=== PATIENT | female | born 1940 | race Caucasian/White ===

== ENCOUNTER 2019-12-25 19:22 | Inpatient (IN) | payer MEDICARE, SELFPAY ==
--- NOTE | 2019-12-25 19:31 | ECG_ITS ---
Test Reason : SEPTIC Blood Pressure : / mmHG Vent. Rate : 085 BPM Atrial Rate : 085 BPM P-R Int : 176 ms QRS Dur : 084 ms QT Int : 358 ms P-R-T Axes : 016 050 019 degrees QTc Int : 426 ms Normal sinus rhythm Voltage criteria for left ventricular hypertrophy Abnormal ECG When compared with ECG of 16-AUG-2018 10:40, Left ventricular hypertrophy is new Referred By: Stephanie Manuel Electronically Signed By:PALLAVI STEPHENS MD
--- NOTE | 2019-12-25 19:32 | US_ITS ---
EXAMINATION: US VENOUS DUPLEX LOWER EXTREMITY, RIGHT CLINICAL INFORMATION: Right leg swelling. COMPARISON: Prior ultrasound from 09/27/2019. Pelvis CT from 09/04/2018. TECHNIQUE: Grayscale imaging of the right lower extremity veins was performed, with and without compression, along with color Doppler and spectral Doppler interrogation. FINDINGS: The right common femoral vein is compressible and exhibits a normal phasic waveform; this suggests that the iliac veins are widely patent above. Right Within the proximal thigh, the visualized profunda femoris vein is normal. The examined greater saphenous vein and saphenofemoral junction are normal. Superficial femoral vein is patent in the proximal, mid and distal thigh. Popliteal vein is normal to the level of the trifurcation. On compression moreno scale and color Doppler images, the visualized calf veins are grossly patent. No evidence of Sidhu's cyst. In the right inguinal region, again noted is a prominent lymph node with fatty hilum. This lymph node is currently 1.2 cm in short axis dimension, compared to 1 cm on 09/04/2018. IMPRESSION: * No evidence of deep vein thrombosis in the right lower extremity. * A borderline enlarged right inguinal lymph node with fatty hilum is likely a reactive lymph node. There are no suspicious appearing lymph nodes.
[2019-12-25 19:33] VITALS: BP 127/82; BP 128/72; PULSE 90; PULSE 92; RESP 18; TEMP 37.2; O2SAT 100; O2SAT 98; BMI 19.3
--- NOTE | 2019-12-25 19:39 | PC.NURSE ---
LLE is red, open, weeping clear fluids. tender to touch but painless w/o touch. toes are swollen. reddness is throughout foot and up to lambert.
--- NOTE | 2019-12-25 19:49 | ED_ITS ---
HPI - Wound/Laceration General Chief Complaint: Extremity Injury, Lower Stated Complaint: ABCESS Time Seen by Provider: 12/25/19 19:31 Source: patient Mode of arrival: EMS Limitations: physical limitation History of Present Illness HPI narrative: 79-year-old female presents the emergency department because of swelling to the right lower extremity. She states the swelling has been chronic but the smell and the drainage from her foot is new. She has been putting plastic bags on her foot to control the weeping, and states that the smell is unbearable. She has not been able to ambulate around her house very much because of the drainage, she has not been able to eat or drink because she is not moving around. She did not describe any chest pain or pressure, palpitations, shortness of breath, abdominal pain, abdominal distention, dysuria, hematuria, fevers or chills. Onset (ago): day(s) ( Several) Extremity Location: right: lower leg Place: home Patient tetanus UTD: No Treatments prior to arrival: bandage Related Data Home Medications Medication Instructions Recorded Confirmed amlodipine 5 mg PO DAILY 12/25/19 12/25/19 ezetimibe-simvastatin [Vytorin 0.25 tab PO DAILY 12/25/19 12/25/19 10-10] lisinopril 40 mg PO DAILY 12/25/19 12/25/19 quetiapine [Seroquel] 50 mg PO BEDTIME 12/25/19 12/25/19 Allergies Allergy/AdvReac Type Severity Reaction Status Date / Time fentanyl [FENTANYL] Allergy Severe CARDIAC Verified 12/25/19 23:51 ARREST, heart stopped, anaphylaxis adhesive tape [ADHESIVE TAPE] Allergy Intermediate BLISTERS Verified 12/25/19 23:51 nickel Allergy Unknown Rash Uncoded 12/25/19 19:31 paper tape Allergy Unknown Rash Uncoded 12/25/19 19:31 Review of Systems Review of Systems: Constitutional: No Weight loss, No Fever, No Chills, No Night Sweats, No Fatigue, No Malaise ENT/Mouth: No Hearing loss, No Ear Pain, No Nasal Congestion, No Sinus Pain, No Hoarseness, No sore throat, No Rhinorrhea, No Swallowing Difficulty Eyes: No Eye Pain, No Swelling, No Redness, No Foreign Body, No Discharge, No Vision Changes Cardiovascular: No Chest Pain, No SOB, No Dyspnea on Exertion, No Orthopnea, No Edema, No Palpitations Respiratory: No Cough, No Sputum, No Wheezing, No Smoke Exposure, No Dyspnea Gastrointestinal: No Nausea, No Vomiting, No Diarrhea, No Constipation, No abdominal Pain, No Hematochezia, No Melena Genitourinary: no irregular bleeding, No Dysuria, No Urinary Frequency, No Hematuria, No Urinary Incontinence, No Urgency, No Flank Pain, No Urinary Flow Changes, No Hesitancy Musculoskeletal: No joint pain, No Myalgias, No Joint Swelling Skin: positive redness and open wound to the right lower leg Neuro: No Weakness, No Numbness, No Paresthesias, No Loss of Consciousness, No Dizziness, No Headache Psych: No Anxiety/Panic, No Depression, No SI/HI/AH/VH, No Social Issues, Heme/Lymph: No Bruising, No Bleeding,No Lymphadenopathy Endocrine: No Polyuria, No Polydipsia, No Temperature Intolerance PMFSH Past Medical History Attestation statement: The following information was validated with the patient. Medical History High cholesterol HTN (hypertension) Lymphedema Malignant tumor body uterus Surgical History History of hip replacement Social History Social History Household Members: None Housing: Apartment Do you presently have visiting nurse or other home services: No (pt is requesting to have services at home) Alcohol intake: never Smoking Status: Never smoker Use of substances other than those prescribed or required for medical reasons: No Have you been hit, kicked, punched, or otherwise hurt by someone within the past year? If so, by whom?: No Do you feel safe in your current relationship?: No Current Relationship Is there a partner from a previous relationship who is making you feel unsafe now?: No Are you made to feel afraid or neglected: No [employer] Healthcare Practices: buddhism Advance Directives: No Advance Directives Information Provided: Yes Do you have thoughts of harming others: None Do you have a plan to hurt others: No Plan Recently lost weight without trying: No Physical Exam Vital Signs: Vital Signs: Vital Signs Temp Pulse Resp BP Pulse Ox 12/25/19 23:42 99 16 147/75 H 98 12/25/19 21:25 97.6 F 94 18 128/73 98 12/25/19 20:32 98.9 F 91 16 140/73 H 97 12/25/19 19:33 99.0 F 92 18 127/82 98 Body Mass Index 19.3 Appearance: Alert. Oriented X3. No acute distress. Eyes: Pupils equal, round and reactive to light. ENT: Pharynx normal. Neck: Normal inspection. Neck supple. CVS: Normal heart rate and rhythm. Pulses normal. Respiratory: No respiratory distress. Breath sounds normal. Abdomen: Soft and nontender. Skin: right lower extremity swollen consistent with lymphedema, skin is erythematous with open weeping wounds circumferentially, skin to the other extremity warm and dry. Normal skin color. Normal skin turgor. Extremities: bilateral lower extremity edema, right greater than left Neuro: Oriented X 3. No motor deficit. No sensory deficit. Course Course Course Narrative: 79-year-old female with past medical history of hypertension, hyperlipidemia, and bilateral lower extremity edema presents with open wounds , weeping and increased swelling the right lower extremity. We will rule out DVT, infection, UTI, and ACS. H&H indicates anemia at 10.8/32.2, hyponatremia at 127., repleted with normal saline, BUN of 22 possibly due to dehydration. Urinalysis is negative,. DVT negative. Reevaluation(s) Reevaluation #1: Patient was updated on lab values and need for admission for wound care. Patient verbalized understanding of and agrees to plan of care for admission. Discussion with hospitalist. Time: 22:20 Consultations Consultation #1: Donnie Time: 22:33 MDM - Wound/Laceration MDM Narrative Medical decision making narrative: Cellulitis, lymphedema, DVT, ACS, UTI Differential Diagnosis Differential diagnosis: Likely abscess Medical Records Attestation: I reviewed the patient's medical records. Lab Data Attestation: I reviewed the patient's lab results. Result diagrams: 12/25/19 20:25 12/25/19 20:25 Labs: Lab Results 12/25/19 12/25/19 12/25/19 Range/Units 20:25 20:25 20:25 WBC 6.5 (4.8-10.8) X10*3/uL RBC 3.69 L (4.20-5.50) X10*6/uL Hgb 10.8 L (12.0-16.0) g/dl Hct 32.2 L (37-47) % MCV 87.3 (80-98) fL MCH 29.3 (27.0-33.0) pg MCHC 33.5 (31.0-35.0) g/dl RDW 13.5 (11.0-16.0) % Plt Count 188 (160-400) X10*3/uL MPV 10.3 (9.4-12.3) fL Immature Gran % (Auto) 0.2 (0.0-0.4) % Neut % (Auto) 59.2 (45-73) % Lymph % (Auto) 22.9 (20-40) % [place] % (Auto) 15.3 H (2-11) % Eos % (Auto) 1.9 (0-4) % Baso % (Auto) 0.5 (0-2) % Lymph # (Auto) 1.5 (1.2-4.9) X10*3/uL [place] # (Auto) 1.0 (0.1-1.2) X10*3/uL Eos # (Auto) 0.1 (0.0-0.4) X10*3/uL Baso # (Auto) 0.0 (0.0-0.2) X10*3/uL Abs Immat Gran (auto) 0.01 (0.00-0.03) X10*3/uL Absolute Neuts (auto) 3.8 (2.0-8.3) X10*3/uL Absolute Nucleated RBC 0.000 (0.0-0.012) X10*3/uL Nucleated RBC % (auto) 0.0 (0.0-0.2) /100WBC Smear Tech's Comments VERIFIED Sodium 127 L (135-145) mmol/L Potassium 4.2 (3.3-5.1) mmol/l Chloride 92 L (96-108) mmol/L Carbon Dioxide 25 (22-29) mmol/L Anion Gap 14 (12-20) BUN 22 H (9-16) mg/dL Creatinine 0.74 (0.5-1.4) mg/dL Estim Creat Clear Calc 53.8 Estimated GFR > 60 Random Glucose 96 (60-115) mg/dL Lactic Acid 1.1 (0.5-2.0) mmol/L Calcium 9.0 (8.4-10.2) mg/dL Magnesium 1.9 (1.6-2.6) mg/dL Troponin I High Sens (<3.5-17.0) ng/L B-Natriuretic Peptide (<100) pg/mL Urine Color Urine Appearance Urine pH (5.0-8.0) Ur Specific [place] (1.005-1.025) Urine Protein (NEG-TRACE) MG/DL Urine Glucose (UA) (NEG) MG/DL Urine Ketones (NEG) MG/DL Urine Blood (NEG) Urine Nitrite (NEG) Ur Leukocyte Esterase (NEG) 12/25/19 12/25/19 12/25/19 Range/Units 20:25 20:25 22:12 WBC (4.8-10.8) X10*3/uL RBC (4.20-5.50) X10*6/uL Hgb (12.0-16.0) g/dl Hct (37-47) % MCV (80-98) fL MCH (27.0-33.0) pg MCHC (31.0-35.0) g/dl RDW (11.0-16.0) % Plt Count (160-400) X10*3/uL MPV (9.4-12.3) fL Immature Gran % (Auto) (0.0-0.4) % Neut % (Auto) (45-73) % Lymph % (Auto) (20-40) % [place] % (Auto) (2-11) % Eos % (Auto) (0-4) % Baso % (Auto) (0-2) % Lymph # (Auto) (1.2-4.9) X10*3/uL [place] # (Auto) (0.1-1.2) X10*3/uL Eos # (Auto) (0.0-0.4) X10*3/uL Baso # (Auto) (0.0-0.2) X10*3/uL Abs Immat Gran (auto) (0.00-0.03) X10*3/uL Absolute Neuts (auto) (2.0-8.3) X10*3/uL Absolute Nucleated RBC (0.0-0.012) X10*3/uL Nucleated RBC % (auto) (0.0-0.2) /100WBC Smear Tech's Comments Sodium (135-145) mmol/L Potassium (3.3-5.1) mmol/l Chloride (96-108) mmol/L Carbon Dioxide (22-29) mmol/L Anion Gap (12-20) BUN (9-16) mg/dL Creatinine (0.5-1.4) mg/dL Estim Creat Clear Calc Estimated GFR Random Glucose (60-115) mg/dL Lactic Acid (0.5-2.0) mmol/L Calcium (8.4-10.2) mg/dL Magnesium (1.6-2.6) mg/dL Troponin I High Sens < 3.5 (<3.5-17.0) ng/L B-Natriuretic Peptide 29 (<100) pg/mL Urine Color STRAW Urine Appearance CLEAR Urine pH 7.0 (5.0-8.0) Ur Specific [place] 1.010 (1.005-1.025) Urine Protein NEG (NEG-TRACE) MG/DL Urine Glucose (UA) NEG (NEG) MG/DL Urine Ketones NEG (NEG) MG/DL Urine Blood NEG (NEG) Urine Nitrite NEG (NEG) Ur Leukocyte Esterase NEG (NEG) Imaging Data Venous US: Attestation: I personally reviewed and interpreted this imaging study as follows: Radiologist's impression: COMPARISON: Prior ultrasound from 09/27/2019. Pelvis CT from 09/04/2018. TECHNIQUE: Grayscale imaging of the right lower extremity veins was performed, with and without compression, along with color Doppler and spectral Doppler interrogation. FINDINGS: The right common femoral vein is compressible and exhibits a normal phasic waveform; this suggests that the iliac veins are widely patent above. Right Within the proximal thigh, the visualized profunda femoris vein is normal. The examined greater saphenous vein and saphenofemoral junction are normal. Superficial femoral vein is patent in the proximal, mid and distal thigh. Popliteal vein is normal to the level of the trifurcation. On compression moreno scale and color Doppler images, the visualized calf veins are grossly patent. No evidence of Sidhu's cyst. In the right inguinal region, again noted is a prominent lymph node with fatty hilum. This lymph node is currently 1.2 cm in short axis dimension, compared to 1 cm on 09/04/2018. IMPRESSION: * No evidence of deep vein thrombosis in the right lower extremity. * A borderline enlarged right inguinal lymph node with fatty hilum is likely a reactive lymph node. There are no suspicious appearing lymph nodes. ECG Data Attestation: I personally reviewed and interpreted this ECG as follows: ECG interpretation date: 12/25/19 ECG interpretation time: 19:35 Prior ECG tracings: available for review Interpretation: Vent. Rate : 085 BPM Atrial Rate : 085 BPM P-R Int : 176 ms QRS Dur : 084 ms QT Int : 358 ms P-R-T Axes : 016 050 019 degrees QTc Int : 426 ms Normal sinus rhythm Voltage criteria for left ventricular hypertrophy Abnormal ECG When compared with ECG of 16-AUG-2018 10:40, No significant change was found Critical Care Time Critical Care Time Critical Care Time: Yes Total Critical Care Time: 35 Attestation: I have personally provided critical care time exclusive of time spent on separately billable procedures. Time includes review of laboratory data, radiology results, discussion with consultants, and monitoring for potential decompensation. Interventions were performed as documented. Discharge Plan Discharge Clinical Impression: Hyponatremia Cellulitis Qualifiers: Site of cellulitis: extremity Site of cellulitis of extremity: lower extremity Laterality: right Qualified Code(s): L03.115 - Cellulitis of right lower limb HTN (hypertension) Qualifiers: Hypertension type: essential hypertension Qualified Code(s): I10 - Essential (primary) hypertension Patient Disposition: Admitted As Inpatient Interventions: Admission Worksheet (ED) Last Done: 12/26/19 02:09
[2019-12-25 20:32] VITALS: BP 140/73; PULSE 91; RESP 16; TEMP 37.2; O2SAT 97
[2019-12-25 20:32] LABS: Imm Gran Abs Auto 0.01 X10*3/uL (0.00-0.03); Imm Gran Pct Auto 0.2 % (0.0-0.4); MANUAL DIFF FLAG SCAN; Mean Platelet Volume 10.3 fL (9.4-12.3); Monocytes Percent Auto 15.3 % (2-11); PLT CLUMP 1; Red Cell Distribution Width 13.5 % (11.0-16.0); SCAN SMEAR FLAG 1
[2019-12-25 20:34] LABS: Basophils Percent Auto 0.5 % (0-2); Eosinophils Absolute Auto 0.1 X10*3/uL (0.0-0.4); Eosinophils Percent Auto 1.9 % (0-4); Hematocrit 32.2 % (37-47); Hemoglobin 10.8 g/dl (12.0-16.0); Lymphocytes Absolute Auto 1.5 X10*3/uL (1.2-4.9); Lymphocytes Percent Auto 22.9 % (20-40); Mean Corpuscular HGB Conc 33.5 g/dl (31.0-35.0); Mean Corpuscular Hemoglobin 29.3 pg (27.0-33.0); Mean Corpuscular Volume 87.3 fL (80-98); Neutrophils Absolute Auto 3.8 X10*3/uL (2.0-8.3); Neutrophils Percent Auto 59.2 % (45-73); Platelet Count 188 X10*3/uL (160-400); Red Blood Count 3.69 X10*6/uL (4.20-5.50); White Blood Count 6.5 X10*3/uL (4.8-10.8)
[2019-12-25 20:50] LABS: Lactic Acid 1.1 mmol/L (0.5-2.0)
[2019-12-25 20:55] LABS: Magnesium 1.9 mg/dL (1.6-2.6); SLIDE REVIEW VERIFIED
[2019-12-25 20:58] LABS: B Type Natriuretic Peptide 29 pg/mL (<100); Troponin-I High Sensitivity < 3.5 ng/L (<3.5-17.0)
[2019-12-25] MEDS: cefTRIAXone sodium 1 GM in 0.9 % Sodium Chloride 50 ML IV (21:23)
[2019-12-25 21:25] VITALS: BP 128/73; PULSE 94; RESP 18; TEMP 36.4; O2SAT 98
[2019-12-25 22:08] LABS: Anion Gap 14 (12-20); Blood Urea Nitrogen 22 mg/dL (9-16); Carbon Dioxide 25 mmol/L (22-29); Chloride 92 mmol/L (96-108); Creatinine Clr Calc Pharmacy 53.8; Estimated Glomerular Filt Rate > 60; Glucose Random 96 mg/dL (60-115); Potassium 4.2 mmol/l (3.3-5.1); Sodium 127 mmol/L (135-145)
[2019-12-25 22:18] LABS: Appearance Urine CLEAR; Color Urine STRAW; Glucose Urine UA NEG (NEG); Leukocyte Esterase Urine NEG (NEG); Nitrite Urine NEG (NEG); Urine Blood NEG (NEG); Urine Ketones NEG (NEG); Urine Protein NEG (NEG-TRACE)
[2019-12-25 23:42] VITALS: BP 147/75; PULSE 99; RESP 16; O2SAT 98
[2019-12-25] MEDS: 0.9 % Sodium Chloride 1,000 ML 999 ML IVCONT (23:59)
[2019-12-26] VITALS (13 sets, daily range): BP systolic 123–166; BP diastolic 63–88; PULSE 72–107; RESP 16–20; TEMP 36.3–37.1; O2SAT 92–97
[2019-12-26] MEDS: vancomycin HCL 750 MG in 0.9 % Sodium Chloride 250 ML 265 MG IV
--- NOTE | 2019-12-26 00:01 | PM.IMHP ---
History of Present Illness Date of Service: 12/25/19 Chief Complaint: Leg redness and pain 79-year-old female with past medical history of hypertension , chronic hyponatremia,and recurrent right lower extremity cellulitis /venous stasis who presents to the hospital complaining of right lower extremity redness, weeping, and malodorous discharge. Patient reports that the symptoms started few days ago, the weeping started about 1-2 days ago, was so severe that she had to wrap a plastic bag around the wound to stop the order as well as the drooping getting everywhere. Patient reports no fever or chills, she reports that she has tenderness in that area and noticed swelling and redness. She has no chest pain shortness of breath, no abdominal pain nausea or vomiting, no diarrhea, she has chronic constipation, no urinary symptoms. On arrival to the ED hemodynamically stable with no significant abnormal vitals. labs are significant for a sodium of 127: ( runs around 133), otherwise unremarkable venous Dopplers negative for patient D venous thrombosis patient will be admitted for management of cellulitis past medical history: Hypertension, chronic hyponatremia, recurrent right lower extremity cellulitis, hyperlipidemia past surgical history: hip replacement, uterine tumor removal family history: unknown social history: Comes from home, uses a wheeled walker to ambulate, denies tobacco alcohol or illicit drugs Review of Systems Review of Systems: Yes all other systems are reviewed and are negative [facility] Medical History High cholesterol HTN (hypertension) Lymphedema Malignant tumor body uterus Surgical History History of hip replacement Social History Alcohol intake: never Smoking Status: Never smoker Use of substances other than those prescribed or required for medical reasons: No Advance Directives: No Advance Directives Information Provided: Yes Meds Allergies Allergy/AdvReac Type Severity Reaction Status Date / Time fentanyl [FENTANYL] Allergy Severe CARDIAC Verified 12/25/19 23:51 ARREST, heart stopped, anaphylaxis adhesive tape [ADHESIVE TAPE] Allergy Intermediate BLISTERS Verified 12/25/19 23:51 nickel Allergy Unknown Rash Uncoded 12/25/19 19:31 paper tape Allergy Unknown Rash Uncoded 12/25/19 19:31 Home Medications Medication Instructions Recorded Confirmed Type amlodipine 5 mg PO DAILY 12/25/19 12/25/19 History ezetimibe-simvastatin [Vytorin 0.25 tab PO DAILY 12/25/19 12/25/19 History 10-10] lisinopril 40 mg PO DAILY 12/25/19 12/25/19 History quetiapine [Seroquel] 50 mg PO BEDTIME 12/25/19 12/25/19 History Physical Exam Vital Signs and Narrative: Vital Signs: Last Vital Signs Temp 97.6 F 12/25/19 21:25 Pulse 99 12/25/19 23:42 Resp 16 12/25/19 23:42 BP 147/75 H 12/25/19 23:42 Pulse Ox 98 12/25/19 23:42 Body Mass Index 19.3 Const: General: cooperative and no acute distress Orientation/consciousness: patient oriented x3 Eyes: General: appearance normal, both eyes and all related structures Pupils: Equal, round and reactive pupils present Resp: Effort & Inspection: normal respiratory effort and able to speak in complete sentences Auscultation: clear to auscultation bilaterally Cardio: Rate: regular rate Rhythm: regular rhythm GI: Palpation (GI): Soft to palpation Auscultation: normal bowel sounds Skin: General skin exam: no rashes or lesions noted Neuro: General: patient oriented x3 Cranial nerves: Yes Equal, round and reactive pupils present Cognition (Neuro): normal cognition Extrem: General: Yes normal to inspection and Yes no pedal edema Results Labs Labs: Laboratory Tests 12/25/19 12/25/19 12/25/19 20:25 20:25 20:25 WBC 6.5 RBC 3.69 L Hgb 10.8 L Hct 32.2 L MCV 87.3 MCH 29.3 MCHC 33.5 RDW 13.5 Plt Count 188 MPV 10.3 Immature Gran % (Auto) 0.2 Neut % (Auto) 59.2 Lymph % (Auto) 22.9 [place] % (Auto) 15.3 H Eos % (Auto) 1.9 Baso % (Auto) 0.5 Lymph # (Auto) 1.5 [place] # (Auto) 1.0 Eos # (Auto) 0.1 Baso # (Auto) 0.0 Abs Immat Gran (auto) 0.01 Absolute Neuts (auto) 3.8 Absolute Nucleated RBC 0.000 Nucleated RBC % (auto) 0.0 Smear Tech's Comments VERIFIED Sodium 127 L Potassium 4.2 Chloride 92 L Carbon Dioxide 25 Anion Gap 14 BUN 22 H Creatinine 0.74 Estim Creat Clear Calc 53.8 Estimated GFR > 60 Random Glucose 96 Lactic Acid 1.1 Calcium 9.0 Magnesium 1.9 Troponin I High Sens B-Natriuretic Peptide Urine Color Urine Appearance Urine pH Ur Specific [place] Urine Protein Urine Glucose (UA) Urine Ketones Urine Blood Urine Nitrite Ur Leukocyte Esterase 12/25/19 12/25/19 12/25/19 20:25 20:25 22:12 WBC RBC Hgb Hct MCV MCH MCHC RDW Plt Count MPV Immature Gran % (Auto) Neut % (Auto) Lymph % (Auto) [place] % (Auto) Eos % (Auto) Baso % (Auto) Lymph # (Auto) [place] # (Auto) Eos # (Auto) Baso # (Auto) Abs Immat Gran (auto) Absolute Neuts (auto) Absolute Nucleated RBC Nucleated RBC % (auto) Smear Tech's Comments Sodium Potassium Chloride Carbon Dioxide Anion Gap BUN Creatinine Estim Creat Clear Calc Estimated GFR Random Glucose Lactic Acid Calcium Magnesium Troponin I High Sens < 3.5 B-Natriuretic Peptide 29 Urine Color STRAW Urine Appearance CLEAR Urine pH 7.0 Ur Specific [place] 1.010 Urine Protein NEG Urine Glucose (UA) NEG Urine Ketones NEG Urine Blood NEG Urine Nitrite NEG Ur Leukocyte Esterase NEG Assessment and Plan (1) Cellulitis: Status: Acute (2) Hyponatremia: Status: Acute (3) HTN (hypertension): Status: Acute this is a 79-year-old female who presents to the hospital with cellulitis of lower extremity edema # cellulitis of right lower extremity - has erythema, tenderness, swelling, and malodorous discharge plan: - Given the discharge was started on vancomycin, obtain wound culture, follow blood cultures # hyponatremia - patient reports that she is chronically hyponatremic, last sodium was 133, today's sodium is 127 plan: - Will start her on NS 75 cc/hour - follow BMP daily # hypertension - stable - continue home medication DVT prophylaxis: Lovenox date of service 12/26/2019
--- NOTE | 2019-12-26 02:31 | PC.NURSE ---
pts right lower extremity is weeping minimal amount of bloody drainage, lower right extremity erythemema, and tender to the touch, positive pedal pulses bilaterally, pt is able to bear weight on both lower extremities, ABD pads applied to lower right leg secured with curlex wrap, pt has been aware of plan of care, saftey measures are in place will cont to monitor and assess.
--- NOTE | 2019-12-26 02:31 | PC.NURSE ---
report was given to rn on floor by ED RN at RN station of 4th floor. Forgot to call report prior to transport, escorted pt to floor.
[2019-12-26] MEDS: Enoxaparin Sodium 30 MG/0.3 ML SYRINGE SUBCUT (02:43)
[2019-12-26] MEDS: 0.9 % Sodium Chloride Flush 3 ML SYRINGE IVFLUSH ×4 (02:43→20:33)
[2019-12-26] MEDS: 0.9 % Sodium Chloride 1,000 ML 75 ML IVCONT (02:44)
[2019-12-26] MEDS: oxyCODONE HCl Immed Release 5 MG TABLET PO ×3 (03:01→16:28)
[2019-12-26] MEDS: Morphine Sulfate 4 MG/ML CARTRIDGE IVPUSH (04:26)
[2019-12-26 06:23] LABS: MANUAL DIFF FLAG NO
[2019-12-26 06:50] LABS: Basophils Percent Auto 0.5 % (0-2); Eosinophils Absolute Auto 0.1 X10*3/uL (0.0-0.4); Eosinophils Percent Auto 1.4 % (0-4); Hematocrit 30.8 % (37-47); Hemoglobin 10.5 g/dl (12.0-16.0); Imm Gran Abs Auto 0.02 X10*3/uL (0.00-0.03); Imm Gran Pct Auto 0.4 % (0.0-0.4); Lymphocytes Absolute Auto 1.3 X10*3/uL (1.2-4.9); Lymphocytes Percent Auto 22.9 % (20-40); Mean Corpuscular HGB Conc 34.1 g/dl (31.0-35.0); Mean Corpuscular Hemoglobin 29.6 pg (27.0-33.0); Mean Corpuscular Volume 86.8 fL (80-98); Mean Platelet Volume 11.1 fL (9.4-12.3); Monocytes Absolute Auto 0.8 X10*3/uL (0.1-1.2); Monocytes Percent Auto 14.2 % (2-11); Neutrophils Absolute Auto 3.4 X10*3/uL (2.0-8.3); Neutrophils Percent Auto 60.6 % (45-73); Platelet Count 189 X10*3/uL (160-400); Red Blood Count 3.55 X10*6/uL (4.20-5.50); Red Cell Distribution Width 13.2 % (11.0-16.0); White Blood Count 5.6 X10*3/uL (4.8-10.8)
[2019-12-26 07:12] LABS: Anion Gap 11 (12-20); Blood Urea Nitrogen 14 mg/dL (9-16); Carbon Dioxide 27 mmol/L (22-29); Chloride 98 mmol/L (96-108); Creatinine Clr Calc Pharmacy 63.2; Estimated Glomerular Filt Rate > 60; Glucose Random 102 mg/dL (60-115); Potassium 3.9 mmol/l (3.3-5.1); Sodium 132 mmol/L (135-145)
[2019-12-26 07:27] LABS: Calcium 8.2 mg/dL (8.4-10.2)
[2019-12-26] MEDS: lisinopriL 40 MG TABLET PO (09:32)
[2019-12-26] MEDS: amLODIPine Besylate 5 MG TABLET PO (09:34)
--- NOTE | 2019-12-26 13:43 | MHC.CM.PN ---
met with pt who explins that she was receiving mow and homemaker services prior to admission she feels she would benefit from a vna when dcd
[2019-12-26] MEDS: Zinc Oxide 20% Ointment 28.35 GM TUBE 1 APPL TOPICAL (18:13)
[2019-12-26] MEDS: QUEtiapine Fumarate 50 MG TABLET PO (20:33)
[2019-12-26] MEDS: polyethylene glycoL 3350 17 GM POWD.PACK PO (20:33)
[2019-12-27] VITALS (8 sets, daily range): BP systolic 103–158; BP diastolic 56–89; PULSE 74–101; RESP 16–20; TEMP 36.2–37; O2SAT 95–99
[2019-12-27] MEDS: Enoxaparin Sodium 30 MG/0.3 ML SYRINGE SUBCUT (01:06)
[2019-12-27] MEDS: oxyCODONE HCl Immed Release 5 MG TABLET PO ×4 (02:18→20:36)
[2019-12-27 06:33] LABS: MANUAL DIFF FLAG NO
[2019-12-27 06:56] LABS: Basophils Percent Auto 0.7 % (0-2); Eosinophils Absolute Auto 0.1 X10*3/uL (0.0-0.4); Eosinophils Percent Auto 3.3 % (0-4); Hemoglobin 9.6 g/dl (12.0-16.0); Imm Gran Abs Auto 0.01 X10*3/uL (0.00-0.03); Imm Gran Pct Auto 0.2 % (0.0-0.4); Lymphocytes Absolute Auto 1.8 X10*3/uL (1.2-4.9); Lymphocytes Percent Auto 41.1 % (20-40); Mean Corpuscular HGB Conc 34.3 g/dl (31.0-35.0); Mean Corpuscular Hemoglobin 29.5 pg (27.0-33.0); Mean Corpuscular Volume 86.2 fL (80-98); Mean Platelet Volume 11.6 fL (9.4-12.3); Monocytes Absolute Auto 0.8 X10*3/uL (0.1-1.2); Monocytes Percent Auto 18.1 % (2-11); Neutrophils Absolute Auto 1.6 X10*3/uL (2.0-8.3); Neutrophils Percent Auto 36.6 % (45-73); Platelet Count 171 X10*3/uL (160-400); Red Blood Count 3.25 X10*6/uL (4.20-5.50); Red Cell Distribution Width 13.5 % (11.0-16.0); White Blood Count 4.3 X10*3/uL (4.8-10.8)
[2019-12-27 07:18] LABS: Alanine Aminotransferase 55 U/L (0-31); Alkaline Phosphatase 134 U/L (39-117); Anion Gap 9 (12-20); Aspartate Amino Transferase 75 U/L (5-31); Bilirubin Direct 0.2 mg/dL (0.0-0.5); Bilirubin Total 0.5 mg/dL (0.0-1.0); Blood Urea Nitrogen 18 mg/dL (9-16); Calcium 8.2 mg/dL (8.4-10.2); Carbon Dioxide 26 mmol/L (22-29); Chloride 102 mmol/L (96-108); Creatinine Clr Calc Pharmacy 61.3; Estimated Glomerular Filt Rate > 60; Glucose Fasting 89 mg/dL (60-99); Potassium 4.1 mmol/l (3.3-5.1); Sodium 133 mmol/L (135-145); Total Protein 5.8 g/dL (6.5-8.0)
--- NOTE | 2019-12-27 08:27 | P.CONGS_ITS ---
History of Present Illness Consult details Consult date: 12/26/19 Reason for consult: other (cellulitis of leg and skin edema) Requesting physician: Trevor Fields Review of Systems Review of Systems: Yes all other systems are reviewed and are negative [facility] Past Medical History Medical History High cholesterol HTN (hypertension) Lymphedema Malignant tumor body uterus Pulmonary embolism Surgical History Surgical History History of hip replacement Social History Social History Household Members: None Housing: Apartment Do you presently have visiting nurse or other home services: No (pt is requesting to have services at home) Alcohol intake: former Smoking Status: Never smoker Use of substances other than those prescribed or required for medical reasons: No Currently Displaying Signs/Symptoms of Drug Intoxication Withdrawal: No Have you been hit, kicked, punched, or otherwise hurt by someone within the past year? If so, by whom?: No Do you feel safe in your current relationship?: No Current Relationship Is there a partner from a previous relationship who is making you feel unsafe now?: No Are you made to feel afraid or neglected: No [employer] Healthcare Practices: roman catholic Advance Directives: No Advance Directives Information Provided: Yes Do you have thoughts of harming others: None Do you have a plan to hurt others: No Plan Recently lost weight without trying: No service: No Meds Allergies Allergy/AdvReac Type Severity Reaction Status Date / Time fentanyl [FENTANYL] Allergy Severe CARDIAC Verified 12/25/19 23:51 ARREST, heart stopped, anaphylaxis adhesive tape [ADHESIVE TAPE] Allergy Intermediate BLISTERS Verified 12/25/19 23:51 nickel Allergy Unknown Rash Uncoded 12/25/19 19:31 paper tape Allergy Unknown Rash Uncoded 12/25/19 19:31 Home Medications Medication Instructions Recorded Confirmed Type amlodipine 5 mg PO DAILY 12/25/19 12/26/19 History ezetimibe-simvastatin [Vytorin 0.25 tab PO DAILY 12/25/19 12/26/19 History 10-10] lisinopril 40 mg PO DAILY 12/25/19 12/26/19 History quetiapine [Seroquel] 50 mg PO BEDTIME 12/25/19 12/26/19 History aspirin 81 mg PO DAILY 12/26/19 12/26/19 History docosahexaenoic acid-epa [Fish Oil 1 cap PO DAILY 12/26/19 12/26/19 History (with [facility]-EPA)] multivitamin 1 tab PO DAILY 12/26/19 12/26/19 History polyethylene glycol 17 g 12/26/19 History tramadol 50 mg PO TID PRN 12/26/19 12/26/19 History Physical Exam Vital Signs: Vital Signs: Vital Signs Temp Pulse Resp BP Pulse Ox 12/27/19 07:56 97.1 F 81 16 134/64 95 12/27/19 04:00 98.6 F 74 18 130/66 95 12/26/19 23:48 98.6 F 97 20 131/63 95 12/26/19 19:35 98.6 F 92 18 149/70 H 97 12/26/19 17:25 16 12/26/19 16:00 97.7 F 72 16 134/68 94 12/26/19 12:00 98.1 F 86 18 129/75 97 12/26/19 10:30 18 12/26/19 09:34 86 134/65 12/26/19 09:32 74 132/74 Body Mass Index 19.3 Const: General: cooperative, healthy appearing and comfortable HENMT: Head: Yes normal to inspection and Yes atraumatic Skin: Other: the left leg is relatively normal the right leg edemtous and swollen and larger than left. the lower leg area has some dressings which are stuck in some areas where there is some open skin breakdown and the area was draining. skin is slightly discolored but no evident cellulitis as compared before. Nails: other Results Labs Result diagrams: 12/27/19 05:21 12/27/19 05:21 Labs: Abnormal lab results 12/27/19 12/27/19 Range/Units 05:21 05:21 WBC 4.3 L (4.8-10.8) X10*3/uL RBC 3.25 L (4.20-5.50) X10*6/uL Hgb 9.6 L (12.0-16.0) g/dl Hct 28.0 L (37-47) % Neut % (Auto) 36.6 L (45-73) % Lymph % (Auto) 41.1 H (20-40) % [place] % (Auto) 18.1 H (2-11) % Absolute Neuts (auto) 1.6 L (2.0-8.3) X10*3/uL Sodium 133 L (135-145) mmol/L Anion Gap 9 L (12-20) BUN 18 H (9-16) mg/dL Calcium 8.2 L (8.4-10.2) mg/dL AST 75 H (5-31) U/L ALT 55 H (0-31) U/L Alkaline Phosphatase 134 H (39-117) U/L Total Protein 5.8 L (6.5-8.0) g/dL Albumin 3.0 L (3.5-5.0) g/dL Short CBC 12/27/19 Range/Units 05:21 WBC 4.3 L (4.8-10.8) X10*3/uL Hgb 9.6 L (12.0-16.0) g/dl Hct 28.0 L (37-47) % Plt Count 171 (160-400) X10*3/uL BMP 12/27/19 05:21 Sodium 133 L Potassium 4.1 Chloride 102 Carbon Dioxide 26 BUN 18 H Creatinine 0.65 Calcium 8.2 L Liver Function 12/27/19 Range/Units 05:21 Total Bilirubin 0.5 (0.0-1.0) mg/dL Direct Bilirubin 0.2 (0.0-0.5) mg/dL AST 75 H (5-31) U/L ALT 55 H (0-31) U/L Alkaline Phosphatase 134 H (39-117) U/L Albumin 3.0 L (3.5-5.0) g/dL Urine 12/25/19 Range/Units 22:12 Urine Color STRAW Urine Appearance CLEAR Urine pH 7.0 (5.0-8.0) Ur Specific [place] 1.010 (1.005-1.025) Urine Protein NEG (NEG-TRACE) MG/DL Urine Glucose (UA) NEG (NEG) MG/DL All other labs normal. Assessment and Plan (1) Cellulitis: Qualifiers: Laterality: right Site of cellulitis: extremity Site of cellulitis of extremity: lower extremity Qualified Code(s): L03.115 - Cellulitis of right lower limb Problem details: pt with left lower leg swelling - ? etiology - ro dvt, pt with fluid overload in leg, diuretics as needed, may have a lymphedema component as so unilateral. no significant open wounds and less weeping of fluid. recommend barrier cream to the leg with raw areas and wrap. pt will need baseline compression. in hospital can do dorian bandages - start at foot and do 4 inch and move upto 6 inch at leg to just below knee pt may benefit from juxtalight compression garment to the right lower leg if still has open wound can be seen in wound care clinic on discharge. cont antibx for cellulitis and cont with medical management as per hospitalist team. Status: Acute
[2019-12-27] MEDS: amLODIPine Besylate 5 MG TABLET PO (09:19)
[2019-12-27] MEDS: 0.9 % Sodium Chloride Flush 3 ML SYRINGE IVFLUSH ×3 (09:19→20:37)
[2019-12-27] MEDS: lisinopriL 40 MG TABLET PO (09:19)
--- NOTE | 2019-12-27 11:03 | HO.PM.IMPN ---
Subjective Subjective Date of Service: 12/27/19 Interval History: no changes Cardiovascular Cardiovascular: Reports no additional cardiovascular complaints Respiratory Respiratory: Reports no additional respiratory complaints Physical Exam Vital Signs: Vital Signs: Vital Signs Temp Pulse Resp BP Pulse Ox 12/27/19 10:15 18 12/27/19 09:19 81 134/64 12/27/19 07:56 97.1 F 81 16 134/64 95 12/27/19 04:00 98.6 F 74 18 130/66 95 12/26/19 23:48 98.6 F 97 20 131/63 95 12/26/19 19:35 98.6 F 92 18 149/70 H 97 12/26/19 17:25 16 12/26/19 16:00 97.7 F 72 16 134/68 94 12/26/19 12:00 98.1 F 86 18 129/75 97 Body Mass Index 19.3 General: AO X 3, no acute distress Resp: CTA bilateral CVS: S1,S2,RRR GI: soft, non tender, non distended Neuro: motor grossly intact Psych: appropriate affect SKIN: rLE swelling, erythema, ulcers Objective Data Current Medications Generic Name Dose Route Start Last Admin Trade Name Freq PRN Reason Stop Dose Admin Acetaminophen 650 mg 12/26/19 01:42 Acetaminophen 325 Mg Tablet PO Q6H PRN Pain, Mild (Pain Scale 1-3) Amlodipine Besylate 5 mg 12/26/19 09:00 12/27/19 09:19 Amlodipine Besylate 5 Mg Tablet PO 5 mg DAILY HANY Administration Protocol Docusate Sodium 100 mg 12/26/19 01:42 Docusate Sodium 100 Mg Capsule PO DAILY PRN Constipation Enoxaparin Sodium 30 mg 12/26/19 01:42 12/27/19 01:06 Enoxaparin Sodium 30 Mg/0.3 Ml Syringe SUBCUT 30 mg Q24H HANY Administration Lisinopril 40 mg 12/26/19 09:00 12/27/19 09:19 Lisinopril 40 Mg Tablet PO 40 mg DAILY HANY Administration Protocol Ondansetron HCl 4 mg 12/26/19 01:42 Ondansetron Hcl 4 Mg/2 Ml Vial IVPUSH Q8H PRN Nausea and Vomiting Oxycodone HCl 5 mg 12/26/19 02:45 12/27/19 09:19 Oxycodone Hcl Immed Release 5 Mg Tablet PO 5 mg Q6H PRN Administration Pain, Severe (Pain Scale 7-10) Pharmacy Consult 1 each 12/25/19 22:30 Consult Rx Perform Med Rec MISCELLANE ONCE PRN Consult order Polyethylene Glycol 17 gm 12/26/19 20:00 12/26/19 20:33 Polyethylene Glycol 3350 17 Gm Powd.Pack PO 17 gm DAILY PRN Administration Constipation Quetiapine Fumarate 50 mg 12/26/19 21:00 12/26/19 20:33 Quetiapine Fumarate 50 Mg Tablet PO 50 mg BEDTIME HANY Administration Sodium Chloride 3 ml 12/26/19 01:42 12/27/19 09:19 0.9 % Sodium Chloride Flush 3 Ml Syringe IVFLUSH 3 ml QSHIFT HANY Administration Vancomycin HCl 750 mg 12/26/19 01:42 12/27/19 01:06 Vancomycin Hcl 750 Mg/15 Ml Vial IV 750 mg Q24H HANY Administration Labs CBC & Chem 7: 12/27/19 05:21 12/27/19 05:21 Microbiology Microbiology Results: Microbiology 12/25/19 20:37 Blood - Venous Blood Culture - Preliminary No growth after 24 hours. 12/25/19 20:25 Blood - Venous Blood Culture - Preliminary No growth after 24 hours. Assessment and Plan (1) Antimitochondrial antibody positive: Status: Acute (2) Cellulitis: Problem details: pt with left lower leg swelling - ? etiology - ro dvt, pt with fluid overload in leg, diuretics as needed, may have a lymphedema component as so unilateral. no significant open wounds and less weeping of fluid. recommend barrier cream to the leg with raw areas and wrap. pt will need baseline compression. in hospital can do dorian bandages - start at foot and do 4 inch and move upto 6 inch at leg to just below knee pt may benefit from juxtalight compression garment to the right lower leg if still has open wound can be seen in wound care clinic on discharge. cont antibx for cellulitis and cont with medical management as per hospitalist team. Status: Acute (3) Lymphedema: Status: Acute Assessment and Plan: 79F presented with RLE cellulitis cellulitis in setting of RLE lymphedema wound care appreciated continue with iv antibiotics local care outpatient wound care follow up fatty liver reports 1 year soberiety also positive antimitochondrial ab outpatient gi follow up htn lisinopril amlodiipine
--- NOTE | 2019-12-27 12:04 | MHC.CM.PN ---
CM met with patient who reports she does not have any family support and lives alone. Discussed discharge plan and safety in the home when discharged. patient is agreeable to [facility] referrals. Referrals made to [facility], and [facility]. CM will continue to follow for discharge needs.
[2019-12-27] MEDS: QUEtiapine Fumarate 50 MG TABLET PO (20:36)
[2019-12-28] VITALS: BP 113/63; PULSE 86; RESP 18; TEMP 36.6; O2SAT 96
[2019-12-28] MEDS: Enoxaparin Sodium 30 MG/0.3 ML SYRINGE SUBCUT (00:43)
[2019-12-28 02:58] VITALS: BP 132/73; PULSE 96; RESP 18; TEMP 36.2; O2SAT 96
[2019-12-28 04:00] VITALS: BP 132/73; PULSE 96; RESP 18; TEMP 36.2; O2SAT 96
[2019-12-28 06:33] LABS: MANUAL DIFF FLAG NO
[2019-12-28 06:54] LABS: Basophils Percent Auto 0.9 % (0-2); Eosinophils Absolute Auto 0.3 X10*3/uL (0.0-0.4); Eosinophils Percent Auto 5.8 % (0-4); Hematocrit 27.9 % (37-47); Hemoglobin 9.7 g/dl (12.0-16.0); Imm Gran Abs Auto 0.01 X10*3/uL (0.00-0.03); Imm Gran Pct Auto 0.2 % (0.0-0.4); Lymphocytes Absolute Auto 1.7 X10*3/uL (1.2-4.9); Lymphocytes Percent Auto 40.2 % (20-40); Mean Corpuscular HGB Conc 34.8 g/dl (31.0-35.0); Mean Corpuscular Hemoglobin 29.8 pg (27.0-33.0); Mean Corpuscular Volume 85.8 fL (80-98); Mean Platelet Volume 11.4 fL (9.4-12.3); Monocytes Absolute Auto 0.8 X10*3/uL (0.1-1.2); Monocytes Percent Auto 17.4 % (2-11); Neutrophils Absolute Auto 1.5 X10*3/uL (2.0-8.3); Neutrophils Percent Auto 35.5 % (45-73); Platelet Count 181 X10*3/uL (160-400); Red Blood Count 3.25 X10*6/uL (4.20-5.50); Red Cell Distribution Width 13.6 % (11.0-16.0); White Blood Count 4.3 X10*3/uL (4.8-10.8)
[2019-12-28 07:11] LABS: Anion Gap 10 (12-20); Blood Urea Nitrogen 19 mg/dL (9-16); Calcium 8.1 mg/dL (8.4-10.2); Carbon Dioxide 25 mmol/L (22-29); Chloride 103 mmol/L (96-108); Creatinine Clr Calc Pharmacy 53.8; Estimated Glomerular Filt Rate > 60; Glucose Fasting 97 mg/dL (60-99); Potassium 4.2 mmol/l (3.3-5.1); Sodium 134 mmol/L (135-145)
[2019-12-28 07:36] VITALS: BP 130/70; PULSE 90
[2019-12-28] MEDS: lisinopriL 40 MG TABLET PO (07:36)
[2019-12-28] MEDS: amLODIPine Besylate 5 MG TABLET PO (07:37)
[2019-12-28] MEDS: oxyCODONE HCl Immed Release 5 MG TABLET PO (07:37)
[2019-12-28] MEDS: 0.9 % Sodium Chloride Flush 3 ML SYRINGE IVFLUSH (07:38)
[2019-12-28 08:00] VITALS: BP 148/78; PULSE 76; RESP 20; TEMP 36.5; O2SAT 98
[2019-12-28] MEDS: UrsodioL 300 MG CAPSULE PO (09:05)
[2019-12-28 11:33] VITALS: BP 148/74; PULSE 93; RESP 18; TEMP 36.5; O2SAT 95
--- NOTE | 2019-12-28 12:04 | P.F2F_ITS ---
Service Date Service Date: 12/28/19 Reasons for Services MD overseeing care: dr Chamberlain Homebound: Leaving the home is medically contraindicated at this time without the asist of a device and/or another person due th the listed conditions above and below. Certification: Based on the above findings, I certify that this patient is confined to the home and needs intermittent [facility] care, physical therapy and/or speech therapy, or continues to need occupational therapy. The patient is under my care, and I have initiated the establishment of the plan of care. The patient will be followed by a physician who will periodically review the plan of care. patient will require PT, wound care, and social work
--- NOTE | 2019-12-28 12:06 | PM.DS ---
DS: Providers Provider Date of admission: 12/26/19 00:00 Primary care physician: Yuli Chamberlain MD Consults: 12/26/19 10:48 Consult to Wound Care Provider Routine Consulting Provider: Esau Low Reason for consultation: wound care DS: Diagnosis Discharge Diagnosis (1) Antimitochondrial antibody positive: Status: Acute (2) Cellulitis: Status: Acute Problem details: pt with left lower leg swelling - ? etiology - ro dvt, pt with fluid overload in leg, diuretics as needed, may have a lymphedema component as so unilateral. no significant open wounds and less weeping of fluid. recommend barrier cream to the leg with raw areas and wrap. pt will need baseline compression. in hospital can do bashir bandages - start at foot and do 4 inch and move upto 6 inch at leg to just below knee pt may benefit from juxtalight compression garment to the right lower leg if still has open wound can be seen in wound care clinic on discharge. cont antibx for cellulitis and cont with medical management as per hospitalist team. (3) Lymphedema: Status: Acute DS: Summary Hospital Course Hospital Course: from initial h and p 79-year-old female with past medical history of hypertension , chronic hyponatremia,and recurrent right lower extremity cellulitis /venous stasis who presents to the hospital complaining of right lower extremity redness, weeping, and malodorous discharge. Patient reports that the symptoms started few days ago, the weeping started about 1-2 days ago, was so severe that she had to wrap a plastic bag around the wound to stop the order as well as the drooping getting everywhere. Patient reports no fever or chills, she reports that she has tenderness in that area and noticed swelling and redness. She has no chest pain shortness of breath, no abdominal pain nausea or vomiting, no diarrhea, she has chronic constipation, no urinary symptoms. On arrival to the ED hemodynamically stable with no significant abnormal vitals. labs are significant for a sodium of 127: ( runs around 133), otherwise unremarkable venous Dopplers negative for patient D venous thrombosis patient will be admitted for management of cellulitis hospital course: patient was admitted for right lower extremity cellulitis in the setting of chronic venous stasis /lymphedema. She was given IV vancomycin with improvement her erythema. For her chronic wounds and lymphedema she was seen by wound care who recommended local care with barrier cream and bandages along with Bashir wraps to improve lymphedema. She can follow up outpatient with wound clinic. She will have 7 more days of p.o. doxycycline to take care of the rest of superimposed cellulitis. Patient was also noted to have elevated transaminases and a positive antimitochondrial antibody from May, she vaguely recognizes the diagnosis of PBC, is not on Ursodiol, will start Ursodiol 300 b.i.d. and refer to GI for follow-up. She will be discharged home with home PT, wound care and social work Time Spent with Patient Time attestation: Total time spent providing and/or coordinating discharge services: Physical Exam Vital Signs: Vital Signs: Vital Signs Temp Pulse Resp BP Pulse Ox 12/28/19 11:33 97.7 F 93 18 148/74 H 95 12/28/19 08:00 97.7 F 76 20 148/78 H 98 12/28/19 07:36 90 130/70 12/28/19 04:00 97.2 F 96 18 132/73 96 12/28/19 02:58 97.2 F 96 18 132/73 96 12/28/19 00:00 97.8 F 86 18 113/63 96 12/27/19 18:52 98.1 F 90 18 103/56 L 95 12/27/19 15:35 98.1 F 101 H 18 158/89 H 99 12/27/19 13:55 94 149/87 H 97 Body Mass Index 19.3 General: AO X 3, no acute distress Resp: CTA bilateral CVS: S1,S2,RRR GI: soft, non tender, non distended Neuro: motor grossly intact Psych: appropriate affect Skin: RLE erythema and swelling, improved DS: Data Data Completed and Pending Labs on day of discharge: Labs from last 24 hours 12/28/19 12/28/19 05:27 05:27 WBC 4.3 L RBC 3.25 L Hgb 9.7 L Hct 27.9 L MCV 85.8 MCH 29.8 MCHC 34.8 RDW 13.6 Plt Count 181 MPV 11.4 Immature Gran % (Auto) 0.2 Neut % (Auto) 35.5 L Lymph % (Auto) 40.2 H [place] % (Auto) 17.4 H Eos % (Auto) 5.8 H Baso % (Auto) 0.9 Lymph # (Auto) 1.7 [place] # (Auto) 0.8 Eos # (Auto) 0.3 Baso # (Auto) 0.0 Abs Immat Gran (auto) 0.01 Absolute Neuts (auto) 1.5 L Absolute Nucleated RBC 0.000 Nucleated RBC % (auto) 0.0 Sodium 134 L Potassium 4.2 Chloride 103 Carbon Dioxide 25 Anion Gap 10 L BUN 19 H Creatinine 0.74 Estim Creat Clear Calc 53.8 Estimated GFR > 60 Fasting Glucose 97 Calcium 8.1 L Preliminary micro results at discharge 12/25/19 20:37 Blood Culture - Preliminary Blood - Venous No growth after 48 hours. 12/25/19 20:25 Blood Culture - Preliminary Blood - Venous No growth after 48 hours. Discharge Plan Discharge Patient Disposition: Home Health Service Referrals: Guerda Garcia MD [Physician] - 1 Week (positive antimitochondrial antibodies) Po,Yuli Flowers MD [Primary Care Provider] - Discharge Medications: New ursodiol 300 mg Capsule 300 mg PO BID Qty: 60 RF: 0 doxycycline hyclate 100 mg capsule 100 mg PO BID Qty: 14 RF: 0 Continued amlodipine 5 mg Tablet 5 mg PO DAILY RF: 0 lisinopril 40 mg Tablet 40 mg PO DAILY RF: 0 ezetimibe-simvastatin [Vytorin 10-10] 10-10 mg Tablet 0.25 tab PO DAILY RF: 0 quetiapine [Seroquel] 50 mg Tablet 50 mg PO BEDTIME RF: 0 multivitamin Tablet 1 tab PO DAILY RF: 0 aspirin 81 mg Tablet,Delayed Release (Dr/Ec) 81 mg PO DAILY RF: 0 tramadol 50 mg tablet 50 mg PO TID PRN (Reason: Pain (Scale Score 1-3)) RF: 0 docosahexaenoic acid-epa Capsule 1 cap PO DAILY RF: 0 polyethylene glycol 17 g RF: 0 Discharge Orders: Discharge Order (Routine); Ordered 12/28/19 Ordered By: Vishal Cunningham Diet: advance to your usual diet Activity on Discharge: As tolerated Activity Restrictions/Additional Instructions: recommend barrier cream to the leg with raw areas and wrap. pt will need baseline compression. in hospital can do bashir bandages - start at foot and do 4 inch and move upto 6 inch at leg to just below knee pt may benefit from juxtalight compression garment to the right lower leg Visit Report Forms: Patient Portal Discharge page Care Plan Goals: recovery Health Concerns: lemphedema with cellulitis, PBC Plan of Treatment: doxycyline for one week, wound care with barrier cream and bandages along with bashir wraps, started ursodiol, follow up with GI
--- NOTE | 2019-12-28 12:45 | MHC.CM.PN ---
Patient will be discharged home today at 2pm with services from [facility]. Shuttle bus transport.
== END 2019-12-28 14:10 | disposition home health service (06) | DRG 603 ==
LOC: HO.ED 23:49 → HO.IMC 12-26 00:20
PROVIDERS: Nurse Practitioner Family; Admitting Provider Internal Medicine; Emergency Provider Internal Medicine; PCP Internal Medicine; Visit Provider Internal Medicine
DX: L03.115 Cellulitis of right lower limb (principal); E87.1 Hypo-osmolality and hyponatremia; E78.00 Pure hypercholesterolemia, unspecified; I10 Essential (primary) hypertension; K76.0 Fatty (change of) liver, not elsewhere classified; F10.21 Alcohol dependence, in remission; R76.8 Other specified abnormal immunological findings in serum; K74.3 Primary biliary cirrhosis; Z79.82 Long term (current) use of aspirin; Z79.891 Long term (current) use of opiate analgesic; Z79.899 Other long term (current) drug therapy
CPT/HCPCS: 36415; 80048; 80076; 81003; 83605; 83735; 83880; 84484; 85025; 85027; 87040; 90686; 93005; 93971; 96361; 96365; 96367; 97161; 99221; 99284; 99291; J1650; J2270; J3370

== ENCOUNTER 2020-01-01 10:41 | Emergency (ER) | payer MEDICARE, SELFPAY ==
[2020-01-01] VITALS (10 sets, daily range): BP systolic 131–176; BP diastolic 70–104; PULSE 73–112; RESP 16–18; TEMP 36.7–36.8; O2SAT 95–98; BMI 18.1
--- NOTE | 2020-01-01 10:59 | XR_ITS ---
EXAMINATION: XR CHEST CLINICAL INFORMATION: Generalized weakness. History of pulmonary nodule. COMPARISON: Previous chest x-ray March [address] May 2019 TECHNIQUE: Frontal view of the chest was obtained. FINDINGS: The cardiac and mediastinal contours are stable. There are several nodules in the right perihilar region probably related to rib costochondral cartilage calcification. The lungs are otherwise clear. There is no pleural effusion or pneumothorax. There is curvature of the lower thoracic and upper lumbar spine to the right and degenerative change. IMPRESSION: No evidence for acute disease in the chest. Several right perihilar nodules, question related to rib costochondral cartilage calcification.
--- NOTE | 2020-01-01 10:59 | ECG_ITS ---
Test Reason : WEAKNESS Blood Pressure : / mmHG Vent. Rate : 093 BPM Atrial Rate : 093 BPM P-R Int : 176 ms QRS Dur : 080 ms QT Int : 346 ms P-R-T Axes : 043 015 012 degrees QTc Int : 430 ms Normal sinus rhythm Possible Left atrial enlargement Otherwise normal ECG When compared with ECG of 25-DEC-2019 19:35, Left ventricular hypertrophy is no longer Present Referred By: Laura Rodriguez Electronically Signed By:PALLAVI STEPHENS MD
--- NOTE | 2020-01-01 11:00 | CT_ITS ---
EXAMINATION: CT HEAD WITHOUT CONTRAST CLINICAL INFORMATION: Generalized weakness. COMPARISON: None. TECHNIQUE: Contiguous axial imaging was performed from the skull base to vertex without intravenous administration of contrast. This CT examination was performed using dose optimization techniques as appropriate, variously including the following: *Automated exposure control *Adjustment of mA and/or kV according to patient size (this includes techniques or standardized protocols for targeted exams where dose is matched to indication/reason for exam; i.e. extremities or head) *Use of iterative reconstruction technique DLP: 548 mGy-cm. FINDINGS: There is no evidence of acute intracranial hemorrhage or territorial infarction. No abnormal mass effect or midline shift is seen. There is mild periventricular hypodensity in both cerebral hemispheres without mass effect. No extra-axial fluid collection seen. The lateral ventricles are symmetrical in size and configuration but mildly enlarged. The osseous structures and soft tissues are normal. The mastoid air cells and visualized portions of the paranasal sinuses are well aerated. IMPRESSION: No acute intracranial process seen. Mild cerebral volume loss with chronic small vessel ischemic changes in both cerebral hemispheres.
--- NOTE | 2020-01-01 11:04 | ED_ITS ---
HPI - Weakness General Chief complaint: Weakness Stated complaint: GENERAL WEAKNESS THIS AM Time Seen by Provider: 01/01/20 10:57 Source: patient Mode of arrival: EMS Limitations: no limitations History of Present Illness HPI Narrative: 79yoF c PMHx of HTN, HLD, malignant tumor body uterus, Primary bilary cirrhosis, Alcoholic fatty liver, chronic hyponatremia, and recurrent right lower extremity cellulitis /venous stasis who presents to the ED via EMS c c/o generalized weakness since she woke up this morning. Pt was recently seen and admitted here for Right lower leg chronic venous stasis/lymphedema c associated cellulitis and hyponatremia. Was discharged with PO Doxycycline and instructions to follow-up with wound clinic. she was also noted to have positive antimicrobial antibody and due to her prior diagnosis of primary biliary cirrhosis was placed back on Ursodiol 300 b.i.d. and was referred to GI for follow-up. Patient denies any other additional complaints or concerns at this time. Related Data Home Medications Medication Instructions Recorded Confirmed amlodipine 5 mg PO DAILY 12/25/19 12/26/19 ezetimibe-simvastatin [Vytorin 0.25 tab PO DAILY 12/25/19 12/26/19 10] lisinopril 40 mg PO DAILY 12/25/19 12/26/19 quetiapine [Seroquel] 50 mg PO BEDTIME 12/25/19 12/26/19 aspirin 81 mg PO DAILY 12/26/19 12/26/19 docosahexaenoic acid-epa 1 cap PO DAILY 12/26/19 12/26/19 multivitamin 1 tab PO DAILY 12/26/19 12/26/19 polyethylene glycol 17 g 12/26/19 Previous Rx's Medication Instructions Recorded doxycycline hyclate 100 mg PO BID #14 cap 12/28/19 ursodiol 300 mg PO BID #60 cap 12/28/19 tramadol 50 mg tablet 50 mg PO TID PRN #90 tab 12/31/19 Allergies Allergy/AdvReac Type Severity Reaction Status Date / Time fentanyl [FENTANYL] Allergy Severe CARDIAC Verified 12/25/19 23:51 ARREST, heart stopped, anaphylaxis adhesive tape [ADHESIVE TAPE] Allergy Intermediate BLISTERS Verified 12/25/19 23:51 nickel Allergy Unknown Rash Uncoded 12/25/19 19:31 paper tape Allergy Unknown Rash Uncoded 12/25/19 19:31 Review of Systems Review of Systems: Constitutional : No Fever, No Chills, No Night Sweats, No Fatigue, No Malaise ENT/Mouth : No Ear Pain, No Nasal Congestion, No Sinus Pain, No sore throat, No Rhinorrhea Eyes: No Eye Pain, No Swelling, No Redness, No Foreign Body, No Discharge, No Vision Changes Cardiovascular : No Chest Pain, No SOB, No Dyspnea on Exertion, No Orthopnea, No Palpitations Respiratory : No Cough, No Sputum, No Wheezing, No Dyspnea Gastrointestinal : No Nausea, No Vomiting, No Diarrhea, No Constipation, No abdominal Pain, No Hematochezia, No Melena Genitourinary : No Dysuria, No Urinary Frequency, No Urinary Incontinence, No Urgency, No Flank Pain Musculoskeletal : No joint pain, No Myalgias Skin : No lacerations Neuro : No Numbness, No Paresthesias, No Loss of Consciousness, No Dizziness, No Headache Yes all other systems are reviewed and are negative [facility] Past Medical History Attestation statement: The following information was validated with the patient. Medical History Compression fracture of L2 lumbar vertebra High cholesterol HTN (hypertension) Lymphedema Malignant tumor body uterus Pulmonary embolism Surgical History History of hip replacement Social History Social History Household Members: None Housing: Apartment Alcohol intake: never Smoking Status: Never smoker Smoked in Last 30 Days: No Use of substances other than those prescribed or required for medical reasons: No Advance Directives Information Provided: No service: No Physical Exam Vital Signs: Vital Signs: Vital Signs Temp Pulse Resp BP Pulse Ox 01/01/20 12:00 98.0 F 88 18 146/80 H 96 01/01/20 10:56 98.2 F 96 16 163/89 H 97 Body Mass Index 18.1 Vital signs have been reviewed as normal and appeared to be correct. Blood pressure normal. Heart rate normal. Respiration rate normal. Temperature normal. Oxygen saturation normal. Appearance: Alert. Oriented X3. No acute distress. Head: Normal external exam. Normocephalic. Atraumatic. Able to rotate head bilaterally. Eyes: PERRLA. EOMI. No nystagmus noted. Conjunctiva and sclera normal. Eyelids normal. Corneal reflex normal. ENT: EAC normal. TM's Normal. Hearing normal. Pharynx normal. Uvula midline. tongue midline. Moist mucous membranes. No trismus noted. No drooling noted. No muffled voice noted. Neck: Normal inspection. Neck supple. FROM. No adenopathy. Thyroid Normal. No meningeal signs. No neck mass noted. CVS: Normal heart rate and rhythm. Heart sound normal. No murmurs noted. Pulses normal throughout. Respiratory: No respiratory distress. Painless inspiration. Breath sounds normal. No wheezes/rales/rhonchi noted. Chest nontender. No accessory muscle usage noted or decreased air movement noted. Abdomen: Soft and nontender. Bowel sounds normal in all 4 quadrants. No distention noted. No organomegaly noted. No visible injury noted. Back: No CVA tenderness. Full range of motion noted. Skin: Skin warm and dry. Normal skin color. Normal skin turgor. No rashes/lesions/lacerations noted. Extremities: RLE erythema and swelling see pictures below. Extremities exhibit normal range of motion. All other Extremities nontender. Pt Able to shrug shoulders bilaterally and keep up against resistance. Neuro: Oriented X 3. No motor deficit. No sensory deficit. Reflexes normal. Moving all extremities. No focal motor deficits. Cranial nerves II-XI intact bilaterally. Facial strength normal. Normal cognition. Speech normal. Gait normal. Strength 5/5 throughout. No pronator drift. No tremor noted. No fasciculations noted. Muscle tone normal throughout. No asterixis noted. Gbhxqb-[id number] test normal. Heel to lambert test normal. Tandem gait normal. Does not sway with eyes open. Round bur test negative. Rapid alternating movement upper extremity normal. Rapid alternating movement lower extremity normal. Hand drop from overhead-Mrs. face. No rigidity noted. NIHSS score 0. Course Course Course Narrative: 11:25AM 79yoF c PMHx of HTN, HLD, malignant tumor body uterus, Primary bilary cirrhosis, Alcoholic fatty liver, chronic hyponatremia, and recurrent right lower extremity cellulitis /venous stasis who presents to the ED via EMS c c/o generalized weakness since she woke up this morning. - Plan: Labs, CT scan of brain, CXR, EKG And blood cultures and re-evaluate. Reevaluation(s) Reevaluation #1: Sign out to Blayne Guzmán pending labs, CT scan of brain and UA. - EKG normal sinus rhythm and similar when compared to prior. Chest x-ray no acute processes noted. Time: 12:32 MDM - Weakness Medical Records Attestation: I reviewed the patient's medical records. Lab Data Attestation: I reviewed the patient's lab results. Result diagrams: 01/01/20 11:23 01/01/20 11:23 Labs: Lab Results 01/01/20 01/01/20 01/01/20 Range/Units 11:11 11:23 11:23 WBC 6.4 (4.8-10.8) X10*3/uL RBC 3.96 L D (4.20-5.50) X10*6/uL Hgb 11.6 L (12.0-16.0) g/dl Hct 34.3 L D (37-47) % MCV 86.6 (80-98) fL MCH 29.3 (27.0-33.0) pg MCHC 33.8 (31.0-35.0) g/dl RDW 13.7 (11.0-16.0) % Plt Count 240 D (160-400) X10*3/uL MPV 10.1 (9.4-12.3) fL Immature Gran % (Auto) 0.2 (0.0-0.4) % Neut % (Auto) 56.5 (45-73) % Lymph % (Auto) 29.9 (20-40) % [place] % (Auto) 10.3 (2-11) % Eos % (Auto) 2.5 (0-4) % Baso % (Auto) 0.6 (0-2) % Lymph # (Auto) 1.9 (1.2-4.9) X10*3/uL D[place]key # (Auto) 0.7 (0.1-1.2) X10*3/uL Eos # (Auto) 0.2 (0.0-0.4) X10*3/uL Baso # (Auto) 0.0 (0.0-0.2) X10*3/uL Abs Immat Gran (auto) 0.01 (0.00-0.03) X10*3/uL Absolute Neuts (auto) 3.6 (2.0-8.3) X10*3/uL Absolute Nucleated RBC 0.000 (0.0-0.012) X10*3/uL Nucleated RBC % (auto) 0.0 (0.0-0.2) /100WBC PT 12.3 (10.8-13.0) SEC INR 1.0 (0.9-1.1) Sodium (135-145) mmol/L Potassium (3.3-5.1) mmol/l Chloride (96-108) mmol/L Carbon Dioxide (22-29) mmol/L Anion Gap (12-20) BUN (9-16) mg/dL Creatinine (0.5-1.4) mg/dL Estim Creat Clear Calc Estimated GFR Random Glucose (60-115) mg/dL Calcium (8.4-10.2) mg/dL Magnesium (1.6-2.6) mg/dL Total Bilirubin (0.0-1.0) mg/dL Direct Bilirubin (0.0-0.5) mg/dL AST (5-31) U/L ALT (0-31) U/L Alkaline Phosphatase (39-117) U/L Troponin I High Sens (<3.5-17.0) ng/L B-Natriuretic Peptide (<100) pg/mL Total Protein (6.5-8.0) g/dL Albumin (3.5-5.0) g/dL Urine Color YELLOW Urine Appearance CLEAR Urine pH 7.0 (5.0-8.0) Ur Specific [place] 1.010 (1.005-1.025) Urine Protein NEG (NEG-TRACE) MG/DL Urine Glucose (UA) NEG (NEG) MG/DL Urine Ketones NEG (NEG) MG/DL Urine Blood NEG (NEG) Urine Nitrite NEG (NEG) Ur Leukocyte Esterase NEG (NEG) 01/01/20 01/01/20 01/01/20 Range/Units 11:23 11:23 11:24 WBC (4.8-10.8) X10*3/uL RBC (4.20-5.50) X10*6/uL Hgb (12.0-16.0) g/dl Hct (37-47) % MCV (80-98) fL MCH (27.0-33.0) pg MCHC (31.0-35.0) g/dl RDW (11.0-16.0) % Plt Count (160-400) X10*3/uL MPV (9.4-12.3) fL Immature Gran % (Auto) (0.0-0.4) % Neut % (Auto) (45-73) % Lymph % (Auto) (20-40) % Dickey % (Auto) (2-11) % Eos % (Auto) (0-4) % Baso % (Auto) (0-2) % Lymph # (Auto) (1.2-4.9) X10*3/uL [place]key # (Auto) (0.1-1.2) X10*3/uL Eos # (Auto) (0.0-0.4) X10*3/uL Baso # (Auto) (0.0-0.2) X10*3/uL Abs Immat Gran (auto) (0.00-0.03) X10*3/uL Absolute Neuts (auto) (2.0-8.3) X10*3/uL Absolute Nucleated RBC (0.0-0.012) X10*3/uL Nucleated RBC % (auto) (0.0-0.2) /100WBC PT (10.8-13.0) SEC INR (0.9-1.1) Sodium 132 L (135-145) mmol/L Potassium 3.9 (3.3-5.1) mmol/l Chloride 96 (96-108) mmol/L Carbon Dioxide 27 (22-29) mmol/L Anion Gap 13 (12-20) BUN 14 (9-16) mg/dL Creatinine 0.69 (0.5-1.4) mg/dL Estim Creat Clear Calc 53.9 Estimated GFR > 60 Random Glucose 97 (60-115) mg/dL Calcium 9.8 (8.4-10.2) mg/dL Magnesium 2.0 (1.6-2.6) mg/dL Total Bilirubin 0.5 (0.0-1.0) mg/dL Direct Bilirubin 0.3 (0.0-0.5) mg/dL AST 86 H (5-31) U/L ALT 97 H (0-31) U/L Alkaline Phosphatase 186 H D (39-117) U/L Troponin I High Sens 3.5 (<3.5-17.0) ng/L B-Natriuretic Peptide (<100) pg/mL Total Protein 7.9 D (6.5-8.0) g/dL Albumin 4.1 D (3.5-5.0) g/dL Urine Color Urine Appearance Urine pH (5.0-8.0) Ur Specific [place] (1.005-1.025) Urine Protein (NEG-TRACE) MG/DL Urine Glucose (UA) (NEG) MG/DL Urine Ketones (NEG) MG/DL Urine Blood (NEG) Urine Nitrite (NEG) Ur Leukocyte Esterase (NEG) 01/01/20 Range/Units 11:24 WBC (4.8-10.8) X10*3/uL RBC (4.20-5.50) X10*6/uL Hgb (12.0-16.0) g/dl Hct (37-47) % MCV (80-98) fL MCH (27.0-33.0) pg MCHC (31.0-35.0) g/dl RDW (11.0-16.0) % Plt Count (160-400) X10*3/uL MPV (9.4-12.3) fL Immature Gran % (Auto) (0.0-0.4) % Neut % (Auto) (45-73) % Lymph % (Auto) (20-40) % Dickey % (Auto) (2-11) % Eos % (Auto) (0-4) % Baso % (Auto) (0-2) % Lymph # (Auto) (1.2-4.9) X10*3/uL [place] # (Auto) (0.1-1.2) X10*3/uL Eos # (Auto) (0.0-0.4) X10*3/uL Baso # (Auto) (0.0-0.2) X10*3/uL Abs Immat Gran (auto) (0.00-0.03) X10*3/uL Absolute Neuts (auto) (2.0-8.3) X10*3/uL Absolute Nucleated RBC (0.0-0.012) X10*3/uL Nucleated RBC % (auto) (0.0-0.2) /100WBC PT (10.8-13.0) SEC INR (0.9-1.1) Sodium (135-145) mmol/L Potassium (3.3-5.1) mmol/l Chloride (96-108) mmol/L Carbon Dioxide (22-29) mmol/L Anion Gap (12-20) BUN (9-16) mg/dL Creatinine (0.5-1.4) mg/dL Estim Creat Clear Calc Estimated GFR Random Glucose (60-115) mg/dL Calcium (8.4-10.2) mg/dL Magnesium (1.6-2.6) mg/dL Total Bilirubin (0.0-1.0) mg/dL Direct Bilirubin (0.0-0.5) mg/dL AST (5-31) U/L ALT (0-31) U/L Alkaline Phosphatase (39-117) U/L Troponin I High Sens (<3.5-17.0) ng/L B-Natriuretic Peptide 19 (<100) pg/mL Total Protein (6.5-8.0) g/dL Albumin (3.5-5.0) g/dL Urine Color Urine Appearance Urine pH (5.0-8.0) Ur Specific [place] (1.005-1.025) Urine Protein (NEG-TRACE) MG/DL Urine Glucose (UA) (NEG) MG/DL Urine Ketones (NEG) MG/DL Urine Blood (NEG) Urine Nitrite (NEG) Ur Leukocyte Esterase (NEG) Imaging Data cxr: Attestation: I personally reviewed and interpreted this imaging study as follows: Radiologist's impression: IMPRESSION: No evidence for acute disease in the chest. Several right perihilar nodules, question related to rib costochondral cartilage calcification. ECG Data Attestation: I personally reviewed and interpreted this ECG as follows: ECG interpretation date: 01/01/20 ECG interpretation time: 11:18 Prior ECG tracings: available for review Interpretation: Normal sinus rhythm with a ventricular rate of 93. With normal NH interval. With a normal QRS duration. Normal QT /QTC interval. No acute ischemic changes and similar when compared to prior on 12/25/2019. No acute ischemic changes noted. Discharge Plan Discharge Prescriptions: No Action tramadol 50 mg tablet 50 mg PO TID PRN (Reason: Pain (Scale Score 1-3)) Qty: 90 RF: 0 amlodipine 5 mg Tablet 5 mg PO DAILY RF: 0 lisinopril 40 mg Tablet 40 mg PO DAILY RF: 0 ezetimibe-simvastatin [Vytorin 10-10] 10-10 mg Tablet 0.25 tab PO DAILY RF: 0 quetiapine [Seroquel] 50 mg Tablet 50 mg PO BEDTIME RF: 0 multivitamin Tablet 1 tab PO DAILY RF: 0 aspirin 81 mg Tablet,Delayed Release (Dr/Ec) 81 mg PO DAILY RF: 0 docosahexaenoic acid-epa Capsule 1 cap PO DAILY RF: 0 polyethylene glycol 17 g RF: 0 ursodiol 300 mg Capsule 300 mg PO BID Qty: 60 RF: 0 doxycycline hyclate 100 mg capsule 100 mg PO BID Qty: 14 RF: 0
[2020-01-01 11:23] LABS: Glucose Urine UA NEG (NEG); Leukocyte Esterase Urine NEG (NEG); Nitrite Urine NEG (NEG); Urine Blood NEG (NEG); Urine Ketones NEG (NEG); Urine Protein NEG (NEG-TRACE)
[2020-01-01 11:26] LABS: Appearance Urine CLEAR; Color Urine YELLOW; UACC Culture Trigger NO
--- NOTE | 2020-01-01 11:32 | PC.NURSE ---
patient a&ox3, ekg performed, urine obtained, labs drawn, pt awaiting radiology
[2020-01-01 11:33] LABS: MANUAL DIFF FLAG NO
[2020-01-01 11:48] LABS: Basophils Percent Auto 0.6 % (0-2); Eosinophils Absolute Auto 0.2 X10*3/uL (0.0-0.4); Eosinophils Percent Auto 2.5 % (0-4); Hematocrit 34.3 % (37-47); Hemoglobin 11.6 g/dl (12.0-16.0); Imm Gran Abs Auto 0.01 X10*3/uL (0.00-0.03); Imm Gran Pct Auto 0.2 % (0.0-0.4); Lymphocytes Absolute Auto 1.9 X10*3/uL (1.2-4.9); Lymphocytes Percent Auto 29.9 % (20-40); Mean Corpuscular HGB Conc 33.8 g/dl (31.0-35.0); Mean Corpuscular Hemoglobin 29.3 pg (27.0-33.0); Mean Corpuscular Volume 86.6 fL (80-98); Mean Platelet Volume 10.1 fL (9.4-12.3); Monocytes Absolute Auto 0.7 X10*3/uL (0.1-1.2); Monocytes Percent Auto 10.3 % (2-11); Neutrophils Absolute Auto 3.6 X10*3/uL (2.0-8.3); Neutrophils Percent Auto 56.5 % (45-73); Platelet Count 240 X10*3/uL (160-400); Red Blood Count 3.96 X10*6/uL (4.20-5.50); Red Cell Distribution Width 13.7 % (11.0-16.0); White Blood Count 6.4 X10*3/uL (4.8-10.8)
[2020-01-01 11:51] LABS: Prothrombin Time 12.3 SEC (10.8-13.0)
[2020-01-01 12:07] LABS: Alanine Aminotransferase 97 U/L (0-31); Albumin Level 4.1 g/dL (3.5-5.0); Alkaline Phosphatase 186 U/L (39-117); Anion Gap 13 (12-20); Aspartate Amino Transferase 86 U/L (5-31); Bilirubin Direct 0.3 mg/dL (0.0-0.5); Bilirubin Total 0.5 mg/dL (0.0-1.0); Blood Urea Nitrogen 14 mg/dL (9-16); Calcium 9.8 mg/dL (8.4-10.2); Carbon Dioxide 27 mmol/L (22-29); Chloride 96 mmol/L (96-108); Creatinine Clr Calc Pharmacy 53.9; Estimated Glomerular Filt Rate > 60; Glucose Random 97 mg/dL (60-115); Potassium 3.9 mmol/l (3.3-5.1); Sodium 132 mmol/L (135-145); Total Protein 7.9 g/dL (6.5-8.0)
[2020-01-01 12:09] LABS: Troponin-I High Sensitivity 3.5 ng/L (<3.5-17.0)
--- NOTE | 2020-01-01 12:12 | PC.NURSE ---
patient a&ox3, vss, pt currently using bedpain, will goto ct scan after she is done, rle scaly/red. pt states she has no pain but takes po medication daily at home to help her feel less achey- she could not put a number on achey feeling she has. will continue to monitor.
[2020-01-01 12:15] LABS: B Type Natriuretic Peptide 19 pg/mL (<100)
--- NOTE | 2020-01-01 12:36 | PC.NURSE ---
pt to ct scan
--- NOTE | 2020-01-01 16:02 | MHC.CM.ED ---
SEEN BY CASE MANAGEMENT. AWAITING PT EVALUATION. PT REQUESTS ACUTE REHAB AT [facility]. AGREEABLE TO SNF REHAB AT [facility]. REFERRALS MADE.
--- NOTE | 2020-01-01 16:56 | MHC.CM.ED ---
Efrain corbett has bed pending PT evaluation and negative COVID. Will alert RN as for need for COVID testing. Awaiting PT evaluation in am.
--- NOTE | 2020-01-01 17:37 | PC.NURSE ---
patient a&ox3, case management spoke with patient, PT to eval patient susan, patient aware that she will be in the ed overnight. pt states that she lives at home alone with no family local, will continue to monitor.
--- NOTE | 2020-01-01 19:56 | PC.NURSE ---
patient a&o to baseline, patient oob to commode with assist, vss, patient c/o constipation as well as generalized body aches, patient states she takes scheduled tramadol at home for this as it is her baseline aches and pains, will notify provider and continue to monitor.
--- NOTE | 2020-01-01 21:21 | PC.NURSE ---
patient currently sleeping
--- NOTE | 2020-01-01 21:52 | PC.NURSE ---
called pharmacy for patients destiny and hasmukh, will medicate patient when all her meds are brought to the ed.
[2020-01-01] MEDS: traMADoL HCL 50 MG TABLET PO (22:58)
[2020-01-01] MEDS: QUEtiapine Fumarate 100 MG TABLET PO (22:58)
[2020-01-01] MEDS: polyethylene glycoL 3350 17 GM POWD.PACK PO (22:59)
--- NOTE | 2020-01-01 23:05 | PC.NURSE ---
called pharmacy again for missing medication actigall, pharmacy did not answer, will notify provider.
[2020-01-01] MEDS: UrsodioL 300 MG CAPSULE PO (23:10)
--- NOTE | 2020-01-01 23:13 | PC.NURSE ---
argill was found, pt medicated per order.
[2020-01-02] VITALS (7 sets, daily range): BP systolic 116–134; BP diastolic 65–87; PULSE 65–90; RESP 14–16; TEMP 36.6–36.7; O2SAT 94–99
[2020-01-02] MEDS: Ibuprofen 400 MG TABLET PO (04:09)
[2020-01-02] MEDS: traMADoL HCL 50 MG TABLET PO (07:06)
--- NOTE | 2020-01-02 07:14 | PC.NURSE ---
report taken from Bonnie BALES. pt sleeping upon assessment. woke easily to voice. breakfast given. pt request pain med for right foot, takes TID. medicated per orders. pt waiting physical therapy eval this morning and then STR placement. pt aware of plan.
[2020-01-02] MEDS: lisinopriL 40 MG TABLET PO (08:05)
[2020-01-02] MEDS: Aspirin Enteric Coated 81 MG TABLET.DR PO (08:05)
[2020-01-02] MEDS: polyethylene glycoL 3350 17 GM POWD.PACK PO (08:05)
[2020-01-02] MEDS: amLODIPine Besylate 5 MG TABLET PO (08:06)
[2020-01-02] MEDS: Multivitamin TABLET 1 TAB PO (08:07)
[2020-01-02] MEDS: UrsodioL 300 MG CAPSULE PO (08:27)
--- NOTE | 2020-01-02 12:05 | PC.NURSE ---
spoke with cm regarding update for patient dispo. field case manager to speak with patient to make plan for dispo.
== END 2020-01-02 13:56 | disposition home or self-care (01) ==
PROVIDERS: Physician Assistant Medical; Emergency Provider Emergency Medicine
DX: R53.1 Weakness (principal); L03.115 Cellulitis of right lower limb; I10 Essential (primary) hypertension; K70.0 Alcoholic fatty liver; Z86.711 Personal history of pulmonary embolism; Z79.899 Other long term (current) drug therapy
CPT/HCPCS: 36415; 70450; 71045; 80048; 80076; 81003; 83735; 83880; 84484; 85025; 85610; 87040; 93005; 97161; 99284; 99285

== ENCOUNTER 2020-01-15 14:25 | Emergency (ER) | payer OTHER, SELFPAY ==
[2020-01-15 15:36] VITALS: BP 147/82; PULSE 108; RESP 18; TEMP 36.6; O2SAT 98; BMI 18.1
--- NOTE | 2020-01-15 17:25 | ED_ITS ---
HPI - Skin/Abscess/Foreign Bdy General Chief complaint: Skin/Abscess/Foreign Body <Stephanie Wiseman NP - Last Filed: 01/16/20:22> Stated complaint: LEG INFECTION <Stephanie Wiseman NP - Last Filed: 01/16/20:22> Time Seen by Provider: 01/15/20 17:15 <Stephanie Wiseman NP - Last Filed: 01/16/20:22> Source: patient <Stephanie Wiseman NP - Last Filed: 01/16/20:22> Mode of arrival: ambulatory <NELLA Baer Last Filed: 01/16/20:> Limitations: no limitations <NELLA Baer Last Filed: 01/16/20:> History of Present Illness HPI narrative: 79yoF c PMHx of HTN, HLD, Primary bilary cirrhosis, Alcoholic fatty liver, chronic hyponatremia, Uterine cancer, and recurrent right lower extremity cellulitis with venous stasis who presents to the ED with complaint of right lower extremity swelling, pain, and increased drainage. She states that she is unable to maintain the dressings, that the drainage seeping all over her floor and that she is afraid to walk. She does have VNA nursing, and nursing staff recommended her to present to the emergency department for evaluation. She was recently admitted here on December 24 for Right lower leg chronic venous stasis, lymphedema with cellulitis and hyponatremia and was discharged with PO Doxycycline which she completed. Per discharege recommendations, she followed instructions to follow-up with wound clinic. She currently has wound care at home. She was also noted to have positive antimicrobial antibody and due to her prior diagnosis of primary biliary cirrhosis was placed back on Ursodiol and did follow up with GI. Patient denies any other additional complaints or concerns at this time. <Stephanie Wiseman NP - Last Filed: 01/16/20:22> Onset (ago): month(s) <Stephanie Wiseman NP - Last Filed: 01/16/20:22> Tetanus up to date: yes <NELLA Baer Last Filed: 01/16/20:22> Location: [facility] <Stephanie Wiseman NP - Last Filed: 01/16/20 01:22> Severity: moderate <Stephanie Wiseman NP - Last Filed: 01/16/20 01:22> Severity scale (1-10): 8 <Stephanie Wiseman NP - Last Filed: 01/16/20 01:22> Quality: aching <Stephanie Wiseman NP - Last Filed: 01/16/20 01:22> Pain Consistency: constant <Stephanie Wiseman NP - Last Filed: 01/16/20 01:22> Exacerbating factors: movement <Stephanie Wiseman NP - Last Filed: 01/16/20 01:22> Context: none <Stephanie Wiseman NP - Last Filed: 01/16/20 01:22> Associated symptoms: denies other symptoms <Stephanie Wiseman NP - Last Filed: 01/16/20 01:22> Treatments prior to arrival: other ( VNA nursing care at home) <Stephanie Wiseman NP - Last Filed: 01/16/20 01:22> Related Data Home medications: Home Medications Medication Instructions Recorded Confirmed amlodipine 5 mg PO DAILY 12/25/19 01/15/20 ezetimibe-simvastatin [Vytorin 0.25 tab PO DAILY 12/25/19 01/15/20 10-10] lisinopril 40 mg PO DAILY 12/25/19 01/15/20 aspirin 81 mg PO DAILY 12/26/19 01/15/20 multivitamin 1 tab PO DAILY 12/26/19 01/15/20 omega 5-xbk-lhv-fish oil [Fish Oil] 2 cap PO DAILY 01/01/20 01/15/20 polyethylene glycol 3350 [Miralax] 17 g PO DAILY 01/01/20 01/15/20 quetiapine [Seroquel] 50 mg PO BEDTIME 01/01/20 01/15/20 ursodiol 300 mg PO BID 01/01/20 01/15/20 Previous Rx's Medication Instructions Recorded tramadol 50 mg tablet 50 mg PO TID PRN #90 tab 01/04/20 <Stephanie Wiseman NP - Last Filed: 01/16/20 01:22> Allergies/Adverse reactions: Allergies Allergy/AdvReac Type Severity Reaction Status Date / Time fentanyl [FENTANYL] Allergy Severe CARDIAC Verified 12/25/19 23:51 ARREST, heart stopped, anaphylaxis adhesive tape [ADHESIVE TAPE] Allergy Intermediate BLISTERS Verified 12/25/19 23:51 nickel Allergy Unknown Rash Uncoded 12/25/19 19:31 paper tape Allergy Unknown Rash Uncoded 12/25/19 19:31 <Stephanie Wiseman NP - Last Filed: 01/16/20 01:22> Review of Systems Review of Systems: Constitutional: No Weight loss, No Fever, No Chills, No Night Sweats, No Fatigue, No Malaise ENT/Mouth: No Hearing loss, No Ear Pain, No Nasal Congestion, No Sinus Pain, No Hoarseness, No sore throat, No Rhinorrhea, No Swallowing Difficulty Eyes: No Eye Pain, No Swelling, No Redness, No Foreign Body, No Discharge, No Vision Changes Cardiovascular: No Chest Pain, No SOB, No Dyspnea on Exertion, No Orthopnea, No Edema, No Palpitations Respiratory: No Cough, No Sputum, No Wheezing, No Smoke Exposure, No Dyspnea Gastrointestinal: No Nausea, No Vomiting, No Diarrhea, No Constipation, No abdominal Pain, No Hematochezia, No Melena Genitourinary: no irregular bleeding, No Dysuria, No Urinary Frequency, No Hematuria, No Urinary Incontinence, No Urgency, No Flank Pain, No Urinary Flow Changes, No Hesitancy Musculoskeletal: right lower extremity swelling and drainage, lymphedema, No joint pain, No Myalgias, No Joint Swelling Skin: No Skin Lesions, No rash Neuro: No Weakness, No Numbness, No Paresthesias, No Loss of Consciousness, No Dizziness, No Headache Psych: No Anxiety/Panic, No Depression, No SI/HI/AH/VH, No Social Issues Heme/Lymph: No Bruising, No Bleeding,No Lymphadenopathy Endocrine: No Polyuria, No Polydipsia, No Temperature Intolerance <NELLA Baer Last Filed: 01/16/20 01:22> [facility] Past Medical History Attestation statement: The following information was validated with the patient. <NELLA Baer Last Filed: 01/16/20 01:22> Source: old records reviewed <Stephanie Wiseman NP - Last Filed: 01/16/20 01:22> Medical History: Medical History Compression fracture of L2 lumbar vertebra High cholesterol HTN (hypertension) Lymphedema Malignant tumor body uterus Pulmonary embolism <Stephanie Wiseman NP - Last Filed: 01/16/20 01:22> Surgical History: Surgical History History of hip replacement <Stephanie Wiseman NP - Last Filed: 01/16/20 01:22> Social History Social History: Social History Household Members: None Housing: Apartment Alcohol intake: never Smoking Status: Never smoker Advance Directives: No Advance Directives Information Provided: No service: No <Stephanie Wiseman NP - Last Filed: 01/16/20 01:22> Physical Exam Vital Signs: Vital Signs: Vital Signs Temp Pulse Resp BP Pulse Ox 01/16/20 04:00 81 16 130/81 97 01/16/20 02:00 89 16 134/88 97 01/16/20 00:00 90 16 138/90 H 97 01/15/20 22:00 84 18 143/80 H 98 01/15/20 19:38 98.1 F 84 16 142/76 H 97 01/15/20 15:36 97.9 F 108 H 18 147/82 H 98 Body Mass Index 18.1 <Stephanie Wiseman NP - Last Filed: 01/16/20 01:22> Vital Signs: Vital Signs Temp Pulse Resp BP Pulse Ox 01/16/20 04:00 81 16 130/81 97 01/16/20 02:00 89 16 134/88 97 01/16/20 00:00 90 16 138/90 H 97 01/15/20 22:00 84 18 143/80 H 98 01/15/20 19:38 98.1 F 84 16 142/76 H 97 01/15/20 15:36 97.9 F 108 H 18 147/82 H 98 Body Mass Index 18.1 <Rosario Yung DO - Last Filed: 01/16/20 06:47> Appearance: Alert. Oriented X3. No acute distress. anxious per baseline. Head: Normal external exam. Normocephalic. Atraumatic. No [place] signs noted. No raccoon eyes noted Eyes: PERRLA. EOMI. Conjunctiva and sclera normal. Eyelids normal. ENT: TM's Normal. Pharynx normal. Uvula midline. Moist mucous membranes. No trismus noted. No drooling noted. No muffled voice noted. Neck: Normal inspection. Neck supple. No adenopathy. Thyroid Normal. No meningeal signs. No neck mass noted. CVS: Normal heart rate and rhythm. Heart sound normal. No murmurs noted. Pulses equal to all extremities. Respiratory: No respiratory distress. Painless inspiration. Breath sounds normal. No wheezes/rales/rhonchi noted. Chest nontender. No accessory muscle usage noted or decreased air movement noted. Abdomen: Soft and nontender. Bowel sounds normal in all 4 quadrants. No distention noted. No organomegaly noted. No visible injury noted. Back: No CVA tenderness. Full range of motion noted. Skin: Reddened weeping to right lower extremity up to mid calf, skin peeling with multiple open areas. Extremities: No lower extremity edema. Extremities exhibit normal range of motion. Extremities nontender. Neuro: cranial nerves 2-12 intact, no focal neural deficits, strength 5/5 to all extremities, No motor deficit. No sensory deficit. Reflexes normal. <Stephanie Wiseman NP - Last Filed: 01/16/20 01:22> Course Course Course Narrative: Plan is to rule out sepsis, infection, cellulitis. <Stephanie Wiseman NP - Last Filed: 01/16/20 01:22> Reevaluation(s) Reevaluation #1: Dr Montesinos in to Evaluate per patient request. <Stephanie Wiseman NP - Last Filed: 01/16/20:22> Time: 18:45 <Stephanie Wiseman NP - Last Filed: 01/16/20 01:22> Reevaluation #2: Labs are pending, nursing updated. <Stephanie Wiseman NP - Last Filed: 01/16/20:22> Time: 19:06 <Stephanie Wiseman NP - Last Filed: 01/16/20 01:22> Reevaluation #3: Labs are unremarkable, DVT study is negative, mildly hyponatremic per baseline, repleted with 1 L of normal saline, she was given a dose of ceftriaxone, plan of care is for case management clinical social worker as patient is not able to manage her own wound care even with VNA. <Stephanie Wiseman NP - Last Filed: 01/16/20 01:22> MDM - Skin/Abscess/Foreign Bdy Differential Diagnosis Differential diagnosis: Likely abscess of skin or subcutaneous tissue and cellulitis <Stephanie Wiesman NP - Last Filed: 01/16/20 01:22> Medical Records Attestation: I reviewed the patient's medical records. <Stephanie Wiseman NP - Last Filed: 01/16/20 01:22> Lab Data Attestation: I reviewed the patient's lab results. <Stephanie Wiseman NP - Last Filed: 01/16/20 01:22> Result diagrams: : 01/15/20 19:23 01/15/20 19:23 <Stephanie Wiseman NP - Last Filed: 01/16/20 01:22> Labs: Lab Results 01/15/20 01/15/20 01/15/20 Range/Units 19:23 19:23 19:23 WBC 4.6 L (4.8-10.8) X10*3/uL RBC 3.87 L (4.20-5.50) X10*6/uL Hgb 11.3 L (12.0-16.0) g/dl Hct 34.3 L (37-47) % MCV 88.6 (80-98) fL MCH 29.2 (27.0-33.0) pg MCHC 32.9 (31.0-35.0) g/dl RDW 13.6 (11.0-16.0) % Plt Count 221 (160-400) X10*3/uL MPV 9.9 (9.4-12.3) fL Immature Gran % (Auto) 0.2 (0.0-0.4) % Neut % (Auto) 57.0 (45-73) % Lymph % (Auto) 26.8 (20-40) % [place] % (Auto) 11.3 H (2-11) % Eos % (Auto) 4.1 H (0-4) % Baso % (Auto) 0.6 (0-2) % Lymph # (Auto) 1.2 (1.2-4.9) X10*3/uL [place] # (Auto) 0.5 (0.1-1.2) X10*3/uL Eos # (Auto) 0.2 (0.0-0.4) X10*3/uL Baso # (Auto) 0.0 (0.0-0.2) X10*3/uL Abs Immat Gran (auto) 0.01 (0.00-0.03) X10*3/uL Absolute Neuts (auto) 2.6 (2.0-8.3) X10*3/uL Absolute Nucleated RBC 0.000 (0.0-0.012) X10*3/uL Nucleated RBC % (auto) 0.0 (0.0-0.2) /100WBC Sodium 134 L (135-145) mmol/L Potassium 4.7 D (3.3-5.1) mmol/l Chloride 99 (96-108) mmol/L Carbon Dioxide 30 H (22-29) mmol/L Anion Gap 10 L (12-20) BUN 14 (9-16) mg/dL Creatinine 0.68 (0.5-1.4) mg/dL Estim Creat Clear Calc 54.7 Estimated GFR > 60 Random Glucose 98 (60-115) mg/dL Lactic Acid 0.5 (0.5-2.0) mmol/L Calcium 8.9 (8.4-10.2) mg/dL <Stephanie Wiseman SHOP COORDINATOR - Last Filed: 01/16/20 01:22> Lab Results 01/15/20 01/15/20 01/15/20 Range/Units 19:23 19:23 19:23 WBC 4.6 L (4.8-10.8) X10*3/uL RBC 3.87 L (4.20-5.50) X10*6/uL Hgb 11.3 L (12.0-16.0) g/dl Hct 34.3 L (37-47) % MCV 88.6 (80-98) fL MCH 29.2 (27.0-33.0) pg MCHC 32.9 (31.0-35.0) g/dl RDW 13.6 (11.0-16.0) % Plt Count 221 (160-400) X10*3/uL MPV 9.9 (9.4-12.3) fL Immature Gran % (Auto) 0.2 (0.0-0.4) % Neut % (Auto) 57.0 (45-73) % Lymph % (Auto) 26.8 (20-40) % [place] % (Auto) 11.3 H (2-11) % Eos % (Auto) 4.1 H (0-4) % Baso % (Auto) 0.6 (0-2) % Lymph # (Auto) 1.2 (1.2-4.9) X10*3/uL [place] # (Auto) 0.5 (0.1-1.2) X10*3/uL Eos # (Auto) 0.2 (0.0-0.4) X10*3/uL Baso # (Auto) 0.0 (0.0-0.2) X10*3/uL Abs Immat Gran (auto) 0.01 (0.00-0.03) X10*3/uL Absolute Neuts (auto) 2.6 (2.0-8.3) X10*3/uL Absolute Nucleated RBC 0.000 (0.0-0.012) X10*3/uL Nucleated RBC % (auto) 0.0 (0.0-0.2) /100WBC Sodium 134 L (135-145) mmol/L Potassium 4.7 D (3.3-5.1) mmol/l Chloride 99 (96-108) mmol/L Carbon Dioxide 30 H (22-29) mmol/L Anion Gap 10 L (12-20) BUN 14 (9-16) mg/dL Creatinine 0.68 (0.5-1.4) mg/dL Estim Creat Clear Calc 54.7 Estimated GFR > 60 Random Glucose 98 (60-115) mg/dL Lactic Acid 0.5 (0.5-2.0) mmol/L Calcium 8.9 (8.4-10.2) mg/dL <Rosario Yung DO - Last Filed: 01/16/20 06:47> Imaging Data Venous US: Attestation: I personally reviewed and interpreted this imaging study as follows: <Stephanie Wiseman NP - Last Filed: 01/16/20 01:22> Radiologist's impression: EXAMINATION: RIGHT LOWER EXTREMITY DEEP VENOUS ULTRASOUND CLINICAL INFORMATION: Right lower extremity edema COMPARISON: Right lower extremity DVT study 12/25/2019. TECHNIQUE: Duplex Doppler imaging with compression maneuvers were performed of the right lower extremity deep venous system. FINDINGS: The visualized common femoral, femoral and popliteal veins demonstrate normal compressibility and color flow without evidence of venous thrombosis. Visualized portions of the calf veins demonstrate normal color fill-in suggesting patency. There is no evidence of a Sidhu's cyst. Diffuse subcutaneous edema is present throughout the right lower extremity. Morphologically normal-appearing but prominent in size lymph node again noted within the right groin, likely reactive. US/US venous duplex LE RT IMPRESSION: No evidence of deep venous thrombosis involving the right lower extremity. <Stephanie Wiseman NP - Last Filed: 01/16/20 01:22> Discharge Plan Discharge Prescriptions: No [facility] tramadol 50 mg tablet 50 mg PO TID PRN (Reason: Pain (Scale Score 1-3)) Qty: 90 RF: 0 amlodipine 5 mg Tablet 5 mg PO DAILY RF: 0 lisinopril 40 mg Tablet 40 mg PO DAILY RF: 0 ezetimibe-simvastatin [Vytorin 10-10] 10-10 mg Tablet 0.25 tab PO DAILY RF: 0 multivitamin Tablet 1 tab PO DAILY RF: 0 aspirin 81 mg Tablet,Delayed Release (Dr/Ec) 81 mg PO DAILY RF: 0 quetiapine [Seroquel] 100 mg Tablet 50 mg PO BEDTIME RF: 0 ursodiol 300 mg Capsule 300 mg PO BID RF: 0 omega 5-xcv-btm-fish oil [Fish Oil] 1,000 mg (120 mg-180 mg) Capsule 2 cap PO DAILY RF: 0 polyethylene glycol 3350 [Miralax] 17 gram Powder In Packet 17 g PO DAILY RF: 0 <Stephanie Wiseman NP - Last Filed: 01/16/20 01:22>
[2020-01-15 19:30] LABS: MANUAL DIFF FLAG NO
[2020-01-15] MEDS: cefTRIAXone sodium 1 GM in 0.9 % Sodium Chloride 50 ML IV (19:30)
[2020-01-15 19:33] LABS: Basophils Percent Auto 0.6 % (0-2); Eosinophils Absolute Auto 0.2 X10*3/uL (0.0-0.4); Eosinophils Percent Auto 4.1 % (0-4); Hematocrit 34.3 % (37-47); Hemoglobin 11.3 g/dl (12.0-16.0); Imm Gran Abs Auto 0.01 X10*3/uL (0.00-0.03); Imm Gran Pct Auto 0.2 % (0.0-0.4); Lymphocytes Absolute Auto 1.2 X10*3/uL (1.2-4.9); Lymphocytes Percent Auto 26.8 % (20-40); Mean Corpuscular HGB Conc 32.9 g/dl (31.0-35.0); Mean Corpuscular Hemoglobin 29.2 pg (27.0-33.0); Mean Corpuscular Volume 88.6 fL (80-98); Mean Platelet Volume 9.9 fL (9.4-12.3); Monocytes Absolute Auto 0.5 X10*3/uL (0.1-1.2); Monocytes Percent Auto 11.3 % (2-11); Neutrophils Absolute Auto 2.6 X10*3/uL (2.0-8.3); Platelet Count 221 X10*3/uL (160-400); Red Blood Count 3.87 X10*6/uL (4.20-5.50); Red Cell Distribution Width 13.6 % (11.0-16.0); White Blood Count 4.6 X10*3/uL (4.8-10.8)
[2020-01-15 19:38] VITALS: BP 142/76; PULSE 84; RESP 16; TEMP 36.7; O2SAT 97
--- NOTE | 2020-01-15 19:46 | PC.NURSE ---
PT RESTING IN STRETCHER QUIETLY. HL PLACED TO [facility], LABS DRAWN TO LAB. UA OBTAINED. PT ALERT, RESPIRATIONS EASY, N/L. SKIN W/D/P. AWAITING FURTHER ORDERS,
[2020-01-15 19:55] LABS: Lactic Acid 0.5 mmol/L (0.5-2.0)
[2020-01-15 19:58] LABS: Anion Gap 10 (12-20); Blood Urea Nitrogen 14 mg/dL (9-16); Calcium 8.9 mg/dL (8.4-10.2); Carbon Dioxide 30 mmol/L (22-29); Chloride 99 mmol/L (96-108); Creatinine Clr Calc Pharmacy 54.7; Estimated Glomerular Filt Rate > 60; Glucose Random 98 mg/dL (60-115); Potassium 4.7 mmol/l (3.3-5.1); Sodium 134 mmol/L (135-145)
[2020-01-15] MEDS: 0.9 % Sodium Chloride 1,000 ML 999 ML IVCONT (20:04)
--- NOTE | 2020-01-15 20:38 | US_ITS ---
EXAMINATION: RIGHT LOWER EXTREMITY DEEP VENOUS ULTRASOUND CLINICAL INFORMATION: Right lower extremity edema COMPARISON: Right lower extremity DVT study 12/25/2019. TECHNIQUE: Duplex Doppler imaging with compression maneuvers were performed of the right lower extremity deep venous system. FINDINGS: The visualized common femoral, femoral and popliteal veins demonstrate normal compressibility and color flow without evidence of venous thrombosis. Visualized portions of the calf veins demonstrate normal color fill-in suggesting patency. There is no evidence of a Sidhu's cyst. Diffuse subcutaneous edema is present throughout the right lower extremity. Morphologically normal-appearing but prominent in size lymph node again noted within the right groin, likely reactive. US/US venous duplex LE RT IMPRESSION: No evidence of deep venous thrombosis involving the right lower extremity.
--- NOTE | 2020-01-15 21:01 | PC.NURSE ---
PT A&OX3, SKIN W/D. PT REQUESTING TO SPEAKING WITH PA. PA IN ROOM FOR RE-EVL. MED REC DONE. PT RATING PAIN 6/10 TO LE. PT GOING TO U/S AT THIS TIME.
[2020-01-15 22:00] VITALS: BP 143/80; PULSE 84; RESP 18; O2SAT 98
--- NOTE | 2020-01-15 22:34 | PC.NURSE ---
PT UP TO RESTROOM WITH STEADY GAIT. PT DENIES COMPLAINTS.
[2020-01-15] MEDS: QUEtiapine Fumarate 50 MG TABLET PO (23:31)
[2020-01-15] MEDS: traMADoL HCL 50 MG TABLET PO (23:31)
[2020-01-16] VITALS: BP 138/90; PULSE 90; RESP 16; O2SAT 97
[2020-01-16 02:00] VITALS: BP 134/88; PULSE 89; RESP 16; O2SAT 97
[2020-01-16 04:00] VITALS: BP 130/81; PULSE 81; RESP 16; O2SAT 97
--- NOTE | 2020-01-16 04:40 | PC.NURSE ---
PT REMAINS SLEEPING, WAKES TO VERBAL STIMULI, RESPIRATIONS EASY, N/L. PT AWAITING FOR CASE MGT IN AM.
[2020-01-16 06:00] VITALS: BP 131/84; PULSE 81; RESP 16; O2SAT 97
--- NOTE | 2020-01-16 06:28 | PC.NURSE ---
PT UP TO RESTROOM WITH ASSISTANCE,
--- NOTE | 2020-01-16 08:38 | PC.NURSE ---
pharmacy called to verify medications
[2020-01-16 10:00] VITALS: BP 143/79; PULSE 85; RESP 18; TEMP 36.9; O2SAT 100
[2020-01-16 15:56] LABS: SARS COV2 PCR INHOUSE NEGATIVE (Negative)
--- NOTE | 2020-01-16 16:31 | MHC.CM.ED ---
Received case management consult overnight. Patient came to ER due to leg cellulitis. Patient has VNA but is unable to change the dressing. Patient requesting to go to short term rehab. List of facilities provided from [facility]. [facility] is patient's first choice. They are able to offer a bed. Patient can leave ER at 530pm. [facility] booked. Med nec with chart. Patient is active with [facility]. They are aware patient will be going to [facility]. New HCP completed, signed and witnessed. Original given to patient. Copy placed in chart. Continue to monitor for d/c needs.
== END 2020-01-16 17:44 ==
PROVIDERS: Emergency Medicine; Nurse Practitioner Family; Emergency Provider Internal Medicine; PCP Internal Medicine
DX: R60.0 Localized edema (principal); M79.661 Pain in right lower leg; I10 Essential (primary) hypertension; Z20.828 Contact with and (suspected) exposure to other viral communicable diseases; Z79.899 Other long term (current) drug therapy
CPT/HCPCS: 36415; 80048; 83605; 85025; 87040; 87086; 93971; 96361; 96365; 97161; 99284; 99285; J0696; U0003

== ENCOUNTER 2020-02-15 10:46 | Outpatient (REF) | payer MEDICARE, SELFPAY ==
[2020-02-15 10:57] LABS: MANUAL DIFF FLAG NO
[2020-02-15 11:02] LABS: Basophils Absolute Auto 0.1 X10*3/uL (0.0-0.2); Eosinophils Absolute Auto 0.3 X10*3/uL (0.0-0.4); Eosinophils Percent Auto 6.4 % (0-4); Hematocrit 34.9 % (37-47); Hemoglobin 11.7 g/dl (12.0-16.0); Imm Gran Abs Auto 0.01 X10*3/uL (0.00-0.03); Imm Gran Pct Auto 0.2 % (0.0-0.4); Lymphocytes Absolute Auto 1.7 X10*3/uL (1.2-4.9); Lymphocytes Percent Auto 33.8 % (20-40); Mean Corpuscular HGB Conc 33.5 g/dl (31.0-35.0); Mean Corpuscular Volume 89.5 fL (80-98); Mean Platelet Volume 11.6 fL (9.4-12.3); Monocytes Absolute Auto 0.7 X10*3/uL (0.1-1.2); Monocytes Percent Auto 13.5 % (2-11); Neutrophils Absolute Auto 2.3 X10*3/uL (2.0-8.3); Neutrophils Percent Auto 45.1 % (45-73); Platelet Count 181 X10*3/uL (160-400)
[2020-02-15 11:51] LABS: Alanine Aminotransferase 20 U/L (0-31); Alkaline Phosphatase 111 U/L (39-117); Anion Gap 12 (12-20); Aspartate Amino Transferase 28 U/L (5-31); Bilirubin Total 0.5 mg/dL (0.0-1.0); Blood Urea Nitrogen 15 mg/dL (9-16); Calcium 9.3 mg/dL (8.4-10.2); Carbon Dioxide 28 mmol/L (22-29); Chloride 99 mmol/L (96-108); Cholesterol 172 mg/dL; Estimated Glomerular Filt Rate > 60; Glucose Random 84 mg/dL (60-115); HDL Cholesterol 67 mg/dL; LDL Cholesterol Calculated 92 mg/dl; Potassium 4.4 mmol/l (3.3-5.1); Sodium 135 mmol/L (135-145); Total Protein 7.6 g/dL (6.5-8.0); Triglycerides 65 mg/dL
[2020-02-15 12:00] LABS: Free T4 (Free Thyroxine) 0.78 ng/dL (0.71-1.85); Thyroid Stimulating Hormone 1.58 uIU/mL (0.32-4.0)
[2020-02-15 12:10] LABS: Folate 19.9 ng/mL (> or = 4.0); Vitamin B12 712 pg/mL (200-900)
== END 2020-02-15 10:47 | disposition home or self-care (01) ==
LOC: HO.LNP 10:46
PROVIDERS: Visit Provider Internal Medicine
DX: K74.3 Primary biliary cirrhosis (principal); E78.00 Pure hypercholesterolemia, unspecified
CPT/HCPCS: 36415; 80053; 80061; 82607; 82746; 84439; 84443; 85025

== ENCOUNTER 2020-06-25 14:19 | Outpatient (REF) | payer MEDICARE, SELFPAY | END 2020-06-25 14:20 | disposition home or self-care (01) | LOC: HO.LAB 14:19 | PROVIDERS: Visit Provider Nurse Practitioner Family | DX: L02.91 Cutaneous abscess, unspecified (principal) | CPT/HCPCS: 87071; 87205 ==

== ENCOUNTER 2020-06-27 14:56 | Outpatient (REF) | payer MEDICARE, SELFPAY ==
--- NOTE | ~2020-06-27 | XR_ITS ---
EXAMINATION: XR CERVICAL SPINE CLINICAL INFORMATION: Neck pain. COMPARISON: None TECHNIQUE: 3 views of the cervical spine were obtained. FINDINGS: There is normal cervical lordosis. The vertebral heights, alignment are normal. There is loss of disc height virtually at every disc level with mild ventral and posterior spondylosis. No visible acute fracture, dislocation or subluxation seen. There is no abnormality involving the posterior spinous process where a marker has been placed. The soft tissues are normal. XR/XR cervical spine 2V IMPRESSION: Degenerative disc changes virtually at every disc level. No visible acute fracture, dislocation or lytic process seen.
== END 2020-06-27 14:57 | disposition home or self-care (01) ==
LOC: HO.HMGCX 14:56
PROVIDERS: PCP Internal Medicine; Visit Provider Nurse Practitioner Family
DX: L02.91 Cutaneous abscess, unspecified (principal)
CPT/HCPCS: 72040

== ENCOUNTER → 2020-07-04 08:44 | Outpatient (BNVA) | payer MEDICARE, SELFPAY | PROVIDERS: PCP Internal Medicine; Visit Provider Internal Medicine Gastroenterology | CPT/HCPCS: Q3014 ==

== ENCOUNTER 2020-07-10 15:52 | Outpatient (REF) | payer MEDICARE, SELFPAY ==
[2020-07-10 16:23] LABS: MANUAL DIFF FLAG NO
[2020-07-10 16:27] LABS: Basophils Percent Auto 0.3 % (0-2); Eosinophils Absolute Auto 0.1 X10*3/uL (0.0-0.4); Eosinophils Percent Auto 1.2 % (0-4); Hematocrit 34.6 % (37-47); Hemoglobin 11.6 g/dl (12.0-16.0); Imm Gran Abs Auto 0.01 X10*3/uL (0.00-0.03); Imm Gran Pct Auto 0.2 % (0.0-0.4); Lymphocytes Absolute Auto 1.6 X10*3/uL (1.2-4.9); Lymphocytes Percent Auto 27.3 % (20-40); Mean Corpuscular HGB Conc 33.5 g/dl (31.0-35.0); Mean Corpuscular Hemoglobin 30.1 pg (27.0-33.0); Mean Corpuscular Volume 89.9 fL (80-98); Mean Platelet Volume 10.3 fL (9.4-12.3); Monocytes Absolute Auto 0.6 X10*3/uL (0.1-1.2); Monocytes Percent Auto 9.9 % (2-11); Neutrophils Absolute Auto 3.5 X10*3/uL (2.0-8.3); Neutrophils Percent Auto 61.1 % (45-73); Platelet Count 203 X10*3/uL (160-400); Red Blood Count 3.85 X10*6/uL (4.20-5.50); Red Cell Distribution Width 13.7 % (11.0-16.0); White Blood Count 5.8 X10*3/uL (4.8-10.8)
[2020-07-10 16:33] LABS: INTERNATIONAL NORM RATIO 1.1 (0.9-1.1); Prothrombin Time 13.3 SEC (10.8-13.0)
[2020-07-10 16:53] LABS: Alanine Aminotransferase 17 U/L (0-31); Alkaline Phosphatase 103 U/L (39-117); Anion Gap 13 (12-20); Aspartate Amino Transferase 30 U/L (5-31); Bilirubin Total 0.3 mg/dL (0.0-1.0); Blood Urea Nitrogen 13 mg/dL (9-16); Calcium 9.2 mg/dL (8.4-10.2); Carbon Dioxide 27 mmol/L (22-29); Chloride 100 mmol/L (96-108); Estimated Glomerular Filt Rate > 60; Glucose Random 92 mg/dL (60-115); Potassium 4.1 mmol/L (3.3-5.1); Sodium 136 mmol/L (135-145); Total Protein 7.7 g/dL (6.5-8.0)
[2020-07-10 17:14] LABS: Vitamin D 25-OH Total 36.7 ng/mL (>30)
[2020-07-11 08:50] LABS: HBS Num1 0.08 mIU/mL (0-7.99); HBc Num1 0.09 S/CO (0.00-0.79); Hepatitis B Core Antibody Nonreactive (Nonreactive); ~Hepatitis B Surface Antibody NONREACTIVE (Nonreactive)
[2020-07-11 09:15] LABS: HBsAGNum1 0.16 S/CO (0.00-0.99); Hepatitis A Antibody IgM 0.12 Index (0-0.79); Hepatitis B Surface Antigen Negative (Negative); ~HepC Num1 0.15 S/CO (0.00-0.79); ~Hepatitis A Antibody IgM Nonreactive (Nonreactive); ~Hepatitis C Antibody Nonreactive (Nonreactive)
[2020-07-13 15:52] LABS: Zinc 62 mcg/dL (60-130)
[2020-07-15 15:17] LABS: Vitamin A 35 mcg/dL (38-98)
[2020-07-15 18:32] LABS: Alpha-Tocopherol 11.4 mg/L (5.7-19.9); Beta-Gamma Tocopherol <1.0 mg/L (<=4.3)
[2020-07-16 17:12] LABS: Vitamin K1 368 pg/mL (130-1500)
== END 2020-07-10 15:53 | disposition home or self-care (01) ==
LOC: HO.LAB 15:52
PROVIDERS: Absent Provider Internal Medicine Gastroenterology; PCP Internal Medicine; Visit Provider Internal Medicine
DX: K74.3 Primary biliary cirrhosis (principal); K75.81 Nonalcoholic steatohepatitis (NASH)
CPT/HCPCS: 36415; 80053; 82306; 84446; 84590; 84597; 84630; 85025; 85610; 86704; 86706; 86709; 86803; 87340

== ENCOUNTER 2020-07-18 13:28 | Outpatient (REF) | payer MEDICARE, SELFPAY ==
--- NOTE | ~2020-07-18 | CT_ITS ---
EXAMINATION: CT CHEST WITH CONTRAST CLINICAL INFORMATION: Pulmonary nodule COMPARISON: Previous chest CT May 2020 TECHNIQUE: Multidetector volumetric CT imaging of the chest was obtained after the administration of 50 mL of Omnipaque 350 intravenous contrast without immediate adverse reactions. Axial MIP volume rendering provided. Sagittal and coronal reformatted images were obtained. This CT examination was performed using dose optimization techniques as appropriate, variously including the following: *Automated exposure control *Adjustment of mA and/or kV according to patient size (this includes techniques or standardized protocols for targeted exams where dose is matched to indication/reason for exam; i.e. extremities or head) *Use of iterative reconstruction technique DLP: 179 mGy-cm FINDINGS: FIREPERSON: LUNGS: There are postsurgical changes to the left lower lobe with surgical staple line. There is a new 2 x 5 mm peripheral or subpleural left lower lobe nodule probably representing a subpleural lymph node axial image 214 series 5. The 3 x 5 mm peripheral or subpleural right lower lobe nodule axial image 396 series 5 is stable. There is scarring or subsegmental atelectasis at the lung bases that is stable. MEDIASTINUM: The heart is upper normal in size. There is coronary artery calcification. There is no pericardial effusion. There is a moderate-sized esophageal hernia. There are no enlarged hilar or mediastinal lymph nodes. The visualized thyroid gland is unremarkable. PLEURA: There is no pleural effusion. No pleural mass or thickening. AXILLA: No lymphadenopathy. UPPER ABDOMEN: Unremarkable OSSEOUS STRUCTURES: There is an old sternal fracture. There is a T8 vertebral body old-appearing compression fracture. There are degenerative changes of the spine. There is arthritis at the shoulders. CT/CT chest w con IMPRESSION: Postsurgical changes to the left lower lobe. New left lower lobe nodule probably representing a subpleural lymph node. Stable right lower lobe nodule also probably representing a subpleural lymph node. Upper normal-size heart, coronary artery calcification and moderate size esophageal hernia. Evidence of old trauma to the chest.
[2020-07-18] MEDS: iohexoL 350 MG/ML 100 ML INFUS..BTL IV (14:38)
== END 2020-07-18 13:29 | disposition home or self-care (01) ==
LOC: HO.CT 13:28
PROVIDERS: PCP Internal Medicine; Visit Provider Internal Medicine
DX: R91.1 Solitary pulmonary nodule (principal)
CPT/HCPCS: 71260; Q9967

== ENCOUNTER 2020-12-04 17:38 | Outpatient (REF) | payer MEDICARE, SELFPAY ==
[2020-12-04 18:10] LABS: MANUAL DIFF FLAG NO
[2020-12-04 18:14] LABS: Basophils Percent Auto 0.5 % (0-2); Eosinophils Percent Auto 0.2 % (0-4); Hematocrit 33.8 % (37-47); Hemoglobin 11.3 g/dl (12.0-16.0); Imm Gran Abs Auto 0.02 X10*3/uL (0.00-0.03); Imm Gran Pct Auto 0.3 % (0.0-0.4); Lymphocytes Absolute Auto 1.5 X10*3/uL (1.2-4.9); Lymphocytes Percent Auto 24.8 % (20-40); Mean Corpuscular HGB Conc 33.4 g/dl (31.0-35.0); Mean Corpuscular Volume 86.7 fL (80-98); Mean Platelet Volume 9.8 fL (9.4-12.3); Monocytes Absolute Auto 0.4 X10*3/uL (0.1-1.2); Neutrophils Absolute Auto 3.9 X10*3/uL (2.0-8.3); Neutrophils Percent Auto 67.2 % (45-73); Platelet Count 268 X10*3/uL (160-400); Red Cell Distribution Width 13.6 % (11.0-16.0); White Blood Count 5.9 X10*3/uL (4.8-10.8)
[2020-12-04 18:37] LABS: Alanine Aminotransferase 20 U/L (0-31); Albumin Level 4.1 g/dL (3.5-5.0); Alkaline Phosphatase 123 U/L (39-117); Anion Gap 14 (12-20); Aspartate Amino Transferase 30 U/L (5-31); Bilirubin Total 0.4 mg/dL (0.0-1.0); Blood Urea Nitrogen 18 mg/dL (9-16); Calcium 9.6 mg/dL (8.4-10.2); Carbon Dioxide 26 mmol/L (22-29); Chloride 97 mmol/L (96-108); Cholesterol 160 mg/dL; Estimated Glomerular Filt Rate > 60; Glucose Random 144 mg/dL (60-115); HDL Cholesterol 62 mg/dL; LDL Cholesterol Calculated 87 mg/dl; Potassium 4.4 mmol/L (3.3-5.1); Sodium 133 mmol/L (135-145); Total Protein 8.3 g/dL (6.5-8.0); Triglycerides 59 mg/dL
[2020-12-04 18:58] LABS: Thyroid Stimulating Hormone 0.74 uIU/mL (0.32-4.0); Vitamin D 25-OH Total 39.2 ng/mL (>30)
[2020-12-04 19:10] LABS: Folate 17.5 ng/mL (> or = 4.0); Vitamin B12 717 pg/mL (200-900)
== END 2020-12-04 17:39 | disposition home or self-care (01) ==
LOC: HO.LAB 17:38
PROVIDERS: Absent Provider Internal Medicine Gastroenterology; PCP Internal Medicine; Visit Provider Internal Medicine
DX: E78.00 Pure hypercholesterolemia, unspecified (principal)
CPT/HCPCS: 36415; 80053; 80061; 82306; 82607; 82746; 84439; 84443; 85025

== ENCOUNTER → 2020-12-08 08:22 | Outpatient (BNVA) | payer MEDICARE, SELFPAY | PROVIDERS: PCP Internal Medicine; Visit Provider Internal Medicine Gastroenterology | CPT/HCPCS: Q3014 ==

== ENCOUNTER 2021-04-16 11:01 | Emergency (ER) | payer MEDICARE, SELFPAY ==
--- NOTE | 2021-04-16 | ECG_ITS ---
Test Reason : fall Blood Pressure : / mmHG Vent. Rate : 077 BPM Atrial Rate : 077 BPM P-R Int : 172 ms QRS Dur : 090 ms QT Int : 390 ms P-R-T Axes : 035 071 029 degrees QTc Int : 441 ms Normal sinus rhythm Possible Left atrial enlargement Nonspecific ST and T wave abnormality Borderline ECG When compared with ECG of 01-JAN-2020 11:18, Questionable change in QRS axis Referred By: Orestes Short Electronically Signed By:KEYON COLBERT
--- NOTE | ~2021-04-16 | XR_ITS ---
EXAMINATION: XR SHOULDER, RIGHT CLINICAL INFORMATION: Fall with right shoulder pain COMPARISON: None TECHNIQUE: Three views of the right shoulder. FINDINGS: There is anterior dislocation of the right humeral head with comminuted humeral head/cervical neck fracture. There is some medial angulation of the distal fracture fragment as well as small amount of superior displacement with question impaction. Multiple old healed right rib fractures are evident. No acromioclavicular joint abnormality is present. XR/XR shoulder RT min 2V IMPRESSION: Comminuted fracture or dislocation of the right humeral head.
[2021-04-16 11:18] VITALS: BP 178/110; BP 181/95; PULSE 105; PULSE 110; RESP 18; O2SAT 94; O2SAT 95; BMI 19.3
--- NOTE | 2021-04-16 11:43 | PHA.MEDREC ---
Pharmacy Consult ? Medication Reconciliation Pharmacy has completed the medication reconciliation. Patient reports taking 1/2 tablet of seroquel 100 mg instead of 1 tablet at night Liliana Spivey, MarthaD
--- NOTE | 2021-04-16 11:54 | ED_ITS ---
HPI - Extremity Problem General Chief complaint: Extremity Injury, Upper Stated complaint: RT SHLDR PAIN S/P FALL,-COLLAR,-THIN Time Seen by Provider: 04/16/21 11:30 Source: patient Mode of arrival: EMS Limitations: no limitations History of Present Illness HPI Narrative: 80-year-old female who presents emergency department evaluation right shoulder injury after fall. The patient states that she got up this morning around 7:00 a.m. and was walking in her living room she states that she lost her balance and fell striking her right shoulder on a curb old that was in the living room. She denied any head injury or loss of consciousness. She states that she was unable to get off the floor she believes that she was lying on the floor for at least 3-4 hours. The patient had a meal delivered at 10:00 a.m. assistant gm of content & delivery found the patient on the floor and called 911. Your in the emergency department she denied any prodromal illness. She denied headache, neck pain, chest pain, back pain, abdominal pain, numbness or weakness . She states that she is having pain in her right shoulder which is approximately 7/10 if she keeps her shoulder still and is 10/10 if she moves her shoulder. Patient states that she got the Fidencio Fidencio COVID-19 vaccine and got a booster vaccine but does not know what grand. Related Data Home Medications Medication Instructions Recorded Confirmed aspirin 81 mg tablet,delayed 81 mg PO DAILY 12/26/19 04/16/21 release multivitamin 1 tab PO DAILY 12/26/19 04/16/21 omega 6-pcs-htg-fish oil 1,000 mg 2 cap PO DAILY 01/01/20 04/16/21 (120 mg-180 mg) capsule (Fish Oil) polyethylene glycol 3350 17 gram 17 g PO DAILY 01/01/20 04/16/21 oral powder packet (Miralax) ezetimibe 10 mg-simvastatin 10 mg 0.5 tab PO BEDTIME 04/16/21 04/16/21 tablet (Vytorin) quetiapine 100 mg tablet 50 mg PO BEDTIME 04/16/21 04/16/21 Previous Rx's Medication Instructions Recorded Commode chair #1 ea 05/19/20 TUBIGRIPS #2 ea 05/19/20 ursodiol 300 mg capsule 300 mg PO BID #160 cap 06/23/20 amlodipine 5 mg tablet 5 mg PO DAILY #90 tab 07/31/20 lisinopril 40 mg tablet 40 mg PO DAILY #90 tab 07/31/20 tramadol 50 mg tablet 50 mg PO TID PRN 90 Days #270 tab 02/17/21 Rollator #1 ea 04/09/21 morphine 15 mg immediate release 15 mg PO Q4-6H PRN #14 tab 04/16/21 tablet morphine 15 mg immediate release 15 mg PO Q6H PRN #14 tab 04/16/21 tablet ondansetron 4 mg disintegrating 4 mg PO Q6-8H PRN #14 tab 04/16/21 tablet ondansetron 4 mg disintegrating 4 mg PO Q6-8H PRN #14 tab 04/16/21 tablet Allergies Allergy/AdvReac Type Severity Reaction Status Date / Time fentanyl [FENTANYL] Allergy Severe CARDIAC Verified 12/08/20 08:23 ARREST, heart stopped, anaphylaxis nickel Allergy Unknown Rash Uncoded 12/08/20 08:23 paper tape Allergy Unknown Rash Uncoded 12/08/20 08:23 Review of Systems Verdana 4l Review of Systems: Yes all other systems are reviewed and Verdana 4d are negative [facility] Past Medical History [facility] Narrative: Social history: The patient lives alone. She does have a [employer]TER [employer] that comes in and helps her. She denies tobacco and alcohol use. Medical History Anxiety Compression fracture of L2 lumbar vertebra High cholesterol Hip fracture, right HTN (hypertension) Lymphedema Malignant tumor body uterus Osteoporosis Psoriasis Pulmonary embolism Pulmonary nodule Retinal artery branch occlusion, left eye Surgical History History of esophagogastroduodenoscopy (EGD) History of hip replacement History of open reduction and internal fixation (ORIF) procedure History of removal of cyst History of solitary pulmonary nodule History of surgery History of tonsillectomy and adenoidectomy History of tubal ligation Hx of colonoscopy Family History Family History Father Stroke Hypertension Mother Hypertension CVD (cardiovascular disease) Myocardial infarction Brother Hypertension Sister Hypercholesteremia Hypertension Sister Hypertension Hypercholesteremia Social History Social History Household Members: None Housing: Apartment Do you presently have visiting nurse or other home services: No (pt is requesting to have services at home) Alcohol intake: unknown Patient Tobacco Use Status: Never used Tobacco Smoked in Last 30 Days: No Use of substances other than those prescribed or required for medical reasons: No Advance Directives: No Advance Directives Information Provided: No service: No Current occupational status: retired Physical Exam Verdana 4l Vital Signs: Verdana 4d Verdana 4d Vital Signs: Verdana 4d Verdana 4Bd Last Vital Signs Verdana 4d Architectural Technician New 4d Architectural Technician New 4d Pulse 90 04/16/21 14:46 Architectural Technician New 4d Resp 16 04/16/21 14:05 Architectural Technician New 4d BP 167/95 H 04/16/21 14:46 Pulse Ox 98 04/16/21 14:46 BMI result Body Mass Index 19.3 Const: Other: Awake, alert, elderly female, very pleasant and cooperative, very thin appearing (BMI 19.4) answers all questions appropriately, does not appear to be in d istress, does not move her right shoulder secondary to pain HENMT: Head: Yes normal to inspection, Yes normocephalic and Yes atraumatic Ears: external ears normal General nose exam: Normal external nose present Face and sinus: Yes normal facial exam Mouth: Normal oral and palatal mucosa present Throat: Yes posterior oropharynx normal Eyes: General: appearance normal, both eyes and all related structures Pupils: Equal, round and reactive pupils present Neck: Neck: Yes normal visual inspection, Yes no lymphadenopathy, Yes trachea midline and Yes supple Chest: Chest palpation & inspection: normal inspection of the chest and normal palpation of entire chest wall Resp: Effort & Inspection: normal respiratory effort and able to speak in complete sentences Auscultation: clear to auscultation bilaterally Cardio: Rate: regular rate Rhythm: regular rhythm Heart sounds: S1 normal heart sound present, S2 normal heart sound present and no murmurs GI: Inspection: Yes normal to inspection Palpation (GI): Soft to palpation, nontender and no guarding Auscultation: normal bowel sounds : General: Yes no CVA tenderness Back/Spine/Pelvis: Back: no CVA tenderness Skin: General skin exam: no rashes or lesions noted Neuro: Cranial nerves: Yes CN's II-XII intact bilaterally and Yes Equal, round and re active pupils present Cognition (Neuro): normal cognition Motor exam (neuro): 5/5 motor strength present throughout (Except for right shoulder and upper extremity limited secondary to pain) Extrem: Other: Right shoulder appears to be deformed, she does have tenderness palpation over the shoulder, she has and no range of motion secondary to pain, her right upper extremities neurovascular intact Psych: Appearance: grossly normal Speech and movement: Normal speech and movement present Affect: normal affect Attitude: cooperative Thought process: Normal thought process present Thought content: Normal thought content present Course Course Course Narrative: 80-year-old female who lost her balance at home while she was walking her liver room, she fell and struck her right shoulder on a commode that was in the living room. She had no head injury or loss of consciousness. She was lying on the living room floor for approximately 3-4 hours until an 8 came in delivered for meal. The patient had no prodromal illness and is complaining of right shoulder pain only. I will obtain a right shoulder x-ray given the fact that she was on the floor for a period of time I will check laboratory evaluation including CK and urinalysis. Patient will be given normal saline IV x1 L and oxycodone 5 mg orally for pain. 1549: Patient got no relief of her pain with oral oxycodone. She was given morphine 2 mg IV and Zofran 4 mg IV with improvement her pain. The patient's blood work was unremarkable. Patient's right shoulder x-ray revealed a comminuted fracture of the humeral head and cervical neck of the right humerus. The radiologist was questioning dislocation of the head of the humerus. I did review these x-rays with the on-call orthopedic surgeon, Dr. Chambers. He felt that the x-rays were more consistent with a subluxation. The patient was placed in a sling. The patient was evaluated by PT and was felt that the patient would benefit from acute rehab. Patient has been accepted at [facility]. The patient will be treated with Tylenol 975 mg every 4-6 hours as needed for pain, and for pain not relieved by Tylenol patient will be prescribed morphine 15 mg every 6 hours as needed. MDM - Extremity (Nontraumatic) Lab Data Result diagrams: 04/16/21 12:10 02/03/22 12:10 Labs: Lab Results 04/16/21 04/16/21 04/16/21 Range/Units 12:05 12:10 12:10 WBC 9.0 (4.8-10.8) X10*3/uL RBC 4.22 (4.20-5.50) X10*6/uL Hgb 12.1 (12.0-16.0) g/dl Hct 36.0 L (37.0-47.0) % MCV 85.3 (80.0-98.0) fL MCH 28.7 (27.0-33.0) pg MCHC 33.6 (31.0-35.0) g/dl RDW 13.9 (11.0-16.0) % Plt Count 244 (160-400) X10*3/uL MPV 9.8 (9.4-12.3) fL Immature Gran % (Auto) 0.2 (0.0-0.4) % Neut % (Auto) 85.4 H (45-73) % Lymph % (Auto) 8.4 L (20-40) % [place] % (Auto) 5.6 (2-11) % Eos % (Auto) 0.1 (0-4) % Baso % (Auto) 0.3 (0-2) % Lymph # (Auto) 0.8 L (1.2-4.9) X10*3/uL [place] # (Auto) 0.5 (0.1-1.2) X10*3/uL Eos # (Auto) 0.0 (0.0-0.4) X10*3/uL Baso # (Auto) 0.0 (0.0-0.2) X10*3/uL Abs Immat Gran (auto) 0.02 (0.00-0.03) X10*3/uL Absolute Neuts (auto) 7.7 (2.0-8.3) x10*3/uL Absolute Nucleated RBC 0.000 (0.0-0.012) X10*3/uL Nucleated RBC % (auto) 0.0 (0.0-0.2) /100WBC Sodium 135 (135-145) mmol/L Potassium 3.8 (3.3-5.1) mmol/L Chloride 99 (96-108) mmol/L Carbon Dioxide 27 (22-29) mmol/L Anion Gap 13 (12-20) BUN 13 (9-16) mg/dL Creatinine 0.70 (0.5-1.4) mg/dL Estim Creat Clear Calc 55.9 Estimated GFR > 60 Random Glucose 102 (60-115) mg/dL Calcium 9.7 (8.4-10.2) mg/dL Total Bilirubin 0.5 (0.0-1.0) mg/dL AST 33 H (5-31) U/L ALT 19 (0-31) U/L Alkaline Phosphatase 116 (39-117) U/L Total Creatine Kinase 209 H (26-140) U/L Total Protein 8.2 H (6.5-8.0) g/dL Albumin 4.0 (3.5-5.0) g/dL Lipase 26 (8-78) U/L Ethyl Alcohol mg/dL COVID-19 ([facility]) Negative (Negative) COVID-19 Clin Com See Note 04/16/21 Range/Units 12:10 WBC (4.8-10.8) X10*3/uL RBC (4.20-5.50) X10*6/uL Hgb (12.0-16.0) g/dl Hct (37.0-47.0) % MCV (80.0-98.0) fL MCH (27.0-33.0) pg MCHC (31.0-35.0) g/dl RDW (11.0-16.0) % Plt Count (160-400) X10*3/uL MPV (9.4-12.3) fL Immature Gran % (Auto) (0.0-0.4) % Neut % (Auto) (45-73) % Lymph % (Auto) (20-40) % [place] % (Auto) (2-11) % Eos % (Auto) (0-4) % Baso % (Auto) (0-2) % Lymph # (Auto) (1.2-4.9) X10*3/uL [place] # (Auto) (0.1-1.2) X10*3/uL Eos # (Auto) (0.0-0.4) X10*3/uL Baso # (Auto) (0.0-0.2) X10*3/uL Abs Immat Gran (auto) (0.00-0.03) X10*3/uL Absolute Neuts (auto) (2.0-8.3) x10*3/uL Absolute Nucleated RBC (0.0-0.012) X10*3/uL Nucleated RBC % (auto) (0.0-0.2) /100WBC Sodium (135-145) mmol/L Potassium (3.3-5.1) mmol/L Chloride (96-108) mmol/L Carbon Dioxide (22-29) mmol/L Anion Gap (12-20) BUN (9-16) mg/dL Creatinine (0.5-1.4) mg/dL Estim Creat Clear Calc Estimated GFR Random Glucose (60-115) mg/dL Calcium (8.4-10.2) mg/dL Total Bilirubin (0.0-1.0) mg/dL AST (5-31) U/L ALT (0-31) U/L Alkaline Phosphatase (39-117) U/L Total Creatine Kinase (26-140) U/L Total Protein (6.5-8.0) g/dL Albumin (3.5-5.0) g/dL Lipase (8-78) U/L Ethyl Alcohol < 10 mg/dL COVID-19 ([facility]) (Negative) COVID-19 Clin Com Discharge Plan Discharge Clinical Impression: Fall, Closed fracture of right proximal humerus Patient Disposition: er SNF Instructions: Proximal Humerus Fracture (ED) Additional Instructions: Your blood work was unremarkable. Your COVID-19 test was negative. The x-ray of your right shoulder revealed a comminuted fracture of the humeral head and neck. The orthopedic doctor on-call, Dr. Chambers felt that your shoulder was subluxed but not dislocate. His recommendation is to keep you in a sling for at least 2 weeks and you should follow-up with him in 1 week for re-evaluation Take ibuprofen 200 mg pills, 2 pills every 6 hours as needed for pain. Take Tylenol (acetaminophen) 500 mg pills, 2 pills every 4-6 hours as needed for pain. For pain not relieved by ibuprofen or Tylenol take morphine 50 mg pills, 1 pill every 6 hours as needed for pain. Do not drive or work while taking this medication since they can cause sleepiness. Morphine is a narcotic medication that can be addicting. If you are concerned about addiction you can ask the pharmacist for less pills or do not get this prescription filled. Stop taking tramadol while you are taking morphine Your being discharged to the [facility] for rehab. Follow-up with the orthopedic doctor in 1-2 week, the nursing facility should make this appointment for you. Please return to the emergency department if your symptoms get worse or if you develop any symptoms that are concerning to you. Prescriptions: New morphine 15 mg tablet 15 mg PO Q4-6H PRN (Reason: pain) Qty: 14 0RF Rx Instructions: Patient may request partial fill ondansetron 4 mg tablet,disintegrating 4 mg PO Q6-8H PRN (Reason: nausea and vomiting) Qty: 14 0RF morphine 15 mg tablet 15 mg PO Q6H PRN (Reason: pain) Qty: 14 0RF Rx Instructions: Patient may request partial fill ondansetron 4 mg tablet,disintegrating 4 mg PO Q6-8H PRN (Reason: nausea and vomiting) Qty: 14 0RF No Action ursodiol 300 mg capsule 300 mg PO BID Qty: 160 2RF amlodipine 5 mg tablet 5 mg PO DAILY Qty: 90 2RF lisinopril 40 mg tablet 40 mg PO DAILY Qty: 90 2RF tramadol 50 mg tablet 50 mg PO TID PRN (Reason: Pain (Scale Score 1-3)) 90 Days Qty: 270 0RF (DME) Rollator See Rx Instructions .Route .MEDSUPPLY Qty: 1 0RF Rx Instructions: As directed multivitamin Tablet 1 tab PO DAILY 0RF aspirin 81 mg Tablet,Delayed Release (Dr/Ec) 81 mg PO DAILY 0RF omega 2-flq-gpr-fish oil [Fish Oil] 1,000 mg (120 mg-180 mg) Capsule 2 cap PO DAILY 0RF polyethylene glycol 3350 [Miralax] 17 gram Powder In Packet 17 g PO DAILY 0RF ezetimibe-simvastatin [Vytorin 10-10] 10-10 mg tablet 0.5 tab PO BEDTIME 0RF quetiapine 100 mg tablet 50 mg PO BEDTIME 0RF (DME) TUBIGRIPS See Rx Instructions .Route .MEDSUPPLY Qty: 2 0RF Rx Instructions: As directed (DME) Commode chair See Rx Instructions .Route .MEDSUPPLY Qty: 1 0RF Rx Instructions: As directed Referrals: Day Sara Lechuga [Outside] - 2 days Rajendra Chambers MD [Physician] - 1 week
[2021-04-16] MEDS: oxyCODONE HCl Immed Release 5 MG TABLET PO (11:57)
[2021-04-16] MEDS: 0.9 % Sodium Chloride 1,000 ML 999 ML IV (12:12)
[2021-04-16 12:15] LABS: MANUAL DIFF FLAG NO
[2021-04-16 12:19] LABS: Basophils Percent Auto 0.3 % (0-2); Eosinophils Percent Auto 0.1 % (0-4); Hemoglobin 12.1 g/dl (12.0-16.0); Imm Gran Abs Auto 0.02 X10*3/uL (0.00-0.03); Imm Gran Pct Auto 0.2 % (0.0-0.4); Lymphocytes Absolute Auto 0.8 X10*3/uL (1.2-4.9); Lymphocytes Percent Auto 8.4 % (20-40); Mean Corpuscular HGB Conc 33.6 g/dl (31.0-35.0); Mean Corpuscular Hemoglobin 28.7 pg (27.0-33.0); Mean Corpuscular Volume 85.3 fL (80.0-98.0); Mean Platelet Volume 9.8 fL (9.4-12.3); Monocytes Absolute Auto 0.5 X10*3/uL (0.1-1.2); Monocytes Percent Auto 5.6 % (2-11); Neutrophils Absolute Auto 7.7 x10*3/uL (2.0-8.3); Neutrophils Percent Auto 85.4 % (45-73); Platelet Count 244 X10*3/uL (160-400); Red Blood Count 4.22 X10*6/uL (4.20-5.50); Red Cell Distribution Width 13.9 % (11.0-16.0)
[2021-04-16 12:31] LABS: Ethanol < 10 mg/dL
[2021-04-16 12:36] LABS: Alanine Aminotransferase 19 U/L (0-31); Alkaline Phosphatase 116 U/L (39-117); Anion Gap 13 (12-20); Aspartate Amino Transferase 33 U/L (5-31); Bilirubin Total 0.5 mg/dL (0.0-1.0); Blood Urea Nitrogen 13 mg/dL (9-16); Calcium 9.7 mg/dL (8.4-10.2); Carbon Dioxide 27 mmol/L (22-29); Chloride 99 mmol/L (96-108); Creatinine Clr Calc Pharmacy 55.9; Estimated Glomerular Filt Rate > 60; Glucose Random 102 mg/dL (60-115); Lipase 26 U/L (8-78); Potassium 3.8 mmol/L (3.3-5.1); Sodium 135 mmol/L (135-145); Total Protein 8.2 g/dL (6.5-8.0)
[2021-04-16 12:36] LABS: COVID-19 Test Negative (Negative)
[2021-04-16 13:07] VITALS: BP 160/79; PULSE 74; RESP 20; O2SAT 98
[2021-04-16 14:05] VITALS: BP 167/95; PULSE 90; RESP 16; O2SAT 98
[2021-04-16] MEDS: Morphine Sulfate 4 MG/ML CARTRIDGE 2 MG IVPUSH (14:26)
[2021-04-16] MEDS: ondansetron HCL 4 MG/2 ML VIAL IVPUSH (14:26)
[2021-04-16 14:46] VITALS: BP 167/95; PULSE 90; O2SAT 98
--- NOTE | 2021-04-16 15:27 | MHC.CM.ED ---
Received case management consult from Dr Short. Patient came to ER due to a fall. Found to have a humerus. Physical therapy eval completed. Short term rehab is recommended. Patient lives alone. PCP verified. HCP verified to be on file. Patient received J&J vaccine and booster (doesn't remember which brand). Patient requesting referral to [facility]. Referral made via [employer]. [facility] is able to offer a bed. Patient can leave at 5pm. Renita CORDERO booked. [facility] with chart. Donna Hollingsworth RN and Dr Short aware. Attempted to notify patient's sister of discharge at patient's request. Left voicemail for Kylah via telephone at [phone] providing discharge info and case management contact info. Continue to monitor for d/c needs.
[2021-04-16 17:06] VITALS: BP 153/79; PULSE 85; RESP 22; TEMP 36.7; O2SAT 96
== END 2021-04-16 18:59 | disposition skilled nursing facility (03) ==
PROVIDERS: Emergency Provider Emergency Medicine Emergency Medical Services; PCP Internal Medicine
DX: S42.201A Unspecified fracture of upper end of right humerus, initial encounter for closed fracture (principal); W01.190A Fall on same level from slipping, tripping and stumbling with subsequent striking against furniture, initial encounter; Y93.01 Activity, walking, marching and hiking; Y92.038 Other place in apartment as the place of occurrence of the external cause; Y99.9 Unspecified external cause status; Z20.822 Contact with and (suspected) exposure to COVID-19
CPT/HCPCS: 73030; 80053; 82077; 82550; 83690; 85025; 87635; 93005; 96361; 96374; 96375; 97162; 99284; 99285; J2270; J2405

== ENCOUNTER 2021-04-30 07:27 | Outpatient (REF) | payer MEDICARE, SELFPAY ==
--- NOTE | ~2021-04-30 | XR_ITS ---
EXAMINATION: XR SHOULDER, RIGHT CLINICAL INFORMATION: Right shoulder pain COMPARISON: 04/16/2021 TECHNIQUE: Two views of the right shoulder. FINDINGS: Bones are diffusely osteopenic. Again noted is the fractured proximal right humerus consisting of greater tuberosity, head and shaft fragments. The humeral head was dislocated on 04/16/2021, but is now reduced and overlying the glenoid. The greater tuberosity fragment is in near-anatomic position. At the level of the surgical neck, there is anterior apex angulation, posterior overlap of the head on the neck, and unchanged finding of > 1 cm of cortical bone offset posteriorly between the head and shaft fragments. The position of fragments is similar compared to 04/16/2021. Neer classification 2-part fracture. No healing response is detected at this time. There are a few old healed right rib fractures. XR/XR shoulder RT min 2V IMPRESSION: * Comminuted fracture the proximal right humerus. * There has been interval reduction of the previously dislocated humeral head.
== END 2021-04-30 07:28 | disposition home or self-care (01) ==
LOC: HO.HOSX 07:27
PROVIDERS: Visit Provider Physician Assistant
DX: S42.201A Unspecified fracture of upper end of right humerus, initial encounter for closed fracture (principal)
CPT/HCPCS: 73030; 99202

== ENCOUNTER 2021-05-29 07:47 | Outpatient (REF) | payer MEDICARE, SELFPAY ==
--- NOTE | ~2021-05-29 | XR_ITS ---
EXAMINATION: XR SHOULDER, RIGHT CLINICAL INFORMATION: Pain. COMPARISON: There is bony demineralization. Prior radiographs dated 04/30/2021 and 04/16/2021. TECHNIQUE: AP neutral and scapular Y views of the right shoulder are submitted. FINDINGS: There is bony demineralization. An impacted fracture is redemonstrated of the right humeral head and neck, with comminution fragments again involving the head and greater tuberosity. Alignment is stable. There is no significant new callus formation. No foreign body is seen. There is no right pneumothorax. There are old, healed upper right rib fractures. XR/XR shoulder RT min 2V IMPRESSION: There is stable alignment of a comminuted fracture of the proximal right humerus. No new callus formation is seen.
== END 2021-05-29 07:48 | disposition home or self-care (01) ==
LOC: HO.HOSX 07:47
PROVIDERS: Visit Provider Physician Assistant
DX: S42.201D Unspecified fracture of upper end of right humerus, subsequent encounter for fracture with routine healing (principal)
CPT/HCPCS: 73030; 99212

== ENCOUNTER 2021-07-09 08:51 | Outpatient (REF) | payer MEDICARE, SELFPAY | END 2021-07-09 08:52 | disposition home or self-care (01) | LOC: HO.HOSX 08:51 | PROVIDERS: Visit Provider Physician Assistant | DX: Z13.89 Encounter for screening for other disorder (principal) ==

== ENCOUNTER 2021-09-03 14:27 | Outpatient (REF) | payer MEDICARE, SELFPAY ==
--- NOTE | ~2021-09-03 | MM_ITS ---
EXAMINATION: BONE DENSITOMETRY CLINICAL INDICATION: Osteoporosis. COMPARISON: None (current study represents initial baseline exam). TECHNIQUE: Using a [employer] DXA System (software version: 13.1) manufactured by [employer], dual-energy x-ray absorptiometry was performed of the lumbar spine and left forearm radius 33%. The images are of good technical quality. Summary results are attached. FINDINGS: AP SPINE L2-L3 (excluding L1 and L4): The data of L1-L4 has been changed to exclude the L1 and L4 vertebral bodies, because degenerative changes at these levels may cause overestimation of lumbar spine density. BMD 0.484 g/cm2, Z-score -3.7, T-score -6.0, osteoporosis. LEFT FOREARM RADIUS 33%: BMD 0.467 g/cm2, Z-score -2.0, T-score -4.7, osteoporosis. IDENTIFIED RISK FACTORS: Menopause, height loss, history of fracture (adult), osteoporosis. HISTORY OF FRACTURE: Hips, shoulder, wrist. MEDICATIONS: Multivitamin. MM/XR DEXA appendicular skeleton IMPRESSION: 1. DIAGNOSIS: Severe osteoporosis based on the lowest T-score value of -6.0 in the lumbar spine and history of fractures of the shoulder, wrist, bilateral hips applying World Health Organization criteria. 2. 10-YEAR FRACTURE RISK PREDICTION, FRAX: According to the guidelines, FRAX calculation should only be performed on patients in the osteopenia bone density category. Therefore, FRAX was not performed on this patient. 3. Treatment Recommendations: NOF guidelines recommend consideration for treatment in postmenopausal women and men age 50 and older presenting with the following: -A hip or vertebral (clinical or morphometric) fracture. -T-score less than or equal to -2.5 at the femoral neck or spine after appropriate evaluation to exclude secondary causes. -Low bone mass at the hip or spine and a 10-year fracture probability by FRAX of greater than or equal to 3% for hip fracture or greater than or equal to 20% for major osteoporotic fracture based on the [place] adapted WHO algorithm. 4. Other Recommendations: All treatment decisions require clinical judgment and consideration of individual patient factors, including patient preferences, comorbidities, previous drug use, risk factors not captured in the FRAX model (e.g. frailty, falls, vitamin D deficiency, increased bone turnover, interval significant decline in bone density) and possible under or overestimation of fracture risk by FRAX. Additional medical evaluation for secondary cause of low bone mineral density may be appropriate. FUTURE SCAN RECOMMENDATION: People with diagnosed cases of osteoporosis or at high risk for fracture should have regular bone mineral density tests. For patients eligible for Medicare, routine testing is allowed once every 2 years. The testing frequency can be increased to one year for patients who have rapidly progressing disease, those who are receiving or discontinuing medical therapy to restore bone mass, or have additional risk factors.
== END 2021-09-03 14:28 | disposition home or self-care (01) ==
LOC: HO.MAMMO 14:27
PROVIDERS: Visit Provider Internal Medicine
DX: Z13.820 Encounter for screening for osteoporosis (principal); M81.0 Age-related osteoporosis without current pathological fracture; Z78.0 Asymptomatic menopausal state
CPT/HCPCS: 77081

== ENCOUNTER 2021-10-29 16:21 | Emergency (ER) | payer MEDICARE, SELFPAY ==
[2021-10-29 16:27] VITALS: BP 120/88; PULSE 70; O2SAT 98
[2021-10-29 16:31] VITALS: BP 154/86; PULSE 87; RESP 20; TEMP 36.4; O2SAT 98; BMI 23.2
--- NOTE | 2021-10-29 16:39 | ED_ITS ---
HPI - General Adult General Chief complaint: General Medical Stated complaint: LEGS SWELLING Time Seen by Provider: 10/29/21 16:31 Source: patient and EMS Mode of arrival: EMS Limitations: no limitations History of Present Illness HPI narrative: Patient comes a magnesium complaining of lower extremity edema for 2 weeks. Patient has history of chronic lymphedema. Patient states that she has never been seen by the wound clinic. Patient admits that she was asked to follow-up with them she never went. Patient denies any orthopnea, no shortness of breath or chest pain. Patient states that she is still ambulatory, does not have significant pain in her extremities. No fever chills. Related Data Home Medications Medication Instructions Recorded Confirmed aspirin 81 mg tablet,delayed 81 mg PO DAILY 12/26/19 08/27/21 release omega 3-aex-bub-fish oil 1,000 mg 2 cap PO DAILY 01/01/20 08/27/21 (120 mg-180 mg) capsule (Fish Oil) polyethylene glycol 3350 17 gram 17 g PO DAILY 01/01/20 08/27/21 oral powder packet (Miralax) Previous Rx's Medication Instructions Recorded Commode chair #1 ea 05/19/20 TUBIGRIPS #2 ea 05/19/20 Rollator #1 ea 04/09/21 ursodiol 300 mg capsule 300 mg PO BID #160 caps 05/04/21 calcium carbonate 600 mg-vitamin 1 cap PO BID 90 days #180 caps 06/29/21 D3 25 mcg (1,000 unit) capsule multivitamin 1 tab PO DAILY 90 days #90 tabs 06/29/21 amlodipine 5 mg tablet 5 mg PO DAILY #90 tabs 08/27/21 lisinopril 40 mg tablet 40 mg PO DAILY #90 tabs 08/27/21 quetiapine 100 mg tablet 100 mg PO BEDTIME 90 days #90 tabs 09/10/21 tramadol 50 mg tablet 50 mg PO TID PRN Pain (Scale Score 09/17/21 1-3) 90 days #270 tabs ezetimibe 10 mg-simvastatin 10 mg 0.5 tab PO BEDTIME #45 tabs 10/26/21 tablet (Vytorin) furosemide 40 mg tablet (Lasix) 40 mg PO DAILY #5 tabs 10/29/21 Allergies Allergy/AdvReac Type Severity Reaction Status Date / Time fentanyl [FENTANYL] Allergy Severe CARDIAC Verified 08/27/21 14:29 ARREST, heart stopped, anaphylaxis nickel Allergy Unknown Rash Uncoded 08/27/21 14:29 paper tape Allergy Unknown Rash Uncoded 08/27/21 14:29 Review of Systems Review of Systems: Constitutional : No Weight loss, No Fever, No Chills, No Night Sweats, No Fatigue, No Malaise ENT/Mouth : No Hearing loss, No Ear Pain, No Nasal Congestion, No Sinus Pain, No Hoarseness, No sore throat, No Rhinorrhea, No Swallowing Difficulty Eyes: No Eye Pain, No Swelling, No Redness, No Foreign Body, No Discharge, No Vision Changes Cardiovascular : No Chest Pain, No SOB, No Dyspnea on Exertion, No Orthopnea, No Edema, No Palpitations Respiratory : No Cough, No Sputum, No Wheezing, No Smoke Exposure, No Dyspnea Gastrointestinal : No Nausea, No Vomiting, No Diarrhea, No Constipation, No abdominal Pain, No Hematochezia, No Melena Genitourinary : no irregular bleeding, No Dysuria, No Urinary Frequency, No Hematuria, No Urinary Incontinence, No Urgency, No Flank Pain, No Urinary Flow Changes, No Hesitancy Musculoskeletal : No joint pain, No Myalgias, No Joint Swelling, complaining of lower extremity edema Skin : No Skin Lesions, No rash Neuro : No Weakness, No Numbness, No Paresthesias, No Loss of Consciousness, No Dizziness, No Headache Psych : No Anxiety/Panic, No Depression, No SI/HI/AH/VH, No Social Issues, Heme/Lymph: No Bruising, No Bleeding,No Lymphadenopathy Endocrine : No Polyuria, No Polydipsia, No Temperature Intolerance [facility] Past Medical History Medical History Anxiety Compression fracture of L2 lumbar vertebra High cholesterol Hip fracture, right HTN (hypertension) Lymphedema Malignant tumor body uterus Osteoporosis Other specified disorders of bone density and structure, right upper arm Proximal humerus fracture Psoriasis Pulmonary embolism Pulmonary nodule Retinal artery branch occlusion, left eye Surgical History History of esophagogastroduodenoscopy (EGD) History of hip replacement History of open reduction and internal fixation (ORIF) procedure History of removal of cyst History of solitary pulmonary nodule History of surgery History of tonsillectomy and adenoidectomy History of tubal ligation Hx of colonoscopy Family History Family History Father Stroke Hypertension Mother Hypertension CVD (cardiovascular disease) Myocardial infarction Brother Hypertension Sister Hypercholesteremia Hypertension Sister Hypertension Hypercholesteremia Social History Social History Household Members: None Housing: Apartment Do you presently have visiting nurse or other home services: No (pt is requesting to have services at home) Alcohol intake: never Patient Tobacco Use Status: Never used Tobacco e-Cigarette/Vaping Use: Never Used Use of substances other than those prescribed or required for medical reasons: No Advance Directives: Yes Advance Directives on File: Yes Advance Directives Date on File: 01/16/20 service: No Current occupational status: retired Cognitive needs: Yes Hearing needs: No Vision needs: Yes (Pt has glasees for reading) Physical Exam ED Vital Signs: Vital Signs - 24 hr 10/29/21 16:31 10/29/21 16:41 Temperature 97.6 F 97.6 F Pulse Rate 87 80 Respiratory Rate 20 20 Blood Pressure 154/86 H 154/86 H Pulse Oximetry 98 Oxygen Delivery Method Room Air BMI result Body Mass Index 23.2 Const Other: Appearance: Alert. Oriented X3. No acute distress. Eyes: Pupils equal, round and reactive to light. ENT: Pharynx normal. Neck: Normal inspection. Neck supple. No lymph nodes noted. No crepitus CVS: Normal heart rate and rhythm. Pulses normal. Normal S1 and S2 Respiratory: No respiratory distress. Breath sounds normal. No Wheezing. No ral es Abdomen: Soft and nontender. No rigidity. No distention. Skin: Skin warm and dry. Normal skin color. C extremities below Extremities: +3 pitting edema bilaterally, chronic venous stasis, chronic lymphedema Neuro: Oriented X 3. No motor deficit. No sensory deficit. Moving all extremities. No slurred speech. CN 2 through 12 grossly intact Psych: calm, cooperative, normal affect Course Course Course Narrative: Patient has no respiratory distress. all of patient's labs pending. Patient's white blood cell count within normal limits, BMP within normal limits. Patient has chronic lymphedema. Patient does not take Lasix, a few days of Lasix will likely help the patient get rid of lower extremity edema. Patient instructed to use compression stockings. Medical Decision Making Lab Data Result diagrams: 10/29/21 16:58 10/29/21 16:58 Labs: Lab Results 10/29/211818 Range/Units 16:58 16:58 16:58 WBC 5.1 (4.8-10.8) X10*3/uL RBC 3.88 L (4.20-5.50) X10*6/uL Hgb 11.0 L (12.0-16.0) g/dl Hct 33.9 L (37.0-47.0) % MCV 87.4 (80.0-98.0) fL MCH 28.4 (27.0-33.0) pg MCHC 32.4 (31.0-35.0) g/dl RDW 14.8 (11.0-16.0) % Plt Count 228 (160-400) X10*3/uL MPV 10.1 (9.4-12.3) fL Immature Gran % (Auto) 0.2 (0.0-0.4) % Neut % (Auto) 50.7 (45-73) % Lymph % (Auto) 32.4 (20-40) % [place] % (Auto) 13.9 H (2-11) % Eos % (Auto) 2.2 (0-4) % Baso % (Auto) 0.6 (0-2) % Lymph # (Auto) 1.7 (1.2-4.9) X10*3/uL [place] # (Auto) 0.7 (0.1-1.2) X10*3/uL Eos # (Auto) 0.1 (0.0-0.4) X10*3/uL Baso # (Auto) 0.0 (0.0-0.2) X10*3/uL Abs Immat Gran (auto) 0.01 (0.00-0.03) X10*3/uL Absolute Neuts (auto) 2.6 (2.0-8.3) x10*3/uL Absolute Nucleated RBC 0.000 (0.0-0.012) X10*3/uL Nucleated RBC % (auto) 0.0 (0.0-0.2) /100WBC Sodium 136 (135-145) mmol/L Potassium 4.9 D (3.3-5.1) mmol/L Chloride 99 (96-108) mmol/L Carbon Dioxide 28 (22-29) mmol/L Anion Gap 14 (12-20) BUN 17 H (9-16) mg/dL Creatinine 0.78 (0.5-1.4) mg/dL Estim Creat Clear Calc 45.5 Estimated GFR > 60 Random Glucose 94 (60-115) mg/dL Calcium 9.5 (8.4-10.2) mg/dL Total Bilirubin 0.2 (0.0-1.0) mg/dL Direct Bilirubin 0.2 (0.0-0.5) mg/dL AST 25 (5-31) U/L ALT 17 (0-31) U/L Alkaline Phosphatase 117 (39-117) U/L B-Natriuretic Peptide 20 (<100) pg/mL Total Protein 7.2 (6.5-8.0) g/dL Albumin 3.7 (3.5-5.0) g/dL Discharge Plan Discharge Clinical Impression: Lymphedema Patient Disposition: Home, Self-Care Instructions: Lymphedema (ED) Additional Instructions: Please follow-up with your primary care physician tomorrow. If you have any worsening or new symptoms, please return to the emergency room or call 911 Prescriptions: New furosemide [Lasix] 40 mg tablet 40 mg PO DAILY Qty: 5 0RF No Action (DME) Rollator See Rx Instructions .Route .MEDSUPPLY Qty: 1 0RF Rx Instructions: As directed ursodiol 300 mg capsule 300 mg PO BID Qty: 160 2RF multivitamin Tablet 1 tab PO DAILY 90 Days Qty: 90 3RF calcium carbonate-vitamin D3 600 mg-25 mcg (1,000 unit) capsule 1 cap PO BID 90 Days Qty: 180 3RF quetiapine 100 mg tablet 100 mg PO BEDTIME 90 Days Qty: 90 2RF tramadol 50 mg tablet 50 mg PO TID PRN (Reason: Pain (Scale Score 1-3)) 90 Days Qty: 270 0RF ezetimibe-simvastatin [Vytorin 10-10] 10-10 mg tablet 0.5 tab PO BEDTIME Qty: 45 11RF aspirin 81 mg Tablet,Delayed Release (Dr/Ec) 81 mg PO DAILY omega 2-wcj-cte-fish oil [Fish Oil] 1,000 mg (120 mg-180 mg) Capsule 2 cap PO DAILY polyethylene glycol 3350 [Miralax] 17 gram Powder In Packet 17 g PO DAILY (DME) TUBIGRIPS See Rx Instructions .Route .MEDSUPPLY Qty: 2 0RF Rx Instructions: As directed (DME) Commode chair See Rx Instructions .Route .MEDSUPPLY Qty: 1 0RF Rx Instructions: As directed lisinopril 40 mg tablet 40 mg PO DAILY Qty: 90 2RF amlodipine 5 mg tablet 5 mg PO DAILY Qty: 90 2RF
[2021-10-29 16:41] VITALS: BP 154/86; PULSE 80; RESP 20; TEMP 36.4
--- NOTE | 2021-10-29 16:43 | PC.NURSE ---
pulses positive bilaterally in feet. both feet warm to touch.
[2021-10-29 17:10] LABS: MANUAL DIFF FLAG NO
[2021-10-29 17:14] LABS: Basophils Percent Auto 0.6 % (0-2); Eosinophils Absolute Auto 0.1 X10*3/uL (0.0-0.4); Eosinophils Percent Auto 2.2 % (0-4); Hematocrit 33.9 % (37.0-47.0); Imm Gran Abs Auto 0.01 X10*3/uL (0.00-0.03); Imm Gran Pct Auto 0.2 % (0.0-0.4); Lymphocytes Absolute Auto 1.7 X10*3/uL (1.2-4.9); Lymphocytes Percent Auto 32.4 % (20-40); Mean Corpuscular HGB Conc 32.4 g/dl (31.0-35.0); Mean Corpuscular Hemoglobin 28.4 pg (27.0-33.0); Mean Corpuscular Volume 87.4 fL (80.0-98.0); Mean Platelet Volume 10.1 fL (9.4-12.3); Monocytes Absolute Auto 0.7 X10*3/uL (0.1-1.2); Monocytes Percent Auto 13.9 % (2-11); Neutrophils Absolute Auto 2.6 x10*3/uL (2.0-8.3); Neutrophils Percent Auto 50.7 % (45-73); Platelet Count 228 X10*3/uL (160-400); Red Blood Count 3.88 X10*6/uL (4.20-5.50); Red Cell Distribution Width 14.8 % (11.0-16.0); White Blood Count 5.1 X10*3/uL (4.8-10.8)
[2021-10-29 17:36] LABS: B Type Natriuretic Peptide 20 pg/mL (<100)
[2021-10-29 17:37] LABS: Alanine Aminotransferase 17 U/L (0-31); Albumin Level 3.7 g/dL (3.5-5.0); Alkaline Phosphatase 117 U/L (39-117); Anion Gap 14 (12-20); Aspartate Amino Transferase 25 U/L (5-31); Bilirubin Direct 0.2 mg/dL (0.0-0.5); Bilirubin Total 0.2 mg/dL (0.0-1.0); Blood Urea Nitrogen 17 mg/dL (9-16); Calcium 9.5 mg/dL (8.4-10.2); Carbon Dioxide 28 mmol/L (22-29); Chloride 99 mmol/L (96-108); Creatinine Clr Calc Pharmacy 45.5; Estimated Glomerular Filt Rate > 60; Glucose Random 94 mg/dL (60-115); Potassium 4.9 mmol/L (3.3-5.1); Sodium 136 mmol/L (135-145); Total Protein 7.2 g/dL (6.5-8.0)
[2021-10-29 18:00] VITALS: BP 155/79; PULSE 89; RESP 16; TEMP 36.6; O2SAT 95
--- NOTE | 2021-10-29 18:52 | PC.NURSE ---
PATIENT WAS GIVEN DINNER BEFORE SHE LEAVE .
== END 2021-10-29 18:56 | disposition home or self-care (01) ==
PROVIDERS: Emergency Provider Emergency Medicine; PCP Internal Medicine
DX: I89.0 Lymphedema, not elsewhere classified (principal); R60.0 Localized edema; I10 Essential (primary) hypertension; E78.5 Hyperlipidemia, unspecified; Z79.82 Long term (current) use of aspirin; Z79.899 Other long term (current) drug therapy
CPT/HCPCS: 36415; 80048; 80076; 83880; 85025; 99283; 99284

== ENCOUNTER 2021-11-08 06:22 | Inpatient (IN) | payer MEDICARE, SELFPAY ==
[2021-11-08] VITALS (8 sets, daily range): BP systolic 129–150; BP diastolic 59–78; PULSE 80–104; RESP 14–18; TEMP 36.7–37.2; O2SAT 94–98; BMI 25.4
--- NOTE | ~2021-11-08 | US_ITS ---
EXAMINATION: US VENOUS ULTRASOUND WITH DOPPLER LOWER EXTREMITY, LEFT CLINICAL INFORMATION: Pain and swelling COMPARISON: October 02, 2015 TECHNIQUE: Ultrasound of the deep veins is performed from the hip to the calf with compression sonography and color and pulse Doppler assessment. Spectral analysis with color-flow imaging is performed. FINDINGS: There is normal venous compression and respiratory variation and augmented flow. The visualized common femoral vein, superficial femoral vein, profunda femoral vein, popliteal vein, and the trifurcation region shows no evidence of deep venous thrombosis. There is no significant popliteal fossa cyst. There are some prominent normal-appearing left inguinal lymph nodes. US/US venous duplex LE LT IMPRESSION: No acute DVT demonstrated in the left lower extremity.
--- NOTE | ~2021-11-08 | CT_ITS ---
EXAMINATION: CT ABDOMEN AND PELVIS WITHOUT CONTRAST CLINICAL INFORMATION: Rectal bleeding. Rule out colitis. COMPARISON: Abdominal ultrasound January 11, [address] abdomen pelvis September 04, 2018. Chest CT from July 18, 2020 also reviewed. TECHNIQUE: Multidetector volumetric imaging was performed from the superior aspect of the liver through the pubic symphysis. Sagittal and coronal reformatted images were obtained on the technologist's workstation. This CT examination was performed using dose optimization techniques as appropriate, variously including the following: *Automated exposure control *Adjustment of mA and/or kV according to patient size (this includes techniques or standardized protocols for targeted exams where dose is matched to indication/reason for exam; i.e. extremities or head) *Use of iterative reconstruction technique DLP: 526 mGy-cm FINDINGS: Visualized lung bases demonstrate mild dependent atelectasis. The liver is mildly enlarged. There is diffusely decreased attenuation of the liver. The gallbladder is normal in appearance. The pancreas, spleen and adrenal glands are unremarkable. Symmetrically sized kidneys. No renal calculi or hydronephrosis bilaterally. Moderate to large sized hiatal hernia, only partially visualized. Normal caliber loops of small bowel. The proximal colon demonstrates a normal mild stool burden. The distal colon is suboptimally evaluated due to is relatively decompressed status. There is mild to moderate colonic diverticulosis without CT evidence to suggest active diverticulitis. Evaluation of pelvis is limited secondary to streak artifact from bilateral hip hardware, however, there appears to be prominent circumferential mucosal thickening throughout the distal sigmoid colon and rectum with some adjacent mesenteric stranding. Normal caliber abdominal aorta demonstrating mild to moderate atherosclerotic disease. The bladder is suboptimally evaluated due to streak artifact, however, appears normally distended. Small calcified fibroid noted within otherwise unremarkable appearing uterus. No gross free pelvic fluid. Shotty bilateral inguinal lymph nodes are nonspecific. Diffuse osteopenia. Hardware of both hips is partially visualized. Moderate diffuse degenerative changes of the spine. There is similar moderate anterolisthesis of L4 on L5. There is an old L3 compression deformity and an L2 compression deformity which although age indeterminate is new from July 2020. CT/CT abdomen pelvis wo con IMPRESSION: Evaluation of pelvis is limited secondary to streak artifact, however, there appears to be prominent circumferential mucosal thickening throughout the distal sigmoid colon and rectum with some adjacent mesenteric stranding. Findings suggest an infectious versus inflammatory process. Clinical correlation recommended. Follow-up imaging versus colonoscopy may be warranted. Fleischner guidelines were followed.
--- NOTE | 2021-11-08 07:25 | ED_ITS ---
HPI - General Adult General Chief complaint: General Medical Stated complaint: edema on leg Time Seen by Provider: 11/08/21 07:25 Source: patient and EMS Mode of arrival: EMS Limitations: no limitations History of Present Illness HPI narrative: 81-year-old female came in for evaluation of spotting blood seen in her underwear today. Patient was seen recently for chronic lymphedema patient was started on Lasix 40 mg daily, complaining of weeping of fluid from her left lower extremities, patient also noted there is a bloody discharge in her underwear not sure if it is coming from her vagina rectum, patient otherwise does not complain of CP or SOB, no weakness, no massive bleeding. Related Data Home Medications Medication Instructions Recorded Confirmed aspirin 81 mg tablet,delayed 81 mg PO DAILY 12/26/19 08/27/21 release omega 5-txi-uoy-fish oil 1,000 mg 2 cap PO DAILY 01/01/20 08/27/21 (120 mg-180 mg) capsule (Fish Oil) polyethylene glycol 3350 17 gram 17 g PO DAILY 01/01/20 08/27/21 oral powder packet (Miralax) Previous Rx's Medication Instructions Recorded Commode chair #1 ea 05/19/20 TUBIGRIPS #2 ea 05/19/20 Rollator #1 ea 04/09/21 ursodiol 300 mg capsule 300 mg PO BID #160 caps 05/04/21 calcium carbonate 600 mg-vitamin 1 cap PO BID 90 days #180 caps 06/29/21 D3 25 mcg (1,000 unit) capsule multivitamin 1 tab PO DAILY 90 days #90 tabs 06/29/21 amlodipine 5 mg tablet 5 mg PO DAILY #90 tabs 08/27/21 lisinopril 40 mg tablet 40 mg PO DAILY #90 tabs 08/27/21 quetiapine 100 mg tablet 100 mg PO BEDTIME 90 days #90 tabs 09/10/21 tramadol 50 mg tablet 50 mg PO TID PRN Pain (Scale Score 09/17/21 1-3) 90 days #270 tabs ezetimibe 10 mg-simvastatin 10 mg 0.5 tab PO BEDTIME #45 tabs 10/26/21 tablet (Vytorin) furosemide 40 mg tablet (Lasix) 40 mg PO DAILY #5 tabs 10/29/21 Allergies Allergy/AdvReac Type Severity Reaction Status Date / Time fentanyl [FENTANYL] Allergy Severe CARDIAC Verified 11/08/21 06:35 ARREST, heart stopped, anaphylaxis nickel Allergy Unknown Rash Uncoded 11/08/21 06:35 paper tape Allergy Unknown Rash Uncoded 11/08/21 06:35 Review of Systems Review of Systems: All other systems are reviewed and are negative Constitutional: Reports as per HPI and Reports no additional constitutional complaints Eyes: Reports as per HPI and Reports no additional eye complaints Reports system reviewed and no additional complaints, except as documented Cardiovascular: Reports as per HPI and Reports no additional cardiovascular complaints Respiratory: Reports as per HPI and Reports no additional respiratory complaints Gastrointestinal: Reports as per HPI and Reports no additional gastrointestinal complaints Genitourinary: Reports no additional female genitourinary complaints Musculoskeletal: Reports no additional musculoskeletal complaints Skin/Breast: Reports system reviewed and no additional complaints, except as docu Psychiatric: Reports no additional psychiatric complaints Endocrine: Reports no additional endocrine complaints Hematologic/Lymphatic: Reports no additional hematologic/lymphatic complaints Allergic/Immunologic: Reports no additional allergic/immunologic complaints Reports system reviewed and no additional complaints, except as documented and Reports Abnormal speech present [facility] Past Medical History Medical History Anxiety Compression fracture of L2 lumbar vertebra High cholesterol Hip fracture, right HTN (hypertension) Lymphedema Malignant tumor body uterus Osteoporosis Other specified disorders of bone density and structure, right upper arm Proximal humerus fracture Psoriasis Pulmonary embolism Pulmonary nodule Retinal artery branch occlusion, left eye Surgical History History of esophagogastroduodenoscopy (EGD) History of hip replacement History of open reduction and internal fixation (ORIF) procedure History of removal of cyst History of solitary pulmonary nodule History of surgery History of tonsillectomy and adenoidectomy History of tubal ligation Hx of colonoscopy Family History Family History Father Stroke Hypertension Mother Hypertension CVD (cardiovascular disease) Myocardial infarction Brother Hypertension Sister Hypercholesteremia Hypertension Sister Hypertension Hypercholesteremia Social History Social History Household Members: None Housing: Apartment Do you presently have visiting nurse or other home services: No (pt is requesting to have services at home) Alcohol intake: never Patient Tobacco Use Status: Never used Tobacco e-Cigarette/Vaping Use: Never Used Use of substances other than those prescribed or required for medical reasons: No Advance Directives: Yes Advance Directives on File: Yes Advance Directives Date on File: 01/16/20 service: No Current occupational status: retired Cognitive needs: Yes Hearing needs: No Vision needs: Yes (Pt has glasees for reading) Physical Exam ED Vital Signs: Vital Signs - 24 hr 11/08/21 06:35 11/08/21 07:25 11/08/21 08:00 Temperature 98.1 F 98.9 F 98.8 F Pulse Rate 89 89 Respiratory Rate 18 Blood Pressure 135/68 150/77 H Pulse Oximetry 97 98 Oxygen Delivery Method Room Air Room Air 11/08/21 10:00 Temperature Pulse Rate 83 Respiratory Rate 14 Blood Pressure 143/77 H Pulse Oximetry 98 Oxygen Delivery Method Room Air BMI result Body Mass Index 25.4 Vital signs have been reviewed as appeared to be correct. Blood pressure normal. Heart rate normal. Respiration rate normal. Temperature normal. Oxygen saturation normal. Appearance: Alert. Oriented X3. No acute distress. Head: Normal external exam. Normocephalic. Atraumatic. No [place] signs noted. No raccoon eyes noted Eyes: PERRLA. EOMI. Conjunctiva and sclera normal. Eyelids normal. ENT: TM's Normal. Pharynx normal. Uvula midline. Moist mucous membranes. No trismus noted. No drooling noted. No muffled voice noted. Neck: Normal inspection. Neck supple. FROM. No adenopathy. Thyroid Normal. No meningeal signs. No neck mass noted. CVS: Normal heart rate and rhythm. Heart sound normal. No murmurs noted. Pulses normal throughout. Respiratory: No respiratory distress. Painless inspiration. Breath sounds normal. No wheezes/rales/rhonchi noted. Chest nontender. No accessory muscle usage noted or decreased air movement noted. Abdomen: Soft and nontender. Bowel sounds normal in all 4 quadrants. No distention noted. No organomegaly noted. No visible injury noted. Rectal exam: No visible external hemorrhoid, no palpable internal hemorrhoid, no active bleeding, red stain in the rectal vault, stool is positive for blood. Hematochezia. Pelvic exam: Normal inspection, no active bleeding, no blood in the vault, no palpable adnexa. Back: No CVA tenderness. Full range of motion noted. Skin: Skin warm and dry. Normal skin color. Normal skin turgor. No rashes/lesions/lacerations noted. Extremities: Left leg more swollen than the right leg, slightly tender, slightly red, but hotness, neurovascular intact. Neuro: Oriented X 3. Cranial nerve exam: II-XII are grossly intact No motor deficit. No sensory deficit. Reflexes normal. Course Course Course Narrative: 81-year-old female came in for evaluation of rectal bleed and left lower extremities swelling. Ultrasound of left lower extremity shows no acute DVT, no clinical evidence of cellulitis at this point. CT scan is showing colitis however patient has soft nontender abdomen, no history to suggest infectious colitis, patient do not meet criteria for SIRS. Will admit the patient for further evaluation. Medical Decision Making Lab Data Result diagrams: 11/08/21 09:15 11/08/21 09:15 Labs: Lab Results 11/08/21 11/08/21 11/08/21 Range/Units 08:34 09:15 09:15 WBC 13.0 H (4.8-10.8) X10*3/uL RBC 3.86 L (4.20-5.50) X10*6/uL Hgb 11.2 L (12.0-16.0) g/dl Hct 32.7 L (37.0-47.0) % MCV 84.7 (80.0-98.0) fL MCH 29.0 (27.0-33.0) pg MCHC 34.3 (31.0-35.0) g/dl RDW 14.2 (11.0-16.0) % Plt Count 247 (160-400) X10*3/uL MPV 9.8 (9.4-12.3) fL Immature Gran % (Auto) 0.3 (0.0-0.4) % Neut % (Auto) 79.7 H (45-73) % Lymph % (Auto) 10.8 L (20-40) % [place] % (Auto) 8.9 (2-11) % Eos % (Auto) 0.1 (0-4) % Baso % (Auto) 0.2 (0-2) % Lymph # (Auto) 1.4 (1.2-4.9) X10*3/uL [place] # (Auto) 1.2 (0.1-1.2) X10*3/uL Eos # (Auto) 0.0 (0.0-0.4) X10*3/uL Baso # (Auto) 0.0 (0.0-0.2) X10*3/uL Abs Immat Gran (auto) 0.04 H (0.00-0.03) X10*3/uL Absolute Neuts (auto) 10.4 H (2.0-8.3) x10*3/uL Absolute Nucleated RBC 0.000 (0.0-0.012) X10*3/uL Nucleated RBC % (auto) 0.0 (0.0-0.2) /100WBC Sodium 134 L (135-145) mmol/L Potassium 4.7 (3.3-5.1) mmol/L Chloride 97 (96-108) mmol/L Carbon Dioxide 25 (22-29) mmol/L Anion Gap 17 (12-20) BUN 32 H D (9-16) mg/dL Creatinine 0.98 (0.5-1.4) mg/dL Estim Creat Clear Calc 38.3 Estimated GFR 55 Random Glucose 110 (60-115) mg/dL Calcium 9.2 (8.4-10.2) mg/dL B-Natriuretic Peptide (<100) pg/mL Urine Color Urine Appearance Urine pH (5.0-8.0) Ur Specific [place] (1.005-1.025) Urine Protein (Neg-Trace) mg/dL Urine Glucose (UA) (Negative) mg/dL Urine Ketones (Negative) mg/dL Urine Blood (Negative) Urine Nitrite (Negative) Ur Leukocyte Esterase (Negative) Urine RBC (0-2) /HPF Urine WBC (0-5) /HPF Ur Squamous Epith Cells (0-2) /HPF Urine Bacteria (None Seen) Hyaline Casts (0-2) /LPF Stool Occult Blood POSITIVE (NEGATIVE) 11/08/21 11/08/21 Range/Units 09:15 10:33 WBC (4.8-10.8) X10*3/uL RBC (4.20-5.50) X10*6/uL Hgb (12.0-16.0) g/dl Hct (37.0-47.0) % MCV (80.0-98.0) fL MCH (27.0-33.0) pg MCHC (31.0-35.0) g/dl RDW (11.0-16.0) % Plt Count (160-400) X10*3/uL MPV (9.4-12.3) fL Immature Gran % (Auto) (0.0-0.4) % Neut % (Auto) (45-73) % Lymph % (Auto) (20-40) % [place] % (Auto) (2-11) % Eos % (Auto) (0-4) % Baso % (Auto) (0-2) % Lymph # (Auto) (1.2-4.9) X10*3/uL [place] # (Auto) (0.1-1.2) X10*3/uL Eos # (Auto) (0.0-0.4) X10*3/uL Baso # (Auto) (0.0-0.2) X10*3/uL Abs Immat Gran (auto) (0.00-0.03) X10*3/uL Absolute Neuts (auto) (2.0-8.3) x10*3/uL Absolute Nucleated RBC (0.0-0.012) X10*3/uL Nucleated RBC % (auto) (0.0-0.2) /100WBC Sodium (135-145) mmol/L Potassium (3.3-5.1) mmol/L Chloride (96-108) mmol/L Carbon Dioxide (22-29) mmol/L Anion Gap (12-20) BUN (9-16) mg/dL Creatinine (0.5-1.4) mg/dL Estim Creat Clear Calc Estimated GFR Random Glucose (60-115) mg/dL Calcium (8.4-10.2) mg/dL B-Natriuretic Peptide 43 (<100) pg/mL Urine Color Yellow Urine Appearance Clear Urine pH 5.5 (5.0-8.0) Ur Specific [place] 1.020 (1.005-1.025) Urine Protein Trace (Neg-Trace) mg/dL Urine Glucose (UA) Negative (Negative) mg/dL Urine Ketones Negative (Negative) mg/dL Urine Blood Small (1+) H (Negative) Urine Nitrite Negative (Negative) Ur Leukocyte Esterase Trace H (Negative) Urine RBC 0-2 (0-2) /HPF Urine WBC 0-5 (0-5) /HPF Ur Squamous Epith Cells 0-2 (0-2) /HPF Urine Bacteria None Seen (None Seen) Hyaline Casts 0-2 (0-2) /LPF Stool Occult Blood (NEGATIVE) Imaging Data Abdomen and pelvis CT: Attestation: I personally reviewed and interpreted this imaging study as follows: Radiologist's impression: Evaluation of pelvis is limited secondary to streak artifact, however, there appears to be prominent circumferential mucosal thickening throughout the distal sigmoid colon and rectum with some adjacent mesenteric stranding. Findings suggest an infectious versus inflammatory process. Clinical correlation recommended. Follow-up imaging versus colonoscopy may be warranted.? ? Fleischner guidelines were followed. Discharge Plan Discharge Clinical Impression: Lymphedema, Colitis Patient Disposition: Admitted As Inpatient
[2021-11-08 08:42] LABS: OBS Int Ctl Valid YES; OBS1 POSITIVE (NEGATIVE)
[2021-11-08 09:19] LABS: MANUAL DIFF FLAG NO
[2021-11-08 09:20] LABS: Basophils Percent Auto 0.2 % (0-2); Eosinophils Percent Auto 0.1 % (0-4); Hematocrit 32.7 % (37.0-47.0); Hemoglobin 11.2 g/dl (12.0-16.0); Imm Gran Abs Auto 0.04 X10*3/uL (0.00-0.03); Imm Gran Pct Auto 0.3 % (0.0-0.4); Lymphocytes Absolute Auto 1.4 X10*3/uL (1.2-4.9); Lymphocytes Percent Auto 10.8 % (20-40); Mean Corpuscular HGB Conc 34.3 g/dl (31.0-35.0); Mean Corpuscular Volume 84.7 fL (80.0-98.0); Mean Platelet Volume 9.8 fL (9.4-12.3); Monocytes Absolute Auto 1.2 X10*3/uL (0.1-1.2); Monocytes Percent Auto 8.9 % (2-11); Neutrophils Absolute Auto 10.4 x10*3/uL (2.0-8.3); Neutrophils Percent Auto 79.7 % (45-73); Platelet Count 247 X10*3/uL (160-400); Red Blood Count 3.86 X10*6/uL (4.20-5.50); Red Cell Distribution Width 14.2 % (11.0-16.0)
[2021-11-08 09:38] LABS: Anion Gap 17 (12-20); Blood Urea Nitrogen 32 mg/dL (9-16); Calcium 9.2 mg/dL (8.4-10.2); Carbon Dioxide 25 mmol/L (22-29); Chloride 97 mmol/L (96-108); Creatinine Clr Calc Pharmacy 38.3; Estimated Glomerular Filt Rate 55; Glucose Random 110 mg/dL (60-115); Potassium 4.7 mmol/L (3.3-5.1); Sodium 134 mmol/L (135-145)
[2021-11-08 09:39] LABS: B Type Natriuretic Peptide 43 pg/mL (<100)
--- NOTE | 2021-11-08 09:57 | PC.NURSE ---
pt c/o bleeding but was not able to specific from where. she also c/o L leg weeping from her leg wound. this RN noted some spotting in her underwear. she denies abd cramping. no n/v/d. no cp/sob. both pelvic and rectal exam done by Dr. Mariee. stool resulted + for occult blood. Dr. Mariee aware.
[2021-11-08 10:44] LABS: Appearance Urine Clear; Color Urine Yellow; Glucose Urine UA Negative (Negative); Leukocyte Esterase Urine Trace (Negative); Nitrite Urine Negative (Negative); PH 5.5 (5.0-8.0); Urine Blood Small (1+) (Negative); Urine Ketones Negative (Negative); Urine Protein Trace mg/dL (Neg-Trace)
[2021-11-08 11:22] LABS: Bacteria Urine None Seen (None Seen); Hyaline Casts Urine 0-2 /LPF (0-2); RBC Urine 0-2 /HPF (0-2); Squamous Epithelial Cell Urine 0-2 /HPF (0-2); WBC Urine 0-5 /HPF (0-5)
--- NOTE | 2021-11-08 12:08 | P.HPHOSP_ITS ---
History of Present Illness Date of Service: 11/08/21 Chief Complaint: hematochezia an 81 years old lady with PMH of HTN, anxiety, fatty liver, lymphedema among others who presents to the hospital with a complaint of bright red blood per rectum. The patient reports her symptoms started 24 hours ago. Mainly asym ptomatic with no associated pain, fever or chills. No changes in her diet or bowel habit. She reports this is the 1st time she is having something similar to this. Denies any nausea, vomiting or urinary symptoms. In the emergency patient was noticed to have elevated WBCs of 13,000 with stable vital signs. Stable hemoglobin reading from 10 days ago. Noticed to have him acute easy a on exam. CT scan of the abdomen showed circumferential thickening of the sigmoid with mild stranding. Will be admitted for further evaluation and treatment. Review of Systems Review of Systems: No fever, chills or weakness No chest pain, palpitation No shortness of breath or coughing No abdominal pain, nausea or vomiting But has rectal bleeding No urinary symptoms No any rash or wounds PMFSH Medical History Anxiety Compression fracture of L2 lumbar vertebra High cholesterol Hip fracture, right HTN (hypertension) Lymphedema Malignant tumor body uterus Osteoporosis Other specified disorders of bone density and structure, right upper arm Proximal humerus fracture Psoriasis Pulmonary embolism Pulmonary nodule Retinal artery branch occlusion, left eye Family History Father Stroke Hypertension Mother Hypertension CVD (cardiovascular disease) Myocardial infarction Brother Hypertension Sister Hypercholesteremia Hypertension Sister Hypertension Hypercholesteremia Surgical History History of esophagogastroduodenoscopy (EGD) History of hip replacement History of open reduction and internal fixation (ORIF) procedure History of removal of cyst History of solitary pulmonary nodule History of surgery History of tonsillectomy and adenoidectomy History of tubal ligation Hx of colonoscopy Social History Household Members: None Housing: Apartment Do you presently have visiting nurse or other home services: No (pt is requesting to have services at home) Alcohol intake: never Patient Tobacco Use Status: Never used Tobacco e-Cigarette/Vaping Use: Never Used Use of substances other than those prescribed or required for medical reasons: No Advance Directives: Yes Advance Directives on File: Yes Advance Directives Date on File: 01/16/20 service: No Current occupational status: retired Cognitive needs: Yes Hearing needs: No Vision needs: Yes (Pt has glasees for reading) Meds Allergies Allergy/AdvReac Type Severity Reaction Status Date / Time fentanyl [FENTANYL] Allergy Severe CARDIAC Verified 11/08/21 06:35 ARREST, heart stopped, anaphylaxis nickel Allergy Unknown Rash Uncoded 11/08/21 06:35 paper tape Allergy Unknown Rash Uncoded 11/08/21 06:35 Active Medications: Current Medications Acetaminophen (Acetaminophen 325 Mg Tablet) 650 mg PO Q6H PRN PRN Reason: Pain, Mild (Pain Scale 1-3) Ceftriaxone Sodium 1 gm/ (Sodium Chloride) 50 mls @ 100 mls/hr IV Q24H [facility] Metronidazole (Flagyl) 500 mg in 100 mls @ 100 mls/hr IV Q8H [facility] Lactic Acid (Ammonium Lactate 12 % Lotion 226 Gm Bottle) 1 appl TOPICAL BID [facility]; Protocol Ondansetron HCl (Ondansetron Hcl 4 Mg/2 Ml Vial) 4 mg IVPUSH Q8H PRN PRN Reason: Nausea and Vomiting Pharmacy Consult (Consult Rx Perform Med Rec) 1 each MISCELLANE ONCE PRN PRN Reason: Consult order Sodium Chloride (0.9 % Sodium Chloride Flush 3 Ml Syringe) 3 ml IVFLUSH QSHIFT [facility] Home Medications Medication Instructions Recorded Confirmed Last Taken Type aspirin 81 mg tablet,delayed 81 mg PO DAILY 12/26/19 08/27/21 12/31/19 History release polyethylene glycol 3350 17 gram 17 g PO DAILY 01/01/20 08/27/21 12/31/19 History oral powder packet (Miralax) calcium carbonate 600 mg-vitamin 1 cap PO DAILY 11/08/21 11/08/21 Unknown History D3 25 mcg (1,000 unit) capsule quetiapine 100 mg tablet 50 mg PO BEDTIME 11/08/21 11/08/21 Unknown History Physical Exam Vital Signs and Narrative: Vital Signs: Last Vital Signs Temp 98.8 F 11/08/21 08:00 Pulse 83 11/08/21 10:00 Resp 14 11/08/21 10:00 BP 143/77 H 11/08/21 10:00 Pulse Ox 98 11/08/21 10:00 O2 Del Method 11/08/21 10:00 BMI result Body Mass Index 25.4 Const: Other: Constitutional : Alert, oriented, not in distress Neck : Normal inspection, Supple Cardiovascular : RRR, no JVP, no lower extremity edema Respiratory : fair bilateral air entry, no crackles, wheezes or rhonchi Gastrointestinal: soft, lax, Normal bowel sounds, mild tenderness with deep palpation over left lower quadrant Skin : Warm, Dry, extremities, left lower extremity swelling with erythema bilaterally, no tenderness, dry scan Neurological : Alert & oriented x3, No focal deficit , CN 2-12 within normal Results Labs CBC and Chem 7: 11/08/21 09:15 11/08/21 09:15 Labs: Laboratory Results - last 24 hr 11/08/21 11/08/21 11/08/21 08:34 09:15 09:15 MCV 84.7 MCH 29.0 MCHC 34.3 RDW 14.2 Plt Count 247 MPV 9.8 Immature Gran % (Auto) 0.3 Neut % (Auto) 79.7 H Lymph % (Auto) 10.8 L [place] % (Auto) 8.9 Eos % (Auto) 0.1 Baso % (Auto) 0.2 Lymph # (Auto) 1.4 [place] # (Auto) 1.2 Eos # (Auto) 0.0 Baso # (Auto) 0.0 Abs Immat Gran (auto) 0.04 H Absolute Neuts (auto) 10.4 H Absolute Nucleated RBC 0.000 Nucleated RBC % (auto) 0.0 Anion Gap 17 Estim Creat Clear Calc 38.3 Estimated GFR 55 Random Glucose 110 Calcium 9.2 B-Natriuretic Peptide Urine Color Urine Appearance Urine pH Ur Specific [place] Urine Protein Urine Glucose (UA) Urine Ketones Urine Blood Urine Nitrite Ur Leukocyte Esterase Urine RBC Urine WBC Ur Squamous Epith Cells Urine Bacteria Hyaline Casts Stool Occult Blood POSITIVE 11/08/21 11/08/21 09:15 10:33 MCV MCH MCHC RDW Plt Count MPV Immature Gran % (Auto) Neut % (Auto) Lymph % (Auto) [place] % (Auto) Eos % (Auto) Baso % (Auto) Lymph # (Auto) [place] # (Auto) Eos # (Auto) Baso # (Auto) Abs Immat Gran (auto) Absolute Neuts (auto) Absolute Nucleated RBC Nucleated RBC % (auto) Anion Gap Estim Creat Clear Calc Estimated GFR Random Glucose Calcium B-Natriuretic Peptide 43 Urine Color Yellow Urine Appearance Clear Urine pH 5.5 Ur Specific [place] 1.020 Urine Protein Trace Urine Glucose (UA) Negative Urine Ketones Negative Urine Blood Small (1+) H Urine Nitrite Negative Ur Leukocyte Esterase Trace H Urine RBC 0-2 Urine WBC 0-5 Ur Squamous Epith Cells 0-2 Urine Bacteria None Seen Hyaline Casts 0-2 Stool Occult Blood Imaging Radiologist's Impressions: Impressions Abdomen/Pelvis CT 11/08/21 09:12 IMPRESSION: Evaluation of pelvis is limited secondary to streak artifact, however, there appears to be prominent circumferential mucosal thickening throughout the distal sigmoid colon and rectum with some adjacent mesenteric stranding. Findings suggest an infectious versus inflammatory process. Clinical correlation recommended. Follow-up imaging versus colonoscopy may be warranted. Fleischner guidelines were followed. Venous Duplex 11/08/21 10:00 IMPRESSION: No acute DVT demonstrated in the left lower extremity. Assessment and Plan (1) Colitis: Status: Acute (2) Hematochezia: Status: Acute Plan an 81 years old lady with PMH of HTN, anxiety, fatty liver, lymphedema among others who presents to the hospital with a complaint of bright red blood per rectum. hematochezia secondary to colitis Not septic,Seems to be mild, infection was in etiology with elevated WBCs CT scan as reported Start IV antibiotic of ceftriaxone and Flagyl. monitor H and H Pending GI evaluation Hypertension continue amlodipine, lisinopril HLD Continue simvastatin, Ezetemibe DVT PPX SCDs The patient will likely need 2. Overnight hospital stay for treatment of colitis pending GI evaluation to prevent possible decompensation to sepsis. Quality Stroke Does the patient have a stroke diagnosis?: No VTE Prior VTE?: No VTE Risk Level:: Medical - moderate - high VTE Device Contraindication: N/A - Device Ordered VTE Drug Contraindication: Treatment Not Indicated
[2021-11-08] MEDS: cefTRIAXone sodium 1 GM in 0.9 % Sodium Chloride 50 ML IV (12:28)
[2021-11-08] MEDS: Ammonium Lactate 12 % Lotion 226 GM BOTTLE 1 APPL TOPICAL ×2 (12:30→20:45)
[2021-11-08] MEDS: metroNIDAZOLE/NS 500 MG/100 ML PIGGYBACK 100 MG IV ×2 (14:01→20:45)
[2021-11-08 14:26] LABS: COVID-19 Test Negative (Negative); IDNOW Serial# 16C4AD1C
[2021-11-08] MEDS: 0.9 % Sodium Chloride Flush 3 ML SYRINGE IVFLUSH ×2 (16:03→23:39)
[2021-11-08] MEDS: traMADoL HCL 50 MG TABLET PO ×2 (16:38→20:59)
[2021-11-08] MEDS: QUEtiapine Fumarate 50 MG TABLET PO (20:43)
[2021-11-08] MEDS: UrsodioL 300 MG CAPSULE PO (20:43)
[2021-11-08] MEDS: Atorvastatin Calcium 10 MG TABLET PO (20:43)
[2021-11-08] MEDS: Ezetimibe 10 MG TABLET PO (20:43)
[2021-11-08] MEDS: polyethylene glycoL 3350 17 GM POWD.PACK PO (20:45)
--- NOTE | 2021-11-08 22:03 | PC.NURSE ---
Pt had a bm. Linens changed, pt cleaned, new purewick applied. Pt declined ammonium lactate lotion and asked if something else could be used as the ammonium lactate lotion burned.
[2021-11-09] VITALS (7 sets, daily range): BP systolic 114–140; BP diastolic 53–71; PULSE 71–80; RESP 15–20; TEMP 36.1–36.6; O2SAT 93–97; BMI 25.4
--- NOTE | 2021-11-09 01:41 | PC.NURSE ---
Pt sleeping at this time. VS assessed. Will continue to monitor.
[2021-11-09] MEDS: metroNIDAZOLE/NS 500 MG/100 ML PIGGYBACK 100 MG IV ×3 (04:10→20:04)
--- NOTE | 2021-11-09 04:31 | PC.NURSE ---
Pt linens changed and pt cleaned. HOB elevated per request of pt. Pt denies any pain. Administered Flagyl per MAY.
[2021-11-09 04:56] LABS: Hematocrit 32.6 % (37.0-47.0); Mean Corpuscular HGB Conc 33.7 g/dl (31.0-35.0); Mean Corpuscular Hemoglobin 28.9 pg (27.0-33.0); Mean Corpuscular Volume 85.6 fL (80.0-98.0); Mean Platelet Volume 10.1 fL (9.4-12.3); Platelet Count 243 X10*3/uL (160-400); Red Blood Count 3.81 X10*6/uL (4.20-5.50); Red Cell Distribution Width 14.2 % (11.0-16.0)
[2021-11-09 05:27] LABS: Anion Gap 13 (12-20); Blood Urea Nitrogen 25 mg/dL (9-16); Calcium 8.8 mg/dL (8.4-10.2); Carbon Dioxide 27 mmol/L (22-29); Chloride 99 mmol/L (96-108); Estimated Glomerular Filt Rate > 60; Glucose Random 113 mg/dL (60-115); Potassium 4.3 mmol/L (3.3-5.1); Sodium 135 mmol/L (135-145)
[2021-11-09] MEDS: lisinopriL 40 MG TABLET PO (07:33)
[2021-11-09] MEDS: amLODIPine Besylate 5 MG TABLET PO (07:33)
[2021-11-09] MEDS: UrsodioL 300 MG CAPSULE PO ×2 (07:33→20:04)
[2021-11-09] MEDS: Multivitamin TABLET 1 TAB PO (07:33)
--- NOTE | 2021-11-09 08:59 | MHC.CM.PN ---
IMM ADDRESSED, ORIGINAL TO PATIENT/COPY TO CHART PATIENT LIVES ALONE USES ROLLATOR AT HOME HCP ON FILE RECEIVES MEALS ON WHEELS, HOMEMAKING/PERSONAL CARE X2 WEEKLY FROM [facility] ADVISOR EUGENE RAMIRES'D: J[employer]J X1, MRNA X1, PFIZER X1 PCP: KENY GALLARDO WILL NEED TRANSPORTATION ASSIST D/CPLAN: HOME RESUME [facility]
--- NOTE | 2021-11-09 11:28 | P.PNIM_ITS ---
Subjective Subjective Date of Service: 11/09/21 Interval History: Seen and evaluated this morning No recurrent episodes of bleeding per rectum No pain in her abdomen No reported other overnight events Review of Systems No fever, chills or weakness No chest pain, palpitation No shortness of breath or coughing No abdominal pain, nausea or vomiting , no rectal bleeding No urinary symptoms No any rash or wounds Physical Exam Vital Signs: Vital Signs: Last Vital Signs Temp 97.6 F 11/09/21 11:12 Pulse 78 11/09/21 11:12 Resp 18 11/09/21 11:12 BP 132/63 11/09/21 11:12 Pulse Ox 96 11/09/21 11:12 O2 Del Method 11/09/21 11:12 BMI result Body Mass Index 25.4 Const: Other: Constitutional : Alert, oriented, not in distress Neck : Normal inspection, Supple Cardiovascular : RRR, no JVP, no lower extremity edema Respiratory : fair bilateral air entry, no crackles, wheezes or rhonchi Gastrointestinal: soft, lax, Normal bowel sounds, no tenderness with deep palpation Skin : Warm, Dry, extremities, left lower extremity swelling with erythema bilaterally, no te nderness, dry scan Neurological : Alert & oriented x3, No focal deficit , CN 2-12 within normal Objective Data Active Medications Acetaminophen (Acetaminophen 325 Mg Tablet) 650 mg PO Q6H PRN PRN Reason: Pain, Mild (Pain Scale 1-3) Amlodipine Besylate (Amlodipine Besylate 5 Mg Tablet) 5 mg PO DAILY HANY; Devante col Last Admin: 11/09/21 07:33 Dose: 5 mg Documented By: NACHO Atorvastatin Calcium (Atorvastatin Calcium 10 Mg Tablet) 10 mg PO BEDTIME [facility] Last Admin: 11/08/21 20:43 Dose: 10 mg Documented By: KAMRYN Ezetimibe (Ezetimibe 10 Mg Tablet) 10 mg PO BEDTIME [facility] Last Admin: 11/08/21 20:43 Dose: 10 mg Documented By: KAMRYN Ceftriaxone Sodium 1 gm/ (Sodium Chloride) 50 mls @ 100 mls/hr IV Q24H [facility] Last Infusion: 11/08/21 13:00 Dose: 0 mls/hr Documented By: DEVEN Metronidazole (Flagyl) 500 mg in 100 mls @ 100 mls/hr IV Q8H [facility] Last Infusion: 11/09/21 05:26 Dose: 0 mls/hr Documented By: ODESSA Lactic Acid (Ammonium Lactate 12 % Lotion 226 Gm Bottle) 1 appl TOPICAL BID [facility]; Protocol Last Admin: 11/09/21 07:53 Dose: Not Given Documented By: NACHO Non-Admin Reason: Patient Refused Lisinopril (Lisinopril 40 Mg Tablet) 40 mg PO DAILY [facility]; Protocol Last Admin: 11/09/21 07:33 Dose: 40 mg Documented By: NACHO Multivitamins/Vitamin C (Multivitamin Tablet) 1 tab PO DAILY [facility] Last Admin: 11/09/21 07:33 Dose: 1 tab Documented By: NACHO Ondansetron HCl (Ondansetron Hcl 4 Mg/2 Ml Vial) 4 mg IVPUSH Q8H PRN PRN Reason: Nausea and Vomiting Pharmacy Consult (Consult Rx Perform Med Rec) 1 each MISCELLANE ONCE PRN PRN Reason: Consult order Polyethylene Glycol (Polyethylene Glycol 3350 17 Gm Powd.Pack) 17 gm PO BEDTIME [facility] Last Admin: 11/08/21 20:45 Dose: 17 gm Documented By: KAMRYN Quetiapine Fumarate (Quetiapine Fumarate 50 Mg Tablet) 50 mg PO BEDTIME [facility] Last Admin: 11/08/21 20:43 Dose: 50 mg Documented By: KAMRYN Sodium Chloride (0.9 % Sodium Chloride Flush 3 Ml Syringe) 3 ml IVFLUSH QSHIFT [facility] Last Admin: 11/08/21 23:39 Dose: 3 ml Documented By: ODESSA Tramadol HCl (Tramadol Hcl 50 Mg Tablet) 50 mg PO TID PRN PRN Reason: Pain (Scale Score 1-3) Last Admin: 11/08/21 20:59 Dose: 50 mg Documented By: KAMRYN Ursodiol (Ursodiol 300 Mg Capsule) 300 mg PO BID [facility] Last Admin: 11/09/21 07:33 Dose: 300 mg Documented By: NACHO Labs CBC & Chem 7: 11/09/21 04:29 11/09/21 04:29 Labs: Laboratory Results - last 24 hr 11/08/21 11/09/21 11/09/21 14:02 04:29 04:29 MCV 85.6 MCH 28.9 MCHC 33.7 RDW 14.2 Plt Count 243 MPV 10.1 Absolute Nucleated RBC 0.000 Nucleated RBC % (auto) 0.0 Anion Gap 13 Estim Creat Clear Calc 53.0 Estimated GFR > 60 Random Glucose 113 Calcium 8.8 COVID-19 ([facility]) Negative COVID-19 Clin Com See Note Assessment and Plan (1) Hematochezia: Status: Acute (2) Colitis: Status: Acute Plan an 81 years old lady with PMH of HTN, anxiety, fatty liver, lymphedema among others who presents to the hospital with a complaint of bright red blood per rectum. hematochezia secondary to colitis Not septic,Seems to be mild, infection was in etiology with elevated WBCs CT scan as reported continue ceftriaxone and Flagyl. stable H and H Pending GI evaluation Hypertension continue amlodipine, lisinopril HLD Continue simvastatin, Ezetemibe DVT PPX SCDs The patient will likely need Overnight hospital stay for treatment of colitis pending GI evaluation to prevent possible decompensation to sepsis. Quality Stroke Does the patient have a stroke diagnosis?: No VTE Prior VTE?: No VTE Risk Level:: Medical - moderate - high VTE Device Contraindication: N/A - Device Ordered VTE Drug Contraindication: Treatment Not Indicated
[2021-11-09] MEDS: cefTRIAXone sodium 1 GM in 0.9 % Sodium Chloride 50 ML IV (13:36)
--- NOTE | 2021-11-09 13:40 | MHC.CM.PN ---
CM RECEIVED A CALL FROM BENITA GREER OF [facility], PATIENT'S CARE ADVISOR. SHE HAS PLACED PATIENT'S SERVICES ON HOLD AND IS REQUESTING A CALL ONCE PATIENT IS READY FOR DISCHARGE SO SHE CAN RESUME SERVICES. PATIENT RECEIVES [facility] AND HOMEMAKING/PERSONAL CARE ASSISTANCE. BENITA ALSO REQUESTED IF PATIENT IS SENT TO REHAB, ATTEMPT TO GET HER INTO [facility] PATIENT MAY GO TO THERE ASSISTED LIVING FACILITY IN THE FUTURE.
[2021-11-09] MEDS: traMADoL HCL 50 MG TABLET PO (15:14)
--- NOTE | 2021-11-09 19:10 | PC.NURSE ---
Pt noted this afternoon to have blood-streaked mucousy stool. She requested to use the bedpan, and it was noted that the pad under her was soaked with blood and mucous. After 15 minutes she reported she was unable to have a further bowel movement.
[2021-11-09] MEDS: QUEtiapine Fumarate 50 MG TABLET PO (20:05)
[2021-11-09] MEDS: Ezetimibe 10 MG TABLET PO (20:05)
[2021-11-09] MEDS: 0.9 % Sodium Chloride Flush 3 ML SYRINGE IVFLUSH (20:06)
[2021-11-09] MEDS: Atorvastatin Calcium 10 MG TABLET PO (20:56)
[2021-11-10] VITALS (7 sets, daily range): BP systolic 124–144; BP diastolic 63–72; PULSE 72–109; RESP 16–20; TEMP 36–37.1; O2SAT 93–98
[2021-11-10] MEDS: metroNIDAZOLE/NS 500 MG/100 ML PIGGYBACK 100 MG IV ×3 (05:09→20:13)
[2021-11-10 06:32] LABS: Hematocrit 30.5 % (37.0-47.0); Hemoglobin 10.2 g/dl (12.0-16.0); Mean Corpuscular HGB Conc 33.4 g/dl (31.0-35.0); Mean Corpuscular Hemoglobin 29.1 pg (27.0-33.0); Mean Corpuscular Volume 86.9 fL (80.0-98.0); Mean Platelet Volume 10.6 fL (9.4-12.3); Platelet Count 244 X10*3/uL (160-400); Red Blood Count 3.51 X10*6/uL (4.20-5.50); Red Cell Distribution Width 14.3 % (11.0-16.0); White Blood Count 6.4 X10*3/uL (4.8-10.8)
[2021-11-10 06:44] LABS: Anion Gap 13 (12-20); Blood Urea Nitrogen 19 mg/dL (9-16); Calcium 8.5 mg/dL (8.4-10.2); Carbon Dioxide 26 mmol/L (22-29); Chloride 102 mmol/L (96-108); Creatinine Clr Calc Pharmacy 62.6; Estimated Glomerular Filt Rate > 60; Glucose Random 86 mg/dL (60-115); Potassium 4.2 mmol/L (3.3-5.1); Sodium 137 mmol/L (135-145)
[2021-11-10] MEDS: traMADoL HCL 50 MG TABLET PO ×2 (09:08→16:14)
[2021-11-10] MEDS: amLODIPine Besylate 5 MG TABLET PO (09:08)
[2021-11-10] MEDS: 0.9 % Sodium Chloride Flush 3 ML SYRINGE IVFLUSH ×2 (09:09→20:13)
[2021-11-10] MEDS: lisinopriL 40 MG TABLET PO (09:09)
[2021-11-10] MEDS: UrsodioL 300 MG CAPSULE PO ×2 (09:09→20:11)
[2021-11-10] MEDS: Multivitamin TABLET 1 TAB PO (09:09)
--- NOTE | 2021-11-10 10:20 | P.CNGI_ITS ---
History of Present Illness Data of Consult Service Date: 11/10/21 Requesting physician: Kajal Mares Primary Care Provider: Yuli Chamberlain MD HPI Reason for consult: colitis 81 years old lady with PMH of HTN, anxiety, fatty liver, lymphedema, PBC, compression # who I am seeing for assessment for possible colitis. Initially presented with rectal bleeding over 24 hrs prior to admission. There were no associated symptoms. she denied abdominal pain, no nausea, or vomiting and no abdominal pain. she has been having diarrhea which she thinks is coming from antibiotics, unsure if has seen blood in stool still or not she has noted left lower leg pain, but able to weight bear, doppler was neg for DVT. Last colonoscopy 2013-- small adenomas removed, diverticulosis, and internal h emorrhoids LABS: WBCs 13--->6 HGB 11--->10 BMP, LFT nml IMAGING: CT scan of the abdomen: circumferential thickening of the distal sigmoid and rectum with mesenteric stranding. Review of Systems Review of Systems: Constitutional : No Weight loss, No Fever, No Chills ENT/Mouth : No sore throat, No Rhinorrhea Eyes: No Swelling, No Redness Cardiovascular : No Chest Pain, No SOB, No Edema Respiratory : No Cough, No Sputum, No Wheezing Gastrointestinal : see HPI Genitourinary : NO Dysuria, No Urinary Frequency, No Hematuria, No Urgency Musculoskeletal : No joint pain, No Myalgias, No Joint Swelling, sore left lambert Skin : No Skin Lesions, No rash, scaliness and erythema left leg Neuro : No Weakness, No Numbness, No Dizziness, No Headache Psych : No Anxiety/Panic, No Depression Heme/Lymph: No Bruising, No Lymphadenopathy Endocrine : No Polyuria, No Polydipsia All other systems reviewed and are negative. [facility] Past Medical History Medical History Anxiety Compression fracture of L2 lumbar vertebra High cholesterol Hip fracture, right HTN (hypertension) Lymphedema Malignant tumor body uterus Osteoporosis Other specified disorders of bone density and structure, right upper arm Proximal humerus fracture Psoriasis Pulmonary embolism Pulmonary nodule Retinal artery branch occlusion, left eye Family History Family History Father Stroke Hypertension Mother Hypertension CVD (cardiovascular disease) Myocardial infarction Brother Hypertension Sister Hypercholesteremia Hypertension Sister Hypertension Hypercholesteremia Surgical History Surgical History History of esophagogastroduodenoscopy (EGD) History of hip replacement History of open reduction and internal fixation (ORIF) procedure History of removal of cyst History of solitary pulmonary nodule History of surgery History of tonsillectomy and adenoidectomy History of tubal ligation Hx of colonoscopy Social History Social History Household Members: None Housing: Apartment Do you presently have visiting nurse or other home services: Yes ([employer], 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) Alcohol intake: never Patient Tobacco Use Status: Never used Tobacco e-Cigarette/Vaping Use: Never Used Advance Directives Date on File: 01/16/20 service: No Current occupational status: retired Cognitive needs: Yes Hearing needs: No Vision needs: Yes (Pt has glasees for reading) Meds Allergies Allergy/AdvReac Type Severity Reaction Status Date / Time fentanyl [FENTANYL] Allergy Severe CARDIAC Verified 11/08/21 06:35 ARREST, heart stopped, anaphylaxis nickel Allergy Unknown Rash Uncoded 11/08/21 06:35 paper tape Allergy Unknown Rash Uncoded 11/08/21 06:35 Active Medications: Current Medications Acetaminophen (Acetaminophen 325 Mg Tablet) 650 mg PO Q6H PRN PRN Reason: Pain, Mild (Pain Scale 1-3) Amlodipine Besylate (Amlodipine Besylate 5 Mg Tablet) 5 mg PO DAILY [facility]; Protoc ol Last Admin: 11/10/21 09:08 Dose: 5 mg Atorvastatin Calcium (Atorvastatin Calcium 10 Mg Tablet) 10 mg PO BEDTIME [facility] Last Admin: 11/09/21 20:56 Dose: 10 mg Ezetimibe (Ezetimibe 10 Mg Tablet) 10 mg PO BEDTIME [facility] Last Admin: 11/09/21 20:05 Dose: 10 mg Ceftriaxone Sodium 1 gm/ (Sodium Chloride) 50 mls @ 100 mls/hr IV Q24H [facility] Last Infusion: 11/09/21 14:27 Dose: Infused Metronidazole (Flagyl) 500 mg in 100 mls @ 100 mls/hr IV Q8H [facility] Last Infusion: 11/10/21 06:11 Dose: Infused Lactic Acid (Ammonium Lactate 12 % Lotion 226 Gm Bottle) 1 appl TOPICAL BID [facility]; Protocol Last Admin: 11/09/21 20:56 Dose: Not Given Lisinopril (Lisinopril 40 Mg Tablet) 40 mg PO DAILY [facility]; Protocol Last Admin: 11/10/21 09:09 Dose: 40 mg Multivitamins/Vitamin C (Multivitamin Tablet) 1 tab PO DAILY [facility] Last Admin: 11/10/21 09:09 Dose: 1 tab Ondansetron HCl (Ondansetron Hcl 4 Mg/2 Ml Vial) 4 mg IVPUSH Q8H PRN PRN Reason: Nausea and Vomiting Pharmacy Consult (Consult Rx Perform Med Rec) 1 each MISCELLANE ONCE PRN PRN Reason: Consult order Polyethylene Glycol (Polyethylene Glycol 3350 17 Gm Powd.Pack) 17 gm PO BEDTIME [facility] Last Admin: 11/09/21 20:58 Dose: Not Given Quetiapine Fumarate (Quetiapine Fumarate 50 Mg Tablet) 50 mg PO BEDTIME [facility] Last Admin: 11/09/21 20:05 Dose: 50 mg Sodium Chloride (0.9 % Sodium Chloride Flush 3 Ml Syringe) 3 ml IVFLUSH QSHIFT [facility] Last Admin: 11/10/21 09:09 Dose: 3 ml Tramadol HCl (Tramadol Hcl 50 Mg Tablet) 50 mg PO TID PRN PRN Reason: Pain (Scale Score 1-3) Last Admin: 11/10/21 09:08 Dose: 50 mg Ursodiol (Ursodiol 300 Mg Capsule) 300 mg PO BID [facility] Last Admin: 11/10/21 09:09 Dose: 300 mg Home Medications Medication Instructions Recorded Confirmed Last Taken Type aspirin 81 mg tablet,delayed 81 mg PO DAILY 12/26/19 11/08/21 12/31/19 History release polyethylene glycol 3350 17 gram 17 g PO BEDTIME 01/01/20 11/08/21 12/31/19 History oral powder packet (Miralax) calcium carbonate 600 mg-vitamin 1 cap PO DAILY 11/08/21 11/08/21 Unknown History D3 25 mcg (1,000 unit) capsule quetiapine 100 mg tablet 50 mg PO BEDTIME 11/08/21 11/08/21 Unknown History Physical Exam Vital Signs: Vital Signs: Last Vital Signs Temp 96.8 F 11/10/21 07:53 Pulse 72 11/10/21 07:53 Resp 16 11/10/21 07:53 BP 136/64 11/10/21 07:53 Pulse Ox 98 11/10/21 07:53 O2 Del Method 11/10/21 07:53 BMI result Body Mass Index 25.4 EXAM: GENERAL: The patient is relaxed and non toxic VITAL SIGNS:see workflow HEENT: Nonicteric sclerae, PERRLA, EOMI. Oropharynx clear. Moist mucous membranes. Conjunctivae appear well perfused. No thyroid mass. CHEST: Chest wall is nontender. HEART: Regular rate and rhythm without murmurs. LUNGS: Clear to auscultation bilaterally. ABDOMEN: Soft, positive bowel sounds, nontender, no organomegaly.no flank tender ness SKIN: No rash, Left lower leg with induration, scale and tenderness, no crepitus NEUROLOGIC: Cranial nerves II-XII intact without motor/sensory deficit. PSYCH: nml affect Const: Other: Constitutional : Alert, oriented, not in distress Neck : Normal inspection, Supple Cardiovascular : RRR, no JVP, no lower extremity edema Respiratory : fair bilateral air entry, no crackles, wheezes or rhonchi Gastrointestinal: soft, lax, Normal bowel sounds, no tenderness with deep palpation Skin : Warm, Dry, extremities, left lower extremity swelling with erythema bilaterally, no tenderness, dry scan Neurological : Alert & oriented x3, No focal deficit , CN 2-12 within normal Results Labs CBC & Chem 7: 11/10/21 05:35 11/10/21 05:35 Labs: Short CBC 11/10/21 Range/Units 05:35 WBC 6.4 (4.8-10.8) X10*3/uL Hgb 10.2 L (12.0-16.0) g/dl Hct 30.5 L (37.0-47.0) % Plt Count 244 (160-400) X10*3/uL BMP 11/10/21 05:35 Sodium 137 Potassium 4.2 Chloride 102 Carbon Dioxide 26 BUN 19 H Creatinine 0.60 Calcium 8.5 Microbiology Microbiology Results: Microbiology 11/08/21 14:02 Blood - Venous Blood Culture - Preliminary No growth after 24 hours. 11/08/21 14:02 Blood - Venous Blood Culture - Preliminary No growth after [address] scan - abdomen: Attestation: I personally reviewed and interpreted this imaging study as follows: (sigmoid thickening, atherosclerosis, spinal degeneration, old vertebral fractures) Assessment and Plan (1) Hematochezia: Status: Acute (2) Colitis: Status: Acute Plan 1/ hematochezia, colitis on imaging, with downtrending WCC, ddx: infectious colitis, neoplasia, inflammatory bowel disease PLAN: 1/ check stool c diff pcr and GI panel 2/ colonoscopy for , clears tomorrow and prep tomorrow evening around 6 pm 3/ ABx coverage for left lower leg cellulitis, Procedures Date of Service Date of Service: 11/10/21
--- NOTE | 2021-11-10 12:25 | P.PNIM_ITS ---
Subjective Subjective Date of Service: 11/10/21 Interval History: Seen and evaluated this morning Overnight episode of bleeding per rectum Left lower extremity worsening erythema and pain No pain in her abdomen No reported other overnight events Review of Systems No fever, chills or weakness No chest pain, palpitation No shortness of breath or coughing No abdominal pain, nausea or vomiting , no rectal bleeding No urinary symptoms Erythema and dry skin of left lower extremity Physical Exam Vital Signs: Vital Signs: Last Vital Signs Temp 97.8 F 11/10/21 11:46 Pulse 84 11/10/21 11:46 Resp 16 11/10/21 11:46 BP 124/65 11/10/21 11:46 Pulse Ox 95 11/10/21 11:46 O2 Del Method 11/10/21 11:46 BMI result Body Mass Index 25.4 Const: Other: Constitutional : Alert, oriented, not in distress Neck : Normal inspection, Supple Cardiovascular : RRR, no JVP, no lower extremity edema Respiratory : fair bilateral air entry, no crackles, wheezes or rhonchi Gastrointestinal: soft, lax, Normal bowel sounds, no tenderness with deep palpation Skin : Warm, Dry, extremities, left lower extremity swelling with erythema , no drainage, no tenderness, dry skin Neurological : Alert & oriented x3, No focal deficit , CN 2-12 within normal Objective Data Active Medications Acetaminophen (Acetaminophen 325 Mg Tablet) 650 mg PO Q6H PRN PRN Reason: Pain, Mild (Pain Scale 1-3) Amlodipine Besylate (Amlodipine Besylate 5 Mg Tablet) 5 mg PO DAILY [facility]; Protocol Last Admin: 11/10/21 09:08 Dose: 5 mg Documented By: ADALGISA Atorvastatin Calcium (Atorvastatin Calcium 10 Mg Tablet) 10 mg PO BEDTIME [facility] Last Admin: 11/09/21 20:56 Dose: 10 mg Documented By: KALEB Ezetimibe (Ezetimibe 10 Mg Tablet) 10 mg PO BEDTIME [facility] Last Admin: 11/09/21 20:05 Dose: 10 mg Documented By: KALEB Ceftriaxone Sodium 1 gm/ (Sodium Chloride) 50 mls @ 100 mls/hr IV Q24H [facility] Last Infusion: 11/09/21 14:27 Dose: 0 mls/hr Documented By: ADALGISA Metronidazole (Flagyl) 500 mg in 100 mls @ 100 mls/hr IV Q8H [facility] Last Infusion: 11/10/21 06:11 Dose: 0 mls/hr Documented By: KALEB Doxycycline Hyclate 100 mg/ (Sodium Chloride) 250 mls @ 166.67 mls/hr IV Q12H [facility] Lactic Acid (Ammonium Lactate 12 % Lotion 226 Gm Bottle) 1 appl TOPICAL BID [facility]; Protocol Last Admin: 11/09/21 20:56 Dose: Not Given Documented By: KALEB Non-Admin Reason: Patient Refused Lisinopril (Lisinopril 40 Mg Tablet) 40 mg PO DAILY [facility]; Protocol Last Admin: 11/10/21 09:09 Dose: 40 mg Documented By: ADALGISA Multivitamins/Vitamin C (Multivitamin Tablet) 1 tab PO DAILY [facility] Last Admin: 11/10/21 09:09 Dose: 1 tab Documented By: ADALGISA Ondansetron HCl (Ondansetron Hcl 4 Mg/2 Ml Vial) 4 mg IVPUSH Q8H PRN PRN Reason: Nausea and Vomiting Pharmacy Consult (Consult Rx Perform Med Rec) 1 each MISCELLANE ONCE PRN PRN Reason: Consult order Polyethylene Glycol (Polyethylene Glycol 3350 17 Gm Powd.Pack) 17 gm PO BEDTIME [facility] Last Admin: 11/09/21 20:58 Dose: Not Given Documented By: KALEB Non-Admin Reason: Patient Refused Quetiapine Fumarate (Quetiapine Fumarate 50 Mg Tablet) 50 mg PO BEDTIME [facility] Last Admin: 11/09/21 20:05 Dose: 50 mg Documented By: KALEB Sodium Chloride (0.9 % Sodium Chloride Flush 3 Ml Syringe) [facility] Last Admin: 11/10/21 09:09 Dose: 3 ml Documented By: ADALGISA Tramadol HCl (Tramadol Hcl 50 Mg Tablet) 50 mg PO TID PRN PRN Reason: Pain (Scale Score 1-3) Last Admin: 11/10/21 09:08 Dose: 50 mg Documented By: ADALGISA Ursodiol (Ursodiol 300 Mg Capsule) 300 mg PO BID [facility] Last Admin: 11/10/21 09:09 Dose: 300 mg Documented By: ADALGISA Labs CBC & Chem 7: 11/10/21 05:35 11/10/21 05:35 Labs: Laboratory Results - last 24 hr 11/10/21 11/10/21 05:35 05:35 MCV 86.9 MCH 29.1 MCHC 33.4 RDW 14.3 Plt Count 244 MPV 10.6 Absolute Nucleated RBC 0.000 Nucleated RBC % (auto) 0.0 Anion Gap 13 Estim Creat Clear Calc 62.6 Estimated GFR > 60 Random Glucose 86 Calcium 8.5 Microbiology Microbiology Results: Microbiology 11/08/21 14:02 Blood Culture - Preliminary Blood - Venous No growth after 24 hours. 11/08/21 14:02 Blood Culture - Preliminary Blood - Venous No growth after 24 hours. Assessment and Plan (1) Hematochezia: Status: Acute (2) Colitis: Status: Acute (3) Cellulitis: Status: Acute Plan an 81 years old lady with PMH of HTN, anxiety, fatty liver, lymphedema among others who presents to the hospital with a complaint of bright red blood per rectum. hematochezia secondary to colitis Not septic,Seems to be mild, infection was in etiology with elevated WBCs CT scan as reported continue ceftriaxone and Flagyl. stable H and H GI input appreciated, scheduled for colonoscopy by Left lower extremity cellulitis Start IV doxycycline Local measures and cleaning Ultrasound negative for DVT Hypertension continue amlodipine, lisinopril HLD Continue simvastatin, Ezetemibe DVT PPX SCDs The patient will likely need Overnight hospital stay for treatment of colitis pending GI evaluation to prevent possible decompensation to sepsis. Quality Stroke Does the patient have a stroke diagnosis?: No VTE Prior VTE?: No VTE Risk Level:: Medical - moderate - high VTE Device Contraindication: N/A - Device Ordered VTE Drug Contraindication: Treatment Not Indicated
[2021-11-10] MEDS: cefTRIAXone sodium 1 GM in 0.9 % Sodium Chloride 50 ML IV (13:11)
--- NOTE | 2021-11-10 13:46 | MHC.CM.PN ---
PATIENT IS WITH [facility], THEY HAVE BEEN UPDATED. [facility] [employer] ALSO UPDATED ON [facility]. CM RECEIVED CALL FROM PATIENT'S SON, DIANE [phone], REGARDING HIS CONCERNS WITH [facility]. HE WAS ADVISED TO CONTACT [facility] WITH HIS CONCERNS; HOWEVER, PATIENT WAS ASKED ABOUT HIS ENCOUNTERS WITH THE [facility] AND HE REPORTED HE DIDN'T HAVE ANY CONCERNS AND LIKES THE AGENCY. HE UNDERSTOOD HE WOULD BE STAYING WITH THE AGENCY UPON DISCHARGE. CM ADVISED SON TO SPEAK WITH HIS FATHER ABOUT HIS CONCERNS. DIANE WOULD LIKE TO RECEIVE A CALL IF ANYTHING CHANGES FOR THE WORSE.
--- NOTE | 2021-11-10 13:53 | MHC.CM.PN ---
PT HAS RECOMMENDED STR FOR PATIENT. PATIENT REQUESTING REFERRAL TO [facility]. [facility] REFERRAL INITIATED
[2021-11-10] MEDS: Doxycycline Hyclate 100 MG in 0.9 % Sodium Chloride 250 ML 166.67 MG IV (16:16)
[2021-11-10] MEDS: Ammonium Lactate 12 % Lotion 226 GM BOTTLE 1 APPL TOPICAL ×2 (18:20→20:14)
--- NOTE | 2021-11-10 19:35 | PC.NURSE ---
Ammonium lactate applied to bilateral lower extremities. Pt tolerated.
[2021-11-10] MEDS: QUEtiapine Fumarate 50 MG TABLET PO (20:11)
[2021-11-10] MEDS: Ezetimibe 10 MG TABLET PO (20:11)
[2021-11-10] MEDS: Atorvastatin Calcium 10 MG TABLET PO (20:11)
[2021-11-10] MEDS: polyethylene glycoL 3350 17 GM POWD.PACK PO (20:13)
[2021-11-11] MEDS: Doxycycline Hyclate 100 MG in 0.9 % Sodium Chloride 250 ML 166.67 MG IV ×2 (02:44→16:42)
[2021-11-11 03:40] VITALS: BP 140/78; PULSE 104; RESP 16; TEMP 36.8; O2SAT 93
[2021-11-11] MEDS: metroNIDAZOLE/NS 500 MG/100 ML PIGGYBACK 100 MG IV ×3 (04:40→20:20)
[2021-11-11 06:43] LABS: Anion Gap 12 (12-20); Blood Urea Nitrogen 22 mg/dL (9-16); Calcium 8.2 mg/dL (8.4-10.2); Carbon Dioxide 25 mmol/L (22-29); Chloride 106 mmol/L (96-108); Creatinine Clr Calc Pharmacy 50.2; Estimated Glomerular Filt Rate > 60; Glucose Random 115 mg/dL (60-115); Potassium 4.1 mmol/L (3.3-5.1); Sodium 139 mmol/L (135-145)
[2021-11-11 06:45] LABS: Hematocrit 29.7 % (37.0-47.0); Mean Corpuscular HGB Conc 33.7 g/dl (31.0-35.0); Mean Corpuscular Hemoglobin 29.3 pg (27.0-33.0); Mean Corpuscular Volume 87.1 fL (80.0-98.0); Mean Platelet Volume 10.4 fL (9.4-12.3); Platelet Count 260 X10*3/uL (160-400); Red Blood Count 3.41 X10*6/uL (4.20-5.50); Red Cell Distribution Width 14.3 % (11.0-16.0); White Blood Count 6.6 X10*3/uL (4.8-10.8)
[2021-11-11 07:30] VITALS: BP 129/69; PULSE 85; RESP 19; TEMP 36.6; O2SAT 94
[2021-11-11 07:37] VITALS: BP 120/64; PULSE 75; RESP 18; TEMP 36.4; O2SAT 19
[2021-11-11] MEDS: lisinopriL 40 MG TABLET PO (08:56)
[2021-11-11] MEDS: 0.9 % Sodium Chloride Flush 3 ML SYRINGE IVFLUSH ×2 (08:56→16:42)
[2021-11-11] MEDS: Multivitamin TABLET 1 TAB PO (08:57)
[2021-11-11] MEDS: amLODIPine Besylate 5 MG TABLET PO (08:57)
[2021-11-11] MEDS: UrsodioL 300 MG CAPSULE PO ×2 (08:58→20:20)
[2021-11-11] MEDS: traMADoL HCL 50 MG TABLET PO ×2 (08:59→20:25)
[2021-11-11] MEDS: Ammonium Lactate 12 % Lotion 226 GM BOTTLE 1 APPL TOPICAL ×2 (09:00→20:28)
--- NOTE | 2021-11-11 11:08 | HO.PM.IMPN ---
Subjective Subjective Date of Service: 11/11/21 Interval History: Seen and evaluated this morning No reported bleeding per rectum overnight, stable hemoglobin Left lower extremity erythema and pain No pain in her abdomen No reported other overnight events Review of Systems No fever, chills or weakness No chest pain, palpitation No shortness of breath or coughing No abdominal pain, nausea or vomiting , no rectal bleeding No urinary symptoms Erythema and dry skin of left lower extremity Physical Exam Vital Signs: Vital Signs: Last Vital Signs Temp 97.5 F 11/11/21 07:37 Pulse 75 11/11/21 07:37 Resp 18 11/11/21 07:37 BP 120/64 11/11/21 07:37 Pulse Ox 19 L 11/11/21 07:37 O2 Del Method 11/11/21 07:37 BMI result Body Mass Index 25.4 Const: Other: Constitutional : Alert, oriented, not in distress Neck : Normal inspection, Supple Cardiovascular : RRR, no JVP, no lower extremity edema Respiratory : fair bilateral air entry, no crackles, wheezes or rhonchi Gastrointestinal: soft, lax, Normal bowel sounds, no tenderness with deep palpation Skin : Warm, Dry, extremities, left lower extremity swelling with erythema , no drainage, no tenderness, dry skin Neurological : Alert & oriented x3, No focal deficit , CN 2-12 within normal Objective Data Active Medications Acetaminophen (Acetaminophen 325 Mg Tablet) 650 mg PO Q6H PRN PRN Reason: Pain, Mild (Pain Scale 1-3) Amlodipine Besylate (Amlodipine Besylate 5 Mg Tablet) 5 mg PO DAILY [facility]; Protocol Last Admin: 11/11/21 08:57 Dose: 5 mg Documented By: MARIBELL Comments: bp-120/64 Atorvastatin Calcium (Atorvastatin Calcium 10 Mg Tablet) 10 mg PO BEDTIME [facility] Last Admin: 11/10/21 20:11 Dose: 10 mg Documented By: MATTHEW Ezetimibe (Ezetimibe 10 Mg Tablet) 10 mg PO BEDTIME [facility] Last Admin: 11/10/21 20:11 Dose: 10 mg Documented By: MATTHEW Ceftriaxone Sodium 1 gm/ (Sodium Chloride) 50 mls @ 100 mls/hr IV Q24H [facility] Last Infusion: 11/10/21 14:22 Dose: 0 mls/hr Documented By: ADALGISA Metronidazole (Flagyl) 500 mg in 100 mls @ 100 mls/hr IV Q8H [facility] Last Infusion: 11/11/21 05:40 Dose: 0 mls/hr Documented By: MATTHEW Doxycycline Hyclate 100 mg/ (Sodium Chloride) 250 mls @ 166.67 mls/hr IV Q12H [facility] Last Infusion: 11/11/21 04:14 Dose: 0 mls/hr Documented By: MATTHEW Lactic Acid (Ammonium Lactate 12 % Lotion 226 Gm Bottle) 1 appl TOPICAL BID [facility]; Protocol Last Admin: 11/11/21 09:00 Dose: 1 appl Documented By: MARIBELL Comments: bilateral lower extremities Lisinopril (Lisinopril 40 Mg Tablet) 40 mg PO DAILY [facility]; Protocol Last Admin: 11/11/21 08:56 Dose: 40 mg Documented By: MARIBELL Comments: bp-120/64 Multivitamins/Vitamin C (Multivitamin Tablet) 1 tab PO DAILY [facility] Last Admin: 11/11/21 08:57 Dose: 1 tab Documented By: MARIBELL Ondansetron HCl (Ondansetron Hcl 4 Mg/2 Ml Vial) 4 mg IVPUSH Q8H PRN PRN Reason: Nausea and Vomiting Pharmacy Consult (Consult Rx Perform Med Rec) 1 each MISCELLANE ONCE PRN PRN Reason: Consult order Polyethylene Glycol (Polyethylene Glycol 3350 17 Gm Powd.Pack) 17 gm PO BEDTIME [facility] Last Admin: 11/10/21 20:13 Dose: 17 gm Documented By: MATTHEW Polyethylene Glycol/Electrolytes (Peg 3350/Na Sulf,Bicarb,Cl/Kcl 4,000 Ml Soln.Recon) 240 ml PO Q10M [facility] Stop: 11/11/21 21:41 Quetiapine Fumarate (Quetiapine Fumarate 50 Mg Tablet) 50 mg PO BEDTIME [facility] Last Admin: 11/10/21 20:11 Dose: 50 mg Documented By: MATTHEW Sodium Chloride (0.9 % Sodium Chloride Flush 3 Ml Syringe) 3 ml IVFLUSH QSHIFT [facility] Last Admin: 11/11/21 08:56 Dose: 3 ml Documented By: MARIBELL Tramadol HCl (Tramadol Hcl 50 Mg Tablet) 50 mg PO TID PRN PRN Reason: Pain (Scale Score 1-3) Last Admin: 11/11/21 08:59 Dose: 50 mg Documented By: MARIBELL Ursodiol (Ursodiol 300 Mg Capsule) 300 mg PO BID [facility] Last Admin: 11/11/21 08:58 Dose: 300 mg Documented By: MARIBELL Labs CBC & Chem 7: 11/11/21 05:38 11/11/21 05:38 Labs: Laboratory Results - last 24 hr 11/11/21 11/11/21 05:38 05:38 MCV 87.1 MCH 29.3 MCHC 33.7 RDW 14.3 Plt Count 260 MPV 10.4 Absolute Nucleated RBC 0.000 Nucleated RBC % (auto) 0.0 Anion Gap 12 Estim Creat Clear Calc 50.2 Estimated GFR > 60 Random Glucose 115 Calcium 8.2 L Microbiology Microbiology Results: Microbiology 11/08/21 14:02 Blood Culture - Preliminary Blood - Venous No growth after 48 hours. 11/08/21 14:02 Blood Culture - Preliminary Blood - Venous No growth after 48 hours. Assessment and Plan (1) Cellulitis: Status: Acute (2) Hematochezia: Status: Acute (3) Colitis: Status: Acute Plan an 81 years old lady with PMH of HTN, anxiety, fatty liver, lymphedema among others who presents to the hospital with a complaint of bright red blood per rectum. hematochezia secondary to colitis Not septic,Seems to be mild, infection was in etiology with elevated WBCs CT scan as reported continue ceftriaxone and Flagyl. stable H and H GI input appreciated, scheduled for colonoscopy Clear liquid diet today GoLYTELY overnight Keep NPO tonight Left lower extremity cellulitis Continue IV doxycycline Local measures and cleaning Ultrasound negative for DVT Hypertension continue amlodipine, lisinopril HLD Continue simvastatin, Ezetemibe DVT PPX SCDs The patient will likely need Overnight hospital stay for treatment of cellulitis, colitis pending colonoscopy to prevent possible decompensation to sepsis. Quality Stroke Does the patient have a stroke diagnosis?: No VTE Prior VTE?: No VTE Risk Level:: Medical - moderate - high VTE Device Contraindication: N/A - Device Ordered VTE Drug Contraindication: Treatment Not Indicated
[2021-11-11 11:40] VITALS: BP 132/73; PULSE 81; RESP 18; TEMP 36.2; O2SAT 92
--- NOTE | 2021-11-11 12:59 | MHC.CM.PN ---
EMR REVIEWED, PER HOSPITALIST PLAN FOR COLONOSCOPY TOMORROW 11/12 AND ANTIC PT WILL D/C TO STR AT [facility], [facility] UPDATEDAND CM WILL CONT TO FOLLOW D/C NEEDS.
[2021-11-11] MEDS: cefTRIAXone sodium 1 GM in 0.9 % Sodium Chloride 50 ML IV (13:48)
[2021-11-11 16:00] VITALS: BP 138/62; PULSE 82; RESP 18; TEMP 36.4; O2SAT 93
[2021-11-11 20:00] VITALS: BP 138/90; PULSE 78; RESP 18; TEMP 36.7; O2SAT 96
[2021-11-11] MEDS: Ezetimibe 10 MG TABLET PO (20:19)
[2021-11-11] MEDS: Atorvastatin Calcium 10 MG TABLET PO (20:19)
[2021-11-11] MEDS: QUEtiapine Fumarate 50 MG TABLET PO (20:20)
[2021-11-11] MEDS: polyethylene glycoL 3350 17 GM POWD.PACK PO (20:28)
[2021-11-11] MEDS: PEG 3350/Na Sulf,Bicarb,Cl/KCL 4,000 ML SOLN.RECON 4000 ML PO (21:05)
[2021-11-12] VITALS (11 sets, daily range): BP systolic 97–158; BP diastolic 47–83; PULSE 71–88; RESP 16–18; TEMP 36–37; O2SAT 94–98
[2021-11-12] MEDS: 0.9 % Sodium Chloride Flush 3 ML SYRINGE IVFLUSH ×3 (00:37→20:08)
[2021-11-12] MEDS: Doxycycline Hyclate 100 MG in 0.9 % Sodium Chloride 250 ML 166.67 MG IV (03:24)
[2021-11-12] MEDS: metroNIDAZOLE/NS 500 MG/100 ML PIGGYBACK 100 MG IV ×3 (05:02→20:07)
[2021-11-12] MEDS: Multivitamin TABLET 1 TAB PO (08:15)
[2021-11-12] MEDS: UrsodioL 300 MG CAPSULE PO ×2 (08:15→20:05)
[2021-11-12] MEDS: amLODIPine Besylate 5 MG TABLET PO (08:16)
[2021-11-12] MEDS: lisinopriL 40 MG TABLET PO (08:16)
[2021-11-12] MEDS: Ammonium Lactate 12 % Lotion 226 GM BOTTLE 1 APPL TOPICAL ×2 (08:16→20:07)
[2021-11-12] MEDS: traMADoL HCL 50 MG TABLET PO (08:19)
[2021-11-12 08:25] LABS: Hematocrit 31.5 % (37.0-47.0); Hemoglobin 10.7 g/dl (12.0-16.0); Mean Corpuscular Hemoglobin 29.6 pg (27.0-33.0); Mean Corpuscular Volume 87.3 fL (80.0-98.0); Mean Platelet Volume 9.6 fL (9.4-12.3); Platelet Count 262 X10*3/uL (160-400); Red Blood Count 3.61 X10*6/uL (4.20-5.50); Red Cell Distribution Width 14.4 % (11.0-16.0); White Blood Count 5.2 X10*3/uL (4.8-10.8)
[2021-11-12] MEDS: cefTRIAXone sodium 1 GM in 0.9 % Sodium Chloride 50 ML IV (12:16)
--- NOTE | 2021-11-12 14:04 | MHC.SHP ---
Pre-Procedural Eval Section A Date of Service: 11/12/21 The patient is an INPATIENT: Yes The History & Physical has been completed within 30 days and I have reviewed it.: Yes Section B Chief Complaint: Hematachazia Allergies: Allergies Allergy/AdvReac Type Severity Reaction Status Date / Time fentanyl [FENTANYL] Allergy Severe CARDIAC Verified 11/08/21 06:35 ARREST, heart stopped, anaphylaxis nickel Allergy Unknown Rash Uncoded 11/08/21 06:35 paper tape Allergy Unknown Rash Uncoded 11/08/21 06:35 Plan Diagnosis/Plan: Unchanged I have reviewed the history and physical and performed a pertinent physical examination on my patient. No changes have occurred unless specified.
--- NOTE | 2021-11-12 14:41 | PC.NURSE ---
patient transferred to pacu to wait for procedure. report given to Arelis Carrillo RN at this time.
--- NOTE | 2021-11-12 14:45 | PC.NURSE ---
Patient off unit for procedure during administration time of doxycyline.
--- NOTE | 2021-11-12 15:30 | W.PM.OPN ---
Operative Note Operative Note Date of Service: 11/12/21 Narrative: Operative Information Procedure Description: Colonoscopy Indication: abnormal imaging, anemia, colitis Anesthesia: MAC COLONOSCOPY Instrument: Olympus variable stiffness pediatric scope 190L Colonoscopy Monitoring: Vital signs and clinical assessment, continuous EKG monitoring, Pulse oximetry, Carbon Dioxide monitoring and blood pressure monitoring were done throughout the procedure. Procedure: The patient was placed in the left lateral decubitis position and pre-procedure medications were administered. After a digital rectal examination of the ano-rectum, the video colonoscope was inserted into the rectum and advanced through the colon to the cecum/TI. The colonoscope was slowly withdrawn in a retrograde panoramic fashion and the colon mucosa was carefully examined including a retroflexed view of the rectum. Findings and interventions are described below. Procedure Difficulty: easy Findings: Terminal Ileum-normal Cecum:normal Ascending Colon: one fold with granularity and irregular appearance, bx taken Transverse Colon -normal Descending Colon:normal Sigmoid Colon: inflammation up to 30 cm from anal verge, seems to be resolving, patchy ulceration, moderate diverticulosis Rectum: Retroflexion not done, ulceration and patchy inflammation, moderate Anorectum - normal Colon preparation: [place] Bowel Preparation Scale Right colon; 2 Transverse colon: 2 Left colon; 2 (0 = Unprepared colon segment with mucosa not seen due to solid stool that cannot be cleared. 1 = Portion of mucosa of the colon segment seen, but other areas of the colon segment not well seen due to staining, residual stool and/or opaque liquid. 2 = Minor amount of residual staining, small fragments of stool and/or opaque liquid, but mucosa of colon segment seen well. 3 = Entire mucosa of colon segment seen well with no residual staining, small fragments of stool or opaque liquid) Impression and Post Procedure Diagnosis: proctosigmoiditis diverticulosis Plan: stools sent for c diff, and GI panel seems to have resolving colitis if not improving symptomatically then can add mesalamine PO and MA Above findings were reviewed with the patient and relevant handouts were provided if indicated.
--- NOTE | 2021-11-12 15:59 | P.CONAN_ITS ---
HPI - Anesthesia Eval Consult details Narrative: 81 F pf colonoscopy for possible colitis PMFSH Active Problems Active Problems: All Active Problems (Updated 11/10/21 @ 12:30 by Kajal Mares MD) Cellulitis (Acute) Hematochezia (Acute) Colitis (Acute) Closed fracture of right proximal humerus (Acute) Generalized anxiety disorder (Acute) Infected cyst of skin (Acute) Pulmonary nodule (Acute) Abscess (Acute) Muscle pain (Acute) Anxiety (Acute) Constipation (Acute) Malignant tumor body uterus (Acute) High cholesterol (Acute) Compression fracture of L2 lumbar vertebra (Acute) Primary biliary cirrhosis (Acute) Lymphedema (Acute) Antimitochondrial antibody positive (Acute) OCD (obsessive compulsive disorder) (Acute) Alcoholic fatty liver (Acute) HTN (hypertension) (Acute) Cellulitis (Acute) Past Medical History Medical History Anxiety Compression fracture of L2 lumbar vertebra High cholesterol Hip fracture, right HTN (hypertension) Lymphedema Malignant tumor body uterus Osteoporosis Other specified disorders of bone density and structure, right upper arm Proximal humerus fracture Psoriasis Pulmonary embolism Pulmonary nodule Retinal artery branch occlusion, left eye Family History Family History Father Stroke Hypertension Mother Hypertension CVD (cardiovascular disease) Myocardial infarction Brother Hypertension Sister Hypercholesteremia Hypertension Sister Hypertension Hypercholesteremia Family history of problems with anesthesia: No Surgical History Surgical History History of esophagogastroduodenoscopy (EGD) History of hip replacement History of open reduction and internal fixation (ORIF) procedure History of removal of cyst History of solitary pulmonary nodule History of surgery History of tonsillectomy and adenoidectomy History of tubal ligation Hx of colonoscopy History of Problems with Anesthesia: No Social History Social History Household Members: None Housing: Apartment Do you presently have visiting nurse or other home services: Yes ([employer], 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) Alcohol intake: never Patient Tobacco Use Status: Never used Tobacco e-Cigarette/Vaping Use: Never Used Advance Directives Date on File: 01/16/20 service: No Current occupational status: retired Cognitive needs: Yes Hearing needs: No Vision needs: Yes (Pt has glasees for reading) Meds Allergies Allergy/AdvReac Type Severity Reaction Status Date / Time fentanyl [FENTANYL] Allergy Severe CARDIAC Verified 11/12/21 14:17 ARREST, heart stopped, anaphylaxis nickel Allergy Intermediate Rash Uncoded 11/12/21 14:17 paper tape Allergy Intermediate Rash Uncoded 11/12/21 14:18 Active Medications: Current Medications Acetaminophen (Acetaminophen 325 Mg Tablet) 650 mg PO Q6H PRN PRN Reason: Pain, Mild (Pain Scale 1-3) Amlodipine Besylate (Amlodipine Besylate 5 Mg Tablet) 5 mg PO DAILY [facility]; Protocol Last Admin: 11/12/21 08:16 Dose: 5 mg Atorvastatin Calcium (Atorvastatin Calcium 10 Mg Tablet) 10 mg PO BEDTIME [facility] Last Admin: 11/11/21 20:19 Dose: 10 mg Ezetimibe (Ezetimibe 10 Mg Tablet) 10 mg PO BEDTIME [facility] Last Admin: 11/11/21 20:19 Dose: 10 mg Ceftriaxone Sodium 1 gm/ (Sodium Chloride) 50 mls @ 100 mls/hr IV Q24H [facility] Last Infusion: 11/12/21 13:02 Dose: Infused Metronidazole (Flagyl) 500 mg in 100 mls @ 100 mls/hr IV Q8H [facility] Last Infusion: 11/12/21 13:20 Dose: Infused Doxycycline Hyclate 100 mg/ (Sodium Chloride) 250 mls @ 166.67 mls/hr IV Q12H [facility] Last Admin: 11/12/21 14:45 Dose: Not Given Lactic Acid (Ammonium Lactate 12 % Lotion 226 Gm Bottle) 1 appl TOPICAL BID [facility]; Protocol Last Admin: 11/12/21 08:16 Dose: 1 appl Lisinopril (Lisinopril 40 Mg Tablet) 40 mg PO DAILY [facility]; Protocol Last Admin: 11/12/21 08:16 Dose: 40 mg Multivitamins/Vitamin C (Multivitamin Tablet) 1 tab PO DAILY [facility] Last Admin: 11/12/21 08:15 Dose: 1 tab Ondansetron HCl (Ondansetron Hcl 4 Mg/2 Ml Vial) 4 mg IVPUSH Q8H PRN PRN Reason: Nausea and Vomiting Ondansetron HCl (Ondansetron Hcl 4 Mg/2 Ml Vial) 4 mg IVPUSH ONCE PRN PRN Reason: Nausea and Vomiting Pharmacy Consult (Consult Rx Perform Med Rec) 1 each MISCELLANE ONCE PRN PRN Reason: Consult order Polyethylene Glycol (Polyethylene Glycol 3350 17 Gm Powd.Pack) 17 gm PO BEDTIME [facility] Last Admin: 11/11/21 20:28 Dose: 17 gm Quetiapine Fumarate (Quetiapine Fumarate 50 Mg Tablet) 50 mg PO BEDTIME [facility] Last Admin: 11/11/21 20:20 Dose: 50 mg Sodium Chloride (0.9 % Sodium Chloride Flush 3 Ml Syringe) 3 ml IVFLUSH QSHIFT [facility] Last Admin: 11/12/21 08:16 Dose: 3 ml Tramadol HCl (Tramadol Hcl 50 Mg Tablet) 50 mg PO TID PRN PRN Reason: Pain (Scale Score 1-3) Last Admin: 11/12/21 08:19 Dose: 50 mg Ursodiol (Ursodiol 300 Mg Capsule) 300 mg PO BID [facility] Last Admin: 11/12/21 08:15 Dose: 300 mg Home Medications Medication Instructions Recorded Confirmed Last Taken Type aspirin 81 mg tablet,delayed 81 mg PO DAILY 12/26/19 11/08/21 12/31/19 History release polyethylene glycol 3350 17 gram 17 g PO BEDTIME 01/01/20 11/08/21 12/31/19 History oral powder packet (Miralax) calcium carbonate 600 mg-vitamin 1 cap PO DAILY 11/08/21 11/08/21 Unknown History D3 25 mcg (1,000 unit) capsule quetiapine 100 mg tablet 50 mg PO BEDTIME 11/08/21 11/08/21 Unknown History Exam Exam Date and Time: November 12, 2021 1559 Height,Weight and Vital Signs: Height 5 ft 1 in Weight 134 lb 11.239 oz Last Vital Signs Temp 97.5 F 11/12/21 14:12 Pulse 80 11/12/21 14:12 Resp 18 11/12/21 14:12 BP 143/64 H 11/12/21 14:12 Pulse Ox 98 11/12/21 14:12 O2 Del Method 11/12/21 14:12 Pertinent Lab Results Pertinent Lab Results: Laboratory Tests 11/08/21 11/08/21 11/08/21 08:34 09:15 09:15 WBC 13.0 H RBC 3.86 L Hgb 11.2 L Hct 32.7 L MCV 84.7 MCH 29.0 MCHC 34.3 RDW 14.2 Plt Count 247 MPV 9.8 Immature Gran % (Auto) 0.3 Neut % (Auto) 79.7 H Lymph % (Auto) 10.8 L [place] % (Auto) 8.9 Eos % (Auto) 0.1 Baso % (Auto) 0.2 Lymph # (Auto) 1.4 [place] # (Auto) 1.2 Eos # (Auto) 0.0 Baso # (Auto) 0.0 Abs Immat Gran (auto) 0.04 H Absolute Neuts (auto) 10.4 H Absolute Nucleated RBC 0.000 Nucleated RBC % (auto) 0.0 Sodium 134 L Potassium 4.7 Chloride 97 Carbon Dioxide 25 Anion Gap 17 BUN 32 H D Creatinine 0.98 Estim Creat Clear Calc 38.3 Estimated GFR 55 Random Glucose 110 Calcium 9.2 B-Natriuretic Peptide Urine Color Urine Appearance Urine pH Ur Specific [place] Urine Protein Urine Glucose (UA) Urine Ketones Urine Blood Urine Nitrite Ur Leukocyte Esterase Urine RBC Urine WBC Ur Squamous Epith Cells Urine Bacteria Hyaline Casts Stool Occult Blood POSITIVE COVID-19 ([facility]) COVID-19 Clin Com 11/08/21 11/08/21 11/08/21 09:15 10:33 14:02 WBC RBC Hgb Hct MCV MCH MCHC RDW Plt Count MPV Immature Gran % (Auto) Neut % (Auto) Lymph % (Auto) [place] % (Auto) Eos % (Auto) Baso % (Auto) Lymph # (Auto) [place] # (Auto) Eos # (Auto) Baso # (Auto) Abs Immat Gran (auto) Absolute Neuts (auto) Absolute Nucleated RBC Nucleated RBC % (auto) Sodium Potassium Chloride Carbon Dioxide Anion Gap BUN Creatinine Estim Creat Clear Calc Estimated GFR Random Glucose Calcium B-Natriuretic Peptide 43 Urine Color Yellow Urine Appearance Clear Urine pH 5.5 Ur Specific [place] 1.020 Urine Protein Trace Urine Glucose (UA) Negative Urine Ketones Negative Urine Blood Small (1+) H Urine Nitrite Negative Ur Leukocyte Esterase Trace H Urine RBC 0-2 Urine WBC 0-5 Ur Squamous Epith Cells 0-2 Urine Bacteria None Seen Hyaline Casts 0-2 Stool Occult Blood COVID-19 ([facility]) Negative COVID-19 Clin Com See Note 11/09/21 11/09/2122 04:29 04:29 05:35 WBC 13.0 H 6.4 RBC 3.81 L 3.51 L Hgb 11.0 L 10.2 L Hct 32.6 L 30.5 L MCV 85.6 86.9 MCH 28.9 29.1 MCHC 33.7 33.4 RDW 14.2 14.3 Plt Count 243 244 MPV 10.1 10.6 Immature Gran % (Auto) Neut % (Auto) Lymph % (Auto) [place] % (Auto) Eos % (Auto) Baso % (Auto) Lymph # (Auto) [place] # (Auto) Eos # (Auto) Baso # (Auto) Abs Immat Gran (auto) Absolute Neuts (auto) Absolute Nucleated RBC 0.000 0.000 Nucleated RBC % (auto) 0.0 0.0 Sodium 135 Potassium 4.3 Chloride 99 Carbon Dioxide 27 Anion Gap 13 BUN 25 H Creatinine 0.71 Estim Creat Clear Calc 53.0 Estimated GFR > 60 Random Glucose 113 Calcium 8.8 B-Natriuretic Peptide Urine Color Urine Appearance Urine pH Ur Specific [place] Urine Protein Urine Glucose (UA) Urine Ketones Urine Blood Urine Nitrite Ur Leukocyte Esterase Urine RBC Urine WBC Ur Squamous Epith Cells Urine Bacteria Hyaline Casts Stool Occult Blood COVID-19 ([facility]) COVID-19 Clin Com 11/10/21 11/11/21 11/11/21 05:35 05:38 05:38 WBC 6.6 RBC 3.41 L Hgb 10.0 L Hct 29.7 L MCV 87.1 MCH 29.3 MCHC 33.7 RDW 14.3 Plt Count 260 MPV 10.4 Immature Gran % (Auto) Neut % (Auto) Lymph % (Auto) [place] % (Auto) Eos % (Auto) Baso % (Auto) Lymph # (Auto) [place] # (Auto) Eos # (Auto) Baso # (Auto) Abs Immat Gran (auto) Absolute Neuts (auto) Absolute Nucleated RBC 0.000 Nucleated RBC % (auto) 0.0 Sodium 137 139 Potassium 4.2 4.1 Chloride 102 106 Carbon Dioxide 26 25 Anion Gap 13 12 BUN 19 H 22 H Creatinine 0.60 0.75 Estim Creat Clear Calc 62.6 50.2 Estimated GFR > 60 > 60 Random Glucose 86 115 Calcium 8.5 8.2 L B-Natriuretic Peptide Urine Color Urine Appearance Urine pH Ur Specific [place] Urine Protein Urine Glucose (UA) Urine Ketones Urine Blood Urine Nitrite Ur Leukocyte Esterase Urine RBC Urine WBC Ur Squamous Epith Cells Urine Bacteria Hyaline Casts Stool Occult Blood COVID-19 ([facility]) COVID-19 [employer] Com 11/12/21 07:52 WBC 5.2 RBC 3.61 L Hgb 10.7 L Hct 31.5 L MCV 87.3 MCH 29.6 MCHC 34.0 RDW 14.4 Plt Count 262 MPV 9.6 Immature Gran % (Auto) Neut % (Auto) Lymph % (Auto) [place] % (Auto) Eos % (Auto) Baso % (Auto) Lymph # (Auto) [place] # (Auto) Eos # (Auto) Baso # (Auto) Abs Immat Gran (auto) Absolute Neuts (auto) Absolute Nucleated RBC 0.000 Nucleated RBC % (auto) 0.0 Sodium Potassium Chloride Carbon Dioxide Anion Gap BUN Creatinine Estim Creat Clear Calc Estimated GFR Random Glucose Calcium B-Natriuretic Peptide Urine Color Urine Appearance Urine pH Ur Specific [place] Urine Protein Urine Glucose (UA) Urine Ketones Urine Blood Urine Nitrite Ur Leukocyte Esterase Urine RBC Urine WBC Ur Squamous Epith Cells Urine Bacteria Hyaline Casts Stool Occult Blood COVID-19 ([facility]) COVID-19 Clin Com Airway Mallampati Class: II TM Dist: >3cm Neck ROM: Full Loose/Missing/Broken Teeth: Yes Assessment and Plan Assessment Anesthesia Assessment: Anesthesia Plan Discussed and Chart Reviewed Final Anesthetic Review Family History of Problems with Anesthesia: No History of Problems with Anesthesia: No NPO: Yes ASA Class: III Final Preanesthetic Review: No Changes in Pt Med Stat, Meds/Allgs Chart Reviewed, Consent Obtained/Reviewed and Anes Risks/Benef Reviewed Patient Risk: Intermediate Procedure Risk: Low Anesthetic Plan Anesthetic Plan: MAC: Disposition: Standard PACU
--- NOTE | 2021-11-12 17:41 | P.PNIM_ITS ---
Subjective Subjective Date of Service: 11/12/21 Interval History: seen and examined this morning Follow-up for colitis Plan for colonoscopy today. Denies abdominal pain Review of Systems Review of Systems: Yes all other systems are reviewed and are negative Constitutional Constitutional: Denies chills and Denies fever(s) ENT Ears, Nose, Mouth, and Throat: Denies dizziness Cardiovascular Cardiovascular: Denies chest pain, Denies palpitations and Denies dyspnea Respiratory Respiratory: Denies cough and Denies dyspnea Gastrointestinal Gastrointestinal: Denies abdominal pain and Denies vomiting Neurologic Neurologic: Denies dizziness Endocrine Endocrine: Denies palpitations Physical Exam Vital Signs: Vital Signs: Last Vital Signs Temp 97.3 F 11/12/21 16:23 Pulse 71 11/12/21 16:38 Resp 16 11/12/21 16:38 BP 123/58 L 11/12/21 16:38 Pulse Ox 97 11/12/21 16:38 O2 Del Method 11/12/21 16:38 BMI result Body Mass Index 25.4 Const: General: cooperative, comfortable and no acute distress Orientation/consciousness: patient oriented x3 Resp: Effort & Inspection: normal respiratory effort and able to speak in complete sentences Cardio: Rate: regular rate Heart sounds: S1 normal heart sound present and S2 normal heart sound present GI: Palpation (GI): Soft to palpation and nontender Skin: Other: Neuro: General: patient oriented x3 Extrem: General: Yes no pedal edema Objective Data Active Medications Acetaminophen (Acetaminophen 325 Mg Tablet) 650 mg PO Q6H PRN PRN Reason: Pain, Mild (Pain Scale 1-3) Amlodipine Besylate (Amlodipine Besylate 5 Mg Tablet) 5 mg PO DAILY [facility]; Protocol Last Admin: 11/12/21 08:16 Dose: 5 mg Documented By: MARIBELL Comments: bp-142/70 Atorvastatin Calcium (Atorvastatin Calcium 10 Mg Tablet) 10 mg PO BEDTIME [facility] Last Admin: 11/11/21 20:19 Dose: 10 mg Documented By: SARAH Ezetimibe (Ezetimibe 10 Mg Tablet) 10 mg PO BEDTIME [facility] Last Admin: 11/11/21 20:19 Dose: 10 mg Documented By: SARAH Ceftriaxone Sodium 1 gm/ (Sodium Chloride) 50 mls @ 100 mls/hr IV Q24H [facility] Last Infusion: 11/12/21 13:02 Dose: 0 mls/hr Documented By: MARIBELL Metronidazole (Flagyl) 500 mg in 100 mls @ 100 mls/hr IV Q8H [facility] Last Infusion: 11/12/21 13:20 Dose: 0 mls/hr Documented By: MARIBELL Doxycycline Hyclate 100 mg/ (Sodium Chloride) 250 mls @ 166.67 mls/hr IV Q12H [facility] Last Admin: 11/12/21 14:45 Dose: Not Given Documented By: MARIBELL Non-Admin Reason: Off Unit: Surgery Lactic Acid (Ammonium Lactate 12 % Lotion 226 Gm Bottle) 1 appl TOPICAL BID [facility]; Protocol Last Admin: 11/12/21 08:16 Dose: 1 appl Documented By: MARIBELL Lisinopril (Lisinopril 40 Mg Tablet) 40 mg PO DAILY [facility]; Protocol Last Admin: 11/12/21 08:16 Dose: 40 mg Documented By: MARIBELL Comments: bp-142/70 Multivitamins/Vitamin C (Multivitamin Tablet) 1 tab PO DAILY [facility] Last Admin: 11/12/21 08:15 Dose: 1 tab Documented By: MARIBELL Ondansetron HCl (Ondansetron Hcl 4 Mg/2 Ml Vial) 4 mg IVPUSH Q8H PRN PRN Reason: Nausea and Vomiting Ondansetron HCl (Ondansetron Hcl 4 Mg/2 Ml Vial) 4 mg IVPUSH ONCE PRN PRN Reason: Nausea and Vomiting Pharmacy Consult (Consult Rx Perform Med Rec) 1 each MISCELLANE ONCE PRN PRN Reason: Consult order Polyethylene Glycol (Polyethylene Glycol 3350 17 Gm Powd.Pack) 17 gm PO BEDTIME [facility] Last Admin: 11/11/21 20:28 Dose: 17 gm Documented By: SARAH Quetiapine Fumarate (Quetiapine Fumarate 50 Mg Tablet) 50 mg PO BEDTIME [facility] Last Admin: 11/11/21 20:20 Dose: 50 mg Documented By: SARAH Sodium Chloride (0.9 % Sodium Chloride Flush 3 Ml Syringe) 3 ml IVFLUSH QSHIFT [facility] Last Admin: 11/12/21 16:50 Dose: Not Given Documented By: MARIBELL Non-Admin Reason: Off Unit: Surgery Tramadol HCl (Tramadol Hcl 50 Mg Tablet) 50 mg PO TID PRN PRN Reason: Pain (Scale Score 1-3) Last Admin: 11/12/21 08:19 Dose: 50 mg Documented By: MARIBELL Ursodiol (Ursodiol 300 Mg Capsule) 300 mg PO BID [facility] Last Admin: 11/12/21 08:15 Dose: 300 mg Documented By: MARIBELL Labs CBC & Chem 7: 11/12/21 07:52 11/11/21 05:38 Labs: Laboratory Results - last 24 hr 11/12/21 07:52 MCV 87.3 MCH 29.6 MCHC 34.0 RDW 14.4 Plt Count 262 MPV 9.6 Absolute Nucleated RBC 0.000 Nucleated RBC % (auto) 0.0 Assessment and Plan (1) Hematochezia: Status: Acute (2) Cellulitis: Status: Acute Plan an 81 years old lady with PMH of HTN, anxiety, fatty liver, lymphedema among others who presents to the hospital with a complaint of bright red blood per rectum. hematochezia secondary to colitis Not septic,Seems to be mild, infection was in etiology with elevated WBCs CT scan as reported continue ceftriaxone and Flagyl. stable H/H GI input appreciated, scheduled for colonoscopy today cdif negative, GI panel pending Left lower extremity cellulitis Continue IV doxycycline Local measures and cleaning Ultrasound negative for DVT Hypertension continue amlodipine, lisinopril HLD Continue simvastatin, Ezetemibe DVT PPX SCDs The patient will likely need Overnight hospital stay for treatment of cellulitis, colitis pending colonoscopy to prevent possible decompensation to sepsis. Quality Stroke Does the patient have a stroke diagnosis?: No VTE Prior VTE?: No VTE Risk Level:: Medical - moderate - high VTE Device Contraindication: N/A - Device Ordered VTE Drug Contraindication: Treatment Not Indicated
[2021-11-12 17:43] LABS: CDiff Gene PCR NEGATIVE (Negative)
[2021-11-12] MEDS: Ezetimibe 10 MG TABLET PO (20:05)
[2021-11-12] MEDS: Atorvastatin Calcium 10 MG TABLET PO (20:06)
[2021-11-12] MEDS: QUEtiapine Fumarate 50 MG TABLET PO (20:06)
[2021-11-13] MEDS: Doxycycline Hyclate 100 MG in 0.9 % Sodium Chloride 250 ML 166.67 MG IV ×2 (02:51→14:21)
[2021-11-13 03:50] VITALS: BP 113/57; PULSE 83; RESP 16; TEMP 36.6; O2SAT 93
[2021-11-13] MEDS: metroNIDAZOLE/NS 500 MG/100 ML PIGGYBACK 100 MG IV ×2 (05:17→14:22)
[2021-11-13 07:42] VITALS: BP 157/76; PULSE 83; RESP 18; TEMP 37.7; O2SAT 95
[2021-11-13 08:00] VITALS: BP 157/76; PULSE 83; O2SAT 95
[2021-11-13 08:11] VITALS: O2SAT 95
--- NOTE | 2021-11-13 08:45 | HO.POSTANES ---
Post Anesthesia Evaluation Post Anesthesia Evaluation Vital Signs: Vital Signs Temp Pulse Resp BP Pulse Ox O2 Del Method 11/13/21 08:11 95 Room Air 11/13/21 08:00 83 157/76 H 95 11/13/21 07:42 99.8 F 83 18 157/76 H 95 Room Air 11/13/21 03:50 98 F 83 16 113/57 L 93 Room Air 11/12/21 23:40 98.4 F 80 16 131/60 94 Room Air Anesthesia: Monitored Mental Status: Awake Pain Control: Satisfactory Nausea/Vomiting: None Hydration: Adequate Anesthesia-Related Issues: No Anes. Related Issues
[2021-11-13 08:51] LABS: Adenovirus F 40/41 Not Detected (Not Detect.); Astrovirus Not Detected (Not Detect.); Campylobacter Not Detected (Not Detect.); Cryptosporidium Not Detected (Not Detect.); Cyclospora cayetanensis Not Detected (Not Detect.); E. coli EAEC Not Detected (Not Detect.); E. coli ETEC Not Detected (Not Detect.); E. coli STEC Not Detected (Not Detect.); Entamoeba histolytica Not Detected (Not Detect.); Giardia lamblia Not Detected (Not Detect.); Norovirus GI/GII Not Detected (Not Detect.); Plesiomonas shigelloides Not Detected (Not Detect.); Rotavirus A Not Detected (Not Detect.); Salmonella Not Detected (Not Detect.); Sapovirus Not Detected (Not Detect.); Shigella sp./EIEC Not Detected (Not Detect.); Vibrio Not Detected (Not Detect.); Vibrio Cholerae Not Detected (Not Detect.); Yersinia enterocolitica Not Detected (Not Detect.)
[2021-11-13 08:53] LABS: E. coli EPEC Detected (Not Detect.)
[2021-11-13] MEDS: traMADoL HCL 50 MG TABLET PO (09:08)
[2021-11-13] MEDS: UrsodioL 300 MG CAPSULE PO (09:08)
[2021-11-13] MEDS: Multivitamin TABLET 1 TAB PO (09:08)
[2021-11-13] MEDS: lisinopriL 40 MG TABLET PO (09:09)
[2021-11-13] MEDS: 0.9 % Sodium Chloride Flush 3 ML SYRINGE IVFLUSH ×2 (09:09→14:22)
[2021-11-13] MEDS: amLODIPine Besylate 5 MG TABLET PO (09:09)
[2021-11-13] MEDS: Ammonium Lactate 12 % Lotion 226 GM BOTTLE 1 APPL TOPICAL (09:11)
--- NOTE | 2021-11-13 11:29 | P.DS_ITS ---
DS: Providers Provider Date of Service: 11/13/21 Date of admission: 11/08/21 12:01 Date of discharge: 11/13/21 Primary care physician: Yuli Chamberlain MD Consults: 11/08/21 11:59 Consult to Gastroenterology Routine Consulting Provider: Diana Romero Reason for consultation: hematochezia , colitis on CT, for eval and rec. Attending physician on discharge: Isac Appiah Discharging clinician: Paulette Pineda DS: Diagnosis Discharge Diagnosis (1) Hematochezia: Status: Acute (2) Cellulitis: Status: Acute DS: Summary Hospital Course Hospital Course: From H&P on day of admission ?an 81 years old lady with PMH of HTN, anxiety, fatty liver, lymphedema among others who presents to the hospital with a complaint of bright red blood per rectum.? The patient reports her symptoms st arted 24 hours ago.? Mainly asymptomatic with no associated pain, fever or chills.? No changes in her diet or bowel habit.? She reports this is the 1st time she is having something similar to this.? Denies any nausea, vomiting or urinary symptoms. In the emergency patient was noticed to have elevated WBCs of 13,000 with stable vital signs. ? Stable hemoglobin reading from 10 days ago. Noticed to have him acute easy a on exam.? CT scan of the abdomen showed? circumferential thickening of the sigmoid with mild stranding. Will be admitted for further evaluation and treatment. hematochezia secondary to colitis. There was no evidence of sepsis. Likely infectious colitis given elevated WBC. turn she was started on treatment with IV ceftriaxone and Flagyl. She was seen in consultation by GI and underwent colonoscopy on November 12. Colonoscopy showed proctosigmoiditis, likely r/t resolving colitis. recommended to complete 7 day course of antibiotics. C diff was checked and was negative. GI panel was sent and was positive for e.coli EPEC. She has had no further bleeding and is tolerating a regular diet. Her leukocytosis resolved and she has been afebrile. Blood cultures have remained negative to date. Left lower extremity cellulitis. She was started on IV doxycycline who will be discharged to complete course of antibiotics. Ultrasound was negative for DVT. Will need outpatient follow-up in Wound Care Clinic and close monitoring/local wound care. Time Spent with Patient Time attestation: Total time spent providing and/or coordinating discharge services: Discharge coordination time: Greater than 30 minutes Quality: Safe Use of Opioids Does Pt have an Active Cancer Diagnosis on the Problem List?: No Quality: Stroke Does the patient have a stroke diagnosis?: No Physical Exam Vital Signs: Vital Signs: Last Vital Signs Temp 99.8 F 11/13/21 07:42 Pulse 83 11/13/21 08:00 Resp 18 11/13/21 07:42 BP 157/76 H 11/13/21 08:00 Pulse Ox 95 11/13/21 08:11 O2 Del Method 11/13/21 08:11 BMI result Body Mass Index 25.4 Const: General: cooperative, comfortable and no acute distress Orientation/consciousness: patient oriented x3 Resp: Effort & Inspection: normal respiratory effort and able to speak in complete sentences Cardio: Rate: regular rate Heart sounds: S1 normal heart sound present and S2 normal heart sound present GI: Palpation (GI): Soft to palpation and nontender Skin: Other: Neuro: General: patient oriented x3 DS: Data Data Completed and Pending Pending studies at discharge: Pending at discharge 11/12/21 16:12 Surgical [PTH] Routine Labs on day of discharge: Laboratory Results - last 24 hr 11/12/21 11/12/21 16:00 16:00 Stl C. cayetanensis PCR Not Detected Stool Rotavirus A PCR Not Detected Stl Adenov F 40/41 PCR Not Detected Stool Astrovirus (PCR) Not Detected Stool Campylobacter PCR Not Detected Stool Cryptosporidium PCR Not Detected Stl Sh Tox Pr E STEC PCR Not Detected Stool E coli O157 PCR Not applicable Stl Enterotoxigenic E PCR Not Detected Stool EPEC (PCR) Detected A Stool EAEC (PCR) Not Detected Stl E. histolytica PCR Not Detected Stool Giardia Lamblia PCR Not Detected Stl P. shigelloides PCR Not Detected Stool Salmonella PCR Not Detected Stool Sapovirus (PCR) Not Detected Stl Shigella/EIEC PCR Not Detected St Y.enterocolitica PCR Not Detected Stool Vibrio (PCR) Not Detected Stl Vibrio cholerae PCR Not Detected Stl Norovirus GI/GII PCR Not Detected C. difficile Tox B Gene NEGATIVE Preliminary micro results at discharge 11/08/21 14:02 Blood Culture - Preliminary Blood - Venous No growth after 48 hours. 11/08/21 14:02 Blood Culture - Preliminary Blood - Venous No growth after 48 hours. Discharge Plan Discharge Patient Disposition: Xfer SNF Discharge Diagnosis: hematochezia colitis Left leg cellulitis Referrals: [facility] [Outside] - 1 Day (STR) Diana Romero MD [Physician] - 1 Week Po,Yuli Flowers MD [Primary Care Provider] - 1 Week Mitzi Fulton MD [Physician] - 1 Week Discharge Medications: New doxycycline hyclate 100 mg tablet 100 mg PO BID 3 Days Qty: 6 0RF levofloxacin 750 mg tablet 750 mg PO DAILY 1 Days Qty: 1 0RF Continued ursodiol 300 mg capsule 300 mg PO BID Qty: 160 2RF multivitamin Tablet 1 tab PO DAILY 90 Days Qty: 90 3RF tramadol 50 mg tablet 50 mg PO TID PRN (Reason: Pain (Scale Score 1-3)) 90 Days Qty: 270 0RF ezetimibe-simvastatin [Vytorin 10-10] 10-10 mg tablet 0.5 tab PO BEDTIME Qty: 45 11RF aspirin 81 mg Tablet,Delayed Release (Dr/Ec) 81 mg PO DAILY polyethylene glycol 3350 [Miralax] 17 gram Powder In Packet 17 g PO BEDTIME quetiapine 100 mg tablet 50 mg PO BEDTIME calcium carbonate-vitamin D3 600 mg-25 mcg (1,000 unit) capsule 1 cap PO DAILY lisinopril 40 mg tablet 40 mg PO DAILY Qty: 90 2RF amlodipine 5 mg tablet 5 mg PO DAILY Qty: 90 2RF No Action (DME) Rollator See Rx Instructions .Route .MEDSUPPLY Qty: 1 0RF Rx Instructions: As directed (DME) TUBIGRIPS See Rx Instructions .Route .MEDSUPPLY Qty: 2 0RF Rx Instructions: As directed (DME) Commode chair See Rx Instructions .Route .MEDSUPPLY Qty: 1 0RF Rx Instructions: As directed Discharge Orders: Discharge Order (Routine); Ordered 11/13/21 Ordered By: Paulette Pineda Activity on Discharge: As tolerated Stand Alone Forms: Patient Portal Discharge page Care Plan Goals: see below Health Concerns: hematochezia colitis left leg cellulitis Plan of Treatment: complete course of antibiotics for colitis and cellulitis recommend to follow up outpatient with Gastroenterology recommend to follow up outpatient with the wound care clinic for close monitoring of left lower extremity Assessment: see discahrge summary Discharge Date/Time: 11/13/21 16:39
[2021-11-13 11:34] VITALS: BP 132/62; PULSE 77; RESP 18; TEMP 37.6; O2SAT 96
--- NOTE | 2021-11-13 12:21 | MHC.CM.PN ---
PT MEDICALLY CLEARED FOR D/C TO [facility] FOR STR, [facility] FOR BLS TRANSPORT
[2021-11-13 12:42] LABS: COVID-19 Test Negative (Negative); IDNOW Serial# 9DD0AD1C
[2021-11-13] MEDS: cefTRIAXone sodium 1 GM in 0.9 % Sodium Chloride 50 ML IV (14:23)
[2021-11-13 16:00] VITALS: BP 120/63; PULSE 90; RESP 16; TEMP 36.6; O2SAT 95
== END 2021-11-13 16:39 | disposition skilled nursing facility (03) | DRG 391 ==
LOC: HO.ED 11:56 → HO.EDOVER 12:09 → HO.S3 11-09 07:27
PROVIDERS: Internal Medicine Gastroenterology; Admitting Provider Student in an Organized Health Care Education/Training Program; Emergency Provider Emergency Medicine; PCP Internal Medicine; Visit Provider Physician Assistant Medical
PROC: 0DJD8ZZ Inspection of Lower Intestinal Tract, Via Natural or Artificial Opening Endoscopic (ICD-10-PCS; CPT 45378; principal; 2021-11-12 14:50)
DX: A09 Infectious gastroenteritis and colitis, unspecified (principal); K57.31 Diverticulosis of large intestine without perforation or abscess with bleeding; L03.116 Cellulitis of left lower limb; K51.311 Ulcerative (chronic) rectosigmoiditis with rectal bleeding; I10 Essential (primary) hypertension; E78.5 Hyperlipidemia, unspecified; F41.9 Anxiety disorder, unspecified; K76.0 Fatty (change of) liver, not elsewhere classified; I89.0 Lymphedema, not elsewhere classified; Z20.822 Contact with and (suspected) exposure to COVID-19; Z86.711 Personal history of pulmonary embolism; Z88.5 Allergy status to narcotic agent; Z79.82 Long term (current) use of aspirin; Z79.899 Other long term (current) drug therapy
CPT/HCPCS: 36415; 74176; 80048; 81001; 82272; 83880; 85025; 85027; 87040; 87493; 87507; 87635; 88305; 93971; 97162; 99285; J0696

== ENCOUNTER 2021-12-08 21:07 | Emergency (ER) | payer MEDICARE, SELFPAY ==
[2021-12-08 21:23] VITALS: BP 142/82; PULSE 80
[2021-12-08 21:51] VITALS: BP 142/83; PULSE 85; RESP 17; TEMP 37.1; O2SAT 95; BMI 26.7
--- NOTE | 2021-12-08 22:04 | ED.WOUNDLAC ---
HPI - Wound/Laceration General Chief Complaint: Extremity Injury, Lower Stated Complaint: LEG PAIN/ INFECTION Time Seen by Provider: 12/08/21 21:25 Source: patient Mode of arrival: EMS Limitations: no limitations History of Present Illness HPI narrative: 81-year-old female with a past medical history of HTN, anxiety, fatty liver and lymphedema presenting to the ER with complaints of left lower extremity edema and worsening drainage that her VNA noticed today. Although patient reports that this VNA nurse is fairly new to her. The patient reports that her left leg has been intermittently swelling and weeping over the past few days and the VNA have been performing dressing with Xeroform dressings. The patient reports that she was seen in this ED in October for a similar complaint, she was admitted then discharged and placed on antibiotics and the infection went away. She states that her home nurse instructed her to got to the emergency department after looking at her left leg wound today. The patient denies any fevers, chills, or loss of function in her left leg, neck pain/stiffness, trouble swallowing or breathing, cough, dyspnea on exertion, orthopnea, palpitations, paresthesias, chest pain, weight gain, calf tenderness, recent falls or trauma, history of MRSA that she is aware of or any other symptoms complaints or concerns at this time. Onset (ago): day(s) Extremity Location: left: lower leg, ankle and foot Place: home Associated symptoms: pain and loss of feeling/numbness (decreased sensation which is chronic per patient ) Treatments prior to arrival: bandage Related Data Home Medications Medication Instructions Recorded Confirmed aspirin 81 mg tablet,delayed 81 mg PO DAILY 12/26/19 11/08/21 release polyethylene glycol 3350 17 gram 17 g PO BEDTIME 01/01/20 11/08/21 oral powder packet (Miralax) calcium carbonate 600 mg-vitamin 1 cap PO DAILY 11/08/21 11/08/21 D3 25 mcg (1,000 unit) capsule quetiapine 100 mg tablet 50 mg PO BEDTIME 11/08/21 11/08/21 Previous Rx's Medication Instructions Recorded Commode chair #1 ea 05/19/20 TUBIGRIPS #2 ea 05/19/20 Rollator #1 ea 04/09/21 ursodiol 300 mg capsule 300 mg PO BID #160 caps 05/04/21 multivitamin 1 tab PO DAILY 90 days #90 tabs 06/29/21 amlodipine 5 mg tablet 5 mg PO DAILY #90 tabs 08/27/21 lisinopril 40 mg tablet 40 mg PO DAILY #90 tabs 08/27/21 tramadol 50 mg tablet 50 mg PO TID PRN Pain (Scale Score 09/17/21 1-3) 90 days #270 tabs ezetimibe 10 mg-simvastatin 10 mg 0.5 tab PO BEDTIME #45 tabs 10/26/21 tablet (Vytorin) doxycycline hyclate 100 mg tablet 100 mg PO BID 3 days #6 tabs 11/13/21 levofloxacin 750 mg tablet 750 mg PO DAILY 1 day #1 tab 11/13/21 cephalexin 500 mg capsule 500 mg PO Q6H 10 days #40 caps 12/09/21 doxycycline monohydrate 100 mg 100 mg PO BID 10 days #20 tabs 12/09/21 tablet silver sulfadiazine 1 % topical 1 appl topical DAILY Applied to 12/09/21 cream (Silvadene) wound #400 grams Allergies Allergy/AdvReac Type Severity Reaction Status Date / Time fentanyl [FENTANYL] Allergy Severe CARDIAC Verified 11/12/21 14:17 ARREST, heart stopped, anaphylaxis nickel Allergy Intermediate Rash Uncoded 11/12/21 14:17 paper tape Allergy Intermediate Rash Uncoded 11/12/21 14:18 Review of Systems Review of Systems: Constitutional : No Weight loss, No Fever, No Chills, No Night Sweats, No Fatigue, No Malaise ENT/Mouth : No Hearing loss, No Ear Pain, No Nasal Congestion, No Sinus Pain, No Hoarseness, No sore throat, No Rhinorrhea, No Swallowing Difficulty Eyes: No Eye Pain, No Swelling, No Redness, No Foreign Body, No Discharge, No Vision Changes Cardiovascular : No Chest Pain, No SOB, No Dyspnea on Exertion, No Orthopnea, No Edema, No Palpitations Respiratory : No Cough, No Sputum, No Wheezing, No Smoke Exposure, No Dyspnea Gastrointestinal : No Nausea, No Vomiting, No Diarrhea, No Constipation, No abdominal Pain, No Hematochezia, No Melena Genitourinary : no irregular bleeding, No Dysuria, No Urinary Frequency, No Hematuria, No Urinary Incontinence, No Urgency, No Flank Pain, No Urinary Flow Changes, No Hesitancy Musculoskeletal : No joint pain, No Myalgias, No Joint Swelling Skin : No Skin Lesions, + wound/rash with surrounding erythem and tender to touch and warm to touch Neuro : No Weakness, + chronic decrease sensation in left lower extremity, No Loss of Consciousness, No Dizziness, No Headache Psych : No Anxiety/Panic, No Depression, No SI/HI/AH/VH, No Social Issues, Heme/Lymph: No Bruising, No Bleeding, + Lymphadenopathy in the left lower leg Endocrine : No Polyuria, No Polydipsia, No Temperature Intolerance Yes all other systems are reviewed and are negative [facility] Past Medical History Attestation statement: The following information was validated with the patient. Source: old records reviewed and nursing notes reviewed Medical History Anxiety Compression fracture of L2 lumbar vertebra High cholesterol Hip fracture, right HTN (hypertension) Lymphedema Malignant tumor body uterus Osteoporosis Other specified disorders of bone density and structure, right upper arm Proximal humerus fracture Psoriasis Pulmonary embolism Pulmonary nodule Retinal artery branch occlusion, left eye Surgical History History of esophagogastroduodenoscopy (EGD) History of hip replacement History of open reduction and internal fixation (ORIF) procedure History of removal of cyst History of solitary pulmonary nodule History of surgery History of tonsillectomy and adenoidectomy History of tubal ligation Hx of colonoscopy Family History Family History Father Stroke Hypertension Mother Hypertension CVD (cardiovascular disease) Myocardial infarction Brother Hypertension Sister Hypercholesteremia Hypertension Sister Hypertension Hypercholesteremia Social History Social History Household Members: None Housing: Apartment Do you presently have visiting nurse or other home services: Yes (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, 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) Alcohol intake: never Patient Tobacco Use Status: Never used Tobacco e-Cigarette/Vaping Use: Never Used Advance Directives: Yes Advance Directives on File: Yes Advance Directives Date on File: 01/16/20 service: No Current occupational status: retired Cognitive needs: Yes Hearing needs: No Vision needs: Yes (Pt has glasees for reading) Physical Exam Vital Signs: Vital Signs: Last Vital Signs Temp 99.1 F 12/08/21 23:45 Pulse 86 12/08/21 23:45 Resp 16 12/08/21 23:45 BP 149/93 H 12/08/21 23:45 Pulse Ox 97 12/08/21 23:45 O2 Del Method 12/08/21 23:45 BMI result Body Mass Index 26.7 vital signs have been reviewed as normal and appeared to be correct. Blood pressure normal Heart rate normal. Respiration rate normal. Temperature normal. Oxygen saturation normal. Appearance: Alert. Oriented X3. No acute distress. Head: Normal external exam. Normocephalic. Atraumatic. Eyes: EOMI. Conjunctiva and sclera normal. Eyelids normal. ENT: Moist mucous membranes. Neck: Normal inspection. Neck supple. FROM. CVS: Normal heart rate and rhythm. Respiratory: No respiratory distress. Painless inspiration. Skin: Skin warm and dry. Normal skin color. Normal skin turgor. Cellulitis noted in the left lower leg starting at the baces of the toes and extending up the calf to approximately 4 inches distal to the knee - noted to have serous drainage , warm to touch with global eschar tissue noted. No streaking/induration/fluctuance. No additional rashes/lesions/lacerations noted. Extremities: Left leg 2+ lower extremity pitting edema. No Calf tnderness noted bilaterally. Extremities exhibit normal range of motion. Extremities nontender. Neuro: Oriented X 3. No motor deficit. No sensory deficit. Normal steady gait. No focal neuro deficits noted. Vascular: distal pedal pulses/+2 dorsalis pedis b/l. No cyanosis noted to upper extremity nails and lower extremity toes nails. Course Course Course Narrative: 09:30 -The patient is a 81 year old female for a complaint of lower extremity edema and signs of infection. she has a PMHx significant for lymphedema. The patient reports that her left leg has been intermittently swelling and weeping. The patient reports that she was seen in this ED in October for a similar complaint, she was admitted for cellulitis/wound care placed on [facility] and the infection went away per patient. She states that her home nurse instructed her to got to the emergency department after looking at her left leg wound today she believe it appeared worse. Although patient reports that this VNA nurse was new to her care. The patient denies any fevers, chills, chest pain, shortness of breath, dyspnea on exertion, orthopnea, palpitations, paresthesias, focal weakness or general weakness or loss of function in her left leg. Patient was seen here and admitted on 11/08/2021 for similar complaint and discharged on p.[facility]. antibiotics to [facility] and they advised her to follow-up with wound care. She had a negative DVT to LLE at that time. Plan: Mechanical debridement, labs (CBC with diff, CMP, Mg sulfate, BNP, CRP,CT/INR, Lactic acid, ESR) blood cultures, and IV antibiotics (Cefeoime), & possible admit. Reevaluation(s) Reevaluation #1: Mechanical debridement performed. 2% topical lidocaine applied, topical silver sulfadazine applied, wound was bandaged with non adhesive ABD pads and wrapped with an dorian bandage. Time: 22:00 Reevaluation #2: - labs reviewed and patient with a mild baseline anemia improved when compared to prior with an H&H of 11.6/35.1. ESR 81. BUN 31. CRP 0.71. BNP is negative. Lactic acid is 0.5. - I did discuss this case with Dr. Hardwick for possible admission although the patient does not have an elevated white blood cell count and she is able to tolerate p.o. fluids therefore he reported that the patient can be discharged and I offered the patient admission and she reports that she would actually rather be discharged with p.o. antibiotics and follow-up with the wound care. - at this time patient will be discharged with p.o. antibiotics doxycycline and Keflex along with Silvadene and instructions to follow-up with wound care this week for further evaluation treatment and to return if any new or worsening symptoms. Patient understands agrees with this plan. Time: 00:24 Reevaluation #3: - the patient does not have a ride home therefore I spoke to the supervisor safety deposit and she will try to obtain a Lyft ride for the patient. Time: 00:49 [facility] - Wound/Laceration Medical Records Attestation: I reviewed the patient's medical records. Lab Data Attestation: I reviewed the patient's lab results. Result diagrams: 12/08/21 22:47 12/08/21 22:47 Labs: Lab Results 09/27/22 09/27/22 09/27/22 Range/Units 22:47 22:47 22:47 WBC 5.7 (4.8-10.8) X10*3/uL RBC 4.05 L (4.20-5.50) X10*6/uL Hgb 11.6 L (12.0-16.0) g/dl Hct 35.1 L (37.0-47.0) % MCV 86.7 (80.0-98.0) fL MCH 28.6 (27.0-33.0) pg MCHC 33.0 (31.0-35.0) g/dl RDW 14.1 (11.0-16.0) % Plt Count 239 (160-400) X10*3/uL MPV 10.2 (9.4-12.3) fL Immature Gran % (Auto) 0.3 (0.0-0.4) % Neut % (Auto) 60.8 (45-73) % Lymph % (Auto) 25.3 (20-40) % Carlisle % (Auto) 12.2 H (2-11) % Eos % (Auto) 0.7 (0-4) % Baso % (Auto) 0.7 (0-2) % Lymph # (Auto) 1.5 (1.2-4.9) X10*3/uL Carlisle # (Auto) 0.7 (0.1-1.2) X10*3/uL Eos # (Auto) 0.0 (0.0-0.4) X10*3/uL Baso # (Auto) 0.0 (0.0-0.2) X10*3/uL Abs Immat Gran (auto) 0.02 (0.00-0.03) X10*3/uL Absolute Neuts (auto) 3.5 (2.0-8.3) x10*3/uL Absolute Nucleated RBC 0.000 (0.0-0.012) X10*3/uL Nucleated RBC % (auto) 0.0 (0.0-0.2) /100WBC ESR (0-20) MM/HR PT 12.0 (10.0-13.1) SEC INR 1.0 (0.9-1.1) Sodium 136 (135-145) mmol/L Potassium 4.6 (3.3-5.1) mmol/L Chloride 99 (96-108) mmol/L Carbon Dioxide 23 (22-29) mmol/L Anion Gap 19 (12-20) BUN 31 H (9-16) mg/dL Creatinine 0.86 (0.5-1.4) mg/dL Estim Creat Clear Calc 44.8 Estimated GFR > 60 Random Glucose 89 (60-115) mg/dL Lactic Acid (0.5-2.0) mmol/L Calcium 10.0 D (8.4-10.2) mg/dL Magnesium 2.1 (1.6-2.6) mg/dL Total Bilirubin 0.5 (0.0-1.0) mg/dL AST 24 (5-31) U/L ALT 17 (0-31) U/L Alkaline Phosphatase 106 (39-117) U/L C-Reactive Protein 0.71 H (< or = 0.50) mg/dL B-Natriuretic Peptide (<100) pg/mL Total Protein 8.0 (6.5-8.0) g/dL Albumin 4.1 (3.5-5.0) g/dL 12/08/21 12/08/21 12/08/21 Range/Units 22:47 22:47 22:47 WBC (4.8-10.8) X10*3/uL RBC (4.20-5.50) X10*6/uL Hgb (12.0-16.0) g/dl Hct (37.0-47.0) % MCV (80.0-98.0) fL MCH (27.0-33.0) pg MCHC (31.0-35.0) g/dl RDW (11.0-16.0) % Plt Count (160-400) X10*3/uL MPV (9.4-12.3) fL Immature Gran % (Auto) (0.0-0.4) % Neut % (Auto) (45-73) % Lymph % (Auto) (20-40) % Carlisle % (Auto) (2-11) % Eos % (Auto) (0-4) % Baso % (Auto) (0-2) % Lymph # (Auto) (1.2-4.9) X10*3/uL Carlisle # (Auto) (0.1-1.2) X10*3/uL Eos # (Auto) (0.0-0.4) X10*3/uL Baso # (Auto) (0.0-0.2) X10*3/uL Abs Immat Gran (auto) (0.00-0.03) X10*3/uL Absolute Neuts (auto) (2.0-8.3) x10*3/uL Absolute Nucleated RBC (0.0-0.012) X10*3/uL Nucleated RBC % (auto) (0.0-0.2) /100WBC ESR 81 H (0-20) MM/HR PT (10.0-13.1) SEC INR (0.9-1.1) Sodium (135-145) mmol/L Potassium (3.3-5.1) mmol/L Chloride (96-108) mmol/L Carbon Dioxide (22-29) mmol/L Anion Gap (12-20) BUN (9-16) mg/dL Creatinine (0.5-1.4) mg/dL Estim Creat Clear Calc Estimated GFR Random Glucose (60-115) mg/dL Lactic Acid 0.5 (0.5-2.0) mmol/L Calcium (8.4-10.2) mg/dL Magnesium (1.6-2.6) mg/dL Total Bilirubin (0.0-1.0) mg/dL AST (5-31) U/L ALT (0-31) U/L Alkaline Phosphatase (39-117) U/L C-Reactive Protein (< or = 0.50) mg/dL B-Natriuretic Peptide < 10 (<100) pg/mL Total Protein (6.5-8.0) g/dL Albumin (3.5-5.0) g/dL Critical Care Time Critical Care Time Critical Care Time: Yes Total Critical Care Time: 60 Attestation: I personally attest to this time spent taking care of the patient Discharge Plan Discharge Clinical Impression: Leg wound, left, Cellulitis of left leg Patient Disposition: Home, Self-Care Instructions: Wound Infection (ED), Cellulitis (ED) Prescriptions: New doxycycline monohydrate 100 mg tablet 100 mg PO BID 10 Days Qty: 20 0RF cephalexin 500 mg capsule 500 mg PO Q6H 10 Days Qty: 40 0RF silver sulfadiazine [Silvadene] 1 % cream 1 appl topical DAILY Qty: 400 0RF Rx Instructions: apply a 1.5 mm thickness No Action (DME) Rollator See Rx Instructions .Route .MEDSUPPLY Qty: 1 0RF Rx Instructions: As directed ursodiol 300 mg capsule 300 mg PO BID Qty: 160 2RF multivitamin Tablet 1 tab PO DAILY 90 Days Qty: 90 3RF tramadol 50 mg tablet 50 mg PO TID PRN (Reason: Pain (Scale Score 1-3)) 90 Days Qty: 270 0RF ezetimibe-simvastatin [Vytorin 10-10] 10-10 mg tablet 0.5 tab PO BEDTIME Qty: 45 11RF aspirin 81 mg Tablet,Delayed Release (Dr/Ec) 81 mg PO DAILY polyethylene glycol 3350 [Miralax] 17 gram Powder In Packet 17 g PO BEDTIME quetiapine 100 mg tablet 50 mg PO BEDTIME calcium carbonate-vitamin D3 600 mg-25 mcg (1,000 unit) capsule 1 cap PO DAILY doxycycline hyclate 100 mg tablet 100 mg PO BID 3 Days Qty: 6 0RF levofloxacin 750 mg tablet 750 mg PO DAILY 1 Days Qty: 1 0RF (DME) TUBIGRIPS See Rx Instructions .Route .MEDSUPPLY Qty: 2 0RF Rx Instructions: As directed (DME) Commode chair See Rx Instructions .Route .MEDSUPPLY Qty: 1 0RF Rx Instructions: As directed lisinopril 40 mg tablet 40 mg PO DAILY Qty: 90 2RF amlodipine 5 mg tablet 5 mg PO DAILY Qty: 90 2RF Referrals: [facility] [place] Wound Care Management [Provider Group] - 1 day (Call tomorrow to make a follow-up appointment as soon as possible for your wound to your left lower extremity) Yuli Chamberlain MD [Primary Care Provider] - 2 days
[2021-12-08] MEDS: Silver Sulfadiazine 1 % Cream 20 GM TUBE 1 APPL TOPICAL (22:06)
[2021-12-08] MEDS: Lidocaine HCl 2 % Jelly 5 ML TUBE 1 APPL TOPICAL (22:06)
[2021-12-08 22:57] LABS: MANUAL DIFF FLAG NO
[2021-12-08 22:58] LABS: Basophils Percent Auto 0.7 % (0-2); Eosinophils Percent Auto 0.7 % (0-4); Hematocrit 35.1 % (37.0-47.0); Hemoglobin 11.6 g/dl (12.0-16.0); Imm Gran Abs Auto 0.02 X10*3/uL (0.00-0.03); Imm Gran Pct Auto 0.3 % (0.0-0.4); Lymphocytes Absolute Auto 1.5 X10*3/uL (1.2-4.9); Lymphocytes Percent Auto 25.3 % (20-40); Mean Corpuscular Hemoglobin 28.6 pg (27.0-33.0); Mean Corpuscular Volume 86.7 fL (80.0-98.0); Mean Platelet Volume 10.2 fL (9.4-12.3); Monocytes Absolute Auto 0.7 X10*3/uL (0.1-1.2); Monocytes Percent Auto 12.2 % (2-11); Neutrophils Absolute Auto 3.5 x10*3/uL (2.0-8.3); Neutrophils Percent Auto 60.8 % (45-73); Platelet Count 239 X10*3/uL (160-400); Red Blood Count 4.05 X10*6/uL (4.20-5.50); Red Cell Distribution Width 14.1 % (11.0-16.0); White Blood Count 5.7 X10*3/uL (4.8-10.8)
[2021-12-08 23:06] LABS: Lactic Acid 0.5 mmol/L (0.5-2.0)
[2021-12-08 23:12] LABS: Alanine Aminotransferase 17 U/L (0-31); Albumin Level 4.1 g/dL (3.5-5.0); Alkaline Phosphatase 106 U/L (39-117); Anion Gap 19 (12-20); Aspartate Amino Transferase 24 U/L (5-31); Bilirubin Total 0.5 mg/dL (0.0-1.0); Blood Urea Nitrogen 31 mg/dL (9-16); C Reactive Protein 0.71 mg/dL (< or = 0.50); Carbon Dioxide 23 mmol/L (22-29); Chloride 99 mmol/L (96-108); Creatinine Clr Calc Pharmacy 44.8; Estimated Glomerular Filt Rate > 60; Glucose Random 89 mg/dL (60-115); Magnesium 2.1 mg/dL (1.6-2.6); Potassium 4.6 mmol/L (3.3-5.1); Sodium 136 mmol/L (135-145)
[2021-12-08 23:17] LABS: B Type Natriuretic Peptide < 10 pg/mL (<100)
[2021-12-08 23:40] LABS: Erythrocyte Sedimentation Rate 81 MM/HR (0-20)
[2021-12-08 23:45] VITALS: BP 149/93; PULSE 86; RESP 16; TEMP 37.3; O2SAT 97
[2021-12-08] MEDS: cefEPime HCl 2 GM in 0.9 % Sodium Chloride 50 ML IV (23:54)
== END 2021-12-09 01:11 | disposition home or self-care (01) ==
PROVIDERS: Physician Assistant Medical; Emergency Provider Emergency Medicine; PCP Internal Medicine
DX: L03.116 Cellulitis of left lower limb (principal); R60.0 Localized edema; R06.02 Shortness of breath; I10 Essential (primary) hypertension; Z79.899 Other long term (current) drug therapy
CPT/HCPCS: 36415; 80053; 83605; 83735; 83880; 85025; 85610; 85652; 86140; 87040; 96365; 99283; 99284; J0692

== ENCOUNTER 2021-12-22 10:36 | Emergency (ER) | payer MEDICARE, SELFPAY ==
--- NOTE | ~2021-12-22 | CT_ITS ---
EXAMINATION: CT LUMBAR SPINE WITHOUT CONTRAST CLINICAL INFORMATION: Low back pain. Urinary incontinence. COMPARISON: None TECHNIQUE: Axial 2 mm thin and reformatted 2 mm thin sagittal and coronal images of lumbar spine were obtained without contrast. DLP 495 mGy-cm. This CT examination was performed using dose optimization techniques as appropriate, variously including the following: *Automated exposure control *Adjustment of mA and/or kV according to patient size (this includes techniques or standardized protocols for targeted exams where dose is matched to indication/reason for exam; i.e. extremities or head) *Use of iterative reconstruction technique FINDINGS: On sagittal reconstructed images there is normal lumbar lordosis. There is grade 2 anterolisthesis L4 over L5. Rest the vertebral alignment is normal. There are osteoporotic compression deformities of L2, L3 and L4 vertebra. There is acute kyphotic deformity S1 and S2 vertebra likely related to old healed fracture. The T12/L1 disc level appears unremarkable. At L1-L2 disc level there is minimal bulge flattening the ventral thecal sac without spinal canal stenosis. There is a posterior superior endplate projecting into the spinal canal with minimal AP canal narrowing. The neural foramina are patent bilaterally. At L2-L3 disc level there is no significant disc bulge, herniation or spinal stenosis. The neural foramina are patent. At L3-L4 disc level there is no significant disc bulge, herniation or spinal canal stenosis. The neural foramina are patent bilaterally. At L4-L5 disc level there is grade 2 anterolisthesis with moderate spinal canal stenosis. The neural foramina are patent bilaterally. Bilateral moderate facet arthropathy noted.. At L5-S1 disc level there is no signal disc bulge, herniation or spinal canal stenosis. The neural foramina are patent bilaterally. Mild facet joint arthropathy seen bilaterally Bone windows reveal no lytic or sclerotic process. There is no acute fracture seen. CT/CT lumbar spine wo IV con IMPRESSION: Grade 2 anterolisthesis L4-L5 with severe degenerative disc changes L4-L5 disc level. There is moderate spinal canal stenosis secondary to listhesis. This could attribute to patient's complaint off urinary incontinence. There is no spinal canal stenosis in the rest of the lumbar spine spinal canal or lower dorsal spine. There are old compression superior endplate deformities L2, L3 and L4 vertebra. There is severe osteoporosis. Acute kyphotic deformity S1-S2 vertebra likely old healed fracture
[2021-12-22 11:15] VITALS: BP 159/75; PULSE 78; RESP 16; TEMP 36.9; O2SAT 98; BMI 21.2
--- OUTSIDE RECORDS SUMMARY | 2021-12-22 11:37 | XMS_ITS | Continuity of Care Document ---
:1940 Author Organization [facility] Address [address] [place] [id number]- Care Team Providers Name Role Phone Yuli Chamberlain MD Primary Care Physician Encounter [facility] [place] Date(s): 04/17/20 - 06/23/[address] [id number] Attending Physician: Yuli Chamberlain MD Admitting Physician: Yuli Chamberlain MD Referring Physician: Yuli Chamberlain MD Allergies, Adverse Reactions, Alerts Substance Reaction Severity Status Tape Active fentaNYL Pt experienced cardiac arrest. A ctive Immunizations Not Given Vaccine Date Status Refusal Reason pneumococcal 13-valent vaccine 11/08/15 Not Given P atient Refuses pneumococcal 13-valent vaccine 11/08/15 Not Given P atient Refuses pneumococcal 13-valent vaccine 11/08/15 Not Given P atient Refuses Medications amLODIPine 5 mg oral tablet 5 mg, 1, tablet, By Mouth, Daily, # 30 tablet, Refills 0, Tot. Refills 0, Maintenance, 10/31/18 15:58:09 EDT, Route to Pharmacy Electronically, [id number], [facility]/pharmacy #[id number] Start Date: 10/31/18 Status: Orderedaspirin 81 mg oral tablet 1 tablet = 81 mg, By Mouth, Daily, # 30 tablet, 0 Refills, Maintenance, 10/31/18 15:58:24 EDT, Tablet Start Date: 10/31/18 Status: OrderedCentrum Silver Women's 1 tablet, By Mouth, Daily, 0 Refills, Maintenance, 10/27/18 14:23:36 EDT Start Date: 10/27/18 Status: Ordereddocusate sodium 100 mg oral capsule 100 mg, 1, capsule, By Mouth, 2 times a day, # 60 capsule, Refills 0, Tot. Refills 0, Maintenance, 10/31/18 15:58:54 EDT, Route to Pharmacy Electronically, [id number], [facility]/pharmacy #[id number] Start Date: 10/31/18 Status: OrderedLipitor 40 mg oral tablet = 40 mg, By Mouth, Daily at bedtime, # 30 tablet, 0 Refills, Maintenance, 10/31/18 15:58:39 EDT, Tablet Start Date: 10/31/18 Status: Orderedlisinopril 40 mg oral tablet 1 tablet = 40 mg, By Mouth, Daily, # 30 tablet, 0 Refills, Maintenance, 10/16/15 10:36:07 EDT, Tablet Start Date: 10/16/15 Status: OrderedLORazepam 1 mg oral tablet 2 tablet = 2 mg, By Mouth, 2 times a day, PRN Anxiety, 0 Refills, Maintenance, 11/10/15 14:06:54 EDT, Tablet Start Date: 11/10/15 Status: OrderedSEROquel 50 mg oral tablet 1 tablet = 50 mg, By Mouth, Daily at bedtime, 0 Refills, Maintenance, 10/27/18 14:22:33 EDT Start Date: 10/27/18 Status: Ordered
--- NOTE | 2021-12-22 11:38 | ED.BACK ---
HPI - Back Pain/Injury General Chief Complaint: Back Pain/Injury <ANIKET Dela Cruz - Last Filed: 12/22/21 18:11> Stated Complaint: LOWER BACK PAIN,-TRAUMA <ANIKET Dela Cruz - Last Filed: 12/22/21 18:11> Time Seen by Provider: 12/22/21 10:48 <ANIKET Dela Cruz - Last Filed: 12/22/21 18:11> Source: patient, EMS and old records reviewed <ANIKET Dela Cruz - Last Filed: 12/22/21 18:11> Mode of arrival: EMS <ANIKET Dela Cruz - Last Filed: 12/22/21 18:11> Limitations: no limitations <ANIKET Dela Crzu Last Filed: 12/22/21 18:11> History of Present Illness HPI Narrative: 81 yo female with history of HTN, anxiety, constipation, LE cellulitis, lymphedema, OSD, primary biliary cirrhosis, hx PE, psoriasis, uterine cancer, hx LGIB due to colitis and chronic low back pain who presents to the ER from home c/o 3 days of worsening atraumatic low back pain. She reports the pain got acutely worse when she was in the bathroom trying to bend and clean herself. She has new onset urinary incontinence as well that started before the back pain worsened. She feels the urge to go to the bathroom but sometimes cannot make it in time. She denies any fecal incontinence and is constipated due the tramadol she has been taking for the back pain. She states the pain si 5/10 at rest and 10/10 when she tries to get up and walk. She denies radiation of the pain, LE weakness, numbness or tingling. <ANIKET Dela Cruz - Last Filed: 12/22/21 18:11> MD elicited complaint: back pain <ANIKET Dela Cruz - Last Filed: 12/22/21 18:11> Pertinent past history: prior back pain <ANIKET Dela Cruz - Last Filed: 12/22/21 18:11> Onset (ago): day(s) (3) <ANIKET Dela Cruz Last Filed: 12/22/21 18:11> Timing: progressively worsening <ANIKET Dela Cruz - Last Filed: 12/22/21 18:11> Severity: severe <ANIKET Dela Cruz - Last Filed: 12/22/21 18:11> Pain scale (0-10): 10 <ANIKET Dela Cruz - Last Filed: 12/22/21 18:11> Similar Symptoms Previously: Yes <ANIKET Dela Cruz - Last Filed: 12/22/21 18:11> Quality: sharp <ANIKET Dela Cruz - Last Filed: 12/22/21 18:11> Location: lumbar spine <ANIKET Dela Cruz - Last Filed: 12/22/21 18:11> Radiation: none <ANIKET Dela Cruz - Last Filed: 12/22/21 18:11> Exacerbating factors: movement and walking <ANIKET Dela Cruz - Last Filed: 12/22/21 18:11> Relieving factors: immobilization <ANIKET Dela Cruz - Last Filed: 12/22/21 18:11> Context: turning/twisting <ANIKET Dela Cruz - Last Filed: 12/22/21 18:11> Associated symptoms: urinary incontinence <ANIKET Dela Cruz - Last Filed: 12/22/21 18:11> Treatments prior to arrival: prescription analgesics <ANIKET Dela Cruz - Last Filed: 12/22/21 18:11> Related Data Home Medications: Home Medications Medication Instructions Recorded Confirmed aspirin 81 mg tablet,delayed 81 mg PO DAILY 12/26/19 12/22/21 release polyethylene glycol 3350 17 gram 17 g PO BEDTIME 01/01/20 12/22/21 oral powder packet (Miralax) quetiapine 100 mg tablet 50 mg PO BEDTIME 11/08/21 12/22/21 tramadol 50 mg tablet 50 mg PO TID 12/22/21 12/22/21 Previous Rx's Medication Instructions Recorded ursodiol 300 mg capsule 300 mg PO BID #160 caps 05/04/21 multivitamin 1 tab PO DAILY 90 days #90 tabs 06/29/21 amlodipine 5 mg tablet 5 mg PO DAILY #90 tabs 08/27/21 lisinopril 40 mg tablet 40 mg PO DAILY #90 tabs 08/27/21 ezetimibe 10 mg-simvastatin 10 mg 0.5 tab PO BEDTIME #45 tabs 10/26/21 tablet (Vytorin) <ANIKET Dela Cruz - Last Filed: 12/22/21 18:11> Allergies/Adverse Reactions: Allergies Allergy/AdvReac Type Severity Reaction Status Date / Time fentanyl [FENTANYL] Allergy Severe CARDIAC Verified 11/12/21 14:17 ARREST, heart stopped, anaphylaxis nickel Allergy Intermediate Rash Uncoded 11/12/21 14:17 paper tape Allergy Intermediate Rash Uncoded 11/12/21 14:18 <ANIKET Dela Cruz - Last Filed: 12/22/21 18:11> Review of Systems Review of Systems: Constitutional: No Fever, No Chills ENT/Mouth: No sore throat, No Rhinorrhea, No Swallowing Difficulty Cardiovascular: No Chest Pain, No SOB, No Orthopnea, No Edema Respiratory: No Cough, No Sputum, No Wheezing, No dyspnea Gastrointestinal: No Nausea, No Vomiting, No Diarrhea, No abdominal Pain, +Constipation Genitourinary: No Dysuria, No Urinary Frequency, No Hematuria, +Incontinence Musculoskeletal: + joint pain, + Myalgias Skin: No Skin Lesions, No rash Neuro: No Weakness, No Numbness, No Dizziness, No Headache Psych: No Anxiety/Panic, No Depression Heme/Lymph: No Bruising, No Lymphadenopathy Endocrine: No Polyuria, No Polydipsia <ANIKET Dela Cruz - Last Filed: 12/22/21 18:11> [facility] Past Medical History Medical History: Medical History Anxiety Compression fracture of L2 lumbar vertebra High cholesterol Hip fracture, right HTN (hypertension) Lymphedema Malignant tumor body uterus Osteoporosis Other specified disorders of bone density and structure, right upper arm Proximal humerus fracture Psoriasis Pulmonary embolism Pulmonary nodule Retinal artery branch occlusion, left eye <ANIKET Dela Cruz - Last Filed: 12/22/21 18:11> Surgical History: Surgical History History of esophagogastroduodenoscopy (EGD) History of hip replacement History of open reduction and internal fixation (ORIF) procedure History of removal of cyst History of solitary pulmonary nodule History of surgery History of tonsillectomy and adenoidectomy History of tubal ligation Hx of colonoscopy <ANIKET Dela Cruz - Last Filed: 12/22/21 18:11> Family History Family History: Family History Father Stroke Hypertension Mother Hypertension CVD (cardiovascular disease) Myocardial infarction Brother Hypertension Sister Hypercholesteremia Hypertension Sister Hypertension Hypercholesteremia <ANIKET Dela Cruz - Last Filed: 12/22/21 18:11> Social History Social History: Social History Household Members: None Housing: Apartment Do you presently have visiting nurse or other home services: Yes ([employer], 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) Alcohol intake: never Patient Tobacco Use Status: Never used Tobacco e-Cigarette/Vaping Use: Never Used Advance Directives: Yes Advance Directives on File: Yes Advance Directives Date on File: 01/16/20 service: No Current occupational status: retired Cognitive needs: Yes Hearing needs: No Vision needs: Yes (Pt has glasees for reading) <ANIKET Dela Cruz - Last Filed: 12/22/21 18:11> Physical Exam Vital Signs: Vital Signs: Last Vital Signs Temp 98.2 F 12/23/21 07:45 Pulse 78 12/23/21 07:50 Resp 18 12/23/21 07:45 BP 139/79 12/23/21 07:50 Pulse Ox 97 12/23/21 06:00 O2 Del Method 12/23/21 07:45 BMI result Body Mass Index 21.2 <ANIKET Dela Cruz - Last Filed: 12/22/21 18:11> Vital Signs: Last Vital Signs Temp 98.2 F 12/23/21 07:45 Pulse 78 12/23/21 07:50 Resp 18 12/23/21 07:45 BP 139/79 12/23/21 07:50 Pulse Ox 97 12/23/21 06:00 O2 Del Method 12/23/21 07:45 BMI result Body Mass Index 21.2 <ANIKET Candelaria - Last Filed: 12/23/21 09:13> Appearance: Alert. Oriented X3. No acute distress. Eyes: Pupils equal, round and reactive to light. ENT: Pharynx normal. Neck: Normal inspection. Neck supple. CVS: Normal heart rate and rhythm. Pulses normal. Respiratory: No respiratory distress. Breath sounds normal. Abdomen: Soft and nontender. +BS x4. Normal rectal tone Back: tenderness of the lower lumbar spine and associated soft tissues bilaterally. Skin: Skin warm and dry. Normal skin color. Normal skin turgor. No rashes. Extremities: No lower extremity edema. Neuro: Oriented X 3. Moves all extremities, strength equal and symmetrical throughout. normal speech and cognition. Normal DTRs of bilateral LEs. Gait not tested due to pain <ANIKET Dela Cruz - Last Filed: 12/22/21 18:11> Course Course Course Narrative: 81 yo female with history of HTN, anxiety, LE cellulitis, hx LGIB, hx uterine cancer, constipation, chronic low back pain with hx L2 compression fracture who presents to the ER for acute exacerbation of her chronic low back pain after turning/twisting performing ADLs at home. She also reports urinary incontinence but does report the urge to urinate it is just that she cannot make it to the bathroom in time because of the pain. Not consistent with cauda equina syndrome. Will get CT scan for further evaluation as well as labs and UA. <ANIKET Dela Cruz - Last Filed: 12/22/21 18:11> Reevaluation(s) Reevaluation #1: Labs unremarkable. UA negative for infection. CT scan lumbar spine Grade 2 anterolisthesis L4-L5 with severe degenerative disc changes L4-L5 disc level. There is moderate spinal canal stenosis secondary to listhesis. This could attribute to patient's complaint off urinary incontinence. There is no spinal canal stenosis in the rest of the lumbar spine spinal canal or lower dorsal spine. ? There are old compression superior endplate deformities L2, L3 and L4 vertebra. There is severe osteoporosis. Acute kyphotic deformity S1-S2 vertebra likely old healed fracture Case d/w Dr. Mckee and Dr. Proctor from Radiology. Dr. Proctor confirms that this read is NOT consistent with cauda equina and MRI is not indicated at this time. Patient's pain is improved after pain medication. She does not feel comfortable going home due to the pain. Will get PT evaluation and have case management see her for possible STR placement. Physician observation started at 16:37. Patient placed in physician observation because patient is awaiting PT evaluation for the possible need of short term rehab. At the time observation was started patient's vital signs were stable. Patient is alert and oriented. Neuro exam is non-focal. CV: RRR and lungs are clear. Will continue to monitor. Med rec is pending. <ANIKET Dela Cruz - Last Filed: 12/22/21 18:11> Reevaluation #2: 12/23/2021 0912 PT recommended STR. Case management involved. Physician observation continues. <ANIKET Candelaria - Last Filed: 12/23/21 09:13> MDM - Back Pain/Injury Medical Records Attestation: I reviewed the patient's medical records. <ANIKET Dela Cruz - Last Filed: 12/22/21 18:11> Lab Data Attestation: I reviewed the patient's lab results. <ANIKET Dela Cruz - Last Filed: 12/22/21 18:11> Result diagrams: : 12/22/21 13:58 12/22/21 13:58 <ANIKET Dela Cruz - Last Filed: 12/22/21 18:11> Labs: Lab Results 12/22/21 12/22/21 12/22/21 Range/Units 13:58 13:58 13:58 WBC 6.1 (4.8-10.8) X10*3/uL RBC 4.08 L (4.20-5.50) X10*6/uL Hgb 11.9 L (12.0-16.0) g/dl Hct 35.2 L (37.0-47.0) % MCV 86.3 (80.0-98.0) fL MCH 29.2 (27.0-33.0) pg MCHC 33.8 (31.0-35.0) g/dl RDW 13.7 (11.0-16.0) % Plt Count 265 (160-400) X10*3/uL MPV 9.8 (9.4-12.3) fL Immature Gran % (Auto) 0.2 (0.0-0.4) % Neut % (Auto) 56.3 (45-73) % Lymph % (Auto) 29.7 (20-40) % Bladen % (Auto) 12.3 H (2-11) % Eos % (Auto) 0.8 (0-4) % Baso % (Auto) 0.7 (0-2) % Lymph # (Auto) 1.8 (1.2-4.9) X10*3/uL Bladen # (Auto) 0.8 (0.1-1.2) X10*3/uL Eos # (Auto) 0.1 (0.0-0.4) X10*3/uL Baso # (Auto) 0.0 (0.0-0.2) X10*3/uL Abs Immat Gran (auto) 0.01 (0.00-0.03) X10*3/uL Absolute Neuts (auto) 3.5 (2.0-8.3) x10*3/uL Absolute Nucleated RBC 0.000 (0.0-0.012) X10*3/uL Nucleated RBC % (auto) 0.0 (0.0-0.2) /100WBC Sodium 137 (135-145) mmol/L Potassium 4.6 (3.3-5.1) mmol/L Chloride 100 (96-108) mmol/L Carbon Dioxide 24 (22-29) mmol/L Anion Gap 18 (12-20) BUN 14 D (9-16) mg/dL Creatinine 0.63 (0.5-1.4) mg/dL Estim Creat Clear Calc 58.9 Estimated GFR > 60 Random Glucose 90 (60-115) mg/dL Calcium 9.6 (8.4-10.2) mg/dL Magnesium 2.1 (1.6-2.6) mg/dL Total Bilirubin 0.4 (0.0-1.0) mg/dL Direct Bilirubin 0.2 (0.0-0.5) mg/dL AST 26 (5-31) U/L ALT 14 (0-31) U/L Alkaline Phosphatase 105 (39-117) U/L Total Protein 7.7 (6.5-8.0) g/dL Albumin 3.9 (3.5-5.0) g/dL Urine Color Urine Appearance Urine pH (5.0-9.0) Ur Specific [place] (1.005-1.025) Urine Protein (Neg-Trace) mg/dL Urine Glucose (UA) (Negative) mg/dL Urine Ketones (Negative) mg/dL Urine Blood (Negative) Urine Nitrite (Negative) Ur Leukocyte Esterase (Negative) COVID-19 ([facility]) Negative (Negative) COVID-19 Clin Com See Note 12/22/21 Range/Units 14:46 WBC (4.8-10.8) X10*3/uL RBC (4.20-5.50) X10*6/uL Hgb (12.0-16.0) g/dl Hct (37.0-47.0) % MCV (80.0-98.0) fL MCH (27.0-33.0) pg MCHC (31.0-35.0) g/dl RDW (11.0-16.0) % Plt Count (160-400) X10*3/uL MPV (9.4-12.3) fL Immature Gran % (Auto) (0.0-0.4) % Neut % (Auto) (45-73) % Lymph % (Auto) (20-40) % [place] % (Auto) (2-11) % Eos % (Auto) (0-4) % Baso % (Auto) (0-2) % Lymph # (Auto) (1.2-4.9) X10*3/uL [place] # (Auto) (0.1-1.2) X10*3/uL Eos # (Auto) (0.0-0.4) X10*3/uL Baso # (Auto) (0.0-0.2) X10*3/uL Abs Immat Gran (auto) (0.00-0.03) X10*3/uL Absolute Neuts (auto) (2.0-8.3) x10*3/uL Absolute Nucleated RBC (0.0-0.012) X10*3/uL Nucleated RBC % (auto) (0.0-0.2) /100WBC Sodium (135-145) mmol/L Potassium (3.3-5.1) mmol/L Chloride (96-108) mmol/L Carbon Dioxide (22-29) mmol/L Anion Gap (12-20) BUN (9-16) mg/dL Creatinine (0.5-1.4) mg/dL Estim Creat Clear Calc Estimated GFR Random Glucose (60-115) mg/dL Calcium (8.4-10.2) mg/dL Magnesium (1.6-2.6) mg/dL Total Bilirubin (0.0-1.0) mg/dL Direct Bilirubin (0.0-0.5) mg/dL AST (5-31) U/L ALT (0-31) U/L Alkaline Phosphatase (39-117) U/L Total Protein (6.5-8.0) g/dL Albumin (3.5-5.0) g/dL Urine Color Yellow Urine Appearance Clear Urine pH 7.0 (5.0-9.0) Ur Specific [place] 1.010 (1.005-1.025) Urine Protein Negative (Neg-Trace) mg/dL Urine Glucose (UA) Negative (Negative) mg/dL Urine Ketones 15 (Negative) mg/dL Urine Blood Negative (Negative) Urine Nitrite Negative (Negative) Ur Leukocyte Esterase Negative (Negative) COVID-19 ([facility]) (Negative) COVID-19 Clin Com <ANIKET Dela Cruz - Last Filed: 12/22/21 18:11> Lab Results 12/22/21 12/22/21 12/22/21 Range/Units 13:58 13:58 13:58 WBC 6.1 (4.8-10.8) X10*3/uL RBC 4.08 L (4.20-5.50) X10*6/uL Hgb 11.9 L (12.0-16.0) g/dl Hct 35.2 L (37.0-47.0) % MCV 86.3 (80.0-98.0) fL MCH 29.2 (27.0-33.0) pg MCHC 33.8 (31.0-35.0) g/dl RDW 13.7 (11.0-16.0) % Plt Count 265 (160-400) X10*3/uL MPV 9.8 (9.4-12.3) fL Immature Gran % (Auto) 0.2 (0.0-0.4) % Neut % (Auto) 56.3 (45-73) % Lymph % (Auto) 29.7 (20-40) % [place] % (Auto) 12.3 H (2-11) % Eos % (Auto) 0.8 (0-4) % Baso % (Auto) 0.7 (0-2) % Lymph # (Auto) 1.8 (1.2-4.9) X10*3/uL Bladen # (Auto) 0.8 (0.1-1.2) X10*3/uL Eos # (Auto) 0.1 (0.0-0.4) X10*3/uL Baso # (Auto) 0.0 (0.0-0.2) X10*3/uL Abs Immat Gran (auto) 0.01 (0.00-0.03) X10*3/uL Absolute Neuts (auto) 3.5 (2.0-8.3) x10*3/uL Absolute Nucleated RBC 0.000 (0.0-0.012) X10*3/uL Nucleated RBC % (auto) 0.0 (0.0-0.2) /100WBC Sodium 137 (135-145) mmol/L Potassium 4.6 (3.3-5.1) mmol/L Chloride 100 (96-108) mmol/L Carbon Dioxide 24 (22-29) mmol/L Anion Gap 18 (12-20) BUN 14 D (9-16) mg/dL Creatinine 0.63 (0.5-1.4) mg/dL Estim Creat Clear Calc 58.9 Estimated GFR > 60 Random Glucose 90 (60-115) mg/dL Calcium 9.6 (8.4-10.2) mg/dL Magnesium 2.1 (1.6-2.6) mg/dL Total Bilirubin 0.4 (0.0-1.0) mg/dL Direct Bilirubin 0.2 (0.0-0.5) mg/dL AST 26 (5-31) U/L ALT 14 (0-31) U/L Alkaline Phosphatase 105 (39-117) U/L Total Protein 7.7 (6.5-8.0) g/dL Albumin 3.9 (3.5-5.0) g/dL Urine Color Urine Appearance Urine pH (5.0-9.0) Ur Specific [place] (1.005-1.025) Urine Protein (Neg-Trace) mg/dL Urine Glucose (UA) (Negative) mg/dL Urine Ketones (Negative) mg/dL Urine Blood (Negative) Urine Nitrite (Negative) Ur Leukocyte Esterase (Negative) COVID-19 ([facility]) Negative (Negative) COVID-19 Clin Com See Note 12/22/21 Range/Units 14:46 WBC (4.8-10.8) X10*3/uL RBC (4.20-5.50) X10*6/uL Hgb (12.0-16.0) g/dl Hct (37.0-47.0) % MCV (80.0-98.0) fL MCH (27.0-33.0) pg MCHC (31.0-35.0) g/dl RDW (11.0-16.0) % Plt Count (160-400) X10*3/uL MPV (9.4-12.3) fL Immature Gran % (Auto) (0.0-0.4) % Neut % (Auto) (45-73) % Lymph % (Auto) (20-40) % [place] % (Auto) (2-11) % Eos % (Auto) (0-4) % Baso % (Auto) (0-2) % Lymph # (Auto) (1.2-4.9) X10*3/uL [place] # (Auto) (0.1-1.2) X10*3/uL Eos # (Auto) (0.0-0.4) X10*3/uL Baso # (Auto) (0.0-0.2) X10*3/uL Abs Immat Gran (auto) (0.00-0.03) X10*3/uL Absolute Neuts (auto) (2.0-8.3) x10*3/uL Absolute Nucleated RBC (0.0-0.012) X10*3/uL Nucleated RBC % (auto) (0.0-0.2) /100WBC Sodium (135-145) mmol/L Potassium (3.3-5.1) mmol/L Chloride (96-108) mmol/L Carbon Dioxide (22-29) mmol/L Anion Gap (12-20) BUN (9-16) mg/dL Creatinine (0.5-1.4) mg/dL Estim Creat Clear Calc Estimated GFR Random Glucose (60-115) mg/dL Calcium (8.4-10.2) mg/dL Magnesium (1.6-2.6) mg/dL Total Bilirubin (0.0-1.0) mg/dL Direct Bilirubin (0.0-0.5) mg/dL AST (5-31) U/L ALT (0-31) U/L Alkaline Phosphatase (39-117) U/L Total Protein (6.5-8.0) g/dL Albumin (3.5-5.0) g/dL Urine Color Yellow Urine Appearance Clear Urine pH 7.0 (5.0-9.0) Ur Specific [place] 1.010 (1.005-1.025) Urine Protein Negative (Neg-Trace) mg/dL Urine Glucose (UA) Negative (Negative) mg/dL Urine Ketones 15 (Negative) mg/dL Urine Blood Negative (Negative) Urine Nitrite Negative (Negative) Ur Leukocyte Esterase Negative (Negative) COVID-19 ([facility]) (Negative) COVID-19 Clin Com <ANIKET Candelaria - Last Filed: 12/23/21 09:13> Critical Care Time Critical Care Time Critical Care Time: No <ANIKET Dela Cruz - Last Filed: 12/22/21 18:11> Discharge Plan Discharge Clinical Impression: Anterolisthesis of lumbar spine, Degenerative disc disease, lumbar <ANIKET Dela Cruz - Last Filed: 12/22/21 18:11> Patient Disposition: Still a Patient <ANIKET Dela Cruz - Last Filed: 12/22/21 18:11> Prescriptions: No Action ursodiol 300 mg capsule 300 mg PO BID Qty: 160 2RF multivitamin Tablet 1 tab PO DAILY 90 Days Qty: 90 3RF ezetimibe-simvastatin [Vytorin 10-10] 10-10 mg tablet 0.5 tab PO BEDTIME Qty: 45 11RF aspirin 81 mg Tablet,Delayed Release (Dr/Ec) 81 mg PO DAILY polyethylene glycol 3350 [Miralax] 17 gram Powder In Packet 17 g PO BEDTIME quetiapine 100 mg tablet 50 mg PO BEDTIME tramadol 50 mg tablet 50 mg PO TID lisinopril 40 mg tablet 40 mg PO DAILY Qty: 90 2RF amlodipine 5 mg tablet 5 mg PO DAILY Qty: 90 2RF <ANIKET Dela Cruz - Last Filed: 12/22/21 18:11>
[2021-12-22] MEDS: oxyCODONE HCl Immed Release 5 MG TABLET PO (12:09)
[2021-12-22] MEDS: Docusate Sodium 100 MG CAPSULE 200 MG PO (12:09)
[2021-12-22] MEDS: polyethylene glycoL 3350 17 GM POWD.PACK PO (12:10)
[2021-12-22 14:06] LABS: MANUAL DIFF FLAG NO
[2021-12-22 14:17] LABS: Basophils Percent Auto 0.7 % (0-2); Eosinophils Absolute Auto 0.1 X10*3/uL (0.0-0.4); Eosinophils Percent Auto 0.8 % (0-4); Hematocrit 35.2 % (37.0-47.0); Hemoglobin 11.9 g/dl (12.0-16.0); Imm Gran Abs Auto 0.01 X10*3/uL (0.00-0.03); Imm Gran Pct Auto 0.2 % (0.0-0.4); Lymphocytes Absolute Auto 1.8 X10*3/uL (1.2-4.9); Lymphocytes Percent Auto 29.7 % (20-40); Mean Corpuscular HGB Conc 33.8 g/dl (31.0-35.0); Mean Corpuscular Hemoglobin 29.2 pg (27.0-33.0); Mean Corpuscular Volume 86.3 fL (80.0-98.0); Mean Platelet Volume 9.8 fL (9.4-12.3); Monocytes Absolute Auto 0.8 X10*3/uL (0.1-1.2); Monocytes Percent Auto 12.3 % (2-11); Neutrophils Absolute Auto 3.5 x10*3/uL (2.0-8.3); Neutrophils Percent Auto 56.3 % (45-73); Platelet Count 265 X10*3/uL (160-400); Red Blood Count 4.08 X10*6/uL (4.20-5.50); Red Cell Distribution Width 13.7 % (11.0-16.0); White Blood Count 6.1 X10*3/uL (4.8-10.8)
[2021-12-22 14:29] LABS: COVID-19 Test Negative (Negative); IDNOW Serial# 16C4AD1C
[2021-12-22 14:30] LABS: Alanine Aminotransferase 14 U/L (0-31); Albumin Level 3.9 g/dL (3.5-5.0); Alkaline Phosphatase 105 U/L (39-117); Anion Gap 18 (12-20); Aspartate Amino Transferase 26 U/L (5-31); Bilirubin Direct 0.2 mg/dL (0.0-0.5); Bilirubin Total 0.4 mg/dL (0.0-1.0); Blood Urea Nitrogen 14 mg/dL (9-16); Calcium 9.6 mg/dL (8.4-10.2); Carbon Dioxide 24 mmol/L (22-29); Chloride 100 mmol/L (96-108); Creatinine Clr Calc Pharmacy 58.9; Estimated Glomerular Filt Rate > 60; Glucose Random 90 mg/dL (60-115); Magnesium 2.1 mg/dL (1.6-2.6); Potassium 4.6 mmol/L (3.3-5.1); Sodium 137 mmol/L (135-145); Total Protein 7.7 g/dL (6.5-8.0)
[2021-12-22 14:58] LABS: Appearance Urine Clear; Color Urine Yellow; Glucose Urine UA Negative (Negative); Leukocyte Esterase Urine Negative (Negative); Nitrite Urine Negative (Negative); Urine Blood Negative (Negative); Urine Ketones 15 mg/dL (Negative); Urine Protein Negative (Neg-Trace)
--- NOTE | 2021-12-22 17:20 | PHA.MEDREC ---
Pharmacy Consult ? Medication Reconciliation Pharmacy has completed the medication reconciliation. SPOKE WITH PATIENT IN ED. PATIENT UNSURE IF IF SHE TOOK HER MEDS THIS GIANFRANCO.
[2021-12-22] MEDS: Cyclobenzaprine HCl 5 MG TABLET PO (20:48)
[2021-12-22] MEDS: Lidocaine 4 % Patch ADH..PATCH 1 PATCH TRANSDERMA (20:48)
[2021-12-22 20:52] VITALS: BP 171/75; PULSE 82; RESP 15; TEMP 36.9; O2SAT 94
[2021-12-22 23:24] VITALS: BP 157/82; PULSE 96; O2SAT 93
[2021-12-23 02:00] VITALS: BP 132/74; PULSE 82; RESP 13; O2SAT 94
[2021-12-23 04:14] VITALS: BP 131/85; PULSE 85; O2SAT 94
[2021-12-23 06:00] VITALS: BP 146/76; PULSE 78; O2SAT 97
--- NOTE | 2021-12-23 06:23 | PC.NURSE ---
Patient turned/repositioned during the night for comfort. Patient confused at times as to why she is in the ED and what time/date it is. Patient updated on POC and events of day. Otherwise rested comfortably without incident.
[2021-12-23 07:45] VITALS: BP 139/79; PULSE 78; RESP 18; TEMP 36.8
[2021-12-23 07:50] VITALS: BP 139/79; PULSE 78
[2021-12-23] MEDS: Multivitamin TABLET 1 TAB PO (09:38)
[2021-12-23] MEDS: lisinopriL 40 MG TABLET PO (09:38)
[2021-12-23] MEDS: Aspirin Enteric Coated 81 MG TABLET.DR PO (09:38)
[2021-12-23] MEDS: traMADoL HCL 50 MG TABLET PO (09:39)
[2021-12-23] MEDS: amLODIPine Besylate 5 MG TABLET PO (09:39)
[2021-12-23] MEDS: UrsodioL 300 MG CAPSULE PO (09:39)
[2021-12-23] MEDS: Lidocaine 4 % Patch ADH..PATCH 1 PATCH TRANSDERMA (09:40)
--- NOTE | 2021-12-23 10:11 | MHC.CM.ED ---
Addendum entered by Rosalia Lucas 12/23/21 10:47: Jeniffer Ruiz [facility] only has a female bed on their memory unit. They will accept patient on that unit and transfer to their STR unit when a female bed becomes available. Patient, Jairon BALES and Kelesy MARCIAL aware. Original Note: Received case management consult overnight. Patient came to the ER due to lower back pain. Work up essentially negative. Physical therapy eval completed. Short term rehab is recommended. Met with patient in regards to discharge planning. Patient lives alone, uses a rollator for mobility and is active with [facility]. PCP verified. Patient has received 1 J&J vaccine and 2 boosters. HCP verified to be on file. Patient has been to [facility] in the past and is requesting referral to that facility. Referral made via [facility]. Patient is negative for Covid. Continue to monitor for d/c needs.
[2021-12-23 10:34] VITALS: BP 143/80; PULSE 92; RESP 16; O2SAT 97
== END 2021-12-23 11:17 | disposition skilled nursing facility (03) ==
PROVIDERS: Physician Assistant; Emergency Provider Emergency Medicine; PCP Internal Medicine
DX: M51.36 Other intervertebral disc degeneration, lumbar region (principal); M54.50 Low back pain, unspecified; I10 Essential (primary) hypertension; F41.9 Anxiety disorder, unspecified; R26.81 Unsteadiness on feet; Z20.822 Contact with and (suspected) exposure to COVID-19; Z79.899 Other long term (current) drug therapy
CPT/HCPCS: 72131; 80048; 80076; 81003; 83735; 85025; 87635; 97162; 99284; 99285

== ENCOUNTER 2022-03-12 16:02 | Emergency (ER) | payer MEDICARE, SELFPAY ==
[2022-03-12 16:22] VITALS: BP 118/70; BP 129/79; PULSE 91; PULSE 95; RESP 16; TEMP 36.9; O2SAT 95; O2SAT 97; BMI 27.1
--- NOTE | 2022-03-12 16:53 | ED_ITS ---
HPI - General Adult General Chief complaint: General Medical Stated complaint: ble cellulitis Time Seen by Provider: 03/12/22 16:10 Source: patient Mode of arrival: EMS Limitations: no limitations History of Present Illness HPI narrative: Patient comes to the emergency room complaining of bilateral lower extremity cellulitis but worse on the left leg. Patient states that she was diagnosed with cellulitis approximately 2 weeks ago, she was prescribed Augmentin. Patient states that she did not improve, right leg looks better but the left leg has gradually become more erythematous and painful, no draining fluid. Patient complaining of chills, no fever. Related Data Previous Rx's Medication Instructions Recorded oxycodone 10 mg tablet 10 mg PO Q8H PRN pain #20 tabs 12/23/21 amlodipine 5 mg tablet 5 mg PO DAILY #90 tabs 01/20/22 aspirin 81 mg tablet,delayed 81 mg PO DAILY 90 days #90 tabs 01/20/22 release lisinopril 40 mg tablet 40 mg PO DAILY #90 tabs 01/20/22 multivitamin 1 tab PO DAILY 90 days #90 tabs 01/20/22 polyethylene glycol 3350 17 gram 17 g PO BEDTIME #100 ea 01/20/22 oral powder packet (Miralax) quetiapine 100 mg tablet 50 mg PO BEDTIME #30 tabs 01/20/22 tramadol 50 mg tablet 50 mg PO TID PRN pain #60 tabs 01/20/22 ursodiol 300 mg capsule 300 mg PO BID #160 caps 01/20/22 amoxicillin 875 mg-potassium 1 tab PO BID #14 tabs 02/23/22 clavulanate 125 mg tablet ezetimibe 10 mg-simvastatin 10 mg 0.5 tab PO BEDTIME #45 tabs 03/06/22 tablet (Vytorin) Lactobacillus rhamnosus GG 12 1 cap PO .qd #20 caps 03/12/22 billion cell-inulin 200 mg capsule ([facility]) cephalexin 500 mg capsule 500 mg PO Q12H #20 caps 03/12/22 doxycycline hyclate 100 mg capsule 100 mg PO BID #20 caps 03/12/22 Allergies Allergy/AdvReac Type Severity Reaction Status Date / Time fentanyl [FENTANYL] Allergy Severe CARDIAC Verified 11/12/21 14:17 ARREST, heart stopped, anaphylaxis nickel Allergy Intermediate Rash Uncoded 11/12/21 14:17 paper tape Allergy Intermediate Rash Uncoded 11/12/21 14:18 Review of Systems Review of Systems: Constitutional : No Weight loss, No Fever, No Chills, No Night Sweats, No Fatigue, No Malaise ENT/Mouth : No Hearing loss, No Ear Pain, No Nasal Congestion, No Sinus Pain, No Hoarseness, No sore throat, No Rhinorrhea, No Swallowing Difficulty Eyes: No Eye Pain, No Swelling, No Redness, No Foreign Body, No Discharge, No Vision Changes Cardiovascular : No Chest Pain, No SOB, No Dyspnea on Exertion, No Orthopnea, No Edema, No Palpitations Respiratory : No Cough, No Sputum, No Wheezing, No Smoke Exposure, No Dyspnea Gastrointestinal : No Nausea, No Vomiting, No Diarrhea, No Constipation, No abdominal Pain, No Hematochezia, No Melena Genitourinary : no irregular bleeding, No Dysuria, No Urinary Frequency, No Hematuria, No Urinary Incontinence, No Urgency, No Flank Pain, No Urinary Flow Changes, No Hesitancy Musculoskeletal : No joint pain, No Myalgias, No Joint Swelling Skin : Complaining of bilateral lower extremity cellulitis, worse on the left leg Neuro : No Weakness, No Numbness, No Paresthesias, No Loss of Consciousness, No Dizziness, No Headache Psych : No Anxiety/Panic, No Depression, No SI/HI/AH/VH, No Social Issues, Heme/Lymph: No Bruising, No Bleeding,No Lymphadenopathy Endocrine : No Polyuria, No Polydipsia, No Temperature Intolerance PMF Past Medical History Medical History Anxiety Compression fracture of L2 lumbar vertebra High cholesterol Hip fracture, right HTN (hypertension) Lymphedema Malignant tumor body uterus Osteoporosis Other specified disorders of bone density and structure, right upper arm Proximal humerus fracture Psoriasis Pulmonary embolism Pulmonary nodule Retinal artery branch occlusion, left eye Surgical History History of esophagogastroduodenoscopy (EGD) History of hip replacement History of open reduction and internal fixation (ORIF) procedure History of removal of cyst History of solitary pulmonary nodule History of surgery History of tonsillectomy and adenoidectomy History of tubal ligation Hx of colonoscopy Family History Family History Father Stroke Hypertension Mother Hypertension CVD (cardiovascular disease) Myocardial infarction Brother Hypertension Sister Hypercholesteremia Hypertension Sister Hypertension Hypercholesteremia Social History Social History Household Members: None Housing: Apartment Do you presently have visiting 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 or 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 Oriented X3. No acute distress. Eyes: Pupils equal, round and reactive to light. ENT: Pharynx normal. Neck: Normal inspection. Neck supple. No lymph nodes noted. No crepitus CVS: Normal heart rate and rhythm. Pulses normal. Normal S1 and S2 Respiratory: No respiratory distress. Breath sounds normal. No Wheezing. No ra les Abdomen: Soft and nontender. No rigidity. No distention. Skin: Skin warm and dry. Patient does have cellulitis more notorious on the left lower extremity. See picture below. Extremities: +1 pitting edema bilaterally, see picture above Neuro: Oriented X 3. No motor deficit. No sensory deficit. Moving all extremities. No slurred speech. CN 2 through 12 grossly intact Psych: calm, cooperative, normal affect Course Course Course Narrative: All patient's labs pending. Patient receiving IV fluids, vancomycin and Zosyn. Patient's white blood cell count and lactic acid within normal limits, no fever, tachycardia, normal blood pressure Dr. Peralta eyeballed the patient, we compared previous pictures from patient's chart to cellulitis from today, it looks very similar. This time, patient will be started on Keflex and doxycycline. Patient will be sent home. Patient agreeable with plan. Medical Decision Making Lab Data Result Diagrams: 03/12/22 17:14 12/30/22 17:14 Labs: Lab Results 03/12/22 03/12/22 03/12/22 Range/Units 17:14 17:14 17:14 WBC 6.3 (4.8-10.8) X10*3/uL RBC 3.77 L (4.20-5.50) X10*6/uL Hgb 10.4 L (12.0-16.0) g/dl Hct 32.4 L (37.0-47.0) % MCV 85.9 (80.0-98.0) fL MCH 27.6 (27.0-33.0) pg MCHC 32.1 (31.0-35.0) g/dl RDW 14.9 (11.0-16.0) % Plt Count 263 (160-400) X10*3/uL MPV 9.9 (9.4-12.3) fL Immature Gran % (Auto) 0.3 (0.0-0.4) % Neut % (Auto) 57.0 (45-73) % Lymph % (Auto) 26.9 (20-40) % [place] % (Auto) 12.0 H (2-11) % Eos % (Auto) 3.2 (0-4) % Baso % (Auto) 0.6 (0-2) % Lymph # (Auto) 1.7 (1.2-4.9) X10*3/uL [place] # (Auto) 0.8 (0.1-1.2) X10*3/uL Eos # (Auto) 0.2 (0.0-0.4) X10*3/uL Baso # (Auto) 0.0 (0.0-0.2) X10*3/uL Abs Immat Gran (auto) 0.02 (0.00-0.03) X10*3/uL Absolute Neuts (auto) 3.6 (2.0-8.3) x10*3/uL Absolute Nucleated RBC 0.000 (0.0-0.012) X10*3/uL Nucleated RBC % (auto) 0.0 (0.0-0.2) /100WBC Sodium 138 (135-145) mmol/L Potassium 4.3 (3.3-5.1) mmol/L Chloride 106 (96-108) mmol/L Carbon Dioxide 26 (22-29) mmol/L Anion Gap 10 L (12-20) BUN 24 H D (9-16) mg/dL Creatinine 0.71 (0.5-1.4) mg/dL Estim Creat Clear Calc 54.6 Estimated GFR > 60 Random Glucose 89 (60-115) mg/dL Lactic Acid (0.5-2.0) mmol/L Calcium 9.2 (8.4-10.2) mg/dL Total Bilirubin 0.3 (0.0-1.0) mg/dL Direct Bilirubin < 0.2 (0.0-0.5) mg/dL AST 25 (5-31) U/L ALT 15 (0-31) U/L Alkaline Phosphatase 101 (39-117) U/L Total Protein 7.5 (6.5-8.0) g/dL Albumin 3.8 (3.5-5.0) g/dL COVID-19 ([facility]) Negative (Negative) COVID-19 Clin Com See Note 03/12/22 Range/Units 17:14 WBC (4.8-10.8) X10*3/uL RBC (4.20-5.50) X10*6/uL Hgb (12.0-16.0) g/dl Hct (37.0-47.0) % MCV (80.0-98.0) fL MCH (27.0-33.0) pg MCHC (31.0-35.0) g/dl RDW (11.0-16.0) % Plt Count (160-400) X10*3/uL MPV (9.4-12.3) fL Immature Gran % (Auto) (0.0-0.4) % Neut % (Auto) (45-73) % Lymph % (Auto) (20-40) % [place] % (Auto) (2-11) % Eos % (Auto) (0-4) % Baso % (Auto) (0-2) % Lymph # (Auto) (1.2-4.9) X10*3/uL [place] # (Auto) (0.1-1.2) X10*3/uL Eos # (Auto) (0.0-0.4) X10*3/uL Baso # (Auto) (0.0-0.2) X10*3/uL Abs Immat Gran (auto) (0.00-0.03) X10*3/uL Absolute Neuts (auto) (2.0-8.3) x10*3/uL Absolute Nucleated RBC (0.0-0.012) X10*3/uL Nucleated RBC % (auto) (0.0-0.2) /100WBC Sodium (135-145) mmol/L Potassium (3.3-5.1) mmol/L Chloride (96-108) mmol/L Carbon Dioxide (22-29) mmol/L Anion Gap (12-20) BUN (9-16) mg/dL Creatinine (0.5-1.4) mg/dL Estim Creat Clear Calc Estimated GFR Random Glucose (60-115) mg/dL Lactic Acid 0.8 (0.5-2.0) mmol/L Calcium (8.4-10.2) mg/dL Total Bilirubin (0.0-1.0) mg/dL Direct Bilirubin (0.0-0.5) mg/dL AST (5-31) U/L ALT (0-31) U/L Alkaline Phosphatase (39-117) U/L Total Protein (6.5-8.0) g/dL Albumin (3.5-5.0) g/dL COVID-19 ([facility]) (Negative) COVID-19 Clin Com Discharge Plan Discharge Clinical Impression: Cellulitis of left lower leg Patient Disposition: Home, Self-Care Instructions: Cellulitis (ED) Additional Instructions: Please follow-up with your primary care physician tomorrow. If you have any worsening or new symptoms, please return to the emergency room or call 911 Prescriptions: New cephalexin 500 mg capsule 500 mg PO Q12H Qty: 20 0RF doxycycline hyclate 100 mg capsule 100 mg PO BID Qty: 20 0RF [facility] 12 billion cell -200 mg capsule 1 cap PO .qd Qty: 20 0RF No Action amlodipine 5 mg tablet 5 mg PO DAILY Qty: 90 2RF aspirin 81 mg tablet,delayed release (DR/EC) 81 mg PO DAILY 90 Days Qty: 90 3RF lisinopril 40 mg tablet 40 mg PO DAILY Qty: 90 2RF multivitamin Tablet 1 tab PO DAILY 90 Days Qty: 90 3RF polyethylene glycol 3350 [Miralax] 17 gram powder in packet 17 g PO BEDTIME Qty: 100 1RF quetiapine 100 mg tablet 50 mg PO BEDTIME Qty: 30 2RF tramadol 50 mg tablet 50 mg PO TID PRN (Reason: pain) Qty: 60 0RF ursodiol 300 mg capsule 300 mg PO BID Qty: 160 2RF amoxicillin-pot clavulanate 875-125 mg tablet 1 tab PO BID Qty: 14 0RF ezetimibe-simvastatin [Vytorin 10-10] 10-10 mg tablet 0.5 tab PO BEDTIME Qty: 45 11RF oxycodone 10 mg tablet 10 mg PO Q8H PRN (Reason: pain) Qty: 20 0RF Rx Instructions: Partial Fill upon patient request.
[2022-03-12 17:28] LABS: MANUAL DIFF FLAG NO
[2022-03-12 17:30] LABS: Basophils Percent Auto 0.6 % (0-2); Eosinophils Absolute Auto 0.2 X10*3/uL (0.0-0.4); Eosinophils Percent Auto 3.2 % (0-4); Hematocrit 32.4 % (37.0-47.0); Hemoglobin 10.4 g/dl (12.0-16.0); Imm Gran Abs Auto 0.02 X10*3/uL (0.00-0.03); Imm Gran Pct Auto 0.3 % (0.0-0.4); Lymphocytes Absolute Auto 1.7 X10*3/uL (1.2-4.9); Lymphocytes Percent Auto 26.9 % (20-40); Mean Corpuscular HGB Conc 32.1 g/dl (31.0-35.0); Mean Corpuscular Hemoglobin 27.6 pg (27.0-33.0); Mean Corpuscular Volume 85.9 fL (80.0-98.0); Mean Platelet Volume 9.9 fL (9.4-12.3); Monocytes Absolute Auto 0.8 X10*3/uL (0.1-1.2); Neutrophils Absolute Auto 3.6 x10*3/uL (2.0-8.3); Platelet Count 263 X10*3/uL (160-400); Red Blood Count 3.77 X10*6/uL (4.20-5.50); Red Cell Distribution Width 14.9 % (11.0-16.0); White Blood Count 6.3 X10*3/uL (4.8-10.8)
[2022-03-12 17:42] LABS: Lactic Acid 0.8 mmol/L (0.5-2.0)
[2022-03-12 17:46] LABS: COVID-19 Test Negative (Negative); IDNOW Serial# 16C4AD1C
[2022-03-12 17:48] LABS: Alanine Aminotransferase 15 U/L (0-31); Albumin Level 3.8 g/dL (3.5-5.0); Alkaline Phosphatase 101 U/L (39-117); Anion Gap 10 (12-20); Aspartate Amino Transferase 25 U/L (5-31); Bilirubin Direct < 0.2 mg/dL (0.0-0.5); Bilirubin Total 0.3 mg/dL (0.0-1.0); Blood Urea Nitrogen 24 mg/dL (9-16); Calcium 9.2 mg/dL (8.4-10.2); Carbon Dioxide 26 mmol/L (22-29); Chloride 106 mmol/L (96-108); Creatinine Clr Calc Pharmacy 54.6; Estimated Glomerular Filt Rate > 60; Glucose Random 89 mg/dL (60-115); Potassium 4.3 mmol/L (3.3-5.1); Sodium 138 mmol/L (135-145); Total Protein 7.5 g/dL (6.5-8.0)
[2022-03-12] MEDS: Doxycycline Monohydrate 100 MG CAPSULE PO (18:28)
[2022-03-12] MEDS: cephALEXin 500 MG CAPSULE PO (18:28)
[2022-03-12] MEDS: 0.9 % Sodium Chloride 1,000 ML 999 ML IVCONT (18:29)
[2022-03-12 19:47] VITALS: BP 122/69; PULSE 97; RESP 16; TEMP 36.6; O2SAT 95
== END 2022-03-12 19:50 | disposition home or self-care (01) ==
PROVIDERS: Emergency Provider Emergency Medicine
DX: L03.116 Cellulitis of left lower limb (principal); R60.0 Localized edema; Z20.822 Contact with and (suspected) exposure to COVID-19; Z79.899 Other long term (current) drug therapy
CPT/HCPCS: 36415; 80048; 80076; 83605; 85025; 87040; 87635; 96360; 99284

== ENCOUNTER 2022-04-20 05:37 | Emergency (ER) | payer MEDICARE, SELFPAY ==
--- NOTE | ~2022-04-20 | XR_ITS ---
EXAMINATION: XR HIP, LEFT CLINICAL INFORMATION: Pain COMPARISON: None TECHNIQUE: Single AP pelvis Two views of the left hip. FINDINGS: Left total hip arthroplasty. Cemented femoral component. Components in expected positions. There is a lateral plate and screws across the proximal right femoral metaphysis with a compression screw right hip. No evidence of hardware failure or complication. Right femoral head is spherical. Soft tissues unremarkable. XR/XR hip LT w PEL1V IMPRESSION: * Left total hip arthroplasty. * No evidence of hardware failure or complication.
[2022-04-20 05:45] VITALS: BMI 19.3
[2022-04-20 05:46] VITALS: BP 175/91; PULSE 89; RESP 18; TEMP 36.9; O2SAT 96
--- OUTSIDE RECORDS SUMMARY | 2022-04-20 06:10 | XMS_ITS | Summary of Care ---
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 Diagnosis: Osteoarthritis of hip Discharge Diagnosis: Osteoarthritis Attending Physician: aDisy Burrell MD Vital Signs Most recent to oldest 1 2 3 [Reference Range]: Temperature Oral F [96.4-99.1 99.4 DegF 97 DegF 98 .6 DegF DegF] *HI* (11/23/15 5:00 AM) (11/22/15 9:59 PM) (11/24/15 5:00 AM) Peripheral Pulse Rate [60-100 91 bpm 87 bpm 85 bpm bpm] (11/24/15 5:00 AM) (11/23/15 5:00 AM) (11/22/15 9:5 9 PM) Respiratory Rate [14-20 br/min] 20 br/min 18 br/min 18 br/min (11/24/15 5:00 AM) (11/23/15 5:00 AM) (11/22/15 9:5 9 PM) Blood Pressure [90-140/60-90 130/70 mmHg 125/62 mmHg 120 /58 mmHg mmHg] (11/24/15 8:33 AM) (11/24/15 5:00 AM) (11/23/15 6:5 2 AM) Temperature Oral [36-37 DegC] 37 DegC 37 DegC 37 DegC (11/22/15 9:59 PM) (11/22/15 6:49 AM) (11/21/15 3:42 PM) Problem List Condition Effective Dates Status Health Status Informant Anxiety(Confirmed) Active Constipation(Confirmed) Active Hypertension(Confirmed) Active Osteoarthritis(Confirmed) Active Osteoarthritis of hip(Confirmed)1 Active Pulmonary embolism(Confirmed) Active S/P Left Total Hip 11/23/15 Active replacement(Confirmed) SIADH(Confirmed) Active 1left Allergies, Adverse Reactions, Alerts Substance Reaction Severity Status morphine Active Tape Active Medications aluminum hydroxide/magnesium hydroxide/simethicone 200 mg-200 mg-20 mg/5 mL oral suspension 30 mL, Susp-Oral, Oral, q4hr PRN, Refills 0, Indigestion Start Date: 11/24/15 Status: OrderedamLODIPine 2.5 mg oral tablet 2.5 mg, = 1 tab, Tab, Oral, Daily, Refills 0 Start Date: 11/24/15 Status: Orderedbenzocaine-menthol 15 mg-3.6 mg mucous membrane lozenge 1 lozenge, Lozenge, Oral, q4hr PRN, Refills 0, Sore Throat Start Date: 11/24/15 Status: Orderedbisacodyl 5 mg oral delayed release tablet 5 mg, = 1 tab, Tab-EC, Oral, Daily PRN, Refills 0, Constipation Start Date: 11/24/15 Status: Orderedcalcium-vitamin D 500 mg-200 intl units oral tablet 1 tab, Tab, Oral, BID, Refills 0 Start Date: 11/24/15 Status: Ordereddocusate sodium 100 mg oral capsule 100 mg, = 1 cap, Cap, Oral, BID, Refills 0 Start Date: 11/24/15 Status: Orderedlisinopril 20 mg oral tablet 20 mg, = 1 tab, Tab, Oral, Daily, Refills 0 Start Date: 11/24/15 Status: OrderedLORazepam 0.5 mg oral tablet 0.5 mg, = 1 tab, Tab, Oral, BID PRN, Refills 0, Anxiety Start Date: 11/24/15 Status: OrderedMultiple Vitamins with Minerals oral tablet 1 tab, Tab, Oral, QLUNCH, Refills 0 Start Date: 11/24/15 Status: OrderedoxyCODONE 5 mg oral tablet 5 mg, = 1 tab, Tab, Oral, q6hr PRN, 20 tab, Refills 0, Pain scale 6-10, Print Requisition, 0 Start Date: 11/24/15 Status: Orderedpolyethylene glycol 3350 oral powder for reconstitution 17 gm, Powder-Recon, Oral, Daily, Refills 0 Start Date: 11/24/15 Status: Orderedsenna 8.6 mg oral tablet 8.6 mg, = 1 tab, Tab, Oral, QHS, Refills 0 Start Date: 11/24/15 Status: OrderedVytorin 10 mg-10 mg oral tablet 0.25 tab, Tab, Oral, QHS, .pf Special Instructions: .pf Start Date: 11/10/15 Status: Orderedwarfarin 3 mg oral tablet 3 mg, = 1 tab, Tab, Oral, qPM, 30 tab, Refills 0, Print Requisition, 0 Start Date: 11/24/15 Status: Ordered Results LABORATORY Most recent to oldest 1 2 3 [Reference Range]: INR 2.28 2.25 2.10 (11/24/15 10:00 AM) (11/21/15 12:00 PM) (11/20/15 2:0 0 PM) Estimated Creatinine 42.93 mL/min 42.93 mL/min 42.93 mL/mi n Clearance (11/19/15 6:58 AM) (11/18/15 3:19 PM) (11/18/15 1:03 P M) Creatinine Level 0.49 mg/dL 0.42 mg/dL 0.48 mg/dL (11/18/15 3:19 PM) (11/14/15 1:03 PM) (11/11/15 5:36 PM) Immunizations No data available for this section Procedures No data available for this section Social History No data available for this section Assessment and Plan No data available for this section
[2022-04-20] MEDS: traMADoL HCL 50 MG TABLET PO (06:17)
[2022-04-20 06:27] LABS: MANUAL DIFF FLAG NO
[2022-04-20 06:29] LABS: Basophils Percent Auto 0.5 % (0-2); Eosinophils Absolute Auto 0.1 X10*3/uL (0.0-0.4); Eosinophils Percent Auto 2.2 % (0-4); Hematocrit 35.1 % (37.0-47.0); Hemoglobin 11.7 g/dl (12.0-16.0); Imm Gran Abs Auto 0.03 X10*3/uL (0.00-0.03); Imm Gran Pct Auto 0.5 % (0.0-0.4); Lymphocytes Absolute Auto 1.5 X10*3/uL (1.2-4.9); Lymphocytes Percent Auto 25.5 % (20-40); Mean Corpuscular HGB Conc 33.3 g/dl (31.0-35.0); Mean Corpuscular Hemoglobin 28.3 pg (27.0-33.0); Mean Corpuscular Volume 84.8 fL (80.0-98.0); Mean Platelet Volume 9.4 fL (9.4-12.3); Monocytes Absolute Auto 0.6 X10*3/uL (0.1-1.2); Monocytes Percent Auto 10.5 % (2-11); Neutrophils Absolute Auto 3.6 x10*3/uL (2.0-8.3); Neutrophils Percent Auto 60.8 % (45-73); Platelet Count 252 X10*3/uL (160-400); Red Blood Count 4.14 X10*6/uL (4.20-5.50); Red Cell Distribution Width 15.7 % (11.0-16.0); White Blood Count 5.9 X10*3/uL (4.8-10.8)
[2022-04-20 06:31] LABS: Appearance Urine Clear; Color Urine Yellow; Glucose Urine UA Negative (Negative); Leukocyte Esterase Urine Negative (Negative); Nitrite Urine Negative (Negative); Specific Gravity - Urine <= 1.005 (1.005-1.025); Urine Blood Negative (Negative); Urine Ketones Negative (Negative); Urine Protein Negative (Neg-Trace)
[2022-04-20 06:33] LABS: Bacteria Urine None Seen (None Seen); Hyaline Casts Urine 0-2 /LPF (0-2); RBC Urine 0-2 /HPF (0-2); Squamous Epithelial Cell Urine 0-2 /HPF (0-2); WBC Urine 0-5 /HPF (0-5)
--- NOTE | 2022-04-20 06:39 | ED.EXTPRO ---
HPI - Extremity Problem General Chief complaint: Extremity Problem Stated complaint: left hip pain Time Seen by Provider: 04/20/22 05:57 History of Present Illness HPI Narrative: Patient is an 81-year-old female normally walks with a Rollator walker presented today after going to the bathroom patient was unable to get up from the toilet. Needing help. Patient claims there is more pain than usual. Patient claims the symptom has since resolved. No fever no chills. No chest pain or shortness of breath. No trauma. No dizziness no nausea. She lives at home Related Data Previous Rx's Medication Instructions Recorded oxycodone 10 mg tablet 10 mg PO Q8H PRN pain #20 tabs 12/23/21 amlodipine 5 mg tablet 5 mg PO DAILY #90 tabs 01/20/22 aspirin 81 mg tablet,delayed 81 mg PO DAILY 90 days #90 tabs 01/20/22 release lisinopril 40 mg tablet 40 mg PO DAILY #90 tabs 01/20/22 multivitamin 1 tab PO DAILY 90 days #90 tabs 01/20/22 polyethylene glycol 3350 17 gram 17 g PO BEDTIME #100 ea 01/20/22 oral powder packet (Miralax) quetiapine 100 mg tablet 50 mg PO BEDTIME #30 tabs 01/20/22 ursodiol 300 mg capsule 300 mg PO BID #160 caps 01/20/22 amoxicillin 875 mg-potassium 1 tab PO BID #14 tabs 02/23/22 clavulanate 125 mg tablet ezetimibe 10 mg-simvastatin 10 mg 0.5 tab PO BEDTIME #45 tabs 03/06/22 tablet (Vytorin) Lactobacillus rhamnosus GG 12 1 cap PO .qd #20 caps 03/12/22 billion cell-inulin 200 mg capsule ([facility]) cephalexin 500 mg capsule 500 mg PO Q12H #20 caps 03/12/22 doxycycline hyclate 100 mg capsule 100 mg PO BID #20 caps 03/12/22 tramadol 50 mg tablet 50 mg PO TID PRN pain #60 tabs 03/22/22 Allergies Allergy/AdvReac Type Severity Reaction Status Date / Time fentanyl [FENTANYL] Allergy Severe CARDIAC Verified 04/20/22 05:45 ARREST, heart stopped, anaphylaxis nickel Allergy Intermediate Rash Uncoded 04/20/22 05:45 paper tape Allergy Intermediate Rash Uncoded 04/20/22 05:45 Review of Systems Review of Systems: No chest pain or shortness breath no nausea no vomiting Yes all other systems are reviewed and are negative [facility] Past Medical History Attestation statement: The following information was validated with the patient. Medical History Anxiety Compression fracture of L2 lumbar vertebra High cholesterol Hip fracture, right HTN (hypertension) Lymphedema Malignant tumor body uterus Osteoporosis Other specified disorders of bone density and structure, right upper arm Proximal humerus fracture Psoriasis Pulmonary embolism Pulmonary nodule Retinal artery branch occlusion, left eye Surgical History History of esophagogastroduodenoscopy (EGD) History of hip replacement History of open reduction and internal fixation (ORIF) procedure History of removal of cyst History of solitary pulmonary nodule History of surgery History of tonsillectomy and adenoidectomy History of tubal ligation Hx of colonoscopy Family History Family History Father Stroke Hypertension Mother Hypertension CVD (cardiovascular disease) Myocardial infarction Brother Hypertension Sister Hypercholesteremia Hypertension Sister Hypertension Hypercholesteremia Social History Social History Household Members: None Housing: Apartment 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, 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) Alcohol intake: never Patient Tobacco Use Status: Never used Tobacco e-Cigarette/Vaping Use: Never Used Advance Directives: Yes Advance Directives on File: Yes Advance Directives Date on File: 01/16/20 service: No Current occupational status: retired Cognitive needs: Yes Hearing needs: No Vision needs: Yes (Pt has glasees for reading) Physical Exam Vital Signs: Vital Signs: Last Vital Signs Temp 98.4 F 04/20/22 05:46 Pulse 89 04/20/22 05:46 Resp 18 04/20/22 05:46 BP 175/91 H 04/20/22 05:46 Pulse Ox 96 04/20/22 05:46 O2 Del Method 04/20/22 05:46 BMI result Body Mass Index 19.3 Appearance: Alert. Oriented X3. No acute distress. Eyes: Pupils equal, round and reactive to light. ENT: Pharynx normal. Neck: Normal inspection. Neck supple. No lymph nodes noted. No crepitus CVS: Normal heart rate and rhythm. Pulses normal. Normal S1 and S2 Respiratory: No respiratory distress. Breath sounds normal. No Wheezing. No rales Abdomen: Soft and nontender. No rigidity. No distention. good BS x4 Skin: Skin warm and dry. Normal skin color. Normal skin turgor. Extremities: No lower extremity edema. Neurovascular intact to all extremities. No Lacerations. No Rash. Good range of motion in bilateral lower hips. Ambulated patient. Able to ambulate wheel walker. Neuro: Oriented X 3. No motor deficit. No sensory deficit. Moving all extermities. No slurred speech Medications Administered Discontinued Medications Generic Name Dose Route Start Last Admin Trade Name Freq PRN Reason Stop Dose Admin Tramadol HCl 50 mg 04/20/22 06:06 04/20/22 06:17 Tramadol Hcl 50 Mg Tablet PO 04/20/22 06:07 50 mg ONCE ONE Administration Medical Decision Making Medical Decision Making [facility] Narrative: X-ray of the hip showed a total hip replacement. No evidence for fracture. Patient's hemoglobin is 11.7. Normal white count. Ambulating now without any difficulties. Question pain secondary to arthritis. Will discharge patient home. Will ask patient's she wants help from the housing case manager. She is in stable condition. Differential Diagnosis Differential Diagnoses: The differential diagnosis associated with the presentation includes Hip fracture, hip dislocation, arthritis Lab Data [facility] Lab Attestation statement: I reviewed the patient's lab results. 04/20/22 06:20 04/20/22 06:20 Labs: Lab Results 04/20/22 Range/Units 06:20 WBC 5.9 (4.8-10.8) X10*3/uL RBC 4.14 L (4.20-5.50) X10*6/uL Hgb 11.7 L (12.0-16.0) g/dl Hct 35.1 L (37.0-47.0) % MCV 84.8 (80.0-98.0) fL MCH 28.3 (27.0-33.0) pg MCHC 33.3 (31.0-35.0) g/dl RDW 15.7 (11.0-16.0) % Plt Count 252 (160-400) X10*3/uL MPV 9.4 (9.4-12.3) fL Immature Gran % (Auto) 0.5 H (0.0-0.4) % Neut % (Auto) 60.8 (45-73) % Lymph % (Auto) 25.5 (20-40) % [place] % (Auto) 10.5 (2-11) % Eos % (Auto) 2.2 (0-4) % Baso % (Auto) 0.5 (0-2) % Lymph # (Auto) 1.5 (1.2-4.9) X10*3/uL [place] # (Auto) 0.6 (0.1-1.2) X10*3/uL Eos # (Auto) 0.1 (0.0-0.4) X10*3/uL Baso # (Auto) 0.0 (0.0-0.2) X10*3/uL Abs Immat Gran (auto) 0.03 (0.00-0.03) X10*3/uL Absolute Neuts (auto) 3.6 (2.0-8.3) x10*3/uL Absolute Nucleated RBC 0.000 (0.0-0.012) X10*3/uL Nucleated RBC % (auto) 0.0 (0.0-0.2) /100WBC Radiology Impression Discussion of test interpretation with radiology: I have reviewed the radiologist's reading. External Record Review External record reviewed: Inpatient record Chronic Conditions Patient?s care impacted by: Hypertension Discharge Plan Discharge Clinical Impression: Osteoarthritis Patient Disposition: Home, Self-Care Instructions: Osteoarthritis (ED) Prescriptions: No Action amlodipine 5 mg tablet 5 mg PO DAILY Qty: 90 2RF aspirin 81 mg tablet,delayed release (DR/EC) 81 mg PO DAILY 90 Days Qty: 90 3RF lisinopril 40 mg tablet 40 mg PO DAILY Qty: 90 2RF multivitamin Tablet 1 tab PO DAILY 90 Days Qty: 90 3RF polyethylene glycol 3350 [Miralax] 17 gram powder in packet 17 g PO BEDTIME Qty: 100 1RF quetiapine 100 mg tablet 50 mg PO BEDTIME Qty: 30 2RF ursodiol 300 mg capsule 300 mg PO BID Qty: 160 2RF amoxicillin-pot clavulanate 875-125 mg tablet 1 tab PO BID Qty: 14 0RF ezetimibe-simvastatin [Vytorin 10-10] 10-10 mg tablet 0.5 tab PO BEDTIME Qty: 45 11RF tramadol 50 mg tablet 50 mg PO TID PRN (Reason: pain) Qty: 60 0RF oxycodone 10 mg tablet 10 mg PO Q8H PRN (Reason: pain) Qty: 20 0RF Rx Instructions: Partial Fill upon patient request. cephalexin 500 mg capsule 500 mg PO Q12H Qty: 20 0RF doxycycline hyclate 100 mg capsule 100 mg PO BID Qty: 20 0RF [facility] 12 billion cell -200 mg capsule 1 cap PO .qd Qty: 20 0RF Referrals: Po,Yuli Flowers MD [Primary Care Provider] -
[2022-04-20 06:41] LABS: Anion Gap 17 (12-20); Blood Urea Nitrogen 13 mg/dL (9-16); Calcium 9.4 mg/dL (8.4-10.2); Carbon Dioxide 23 mmol/L (22-29); Chloride 104 mmol/L (96-108); Estimated Glomerular Filt Rate > 60; Glucose Random 92 mg/dL (60-115); Potassium 4.4 mmol/L (3.3-5.1); Sodium 140 mmol/L (135-145)
--- NOTE | 2022-04-20 06:43 | PC.NURSE ---
patient ambulatory to and from bathroom with steady, slow gait using walker and 1 staff nearby assist. patient only in pain with movement, at rest reports no pain.
--- NOTE | 2022-04-20 07:17 | PC.NURSE ---
assumed care of patient, pt up for discharge, plan to set up ride home, pt VSS
--- NOTE | 2022-04-20 07:41 | PC.NURSE ---
patient set up with ride home, address double checked with patient, pt ambulated to waiting room with rolling walker to await ride home.
== END 2022-04-20 07:41 | disposition home or self-care (01) ==
PROVIDERS: Emergency Provider Emergency Medicine Emergency Medical Services; PCP Internal Medicine
DX: M16.12 Unilateral primary osteoarthritis, left hip (principal); Z79.899 Other long term (current) drug therapy
CPT/HCPCS: 36415; 73502; 80048; 81001; 85025; 99283

== ENCOUNTER 2022-11-08 13:54 | Emergency (ER) | payer MEDICARE, SELFPAY ==
--- NOTE | ~2022-11-08 | XR_ITS ---
EXAMINATION: XR FOOT, LEFT CLINICAL INFORMATION: Erythema, swelling. COMPARISON: None available. TECHNIQUE: AP, lateral, and oblique views of the left foot. FINDINGS: There is generalized osteopenia. Flexion of the digits limits evaluation of the phalanges. There is no overt fracture or dislocation. The tarsal bones are normally aligned. There is generalized mild soft tissue swelling. XR/XR foot LT min 3V IMPRESSION: 1. Generalized osteopenia. No overt fracture. 2. Generalized mild soft tissue swelling. Correlate with physical exam.
[2022-11-08 14:16] VITALS: BP 150/100; PULSE 85; O2SAT 95
[2022-11-08 14:37] VITALS: BP 160/82; PULSE 86; RESP 16; TEMP 36.7; O2SAT 96; BMI 26.4
[2022-11-08 17:01] LABS: MANUAL DIFF FLAG NO
[2022-11-08 17:03] LABS: Basophils Percent Auto 0.7 % (0-2); Hematocrit 35.4 % (37.0-47.0); Imm Gran Abs Auto 0.01 X10*3/uL (0.00-0.03); Imm Gran Pct Auto 0.2 % (0.0-0.4); Lymphocytes Absolute Auto 1.4 X10*3/uL (1.2-4.9); Lymphocytes Percent Auto 34.6 % (20-40); Mean Corpuscular HGB Conc 33.9 g/dl (31.0-35.0); Mean Corpuscular Hemoglobin 29.7 pg (27.0-33.0); Mean Corpuscular Volume 87.6 fL (80.0-98.0); Mean Platelet Volume 9.7 fL (9.4-12.3); Monocytes Absolute Auto 0.4 X10*3/uL (0.1-1.2); Monocytes Percent Auto 9.9 % (2-11); Neutrophils Absolute Auto 2.2 x10*3/uL (2.0-8.3); Neutrophils Percent Auto 53.6 % (45-73); Platelet Count 208 X10*3/uL (160-400); Red Blood Count 4.04 X10*6/uL (4.20-5.50); White Blood Count 4.2 X10*3/uL (4.8-10.8)
--- NOTE | 2022-11-08 17:19 | ED.GENADULT ---
HPI - General Adult General Chief complaint: Extremity Injury, Lower Stated complaint: LEAKING FOOT INF,SENT BY [facility] PER EMS Time Seen by Provider: 11/08/22 15:23 Source: patient Mode of arrival: EMS History of Present Illness HPI narrative: 82-year-old female arrives via EMS from home with chronic bilateral venous insufficiency and currently undergoing chronic left foot wounds but states that over the past couple of days there is been increasing erythema and induration but she denies any fevers or chills. She has a visiting nurse who told her she should be seen by the emergency room. Related Data Previous Rx's Medication Instructions Recorded aspirin 81 mg tablet,delayed 81 mg PO DAILY 90 days #90 tabs 01/20/22 release multivitamin 1 tab PO DAILY 90 days #90 tabs 01/20/22 polyethylene glycol 3350 17 gram 17 g PO BEDTIME #100 ea 01/20/22 oral powder packet (Miralax) ezetimibe 10 mg-simvastatin 10 mg 0.5 tab PO BEDTIME #45 tabs 03/06/22 tablet (Vytorin) Lactobacillus rhamnosus GG 12 1 cap PO .qd #20 caps 03/12/22 billion cell-inulin [facility] calcium carbonate 500 mg calcium 500 mg PO DAILY 90 days #90 tabs 05/05/22 (1,250 mg) tablet (Oyster Shell Calcium) cholecalciferol (vitamin D3) 25 25 mcg PO DAILY #90 tabs 05/05/22 mcg (1,000 unit) tablet ursodiol 300 mg capsule 300 mg PO BID #160 caps 05/15/22 mupirocin 2 % topical ointment 1 appl topical BID 10 days #22 05/20/22 grams meloxicam 7.5 mg tablet 7.5 mg PO DAILY #30 tabs 06/27/22 amlodipine 5 mg tablet 5 mg PO DAILY #90 tabs 07/13/22 lisinopril 40 mg tablet 40 mg PO DAILY #90 tabs 07/13/22 polymyxin B sulfate 10,000 1 drp ophthalmic (eye) Q3H 7 days 10/18/22 unit-trimethoprim 1 mg/mL eye #10 mL drops (Polytrim) sulfamethoxazole 800 1 tab PO BID #14 tabs 10/18/22 mg-trimethoprim 160 mg tablet (Bactrim DS) lactulose 20 gram/30 mL oral 20 g (30 mL) PO BID #1,500 mL 10/29/22 solution quetiapine 100 mg tablet 50 mg PO BEDTIME #30 tabs 11/01/22 tramadol 50 mg tablet 50 mg PO TID PRN pain 7 days #21 11/01/22 tabs cephalexin 500 mg capsule 500 mg PO BID 5 days #10 caps 11/08/22 doxycycline monohydrate 100 mg 100 mg PO BID 5 days #10 caps 11/08/22 capsule Allergies Allergy/AdvReac Type Severity Reaction Status Date / Time fentanyl [FENTANYL] Allergy Severe CARDIAC Verified 07/15/22 11:18 ARREST, heart stopped, anaphylaxis nickel Allergy Intermediate Rash Uncoded 07/15/22 11:18 paper tape Allergy Intermediate Rash Uncoded 07/15/22 11:18 Review of Systems Review of Systems: Pertinent positives and negatives as stated in HPI [facility] Past Medical History Source: nursing notes reviewed Medical History Anxiety Cellulitis Cellulitis Compression fracture of L2 lumbar vertebra High cholesterol Hip fracture, right HTN (hypertension) Lymphedema Malignant tumor body uterus Osteoporosis Other specified disorders of bone density and structure, right upper arm Proximal humerus fracture Psoriasis Pulmonary embolism Pulmonary nodule Retinal artery branch occlusion, left eye Surgical History History of esophagogastroduodenoscopy (EGD) History of hip replacement History of open reduction and internal fixation (ORIF) procedure History of removal of cyst History of solitary pulmonary nodule History of surgery History of tonsillectomy and adenoidectomy History of tubal ligation Hx of colonoscopy Family History Family History Father Stroke Hypertension Mother Hypertension CVD (cardiovascular disease) Myocardial infarction Brother Hypertension Sister Hypercholesteremia Hypertension Sister Hypertension Hypercholesteremia Social History Social History Household Members: None Housing: Apartment Do you presently have visiting nurse or other home services: Yes ([employer], 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) Alcohol intake: never Patient Tobacco Use Status: Never used Tobacco Smoked in Last 30 Days: No e-Cigarette/Vaping Use: Never Used Use of substances other than those prescribed or required for medical reasons: No Advance Directives: Yes Advance Directives on File: Yes Advance Directives Date on File: 01/16/20 service: No Current occupational status: retired Cognitive needs: Yes Hearing needs: No Vision needs: Yes (Pt has glasees for reading) Physical Exam ED Vital Signs: Vital Signs - 24 hr 11/08/22 14:37 Temperature 98.1 F Pulse Rate 86 Respiratory Rate 16 Blood Pressure 160/82 H Pulse Oximetry 96 Oxygen Delivery Method Room Air BMI result Body Mass Index 26.4 VITAL SIGNS: Reviewed. GENERAL: Well developed, well nourished, in no acute distress. HEAD: Normocephalic/atraumatic EYES: PERRLA, EOMI EARS: Ext canals without abnormality NOSE: Nares patent bilateral OROPHARYNX: no oral lesions noted, posterior pharynx clear NECK: Supple, no adenopathy LUNGS: Normal breath sounds. No adventitious sounds or accessory muscle use. SpO2<96> CARDIOVASCULAR: Regular rate and rhythm without noted murmurs ABDOMEN: Soft, non-tender, non-distended with bowel sounds. MUSCULOSKELETAL: No tenderness, deformities, or effusions noted on gross inspection. EXTREMITIES: No cyanosis, clubbing or edema. LLE: Significant erythema and swelling to the left foot that involves the toes I do not appreciate any ulcerations and the erythema extends proximally to mid calf SKIN: Inspection of the skin reveals no rashes NEUROLOGIC: Alert and oriented x 4. Strength and sensation to light touch were grossly intact x 4. Medical Decision Making Medical Decision Making MDM Narrative: 82-year-old female with history and clinical presentation, DDX: Cellulitis, there are no ulcerations but will obtain x-ray of foot to ensure no bony changes. Basic labs ordered to rule out any systemic evidence of infection patient is afebrile and will ensure the patient has a referral to the Wound Care Clinic on discharge. I have reviewed all investigations the x-ray is not significant for periosteal changes and otherwise my interpretation is in agreement with radiology's impression. Hematologic indices are negative for leukocytosis or left shift and otherwise there is no anemia or thrombocytopenia. Chemistry indices are without electrolyte or liver enzyme abnormalities, there is no GRACE. Patient will see the initial antibiotics here in the emergency room and then be discharged on remaining course with a referral to see wound care clinic. Differential Diagnosis Differential Diagnoses: The differential diagnosis associated with the presentation includes Please see the discussion above Admission/Observation Consideration of admission/observation: Escalation of care including admission/observation considered Please see the discussion above Lab Data MDM Lab Attestation statement: I reviewed the patient's lab results. Please see the discussion above 11/08/22 16:57 11/08/22 16:57 Labs: Lab Results 11/08/22 Range/Units 16:57 WBC 4.2 L (4.8-10.8) X10*3/uL RBC 4.04 L (4.20-5.50) X10*6/uL Hgb 12.0 (12.0-16.0) g/dl Hct 35.4 L (37.0-47.0) % MCV 87.6 (80.0-98.0) fL MCH 29.7 (27.0-33.0) pg MCHC 33.9 (31.0-35.0) g/dl RDW 14.0 (11.0-16.0) % Plt Count 208 (160-400) X10*3/uL MPV 9.7 (9.4-12.3) fL Immature Gran % (Auto) 0.2 (0.0-0.4) % Neut % (Auto) 53.6 (45-73) % Lymph % (Auto) 34.6 (20-40) % [place] % (Auto) 9.9 (2-11) % Eos % (Auto) 1.0 (0-4) % Baso % (Auto) 0.7 (0-2) % Lymph # (Auto) 1.4 (1.2-4.9) X10*3/uL [place] # (Auto) 0.4 (0.1-1.2) X10*3/uL Eos # (Auto) 0.0 (0.0-0.4) X10*3/uL Baso # (Auto) 0.0 (0.0-0.2) X10*3/uL Abs Immat Gran (auto) 0.01 (0.00-0.03) X10*3/uL Absolute Neuts (auto) 2.2 (2.0-8.3) x10*3/uL Absolute Nucleated RBC 0.000 (0.0-0.012) X10*3/uL Nucleated RBC % (auto) 0.0 (0.0-0.2) /100WBC Radiology Impression Radiologist Impression: Please see the discussion above External Record Review External record reviewed: Outpatient record, Prior outpatient labs and Prior outpatient radiology Chronic Conditions Patient?s care impacted by: Hypertension Discharge Plan Discharge Clinical Impression: Cellulitis of left leg Patient Disposition: Home, Self-Care Instructions: Cellulitis (ED) Additional Instructions: 1. Resume all home medications as prescribed. 2. Complete the entire course of antibiotics as prescribed. 3. You have been given a referral to follow-up with the Wound Clinic here at [facility]. 4. Please follow-up with your primary care provider by calling the office in the morning for re-evaluation and further outpatient management. Return to the ER for any worsening symptoms. Prescriptions: New doxycycline monohydrate 100 mg capsule 100 mg PO BID 5 Days Qty: 10 0RF cephalexin 500 mg capsule 500 mg PO BID 5 Days Qty: 10 0RF No Action aspirin 81 mg tablet,delayed release (DR/EC) 81 mg PO DAILY 90 Days Qty: 90 3RF multivitamin Tablet 1 tab PO DAILY 90 Days Qty: 90 3RF polyethylene glycol 3350 [Miralax] 17 gram powder in packet 17 g PO BEDTIME Qty: 100 1RF ezetimibe-simvastatin [Vytorin 10-10] 10-10 mg tablet 0.5 tab PO BEDTIME Qty: 45 11RF ursodiol 300 mg capsule 300 mg PO BID Qty: 160 2RF mupirocin 2 % ointment 1 appl topical BID 10 Days Qty: 22 0RF meloxicam 7.5 mg tablet 7.5 mg PO DAILY Qty: 30 0RF lisinopril 40 mg tablet 40 mg PO DAILY Qty: 90 2RF amlodipine 5 mg tablet 5 mg PO DAILY Qty: 90 2RF polymyxin B sulf-trimethoprim [Polytrim] 10,000 unit- 1 mg/mL drops 1 drp ophthalmic (eye) Q3H 7 Days Qty: 10 0RF Rx Instructions: while awake; do not exceed 6 doses in 24 hours sulfamethoxazole-trimethoprim [Bactrim DS] 800-160 mg tablet 1 tab PO BID Qty: 14 0RF lactulose 20 gram/30 mL solution 20 g PO BID Qty: 1500 0RF tramadol 50 mg tablet 50 mg PO TID PRN (Reason: pain) 7 Days Qty: 21 0RF quetiapine 100 mg tablet 50 mg PO BEDTIME Qty: 30 2RF [facility] 12 billion cell -200 mg capsule 1 cap PO .qd Qty: 20 0RF calcium carbonate [Oyster Shell Calcium] 500 mg calcium (1,250 mg) tablet 500 mg PO DAILY 90 Days Qty: 90 2RF cholecalciferol (vitamin D3) 25 mcg (1,000 unit) tablet 25 mcg PO DAILY Qty: 90 2RF Referrals: [facility] [place] [facility] [facility] [place] Group] Po,Yuli Flowers MD [Primary Care Provider] -
[2022-11-08 17:22] LABS: Alanine Aminotransferase 17 U/L (0-31); Albumin Level 3.7 g/dL (3.5-5.0); Alkaline Phosphatase 82 U/L (39-117); Anion Gap 12 (12-20); Aspartate Amino Transferase 25 U/L (5-31); Bilirubin Total 0.3 mg/dL (0.0-1.0); Blood Urea Nitrogen 16 mg/dL (9-16); Calcium 9.4 mg/dL (8.4-10.2); Carbon Dioxide 27 mmol/L (22-29); Chloride 104 mmol/L (96-108); Creatinine Clr Calc Pharmacy 54.6; Estimated Glomerular Filt Rate > 60; Glucose Random 97 mg/dL (60-115); Potassium 4.5 mmol/L (3.3-5.1); Sodium 138 mmol/L (135-145); Total Protein 7.4 g/dL (6.5-8.0)
[2022-11-08] MEDS: cephALEXin 500 MG CAPSULE PO (17:49)
[2022-11-08] MEDS: Doxycycline Monohydrate 100 MG CAPSULE PO (17:50)
--- NOTE | 2022-11-08 18:17 | PC.NURSE ---
Pt ablew to ambulate with steady gait to bathroom
== END 2022-11-08 18:20 | disposition home or self-care (01) ==
PROVIDERS: Emergency Provider Student in an Organized Health Care Education/Training Program; PCP Internal Medicine
DX: L03.116 Cellulitis of left lower limb (principal); I87.2 Venous insufficiency (chronic) (peripheral); Z79.899 Other long term (current) drug therapy
CPT/HCPCS: 36415; 73630; 80053; 85025; 99283

== ENCOUNTER 2022-12-03 13:33 | Outpatient (RCR) | payer MEDICARE, SELFPAY | END 2023-01-07 14:50 | disposition home or self-care (01) | LOC: HO.WCC 13:33 | PROVIDERS: PCP Internal Medicine; Visit Provider Physician Assistant | DX: L97.521 Non-pressure chronic ulcer of other part of left foot limited to breakdown of skin (principal); I87.2 Venous insufficiency (chronic) (peripheral); R60.9 Edema, unspecified; I10 Essential (primary) hypertension; Z86.718 Personal history of other venous thrombosis and embolism | CPT/HCPCS: 97597; 97598; 99212 ==

== ENCOUNTER 2023-01-13 13:08 | Outpatient (REF) | payer MEDICARE, SELFPAY ==
--- NOTE | ~2023-01-13 | US_ITS ---
EXAMINATION: LEFT LOWER EXTREMITY VENOUS ULTRASOUND (Reflux Exam) CLINICAL INDICATION: Venous insufficiency nonhealing wound COMPARISON: None venous Doppler left from 10/31/2021 TECHNIQUE: Color flow triplex imaging and compression Doppler was performed to evaluate both the deep and the superficial systems. To evaluate the superficial system, the examination was performed in the upright position. Color-flow Doppler ultrasound and compression ultrasound were utilized. In addition, maneuvers were utilized to demonstrate reflux. FINDINGS: DEEP VENOUS ULTRASOUND OF THE LEFT LOWER EXTREMITY: Respiratory variation, normal compression and augmented flow are noted in the left common femoral vein, femoral vein as well as the left popliteal vein and there is no evidence of deep venous thrombosis at these locations. There is no evidence of reflux in the deep system in either the common femoral vein or the popliteal vein. . There is no evidence of a Sidhu's cyst. SUPERFICIAL ULTRASOUND WITH DOPPLER OF LEFT LOWER EXTREMITY: Left great saphenous vein at the saphenofemoral junction measures 8 mm, at the mid thigh 7 mm, [id number] 5 mm, [id number] 4 mm, at mid calf 5 mm and at the ankle measures 4 mm. There is reflux demonstrated in the left great saphenous vein. Accessory vein noted laterally measuring 3 mm without reflux. The left small saphenous vein measures 3 mm and shows no reflux. Multiple perforators without reflux. Multiple varicose veins with reflux. US/US venous duplex LE LT IMPRESSION: LEFT: No reflux of the deep system. Reflux of the superficial system noted. Multiple perforators without reflux. Multiple varicose veins with reflux.
== END 2023-01-13 13:09 | disposition home or self-care (01) ==
LOC: HO.US 13:08
PROVIDERS: PCP Internal Medicine; Visit Provider Physician Assistant
DX: I87.2 Venous insufficiency (chronic) (peripheral) (principal); L97.821 Non-pressure chronic ulcer of other part of left lower leg limited to breakdown of skin
CPT/HCPCS: 93971

== ENCOUNTER 2023-01-26 13:49 | Outpatient (AMB) | payer MEDICARE, SELFPAY ==
--- NOTE | 2023-01-26 13:58 | MHC.PC.OV ---
Vital Signs 01/26/23 13:59 Height 5 ft 1 in Weight 139 lb BMI 26.3 BP 140/82 H Blood Pressure Location Lt brachial Position Sitting Pulse 107 H Pulse Source Pulse Oximeter Pulse Oximetry (%) 93 Oxygen Delivery Method Room Air 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: Follow up Allergies fentanyl [FENTANYL] Allergy (Severe, Verified 01/26/23 14:01) CARDIAC ARREST, heart stopped, anaphylaxis nickel Allergy (Intermediate, Uncoded 01/26/23 14:01) Rash paper tape Allergy (Intermediate, Uncoded 01/26/23 14:01) Rash Medication List - Last Reconciled 01/26/23 by Yuli Chamberlain MD amlodipine 5 mg PO DAILY aspirin 81 mg PO DAILY 90 days calcium carbonate (Oyster Shell Calcium) 500 mg PO DAILY 90 days cholecalciferol (vitamin D3) 25 mcg PO DAILY ezetimibe-simvastatin 10-10 mg (Vytorin) 1 tab PO BEDTIME 90 days Lactobac. rhamnosus GG-inulin 12 billion cell -200 mg ([facility] [employer] 2000) 1 cap PO .qd lactulose 20 grams (30 mL) PO BID lisinopril 40 mg PO DAILY meloxicam 7.5 mg PO DAILY multivitamin 1 tab PO DAILY 90 days mupirocin 2% 1 appl topical BID 10 days polyethylene glycol 3350 (Miralax) 17 grams PO BEDTIME polymyxin B sulf-trimethoprim 10,000 unit- 1 mg/mL (Polytrim) 1 drp ophthalmic (eye) Q3H 7 days quetiapine 50 mg (1/2 x 100 mg) PO BEDTIME tramadol 50 mg PO TID PRN 7 days ursodiol 300 mg PO BID Tobacco use date assessed: 07/15/22 Fall risk assessment: No Falls in past year Dental Screening Dental Screen Date: 01/26/23 Did you have a dental visit in the last 12 months?: No Did you have a dental problem in the last 6 months where you did not have access to dental care?: No Was dental information given to patient?: Patient has dentist HPI Follow up HPI Details 82-year-old female with a history of hypertension primary biliary cirrhosis hypercholesterol E and history of closed fracture of the right proximal humerus last seen a year ago coming in for follow-up. Patient is up-to-date with colonoscopy in October 2021 up-to-date with bone density August 2021. Patient has been following up with wound care for a left dorsal and lateral foot ulceration healed left leg ulcer. October 2022 ER visit for chronic bilateral venous insufficiency with injury lambert treated for cellulitis of the left leg doxycycline and cephalexin. Patient was seen with nurse practitioner in July 2022 had ran out of blood pressure medication but refills have been sent patient did have a lesion on her back in which dermatology was seen. In April patient has seen nurse practitioner again for telehealth visit left hip osteoarthritis did have a history of left hip arthroplasty 2016 on meloxicam and tramadol patient also has osteoporosis was on Fosamax advised to be referred to endocrinology. In December 2021 low back pain with urinary incontinence she does have urge incontinence also noted old compression fractures of L2-L3 L4 with severe osteoporosis [facility] Medical History Anxiety Cellulitis Cellulitis Compression fracture of L2 lumbar vertebra High cholesterol Hip fracture, right HTN (hypertension) Lymphedema Malignant tumor body uterus Osteoporosis Other specified disorders of bone density and structure, right upper arm Proximal humerus fracture Psoriasis Pulmonary embolism Pulmonary nodule Retinal artery branch occlusion, left eye Surgical History History of esophagogastroduodenoscopy (EGD) History of hip replacement History of open reduction and internal fixation (ORIF) procedure History of removal of cyst History of solitary pulmonary nodule History of surgery History of tonsillectomy and adenoidectomy History of tubal ligation Hx of colonoscopy Family History (Updated 01/26/23 @ 14:02 by Paulette Barahona [facility]) Father Stroke Hypertension Mother Hypertension CVD (cardiovascular disease) Myocardial infarction Brother Hypertension Sister Hypercholesteremia Hypertension Sister Hypertension Hypercholesteremia Social History Household Members: None Housing: Apartment Do you presently have visiting nurse or other home services: Yes (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 1. Little interest or pleasure in doing things: not at all 2. Feeling down, depressed, or hopeless: not at all 3. Trouble falling or staying asleep, or sleeping too much: not at all 4. Feeling tired or having little energy: not at all 5. Poor appetite or overeating: not at all 6. Feeling bad about yourself - or that you are a failure or have let yourself or your family down: not at all 7. Trouble concentrating on things, such as reading the newspaper or watching television: not at all 8. Moving or speaking so slowly that other people could have noticed. Or the opposite - being so fidgety or restless that you have been moving around a lot more than usual: not at all 9. Thoughts that you would be better off or of hurting yourself in some way: not at all Total score: 0 Depression Screening Interpretation: Negative Depression Screening Done: Yes [id number] - PHQ-9 Billing: Yes Source: Developed by Drs. Mukund Magallon, Gaurav Sheets and colleagues, with an educational paul from [employer]. Thrive Questionnaire Date Thrive assessed: 05/05/22 AUDIT C Alcohol Use Questionnaire (AUDIT-C) 1. How often do you have a drink containing alcohol?: Never 3. How often do you have six or more drinks on one occasion?: Never Total Score: 0 Score Reviewed/Action Taken: No JOSE-7 AMB Questionnaire JOSE-7 Date JOSE - 7 assessed: 05/05/22 Source: Developed by Drs. Mukund Magallon, Gaurav Shetes and colleagues, with an educational paul from [employer]. Physical exam (Primary Care) Vital Signs: Last Vital Signs Pulse 107 H 01/26/23 13:59 BP 140/82 H 01/26/23 13:59 Pulse Ox 93 01/26/23 13:59 Oxygen Delivery Method Room Air 01/26/23 13:59 BMI result Body Mass Index 26.3 Tobacco/Smoking Status: Tobacco use Status Tobacco use date assessed 07/15/22 01/26/23 14:04 Patient Tobacco Use Status Former Tobacco user 01/26/23 14:04 Tobacco use type Cigarette 01/26/23 14:04 e-Cigarette/Vaping Use Never Used 01/26/23 14:04 PHQ-9: PHQ-9 Score PHQ-9: Total score 0 01/26/23 14:04 Depression Screening Interpretation: Negative Thrive Assessment: Date of Thrive Assessment Date Thrive assessed 05/05/22 01/26/23 14:04 Const General: alert; No acute distress Eyes Conjunctivae: conjunctivae normal Resp Auscultation: clear to auscultation bilaterally Cardio Rate: regular rate Rhythm: regular rhythm GI Inspection: Yes normal to inspection Assessment and Plan Assessment & Plan (1) Venous stasis dermatitis: Code(s): I87.2 - Venous insufficiency (chronic) (peripheral) Plan: When sitting down elevate the legs, exercise, and support stockings (2) Compression fracture of L2 lumbar vertebra: Comment: July 2019 Code(s): S32.020A - Wedge compression fracture of second lumbar vertebra, initial encounter for closed fracture Plan: Keep well hydrated keep active (3) HTN (hypertension): Code(s): I10 - Essential (primary) hypertension Qualifiers: Hypertension type: essential hypertension Qualified Code(s): I10 - Essential (primary) hypertension Plan: Continue with blood pressure medication. Decrease salt intake and exercise presently on amlodipine 5 mg once a day lisinopril 40 mg once a day (4) High cholesterol: Code(s): E78.00 - Pure hypercholesterolemia, unspecified Plan: Avoid fried foods, chicken skin, eggs, butter margarine, pastries and meat. Be it pork or beef they have a lot of cholesterol LDL goal of less than 130 and triglyceride of less than 150. Patient on Vytorin (5) Generalized anxiety disorder: Code(s): F41.1 - Generalized anxiety disorder Plan: Continue with present medication (6) Osteoporosis: Code(s): M81.0 - Age-related osteoporosis without current pathological fracture Plan: Patient has been referred to endocrinology - advised to see the dentist first Orders: Orders Complete Blood Count Auto Diff 3 Months E78.00 - Pure hypercholesterolemia, unspecified Comprehensive Met. Panel 3 Months E78.00 - Pure hypercholesterolemia, unspecified Free T4 (Free Thyroxine) 3 Months E78.00 - Pure hypercholesterolemia, unspecified Thyroid Stimulating Hormone 3 Months E78.00 - Pure hypercholesterolemia, unspecified Vitamin B12 and Folate 3 Months E78.00 - Pure hypercholesterolemia, unspecified Vitamin D 25-OH Total 3 Months E78.00 - Pure hypercholesterolemia, unspecified Lipid Panel 3 Months E78.00 - Pure hypercholesterolemia, unspecified Medications: Changed From ezetimibe-simvastatin 10-10 mg (Vytorin) 0.5 tabs PO BEDTIME 45 tabs 11RF E78.00 - Pure hypercholesterolemia, unspecified To ezetimibe-simvastatin 10-10 mg (Vytorin) 1 tab PO BEDTIME 90 days 90 tabs 1RF E78.00 - Pure hypercholesterolemia, unspecified Coding Level of Care Code Est Pt Level 4 (82518) Diagnoses Venous stasis dermatitis I87.2 Compression fracture of L2 lumbar vertebra S32.020A HTN (hypertension) I10 Hypertension type: essential hypertension High cholesterol E78.00 Generalized anxiety disorder F41.1 Osteoporosis M81.0
[2023-01-26 13:59] VITALS: BP 140/82; PULSE 107; O2SAT 93; BMI 26.3
== END 2023-01-26 14:31 | disposition home or self-care (01) ==
PROVIDERS: PCP Internal Medicine; Visit Provider Internal Medicine
DX: I87.2 Venous insufficiency (chronic) (peripheral) (principal); K74.3 Primary biliary cirrhosis; S32.020A Wedge compression fracture of second lumbar vertebra, initial encounter for closed fracture; I10 Essential (primary) hypertension; E78.00 Pure hypercholesterolemia, unspecified; F41.1 Generalized anxiety disorder; M81.0 Age-related osteoporosis without current pathological fracture
CPT/HCPCS: 99214

== ENCOUNTER 2023-05-12 14:27 | Outpatient (AMB) | payer MEDICARE, SELFPAY ==
--- NOTE | 2023-05-12 14:28 | MHC.PC.OV ---
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: No Allergies fentanyl [FENTANYL] Allergy (Severe, Verified 05/12/23 14:30) CARDIAC ARREST, heart stopped, anaphylaxis nickel Allergy (Intermediate, Uncoded 05/12/23 14:30) Rash paper tape Allergy (Intermediate, Uncoded 05/12/23 14:30) Rash Tobacco use date assessed: 05/12/23 Fall risk assessment: No Falls in past year Last assessed Fall Risk: 05/12/23 HPI osteoporosis, cholesterol HPI Details 82-year-old female with multiple medical problems from venous stasis dermatitis compression fracture of the L2 lumbar vertebrae hypertension hypercholesterolemia generalized anxiety disorder and osteoporosis last seen through Telehealth January 2023. Patient is here for follow-up through Telehealth patient's last cholesterol test was 2020 discussed with the patient on the need to have her in the office at least once a year. [facility], [facility] Medical History Anxiety Cellulitis Cellulitis Compression fracture of L2 lumbar vertebra High cholesterol Hip fracture, right HTN (hypertension) Lymphedema Malignant tumor body uterus Osteoporosis Other specified disorders of bone density and structure, right upper arm Proximal humerus fracture Psoriasis Pulmonary embolism Pulmonary nodule Retinal artery branch occlusion, left eye Surgical History History of esophagogastroduodenoscopy (EGD) History of hip replacement History of open reduction and internal fixation (ORIF) procedure History of removal of cyst History of solitary pulmonary nodule History of surgery History of tonsillectomy and adenoidectomy History of tubal ligation Hx of colonoscopy Family History (Updated 01/26/23 @ 14:02 by Paulette Barahona [facility]) Father Stroke Hypertension Mother Hypertension CVD (cardiovascular disease) Myocardial infarction Brother Hypertension Sister Hypercholesteremia Hypertension Sister Hypertension Hypercholesteremia Social History Household Members: None Housing: Apartment Do you presently have 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 How often do you have a drink containing alcohol?: Never 3. How often do you have six or more drinks on one occasion?: Never Total Score: 0 Score Reviewed/Action Taken: No JOSE-7 AMB Questionnaire JOSE-7 Date JOSE - 7 assessed: 05/05/22 Source: Developed by Drs. Mukund Magallon, Daksha Curry, Gaurav Garduno and colleagues, with an educational paul from [employer]. Physical exam (Primary Care) Tobacco/Smoking Status: Tobacco use Status Tobacco use date assessed 05/12/23 05/12/23 14:30 Patient Tobacco Use Status Former Tobacco user 05/12/23 14:28 Tobacco use type Cigarette 05/12/23 14:28 e-Cigarette/Vaping Use Never Used 05/12/23 14:28 Thrive Assessment: Date of Thrive Assessment Date Thrive assessed 05/05/22 05/12/23 14:28 Telehealth Telehealth Location of provider rendering services: practice address Location of patient: address on file Patient Identification confirmed using: Name, : Yes Telehealth method: voice only (landline [phone]) Patient verbally consented to treatment: Yes Patient verbally consented to billing insurance company: Yes Patient informed of any privacy concerns related to visit: Yes Minutes spent on Phone/Video with Pt.: 25 Assessment and Plan Assessment & Plan (1) High cholesterol: Code(s): E78.00 - Pure hypercholesterolemia, unspecified Plan: Avoid fried foods, chicken skin, eggs, butter margarine, pastries and meat. Be it pork or beef they have a lot of cholesterol LDL goal of less than 130 and triglyceride of less than 150. Patient on Vytorin 12/21 (2) HTN (hypertension): Code(s): I10 - Essential (primary) hypertension Qualifiers: Hypertension type: essential hypertension Qualified Code(s): I10 - Essential (primary) hypertension Plan: Continue with blood pressure medication. Decrease salt intake and exercise takes amlodipine 5 mg once a day lisinopril 40 mg once a day (3) Generalized anxiety disorder: Code(s): F41.1 - Generalized anxiety disorder Plan: Continue with medications. (4) Compression fracture of L2 lumbar vertebra: Comment: July 2019 Code(s): S32.020A - Wedge compression fracture of second lumbar vertebra, initial encounter for closed fracture Plan: Narcotic pain meds: Is being prescribed with the understanding that these medications are potentially addictive and should be used only when absolutely necessary and must always be secured. Any remaining pills should be safely disposed off appropriately. Patient is advised that narcotics can impaired judgment and one should not drive or operate heavy machinery while taking these medications. Never share these medications with anybody and do not leave them unattended. They will not be replaced under any circumstances. Coding Level of Care Code Est Pt Level 4 (45742) Diagnoses High cholesterol E78.00 HTN (hypertension) I10 Hypertension type: essential hypertension Generalized anxiety disorder F41.1 Compression fracture of L2 lumbar vertebra S32.020A
== END 2023-05-12 15:01 | disposition home or self-care (01) ==
LOC: HO.HMGH 14:28
PROVIDERS: PCP Internal Medicine; Visit Provider Internal Medicine
DX: E78.00 Pure hypercholesterolemia, unspecified (principal); I10 Essential (primary) hypertension; F41.1 Generalized anxiety disorder; S32.020A Wedge compression fracture of second lumbar vertebra, initial encounter for closed fracture
CPT/HCPCS: 99214

== ENCOUNTER 2023-06-24 22:39 | Inpatient (IN) | payer MEDICARE, SELFPAY ==
--- NOTE | ~2023-06-24 | XR_ITS ---
EXAMINATION: XR CHEST CLINICAL INFORMATION: Shortness of breath COMPARISON: Chest x-ray January 01, 2020 TECHNIQUE: Frontal portable view of the chest was obtained. 2355 hours FINDINGS: Large hiatal hernia. Cardiac and mediastinal contours are normal. There are vascular calcifications of aorta. No acute abnormality. No pulmonary vascular congestion. No focal consolidation, pleural effusion or pneumothorax. Multilevel degenerative spondylosis spine. Old healed right upper posterior rib fractures. Old healed fracture with deformity of the right humeral neck. Degenerative arthrosis of the glenohumeral joints bilateral. XR/XR chest 1V IMPRESSION: 1. No acute abnormality of chest. 2. Large hiatal hernia.
--- NOTE | ~2023-06-24 | CT_ITS ---
EXAMINATION: CT ANGIOGRAM OF THE CHEST WITH AND WITHOUT CONTRAST (CT PULMONARY ANGIOGRAM FOR PE) CLINICAL INFORMATION: Reason for Exam Shortness of breath COMPARISON: 07/18/2020 TECHNIQUE: Prior to contrast administration, noncontrast localization images were obtained. Subsequently, multidetector volumetric imaging was performed from the thoracic inlet to below the diaphragms following the administration of 65 mL Omnipaque 350 intravenous contrast. No contrast reaction reported Sagittal, coronal, and MIP oblique sagittal reformatted images were obtained on the CT workstation, uploaded to PACS, and reviewed. This CT examination was performed using dose optimization techniques as appropriate, variously including the following: *Automated exposure control *Adjustment of mA and/or kV according to patient size (this includes techniques or standardized protocols for targeted exams where dose is matched to indication/reason for exam; i.e. extremities or head) *Use of iterative reconstruction technique Total exam dose-length product 228 mGy-cm FINDINGS: QUALITY OF STUDY/CONTRAST BOLUS: Satisfactory. PULMONARY ARTERIES: No pulmonary emboli. THORACIC AORTA: No aneurysm. LUNG: There is a large hiatal hernia and mild elevation of the hemidiaphragms greater on the right with bibasilar atelectatic change and/or scarring. There is no evidence for active infiltrate. PLEURA: No pleural effusion or pneumothorax. MEDIASTINUM: Normal heart size. No pericardial effusion. No hilar or mediastinal lymphadenopathy. No evidence of septal bowing or right heart strain. CORONARY ARTERY CALCIFICATION: Mild. CHEST WALL/AXILLA: No axillary or internal mammary lymphadenopathy. OSSEOUS STRUCTURES: There is diffuse moderate thoracolumbar disc degenerative change. There are stable T8 compression fracture. There is a moderate T12 compression fracture. UPPER ABDOMEN: Unremarkable. No reflux of contrast into the hepatic veins to suggest elevated right heart pressures. CT/CT angio chest PE protocol IMPRESSION: 1. No evidence for pulmonary embolism. 2. Large hiatal hernia with bibasilar atelectatic change and/or scarring. 3. Old T8 compression fracture. T12 compression of uncertain acuity but appears chronic. VTE: negative.
--- NOTE | ~2023-06-24 | US_ITS ---
EXAMINATION: US VENOUS ULTRASOUND WITH DOPPLER LOWER EXTREMITY, LEFT CLINICAL INFORMATION: Left lower extremity edema and erythema. COMPARISON: None available. TECHNIQUE: Ultrasound of the deep veins is performed from the hip to the calf with compression sonography and color and pulse Doppler assessment. Spectral analysis with color-flow imaging is performed. FINDINGS: There is normal venous compression and respiratory variation and augmented flow. The visualized common femoral vein, superficial femoral vein, profunda femoral vein, popliteal vein, and the trifurcation region shows no evidence of deep venous thrombosis. There is no significant popliteal fossa cyst. Multiple left groin lymph nodes are noted measuring up to 2.3 cm If the patient's symptoms persist, followup ultrasound in 5 days 7 days might be of value to exclude proximal propagation from a non-visualized calf vein. US/US venous duplex LE LT IMPRESSION: No DVT demonstrated in the left lower extremity. Multiple left groin lymph nodes.
[2023-06-24 22:53] VITALS: BP 150/78; PULSE 108; PULSE 97; RESP 17; TEMP 36.8; O2SAT 90; O2SAT 94; BMI 26.7
--- NOTE | 2023-06-24 23:26 | ECG_ITS ---
Test Reason : SOB Blood Pressure : / mmHG Vent. Rate : 087 BPM Atrial Rate : 087 BPM P-R Int : 208 ms QRS Dur : 090 ms QT Int : 364 ms P-R-T Axes : 025 056 005 degrees QTc Int : 438 ms Normal sinus rhythm Possible Left atrial enlargement Borderline ECG When compared with ECG of 16-APR-2021 12:05, No significant change was found Referred By: Romelia Hills Electronically Signed By:Seabstián Pierre
[2023-06-24 23:50] LABS: MANUAL DIFF FLAG NO
[2023-06-24 23:53] LABS: Basophils Percent Auto 0.8 % (0-2); Eosinophils Absolute Auto 0.1 X10*3/uL (0.0-0.4); Eosinophils Percent Auto 2.5 % (0-4); Hematocrit 36.1 % (37.0-47.0); Hemoglobin 12.3 g/dl (12.0-16.0); Imm Gran Abs Auto 0.01 X10*3/uL (0.00-0.03); Imm Gran Pct Auto 0.2 % (0.0-0.4); Lymphocytes Absolute Auto 1.7 X10*3/uL (1.2-4.9); Lymphocytes Percent Auto 33.2 % (20-40); Mean Corpuscular HGB Conc 34.1 g/dl (31.0-35.0); Mean Corpuscular Hemoglobin 29.9 pg (27.0-33.0); Mean Corpuscular Volume 87.6 fL (80.0-98.0); Mean Platelet Volume 10.7 fL (9.4-12.3); Monocytes Absolute Auto 0.9 X10*3/uL (0.1-1.2); Monocytes Percent Auto 16.2 % (2-11); Neutrophils Absolute Auto 2.5 x10*3/uL (2.0-8.3); Neutrophils Percent Auto 47.1 % (45-73); Platelet Count 168 X10*3/uL (160-400); Red Blood Count 4.12 X10*6/uL (4.20-5.50); Red Cell Distribution Width 14.3 % (11.0-16.0); White Blood Count 5.2 X10*3/uL (4.8-10.8)
--- NOTE | 2023-06-24 23:54 | ED_ITS ---
HPI - General Adult General Chief complaint: Extremity Problem Stated complaint: L leg swelling below knee to ankle Time Seen by Provider: 06/24/23 22:42 Source: patient Mode of arrival: EMS History of Present Illness HPI narrative: 82-year-old female who states that she has had increasing redness and swelling within the left lower extremity and denies being diabetic and otherwise denies any fever/chills/shortness of breath/chest pain or abdominal discomfort. Related Data Previous Rx's ?Medication ?Instructions ?Recorded aspirin 81 mg tablet,delayed 81 mg PO DAILY 90 days #90 tabs 01/20/22 release multivitamin 1 tab PO DAILY 90 days #90 tabs 01/20/22 polyethylene glycol 3350 17 gram 17 g PO BEDTIME #100 ea 01/20/22 oral powder packet (Miralax) Lactobacillus rhamnosus GG 12 1 cap PO .qd #20 caps 03/12/22 billion cell-inulin 200 mg capsule ([employer]ios[employer]) calcium carbonate 500 mg calcium 500 mg PO DAILY 90 days #90 tabs 05/05/22 (1,250 mg) tablet (Oyster Shell Calcium) cholecalciferol (vitamin D3) 25 25 mcg PO DAILY #90 tabs 05/05/22 mcg (1,000 unit) tablet mupirocin 2 % topical ointment 1 appl topical BID 10 days #22 05/20/22 grams meloxicam 7.5 mg tablet 7.5 mg PO DAILY #30 tabs 06/27/22 amlodipine 5 mg tablet 5 mg PO DAILY #90 tabs 07/13/22 lisinopril 40 mg tablet 40 mg PO DAILY #90 tabs 07/13/22 polymyxin B sulfate 10,000 1 drp ophthalmic (eye) Q3H 7 days 10/18/22 unit-trimethoprim 1 mg/mL eye #10 mL drops (Polytrim) lactulose 20 gram/30 mL oral 20 g (30 mL) PO BID #1,500 mL 10/29/22 solution ezetimibe 10 mg-simvastatin 10 mg 1 tab PO BEDTIME 90 days #90 tabs 04/12/23 tablet (Vytorin) quetiapine 100 mg tablet 50 mg (1/2 x 100 mg) PO BEDTIME 90 04/15/23 days #45 tabs ursodiol 300 mg capsule 300 mg PO BID #180 caps 06/06/23 tramadol 50 mg tablet 50 mg PO TID PRN pain 7 days #21 06/13/23 tabs cephalexin 500 mg capsule 500 mg PO BID 5 days #10 caps 06/25/23 Allergies Allergy/AdvReac Type Severity Reaction Status Date / Time fentanyl [FENTANYL] Allergy Severe CARDIAC Verified 06/24/23 22:55 ARREST, heart stopped, anaphylaxis nickel Allergy Intermediate Rash Uncoded 06/24/23 22:55 paper tape Allergy Intermediate Rash Uncoded 06/24/23 22:55 Review of Systems 2 Review of Systems: Pertinent positives and negatives as stated in HPI [facility] Past Medical History Source: nursing notes reviewed Medical History Cellulitis Other specified disorders of bone density and structure, right upper arm Proximal humerus fracture Hip fracture, right Retinal artery branch occlusion, left eye Anxiety Osteoporosis Psoriasis Pulmonary nodule Compression fracture of L2 lumbar vertebra Pulmonary embolism Cellulitis Malignant tumor body uterus HTN (hypertension) High cholesterol Lymphedema Surgical History History of esophagogastroduodenoscopy (EGD) Hx of colonoscopy History of surgery History of tonsillectomy and adenoidectomy History of solitary pulmonary nodule History of removal of cyst History of open reduction and internal fixation (ORIF) procedure History of tubal ligation History of hip replacement Family History Family History Father Stroke Hypertension Mother Hypertension CVD (cardiovascular disease) Myocardial infarction Brother Hypertension Sister Hypercholesteremia Hypertension Sister Hypertension Hypercholesteremia Social History Social History Household Members: None Housing: Apartment Do you presently have visiting nurse 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 home services: 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, 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) Alcohol intake: never Comment: SLEEPING Patient Tobacco Use Status: Former Tobacco user Tobacco use type: Cigarette Smoked in Last 30 Days: No e-Cigarette/Vaping Use: Never Used Second Hand Smoke Exposure: No Use of substances other than those prescribed or required for medical reasons: No Advance Directives: Yes Advance Directives on File: Yes Advance Directives Date on File: 01/16/20 service: No Current occupational status: retired Current occupational exposures/hazards: No Cognitive needs: Yes Hearing needs: No Vision needs: Yes (Pt has glasees for reading) Physical Exam ED Vital Signs: Vital Signs - 24 hr 06/24/23 22:53 06/25/23 00:09 06/25/23 00:10 Temperature 98.3 F 98.2 F Pulse Rate 97 98 Respiratory Rate 17 21 H Blood Pressure 150/78 H 170/92 H Pulse Oximetry 90 L 93 96 Oxygen Delivery Method Room Air Room Air Nasal Cannula Oxygen Flow Rate 2 BMI result Body Mass Index 26.7 VITAL SIGNS: Reviewed. GENERAL: Well developed, well nourished, in no acute distress. HEAD: Normocephalic/atraumatic EYES: PERRLA, EOMI EARS: Ext canals without abnormality NOSE: Nares patent bilateral OROPHARYNX: no oral lesions noted, posterior pharynx clear NECK: Supple, no adenopathy LUNGS: Normal breath sounds. No adventitious sounds or accessory muscle use. SpO2<90> on room air CARDIOVASCULAR: Regular rate and rhythm without noted murmurs, no JVD significant left lower extremity 2 to 3+ pitting edema ABDOMEN: Soft, non-tender, non-distended with bowel sounds. MUSCULOSKELETAL: No tenderness, deformities, or effusions noted on gross inspection. EXTREMITIES: No cyanosis, clubbing or edema. LLE: Noted erythema/induration as well as swelling to distal aspect of left lower extremity involving the ankle lower portion of the leg and foot, there is no evidence of injury or skin breaks SKIN: Inspection of the skin reveals no rashes NEUROLOGIC: Alert and oriented x 4. Strength and sensation to light touch were grossly intact x 4. Medical Decision Making Medical Decision Making [facility] Narrative: 2345: 82-year-old female with history and clinical presentation, DDX: Left lower extremity cellulitis, lower clinical suspicion for DVT, suspect possible CHF exacerbation with noted hypoxia and on review of prior visits I do not see evidence of hypoxia. INTERVENTION: 2 L nasal cannula, D-dimer, lactic acid/blood culture/Zosyn I reviewed all investigations and hematologic indices are negative for leukocytosis/left shift/anemia/thrombocytopenia. D-dimer demonstrates elevation at 577. Chemistry indices negative for GRACE/electrolyte or liver enzyme derangements and BNP is 36. Viral testing is negative for influenza/RSV/COVID- 19. Chest x-ray negative for infiltrate or evidence of venous congestion, there is a noted large hiatal hernia and otherwise my interpretation is in agreement with radiology's impression. Case was discussed with inpatient hospitalist and final dispo pending results from CT angio with PE protocol, if positive patient will be admitted, and if patient unable to tolerate being off of supplemental oxygen she will need to be admitted as well. She is already received initial antibiotics. Signed out to DR Yung - f/u CT angio PE Protocol Differential Diagnosis Differential Diagnoses: The differential diagnosis associated with the presentation includes Please see the discussion above Admission/Observation Consideration of admission/observation: Escalation of care including admission/observation considered Please see the discussion above Consult Healthcare Provider Management of the patient was discussed with: Hospitalist Please see the discussion above Lab Data MDM Lab Attestation statement: I reviewed the patient's lab results. Please see the discussion above 06/24/23 23:44 06/24/23 23:44 Labs: Lab Results 06/24/23 06/25/23 06/25/23 Range/Units 23:44 01:07 01:14 WBC 5.2 (4.8-10.8) X10*3/uL RBC 4.12 L (4.20-5.50) X10*6/uL Hgb 12.3 (12.0-16.0) g/dl Hct 36.1 L (37.0-47.0) % MCV 87.6 (80.0-98.0) fL MCH 29.9 (27.0-33.0) pg MCHC 34.1 (31.0-35.0) g/dl RDW 14.3 (11.0-16.0) % Plt Count 168 (160-400) X10*3/uL MPV 10.7 (9.4-12.3) fL Immature Gran % (Auto) 0.2 (0.0-0.4) % Neut % (Auto) 47.1 (45-73) % Lymph % (Auto) 33.2 (20-40) % Hudson % (Auto) 16.2 H (2-11) % Eos % (Auto) 2.5 (0-4) % Baso % (Auto) 0.8 (0-2) % Lymph # (Auto) 1.7 (1.2-4.9) X10*3/uL Hudson # (Auto) 0.9 (0.1-1.2) X10*3/uL Eos # (Auto) 0.1 (0.0-0.4) X10*3/uL Baso # (Auto) 0.0 (0.0-0.2) X10*3/uL Abs Immat Gran (auto) 0.01 (0.00-0.03) X10*3/uL Absolute Neuts (auto) 2.5 (2.0-8.3) x10*3/uL Absolute Nucleated RBC 0.000 (0.0-0.012) X10*3/uL Nucleated RBC % (auto) 0.0 (0.0-0.2) /100WBC D-Dimer High Sensitivty 577 NG/ML Sodium 137 (135-145) mmol/L Potassium 4.9 (3.3-5.1) mmol/L Chloride 103 (96-108) mmol/L Carbon Dioxide 27 (22-29) mmol/L Anion Gap 12 (12-20) BUN 18 H (9-16) mg/dL Creatinine 0.67 (0.5-1.4) mg/dL Estim Creat Clear Calc 58.8 Estimated GFR > 60 Random Glucose 91 (60-115) mg/dL Lactic Acid 0.8 (0.5-2.0) mmol/L Calcium 9.7 (8.4-10.2) mg/dL Total Bilirubin 0.3 (0.0-1.0) mg/dL AST 37 H (5-31) U/L ALT 31 (0-31) U/L Alkaline Phosphatase 73 (39-117) U/L B-Natriuretic Peptide 36 (<100) pg/mL Total Protein 7.4 (6.5-8.0) g/dL Albumin 3.9 (3.5-5.0) g/dL Influenza Type A (PCR) NEGATIVE (Negative) Influenza Type B (PCR) NEGATIVE (Negative) RSV RNA Qual (PCR) NEGATIVE (Negative) SARS-CoV-2 RNA (RT-PCR) NEGATIVE (Negative) Independent Interpretation I performed an independent interpretation of an: EKG Interpretation: Normal sinus rhythm, HR-87, no STEMI, CT-208 this is changed from prior on 04/16/2021, QRS/QTC is within normal limits, but otherwise no acute changes when compared to prior EKG. External Record Review External record reviewed: Outpatient record, Prior outpatient labs and Prior outpatient radiology Chronic Conditions Patient?s care impacted by: Diabetes and Hypertension Critical Care Time Critical Care Time Critical Care Time: Yes Total Critical Care Time: 60 Attestation: I personally attest to this time spent taking care of the patient. Discharge Plan Discharge Clinical Impression: Cellulitis of left leg, Hypoxia Patient Disposition: Still a Patient Instructions: Cellulitis (ED) Prescriptions: New cephalexin 500 mg capsule 500 mg PO BID 5 Days Qty: 10 0RF No Action aspirin 81 mg tablet,delayed release (DR/EC) 81 mg PO DAILY 90 Days Qty: 90 3RF multivitamin Tablet 1 tab PO DAILY 90 Days Qty: 90 3RF polyethylene glycol 3350 [Miralax] 17 gram powder in packet 17 g PO BEDTIME Qty: 100 1RF mupirocin 2 % ointment 1 appl topical BID 10 Days Qty: 22 0RF meloxicam 7.5 mg tablet 7.5 mg PO DAILY Qty: 30 0RF lisinopril 40 mg tablet 40 mg PO DAILY Qty: 90 2RF amlodipine 5 mg tablet 5 mg PO DAILY Qty: 90 2RF polymyxin B sulf-trimethoprim [Polytrim] 10,000 unit- 1 mg/mL drops 1 drp ophthalmic (eye) Q3H 7 Days Qty: 10 0RF Rx Instructions: while awake; do not exceed 6 doses in 24 hours lactulose 20 gram/30 mL solution 20 g PO BID Qty: 1500 0RF ezetimibe-simvastatin [Vytorin 10-10] 10-10 mg tablet 1 tab PO BEDTIME 90 Days Qty: 90 1RF quetiapine 100 mg tablet 50 mg PO BEDTIME 90 Days Qty: 45 2RF ursodiol 300 mg capsule 300 mg PO BID Qty: 180 2RF tramadol 50 mg tablet 50 mg PO TID PRN (Reason: pain) 7 Days Qty: 21 0RF [employer] 12 billion cell -200 mg capsule 1 cap PO .qd Qty: 20 0RF calcium carbonate [Oyster Shell Calcium] 500 mg calcium (1,250 mg) tablet 500 mg PO DAILY 90 Days Qty: 90 2RF cholecalciferol (vitamin D3) 25 mcg (1,000 unit) tablet 25 mcg PO DAILY Qty: 90 2RF Print Language: Mongolian
[2023-06-25] VITALS (8 sets, daily range): BP systolic 124–174; BP diastolic 64–94; PULSE 76–107; RESP 12–21; TEMP 36.4–36.8; O2SAT 89–98; BMI 24.7
--- NOTE | 2023-06-25 00:07 | MHC.EDTECH ---
00:00 Pt rang payton for help to the bathroom. This tech assisted her to the Bathroom, then back to bed, vitals obtained.
[2023-06-25 00:10] LABS: B Type Natriuretic Peptide 36 pg/mL (<100)
[2023-06-25 00:13] LABS: Alanine Aminotransferase 31 U/L (0-31); Albumin Level 3.9 g/dL (3.5-5.0); Alkaline Phosphatase 73 U/L (39-117); Anion Gap 12 (12-20); Aspartate Amino Transferase 37 U/L (5-31); Bilirubin Total 0.3 mg/dL (0.0-1.0); Blood Urea Nitrogen 18 mg/dL (9-16); Calcium 9.7 mg/dL (8.4-10.2); Carbon Dioxide 27 mmol/L (22-29); Chloride 103 mmol/L (96-108); Creatinine Clr Calc Pharmacy 58.8; Estimated Glomerular Filt Rate > 60; Glucose Random 91 mg/dL (60-115); Potassium 4.9 mmol/L (3.3-5.1); Sodium 137 mmol/L (135-145); Total Protein 7.4 g/dL (6.5-8.0)
[2023-06-25 00:27] LABS: Influenza A PCR NEGATIVE (Negative); Influenza B PCR NEGATIVE (Negative); Resp Syncy Virus RNA Qual PCR NEGATIVE (Negative); SARS COV2 PCR INHOUSE NEGATIVE (Negative)
[2023-06-25 01:34] LABS: D Dimer High Sensitivity 577 NG/ML
[2023-06-25 01:36] LABS: Lactic Acid 0.8 mmol/L (0.5-2.0)
--- NOTE | 2023-06-25 01:45 | PC.NURSE ---
pt ambulated to bathroom with walker. o2 on room air remains 89%. pt placed back on 2L NC per order; sats up to 96%. pt denies cp; reports i felt winded but thought it was due to nerves. nad. iv established. awaiting ct scan.
[2023-06-25] MEDS: Piperacillin Sodium/Tazobactam 3.375 GM in 0.9 % Sodium Chloride 50 ML IV (01:55)
[2023-06-25] MEDS: iohexoL 350 MG/ML 100 ML INFUS..BTL 65 ML IV (02:16)
--- NOTE | 2023-06-25 02:34 | P.HPHOSP_ITS ---
History of Present Illness Date of Service: 06/25/23 Chief Complaint: Leg swelling This is a 82-year-old female with pertinent history of essential hypertension, mood disorder, lymphedema, mixed hyperlipidemia who presents to the emergency department for evaluation of swelling, redness and warmth of left lower extremity. Patient states it has been ongoing over the last 2 days and she is noticed increased redness and swelling of the left lower extremity. Does have a history of leg cellulitis due to lymphedema in the past. No fever, chills, chest discomfort, palpitations, shortness of breath, abdominal pain, changes in urinary or bowel habits. Denies history of asthma or COPD In the emergency department, patient was found to be satting 89% on room air and placed on 2 L supplemental oxygen. Review of Systems 2 Constitutional: Constitutional: Reports no additional constitutional complaints Cardiovascular: Cardiovascular: Reports no additional cardiovascular complaints Respiratory: Respiratory: Reports no additional respiratory complaints Gastrointestinal: Gastrointestinal: Reports no additional gastrointestinal complaints Genitourinary: Genitourinary: Reports no additional female genitourinary complaints [facility] Medical History Cellulitis Other specified disorders of bone density and structure, right upper arm Proximal humerus fracture Hip fracture, right Retinal artery branch occlusion, left eye Anxiety Osteoporosis Psoriasis Pulmonary nodule Compression fracture of L2 lumbar vertebra Pulmonary embolism Cellulitis Malignant tumor body uterus HTN (hypertension) High cholesterol Lymphedema Family History Father Stroke Hypertension Mother Hypertension CVD (cardiovascular disease) Myocardial infarction Brother Hypertension Sister Hypercholesteremia Hypertension Sister Hypertension Hypercholesteremia Surgical History History of esophagogastroduodenoscopy (EGD) Hx of colonoscopy History of surgery History of tonsillectomy and adenoidectomy History of solitary pulmonary nodule History of removal of cyst History of open reduction and internal fixation (ORIF) procedure History of tubal ligation History of hip replacement Social History Household Members: None Housing: Apartment Do you presently have visiting nurse or other home services: Yes ([employer], 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) Alcohol intake: never Comment: SLEEPING Patient Tobacco Use Status: Former Tobacco user Tobacco use type: Cigarette Smoked in Last 30 Days: No e-Cigarette/Vaping Use: Never Used Second Hand Smoke Exposure: No Use of substances other than those prescribed or required for medical reasons: No Advance Directives: Yes Advance Directives on File: Yes Advance Directives Date on File: 01/16/20 Nutrition Risks: No Nutritional Risk service: No Current occupational status: retired Current occupational exposures/hazards: No Cognitive needs: Yes Hearing needs: No Vision needs: Yes (Pt has glasees for reading) Meds Allergies Allergy/AdvReac Type Severity Reaction Status Date / Time fentanyl [FENTANYL] Allergy Severe CARDIAC Verified 06/24/23 22:55 ARREST, heart stopped, anaphylaxis nickel Allergy Intermediate Rash Uncoded 06/24/23 22:55 paper tape Allergy Intermediate Rash Uncoded 06/24/23 22:55 Physical Exam 2 Vital Signs and Narrative: Vital Signs: Last Vital Signs Temp 98.2 F 06/25/23 00:09 Pulse 98 06/25/23 00:09 Resp 21 H 06/25/23 00:09 BP 170/92 H 06/25/23 00:09 Pulse Ox 89 L 06/25/23 01:45 O2 Del Method Room Air 06/25/23 01:45 O2 Flow Rate 2 06/25/23 00:10 BMI result Body Mass Index 26.7 Elderly female lying in bed in no distress on supplemental oxygen Neck supple, no JVD Regular rate and rhythm, S1-S2 heard Regular breath sounds bilaterally, no wheezing or crackles appreciated Abdomen soft nontender, no guarding, no rigidity Patient is awake, alert and oriented to self, place, time and person ; no focal motor deficit Psych: Normal mood Left lower extremity with swelling, erythema and warmth Results Labs 06/24/23 23:44 06/24/23 23:44 Labs: Laboratory Results - last 24 hr 06/24/23 06/25/23 06/25/23 23:44 01:07 01:14 MCV 87.6 MCH 29.9 MCHC 34.1 RDW 14.3 Plt Count 168 MPV 10.7 Immature Gran % (Auto) 0.2 Neut % (Auto) 47.1 Lymph % (Auto) 33.2 Gem % (Auto) 16.2 H Eos % (Auto) 2.5 Baso % (Auto) 0.8 Lymph # (Auto) 1.7 Gem # (Auto) 0.9 Eos # (Auto) 0.1 Baso # (Auto) 0.0 Abs Immat Gran (auto) 0.01 Absolute Neuts (auto) 2.5 Absolute Nucleated RBC 0.000 Nucleated RBC % (auto) 0.0 D-Dimer High Sensitivty 577 Anion Gap 12 Estim Creat Clear Calc 58.8 Estimated GFR > 60 Random Glucose 91 Lactic Acid 0.8 Calcium 9.7 Total Bilirubin 0.3 AST 37 H ALT 31 Alkaline Phosphatase 73 B-Natriuretic Peptide 36 Total Protein 7.4 Albumin 3.9 Influenza Type A (PCR) NEGATIVE Influenza Type B (PCR) NEGATIVE RSV RNA Qual (PCR) NEGATIVE SARS-CoV-2 RNA (RT-PCR) NEGATIVE Imaging Radiologist's Impressions: Impressions Chest X-Ray 06/24/23 23:55 IMPRESSION: 1. No acute abnormality of chest. 2. Large hiatal hernia. Assessment and Plan (1) Hypoxia: Status: Acute (2) Cellulitis of left leg: Status: Acute Plan This is a 82-year-old female with pertinent history of essential hypertension, mood disorder, lymphedema, mixed hyperlipidemia who presents to the emergency department for evaluation of swelling, redness and warmth of left lower extremity. #. Acute hypoxemic respiratory failure: restrictive due to hiatal hernia vs reccurent micro-aspiration pneumonitis due to hiatal hernia. 89% on RA in ED, on 2L o2. #. Left lower extremity cellulitis: Due to lymphedema. Initiating empiric IV antibiotics while in the hospital. Monitor for improvement #. Essential hypertension: Continue home antihypertensives #. Mixed hyperlipidemia: On Zetia #. Mood disorder: Continue home mood stabilizers Med rec pending DVT prophylaxis: Lovenox Full code Admit as inpatient and will require two night minimum hospital stay for supplemental oxygen (as above), which is not possible in a lesser acute setting. Quality Stroke Does the patient have a stroke diagnosis?: No VTE Prior VTE?: No VTE Risk Level:: Medical - moderate - high VTE Device Contraindication: Treatment Not Indicated VTE Drug Contraindication: N/A - Med Ordered
--- NOTE | 2023-06-25 05:00 | MHC.EDTECH ---
04:51 Patient rang her call cain to go to the bathroom. This tech assisted her to the bathroom, and got her back into bed. vitals obtained
[2023-06-25] MEDS: Enoxaparin Sodium 40 MG/0.4 ML SYRINGE SUBCUT (05:59)
[2023-06-25 06:12] LABS: Basophils Percent Auto 0.6 % (0-2); Eosinophils Absolute Auto 0.1 X10*3/uL (0.0-0.4); Eosinophils Percent Auto 1.9 % (0-4); Hematocrit 39.6 % (37.0-47.0); Hemoglobin 13.5 g/dl (12.0-16.0); Imm Gran Abs Auto 0.01 X10*3/uL (0.00-0.03); Imm Gran Pct Auto 0.2 % (0.0-0.4); Lymphocytes Absolute Auto 1.5 X10*3/uL (1.2-4.9); Lymphocytes Percent Auto 28.4 % (20-40); MANUAL DIFF FLAG NO; Mean Corpuscular HGB Conc 34.1 g/dl (31.0-35.0); Mean Corpuscular Hemoglobin 29.9 pg (27.0-33.0); Mean Corpuscular Volume 87.8 fL (80.0-98.0); Mean Platelet Volume 10.5 fL (9.4-12.3); Monocytes Absolute Auto 0.7 X10*3/uL (0.1-1.2); Monocytes Percent Auto 12.3 % (2-11); Neutrophils Percent Auto 56.6 % (45-73); Platelet Count 175 X10*3/uL (160-400); Red Blood Count 4.51 X10*6/uL (4.20-5.50); Red Cell Distribution Width 14.5 % (11.0-16.0); White Blood Count 5.4 X10*3/uL (4.8-10.8)
--- NOTE | 2023-06-25 06:16 | MHC.EDTECH ---
06:14 Patient rang her call cain to go to the bathroom. This tech assisted her to the bathroom, and got her back into bed.
[2023-06-25 06:25] LABS: Anion Gap 11 (12-20); Blood Urea Nitrogen 13 mg/dL (9-16); Calcium 9.8 mg/dL (8.4-10.2); Carbon Dioxide 28 mmol/L (22-29); Chloride 103 mmol/L (96-108); Estimated Glomerular Filt Rate > 60; Glucose Random 102 mg/dL (60-115); Potassium 4.8 mmol/L (3.3-5.1); Sodium 137 mmol/L (135-145)
[2023-06-25] MEDS: vancomycin HCL 1,000 MG, vancomycin HCL 750 MG in 0.9 % Sodium Chloride 500 ML 267.5 MG IV (06:44)
--- NOTE | 2023-06-25 08:37 | PHA.MEDREC ---
Pharmacy Consult ? Medication Reconciliation Pharmacy has completed the medication reconciliation. Patient able to name all medications and strengths unprompted. Noted she did not take anything yesterday, and her doctor told her to stop taking baby aspirin.
--- NOTE | 2023-06-25 09:32 | PHA.PROG ---
Admission Date/Time: June 25, 2023 02:32 Indication: SKIN INFECTION Weight in k.3 kg Adjusted body weight in Kg: [place] body weight in Kg: Obesity Dosing Indication % IBW: Serum Creatinine - Last 168 Hours 06/24/23 06/25/23 23:44 06:07 Creatinine 0.67 0.73 Estimated CrCl and GFR - Last 168 Hours 06/24/23 06/25/23 23:44 06:07 Estim Creat Clear Calc 58.8 54.0 Estimated GFR > 60 > 60 Vancomycin Loading Dose: 1750 MG Current Vancomycin Dosing Regimen: 1250 MG Q24H Vancomycin Monitoring using AUC goal of 400 - 600 range with trough as surrogate marker: [id number] TROUGH=13 Date and Time for next Vancomycin Level to be drawn: 06/27/23 @0600 Pharmacist Comments on Vancomycin Plan: Vancomycin dosing will take advantage of [employer] as a clinical decision support tool that uses Bayesian modeling to calculate individual patient's pharmacokinetic parameters and forecast the patient's drug concentration time course with the target goal AUC 24 range of 400 - 600 mg/L/hr.
[2023-06-25] MEDS: lisinopriL 40 MG TABLET PO (10:13)
[2023-06-25] MEDS: UrsodioL 300 MG CAPSULE PO ×2 (10:13→23:13)
[2023-06-25] MEDS: Multivitamin TABLET 1 TAB PO (10:13)
[2023-06-25] MEDS: amLODIPine Besylate 5 MG TABLET PO (10:13)
[2023-06-25] MEDS: traMADoL HCL 50 MG TABLET PO (11:51)
--- NOTE | 2023-06-25 12:11 | PM.EVENT ---
Event Note Date of Service: 06/25/23 Event Note: Chart reviewed patient examined. Agree with H&P and plan as outlined. IV antibiotics times 24 more hours than likely DC back to rehab Time Spent With Patient Time: Total time managing care of this patient today ____ minutes.
--- NOTE | 2023-06-25 15:14 | HO.THORCONS ---
History of Present Illness Consult details Consult date: 06/25/23 Narrative: Patient is an 82-year-old female with a plethora of medical problems including left lower extremity cellulitis, who had an incidental finding of a large asymptomatic hiatal hernia. Patient denies any history of dyspepsia or upper GI issues or complaints or reflux symptoms. She has tolerating a diet. He is having regular bowel habits. Chart was reviewed and patient evaluated PMFSH Past Medical History Medical History Cellulitis Other specified disorders of bone density and structure, right upper arm Proximal humerus fracture Hip fracture, right Retinal artery branch occlusion, left eye Anxiety Osteoporosis Psoriasis Pulmonary nodule Compression fracture of L2 lumbar vertebra Pulmonary embolism Cellulitis Malignant tumor body uterus HTN (hypertension) High cholesterol Lymphedema Family History Family History Father Stroke Hypertension Mother Hypertension CVD (cardiovascular disease) Myocardial infarction Brother Hypertension Sister Hypercholesteremia Hypertension Sister Hypertension Hypercholesteremia Surgical History Surgical History History of esophagogastroduodenoscopy (EGD) Hx of colonoscopy History of surgery History of tonsillectomy and adenoidectomy History of solitary pulmonary nodule History of removal of cyst History of open reduction and internal fixation (ORIF) procedure History of tubal ligation History of hip replacement Social History Social History Household Members: None Housing: Apartment Do you presently have visiting nurse or other home services: Yes Alcohol intake: never Comment: SLEEPING Patient Tobacco Use Status: Former Tobacco user Tobacco use type: Cigarette Smoked in Last 30 Days: No e-Cigarette/Vaping Use: Never Used Second Hand Smoke Exposure: No Use of substances other than those prescribed or required for medical reasons: No Currently Displaying Signs/Symptoms of Drug Intoxication Withdrawal: No Do you feel safe in your current relationship?: No Current Relationship Advance Directives: Yes Advance Directives on File: Yes Advance Directives Date on File: 01/16/20 Do you have thoughts of harming others: None Do you have a plan to hurt others: No Plan Recently lost weight without trying: No Nutrition Risks: No Nutritional Risk Patient : No : No Poor oral hygiene: No service: No Current occupational status: retired Current occupational exposures/hazards: No Cognitive needs: Yes Hearing needs: No Vision needs: Yes (Pt has glasees for reading) Meds Allergies Allergy/AdvReac Type Severity Reaction Status Date / Time fentanyl [FENTANYL] Allergy Severe CARDIAC Verified 06/24/23 22:55 ARREST, heart stopped, anaphylaxis nickel Allergy Intermediate Rash Uncoded 06/24/23 22:55 paper tape Allergy Intermediate Rash Uncoded 06/24/23 22:55 Active Medications: Current Medications Acetaminophen (Acetaminophen 325 Mg Tablet) 650 mg PO Q6H PRN PRN Reason: Pain, Mild (Pain Scale 1-3) Amlodipine Besylate (Amlodipine Besylate 5 Mg Tablet) 5 mg PO DAILY [facility]; Protocol Last Admin: 06/25/23 10:13 Dose: 5 mg Atorvastatin Calcium (Atorvastatin Calcium 10 Mg Tablet) 10 mg PO BEDTIME HANY Calcium Carbonate (Calcium Carbonate 500 Mg Tablet) 500 mg PO DAILY [facility] Last Admin: 06/25/23 10:13 Dose: 500 mg Ezetimibe (Ezetimibe 10 Mg Tablet) 10 mg PO BEDTIME HANY Enoxaparin Sodium (Enoxaparin Sodium 40 Mg/0.4 Ml Syringe) 40 mg SUBCUT Q24H HANY Last Admin: 06/25/23 05:59 Dose: 40 mg Vancomycin HCl 1,250 mg/ (Sodium Chloride) 250 mls @ 166.667 mls/hr IV Q24H HANY Lactulose (Lactulose 20 Gm/30 Ml Solution) 20 gm PO BID PRN PRN Reason: Constipation Lisinopril (Lisinopril 40 Mg Tablet) 40 mg PO DAILY [facility]; Protocol Last Admin: 06/25/23 10:13 Dose: 40 mg Melatonin (Melatonin 3 Mg Tablet) 6 mg PO BEDTIME PRN PRN Reason: Insomnia Multivitamins/Vitamin C (Multivitamin Tablet) 1 tab PO DAILY [facility] Last Admin: 06/25/23 10:13 Dose: 1 tab Ondansetron HCl (Ondansetron Hcl 4 Mg/2 Ml Vial) 4 mg IVPUSH Q8H PRN PRN Reason: Nausea and Vomiting Pharmacy Consult (Consult Rx Vancomycin Dosing) 1 each MISCELLANE DAILY PRN PRN Reason: Consult order Polyethylene Glycol (Polyethylene Glycol 3350 17 Gm Powd.Pack) 17 gm PO BEDTIME HANY Quetiapine Fumarate (Quetiapine Fumarate 50 Mg Tablet) 50 mg PO BEDTIME [facility] Sodium Chloride (0.9 % Sodium Chloride Flush 3 Ml Syringe) 3 ml IVFLUSH QSHIFT [facility] Last Admin: 06/25/23 09:01 Dose: Not Given Tramadol HCl (Tramadol Hcl 50 Mg Tablet) 50 mg PO Q6H PRN PRN Reason: Pain, Moderate(Pain Scale 4-6) Last Admin: 06/25/23 11:51 Dose: 50 mg Ursodiol (Ursodiol 300 Mg Capsule) 300 mg PO BID [facility] Last Admin: 06/25/23 10:13 Dose: 300 mg Home Medications ?Medication ?Instructions ?Recorded ?Confirmed ?Last Taken ?Type lactulose 20 gram/30 mL oral 20 g PO BID PRN Constipation 06/25/23 06/25/23 06/23/23 History solution Physical Exam Vital Signs: Vital Signs: Last Vital Signs Temp 97.5 F 06/25/23 10:01 Pulse 95 06/25/23 10:01 Resp 18 06/25/23 10:01 BP 148/64 H 06/25/23 10:01 Pulse Ox 98 06/25/23 10:01 O2 Del Method Nasal Cannula 06/25/23 10:01 O2 Flow Rate 2.0 06/25/23 10:01 BMI result Body Mass Index 24.7 Chest: Other: Chest breath sounds bilaterally GI: Other: Abdomen soft, benign Results Labs 06/25/23 06:07 06/25/23 06:07 Labs: Abnormal lab results 06/24/23 06/25/23 Range/Units 23:44 06:07 RBC 4.12 L (4.20-5.50) X10*6/uL Hct 36.1 L (37.0-47.0) % Bond % (Auto) 16.2 H 12.3 H (2-11) % Anion Gap 11 L (12-20) BUN 18 H (9-16) mg/dL AST 37 H (5-31) U/L Short CBC 06/24/23 06/25/23 Range/Units 23:44 06:07 WBC 5.2 5.4 (4.8-10.8) X10*3/uL Hgb 12.3 13.5 (12.0-16.0) g/dl Hct 36.1 L 39.6 (37.0-47.0) % Plt Count 168 175 (160-400) X10*3/uL BMP 06/24/23 06/25/23 23:44 06:07 Sodium 137 137 Potassium 4.9 4.8 Chloride 103 103 Carbon Dioxide 27 28 BUN 18 H 13 Creatinine 0.67 0.73 Calcium 9.7 9.8 Liver Function 06/24/23 Range/Units 23:44 Total Bilirubin 0.3 (0.0-1.0) mg/dL AST 37 H (5-31) U/L ALT 31 (0-31) U/L Alkaline Phosphatase 73 (39-117) U/L Albumin 3.9 (3.5-5.0) g/dL All other labs normal. Assessment and Plan (1) Hiatal hernia: Status: Acute Plan At present, no surgical intervention warranted for asymptomatic hiatal hernia. Patient has a collection of medical problems and is not an optimal candidate for elective excision especially with an asymptomatic findings. No acute surgical issues at this time. Will follow-up p.r.n. Procedures Date of Service Date of Service: 06/25/23
[2023-06-25] MEDS: 0.9 % Sodium Chloride Flush 3 ML SYRINGE IVFLUSH (15:30)
[2023-06-25] MEDS: polyethylene glycoL 3350 17 GM POWD.PACK PO (23:13)
[2023-06-25] MEDS: QUEtiapine Fumarate 50 MG TABLET PO (23:13)
[2023-06-26 02:25] VITALS: BP 125/60; PULSE 74; RESP 18; TEMP 36; O2SAT 96
[2023-06-26] MEDS: Enoxaparin Sodium 40 MG/0.4 ML SYRINGE SUBCUT (05:42)
[2023-06-26 06:04] LABS: MANUAL DIFF FLAG NO
[2023-06-26 06:17] LABS: Basophils Percent Auto 0.6 % (0-2); Eosinophils Absolute Auto 0.1 X10*3/uL (0.0-0.4); Eosinophils Percent Auto 1.6 % (0-4); Hematocrit 35.1 % (37.0-47.0); Hemoglobin 11.8 g/dl (12.0-16.0); Imm Gran Abs Auto 0.01 X10*3/uL (0.00-0.03); Imm Gran Pct Auto 0.2 % (0.0-0.4); Lymphocytes Absolute Auto 1.6 X10*3/uL (1.2-4.9); Lymphocytes Percent Auto 32.8 % (20-40); Mean Corpuscular HGB Conc 33.6 g/dl (31.0-35.0); Mean Corpuscular Hemoglobin 29.3 pg (27.0-33.0); Mean Corpuscular Volume 87.1 fL (80.0-98.0); Mean Platelet Volume 11.5 fL (9.4-12.3); Monocytes Absolute Auto 0.8 X10*3/uL (0.1-1.2); Monocytes Percent Auto 15.6 % (2-11); Neutrophils Absolute Auto 2.4 x10*3/uL (2.0-8.3); Neutrophils Percent Auto 49.2 % (45-73); Platelet Count 167 X10*3/uL (160-400); Red Blood Count 4.03 X10*6/uL (4.20-5.50); Red Cell Distribution Width 14.2 % (11.0-16.0); White Blood Count 4.9 X10*3/uL (4.8-10.8)
[2023-06-26 06:50] LABS: Alanine Aminotransferase 28 U/L (0-31); Albumin Level 3.5 g/dL (3.5-5.0); Alkaline Phosphatase 66 U/L (39-117); Anion Gap 15 (12-20); Aspartate Amino Transferase 33 U/L (5-31); Bilirubin Total 0.5 mg/dL (0.0-1.0); Blood Urea Nitrogen 15 mg/dL (9-16); Calcium 9.6 mg/dL (8.4-10.2); Carbon Dioxide 24 mmol/L (22-29); Chloride 102 mmol/L (96-108); Estimated Glomerular Filt Rate > 60; Glucose Fasting 109 mg/dL (60-99); Potassium 3.7 mmol/L (3.3-5.1); Sodium 137 mmol/L (135-145); Total Protein 6.9 g/dL (6.5-8.0)
[2023-06-26 07:35] VITALS: BP 145/73; PULSE 79; RESP 18; TEMP 36.3; O2SAT 92
[2023-06-26] MEDS: 0.9 % Sodium Chloride Flush 3 ML SYRINGE IVFLUSH ×3 (07:37→20:26)
[2023-06-26] MEDS: vancomycin HCL 1,250 MG in 0.9 % Sodium Chloride 250 ML 166.67 MG IV (07:39)
[2023-06-26] MEDS: amLODIPine Besylate 5 MG TABLET PO (08:16)
[2023-06-26] MEDS: Multivitamin TABLET 1 TAB PO (08:16)
[2023-06-26] MEDS: UrsodioL 300 MG CAPSULE PO ×2 (08:17→20:25)
[2023-06-26] MEDS: lisinopriL 40 MG TABLET PO (08:17)
[2023-06-26] MEDS: traMADoL HCL 50 MG TABLET PO (08:19)
--- NOTE | 2023-06-26 12:10 | HO.PM.IMPN ---
Subjective Subjective Date of Service: 06/26/23 Interval History: No acute issues. Responding well to therapies. Review of Systems Denies chest pain Denies shortness of breath Denies nausea vomiting diarrhea Denies fever chills Physical Exam Vital Signs: Vital Signs: Last Vital Signs Temp 97.4 F 06/26/23 07:35 Pulse 79 06/26/23 07:35 Resp 18 06/26/23 07:35 BP 145/73 H 06/26/23 07:35 Pulse Ox 92 06/26/23 07:35 O2 Del Method Room Air 06/26/23 07:35 O2 Flow Rate 2.0 06/25/23 15:17 BMI result Body Mass Index 24.7 Const: Other: Awake alert no acute distress Resp: Other: Clear to auscultation bilaterally no rales rhonchi or wheezes Cardio: Other: No S4; positive S1-S2; no S3 murmurs rubs or gallops GI: Other: Soft nontender nondistended normoactive bowel sounds Extrem: Other: Left lower extremity erythema mildly improved since admission Objective Data Active Medications Acetaminophen (Acetaminophen 325 Mg Tablet) 650 mg PO Q6H PRN PRN Reason: Pain, Mild (Pain Scale 1-3) Amlodipine Besylate (Amlodipine Besylate 5 Mg Tablet) 5 mg PO DAILY REPLACED BY [facility]; Protocol Last Admin: 06/26/23 08:16 Dose: 5 mg Documented By: CHUNG Atorvastatin Calcium (Atorvastatin Calcium 10 Mg Tablet) 10 mg PO BEDTIME REPLACED BY [facility] Last Admin: 06/25/23 23:14 Dose: Not Given Documented By: LISANDRA Non-Admin Reason: Patient Refused Calcium Carbonate (Calcium Carbonate 500 Mg Tablet) 500 mg PO DAILY REPLACED BY [facility] Last Admin: 06/26/23 08:17 Dose: 500 mg Documented By: CHUNG Ezetimibe (Ezetimibe 10 Mg Tablet) 10 mg PO BEDTIME REPLACED BY [facility] Last Admin: 06/25/23 23:13 Dose: Not Given Documented By: LISANDRA Non-Admin Reason: Patient Refused Enoxaparin Sodium (Enoxaparin Sodium 40 Mg/0.4 Ml Syringe) 40 mg SUBCUT Q24H REPLACED BY [facility] Last Admin: 06/26/23 05:42 Dose: 40 mg Documented By: LISANDRA Vancomycin HCl 1,250 mg/ (Sodium Chloride) 250 mls @ 166.667 mls/hr IV Q24H REPLACED BY [facility] Last Infusion: 06/26/23 09:11 Dose: Infused Documented By: CHUNG Lactulose (Lactulose 20 Gm/30 Ml Solution) 20 gm PO BID PRN PRN Reason: Constipation Lisinopril (Lisinopril 40 Mg Tablet) 40 mg PO DAILY REPLACED BY [facility]; Protocol Last Admin: 06/26/23 08:17 Dose: 40 mg Documented By: CHUNG Melatonin (Melatonin 3 Mg Tablet) 6 mg PO BEDTIME PRN PRN Reason: Insomnia Multivitamins/Vitamin C (Multivitamin Tablet) 1 tab PO DAILY REPLACED BY [facility] Last Admin: 06/26/23 08:16 Dose: 1 tab Documented By: CHUNG Ondansetron HCl (Ondansetron Hcl 4 Mg/2 Ml Vial) 4 mg IVPUSH Q8H PRN PRN Reason: Nausea and Vomiting Pharmacy Consult (Consult Rx Vancomycin Dosing) 1 each MISCELLANE DAILY PRN PRN Reason: Consult order Polyethylene Glycol (Polyethylene Glycol 3350 17 Gm Powd.Pack) 17 gm PO BEDTIME REPLACED BY [facility] Last Admin: 06/25/23 23:13 Dose: 17 gm Documented By: LISANDRA Quetiapine Fumarate (Quetiapine Fumarate 50 Mg Tablet) 50 mg PO BEDTIME REPLACED BY [facility] Last Admin: 06/25/23 23:13 Dose: 50 mg Documented By: LISANDRA Sodium Chloride (0.9 % Sodium Chloride Flush 3 Ml Syringe) 3 ml IVFLUSH QSHIFT REPLACED BY [facility] Last Admin: 06/26/23 07:37 Dose: 3 ml Documented By: CHUNG Tramadol HCl (Tramadol Hcl 50 Mg Tablet) 50 mg PO Q6H PRN PRN Reason: Pain, Moderate(Pain Scale 4-6) Last Admin: 06/26/23 08:19 Dose: 50 mg Documented By: CHUNG Ursodiol (Ursodiol 300 Mg Capsule) 300 mg PO BID REPLACED BY [facility] Last Admin: 06/26/23 08:17 Dose: 300 mg Documented By: CHUNG Labs 06/26/23 05:40 06/26/23 05:40 Labs: Laboratory Results - last 24 hr 06/26/23 05:40 MCV 87.1 MCH 29.3 MCHC 33.6 RDW 14.2 Plt Count 167 MPV 11.5 Immature Gran % (Auto) 0.2 Neut % (Auto) 49.2 Lymph % (Auto) 32.8 [place] % (Auto) 15.6 H Eos % (Auto) 1.6 Baso % (Auto) 0.6 Lymph # (Auto) 1.6 [place] # (Auto) 0.8 Eos # (Auto) 0.1 Baso # (Auto) 0.0 Abs Immat Gran (auto) 0.01 Absolute Neuts (auto) 2.4 Absolute Nucleated RBC 0.000 Nucleated RBC % (auto) 0.0 Anion Gap 15 Estim Creat Clear Calc 52.0 Estimated GFR > 60 Fasting Glucose 109 H Calcium 9.6 Total Bilirubin 0.5 AST 33 H ALT 28 Alkaline Phosphatase 66 Total Protein 6.9 Albumin 3.5 Microbiology Microbiology Results: Microbiology 06/25/23 01:14 Blood Culture - Preliminary Blood - Venous No growth after 24 hours. 06/25/23 01:07 Blood Culture - Preliminary Blood - Venous No growth after 24 hours. Assessment and Plan (1) Hypoxia: Status: Acute Plan This is a 82-year-old female with pertinent history of essential hypertension, mood disorder, lymphedema, mixed hyperlipidemia who presents to the emergency department for evaluation of swelling, redness and warmth of left lower extremity. Venous duplex negative for DVT 1.Acute hypoxemic respiratory failure (likely reccurent micro-aspiration pneumonitis due to hiatal hernia) -no white count; CT without acute infiltrate -oxygen titrated off. . Sats acceptable on room air 2.Left lower extremity cellulitis -vancomycin (2)... Discharged on doxycycline p.o. when appropriate -cultures negative times 24 hours 3.Essential hypertension -acceptable control on current therapies -adjust as indicated 4.Mood disorder -stable and well compensated -continue current therapies Lovenox Full code Patient requires ongoing hospitalization for IV antibiotics to treat left lower extremity cellulitis pending negative cultures times 48 hours Quality Stroke Does the patient have a stroke diagnosis?: No VTE Prior VTE?: No VTE Risk Level:: Medical - moderate - high VTE Device Contraindication: Treatment Not Indicated VTE Drug Contraindication: N/A - Med Ordered
[2023-06-26 15:08] VITALS: BP 114/64; PULSE 74; RESP 15; TEMP 36.6; O2SAT 92
--- NOTE | 2023-06-26 16:25 | MHC.CM.PN ---
PT REPORTS SHE LIVES ALONE SHE HAS [facility] 4.5 HOURS PER WEEK FOR GROCERY SHOPPING AND WASHING HER HAIR SHE USES A ROLLATOR HCP ON FILE AND VERIFIED PCP: KENY GALLARDO IMM DELIVERED DCP: HOME RESUME [facility] PT WILL NEED SHUTTLE VS LYFT TRANSPORT
[2023-06-26 20:00] VITALS: BP 120/68; PULSE 71; RESP 18; O2SAT 92
[2023-06-26] MEDS: polyethylene glycoL 3350 17 GM POWD.PACK PO (20:24)
[2023-06-26] MEDS: QUEtiapine Fumarate 50 MG TABLET PO (20:25)
[2023-06-26] MEDS: Ezetimibe 10 MG TABLET PO (20:26)
[2023-06-27 03:48] VITALS: BP 133/72; PULSE 86; RESP 18; TEMP 36.4; O2SAT 93
[2023-06-27] MEDS: Enoxaparin Sodium 40 MG/0.4 ML SYRINGE SUBCUT (05:50)
[2023-06-27 06:43] LABS: MANUAL DIFF FLAG NO
[2023-06-27 06:54] LABS: Basophils Percent Auto 0.9 % (0-2); Eosinophils Absolute Auto 0.2 X10*3/uL (0.0-0.4); Eosinophils Percent Auto 3.5 % (0-4); Hematocrit 35.6 % (37.0-47.0); Hemoglobin 11.9 g/dl (12.0-16.0); Imm Gran Abs Auto 0.01 X10*3/uL (0.00-0.03); Imm Gran Pct Auto 0.2 % (0.0-0.4); Lymphocytes Absolute Auto 1.9 X10*3/uL (1.2-4.9); Lymphocytes Percent Auto 42.1 % (20-40); Mean Corpuscular HGB Conc 33.4 g/dl (31.0-35.0); Mean Corpuscular Hemoglobin 29.8 pg (27.0-33.0); Mean Platelet Volume 11.5 fL (9.4-12.3); Monocytes Absolute Auto 0.6 X10*3/uL (0.1-1.2); Monocytes Percent Auto 13.3 % (2-11); Neutrophils Absolute Auto 1.8 x10*3/uL (2.0-8.3); Platelet Count 168 X10*3/uL (160-400); Red Cell Distribution Width 14.6 % (11.0-16.0); White Blood Count 4.5 X10*3/uL (4.8-10.8)
[2023-06-27 07:15] VITALS: BP 132/74; PULSE 75; RESP 16; TEMP 36.5; O2SAT 94
[2023-06-27 07:23] LABS: Alanine Aminotransferase 35 U/L (0-31); Albumin Level 3.2 g/dL (3.5-5.0); Alkaline Phosphatase 67 U/L (39-117); Anion Gap 10 (12-20); Aspartate Amino Transferase 42 U/L (5-31); Bilirubin Total 0.3 mg/dL (0.0-1.0); Blood Urea Nitrogen 19 mg/dL (9-16); Calcium 8.9 mg/dL (8.4-10.2); Carbon Dioxide 25 mmol/L (22-29); Chloride 103 mmol/L (96-108); Estimated Glomerular Filt Rate > 60; Glucose Fasting 99 mg/dL (60-99); Potassium 3.8 mmol/L (3.3-5.1); Sodium 134 mmol/L (135-145); Total Protein 6.4 g/dL (6.5-8.0)
--- NOTE | 2023-06-27 07:30 | HE.PHANOTE ---
Addendum entered by Tony Jennings [facility] 06/27/23 07:30: NEXT LEVEL 06/28 @ 0600 Original Note: VANCO DOSE ADJUSTMENT BASED ON SCR AND TROUGH OF 13.0 DOSE CONTINUED AT 1250 Q 24H
[2023-06-27 08:37] VITALS: BP 144/79; PULSE 90; RESP 18; O2SAT 94
[2023-06-27] MEDS: traMADoL HCL 50 MG TABLET PO (08:39)
[2023-06-27] MEDS: lisinopriL 40 MG TABLET PO (08:39)
[2023-06-27] MEDS: UrsodioL 300 MG CAPSULE PO (08:40)
[2023-06-27] MEDS: vancomycin HCL 1,250 MG in 0.9 % Sodium Chloride 250 ML 166.67 MG IV (08:40)
[2023-06-27] MEDS: Multivitamin TABLET 1 TAB PO (08:40)
[2023-06-27] MEDS: 0.9 % Sodium Chloride Flush 3 ML SYRINGE IVFLUSH (08:40)
[2023-06-27] MEDS: amLODIPine Besylate 5 MG TABLET PO (08:40)
--- NOTE | 2023-06-27 12:37 | P.DS_ITS ---
DS: Providers Provider Date of Service: 06/27/23 Date of admission: 06/25/23 02:32 Date of discharge: 06/27/23 Primary care physician: Yuli Chamberlain MD Consults: 06/25/23 05:19 Consult to General Surgery Routine Consulting Provider[place] [facility] [place] [facility] Reason for consultation: large hiatal hernia Attending physician on discharge: Devorah Peralta Discharging clinician: Devorah Peralta DS: Diagnosis Discharge Diagnosis (1) Hypoxia: Status: Acute DS: Summary Hospital Course Hospital Course: 82-year-old female with pertinent history of essential hypertension, mood disorder, lymphedema, mixed hyperlipidemia who presents to the emergency department for evaluation of swelling, redness and warmth of left lower extremity. Patient states it has been ongoing over the last 2 days and she is noticed increased redness and swelling of the left lower extremity. Does have a history of leg cellulitis due to lymphedema in the past. No fever, chills, chest discomfort, palpitations, shortness of breath, abdominal pain, changes in urinary or bowel habits. Denies history of asthma or COPD In the emergency department, patient was found to be satting 89% on room air and placed on 2 L supplemental oxygen. Hospital course: patient was admitted for Acute hypoxemic respiratory failure (likely reccurent micro-aspiration pneumonitis due to hiatal hernia): no leucocytosis ,ct chest negative for acute infiltrate . off oxygen ,no new symptoms ,seen by speech and swallow -recomended to continue regualr diet . Left lower extremity cellulitis-intially received vancomycin -seems improved significantly- Discharged on doxycycline p.o. 100 mg bid for 7 days .blood cultures negative @48hrs. plan: left lower extremity cellulitis-intially received vancomycin -seems improved significantly- Discharged on doxycycline p.o. 100 mg bid for 7 days .blood cultures negative @48hrs. Above management discussed with the patient in detail length she understand and in agreement with the above plan, time spent 40 minutes and 50% time spent on counseling. Time Attestation Total time managing care of this patient today: 40 mintues. Discharge Coordination Time (in mins): 40 min Quality: Safe Use of Opioids Does Pt have an Active Cancer Diagnosis on the Problem List?: No Quality: Stroke Does the patient have a stroke diagnosis?: No Physical Exam Vital Signs: Vital Signs: Last Vital Signs Temp 97.7 F 06/27/23 07:15 Pulse 90 06/27/23 08:37 Resp 18 06/27/23 08:37 BP 144/79 H 06/27/23 08:37 Pulse Ox 94 06/27/23 08:37 O2 Del Method Room Air 06/27/23 08:37 O2 Flow Rate 1 06/27/23 07:15 BMI result Body Mass Index 24.7 Appearance: Alert.? Oriented X3.? not in distress.? cvs: rrr, [id number] , no murmur res: clear to auscultation ,no rhonchii or wheezing abd: no rebound or guarding ,nt, bs present. ext pulses present , no cyanosis , left legs -erythema improved. neuro: axo3 , nonfocal. DS: Data Data Completed and Pending Completed studies during hospitalization [Text1]: Procedures Excision of Ascending Colon, Via Natural or Artificial Opening Endoscopic, Diagnostic (11/08/21) Labs on day of discharge: Laboratory Results - last 24 hr 06/27/23 05:49 WBC 4.5 L RBC 4.00 L Hgb 11.9 L Hct 35.6 L MCV 89.0 MCH 29.8 MCHC 33.4 RDW 14.6 Plt Count 168 MPV 11.5 Immature Gran % (Auto) 0.2 Neut % (Auto) 40.0 L Lymph % (Auto) 42.1 H Forest % (Auto) 13.3 H Eos % (Auto) 3.5 Baso % (Auto) 0.9 Lymph # (Auto) 1.9 Forest # (Auto) 0.6 Eos # (Auto) 0.2 Baso # (Auto) 0.0 Abs Immat Gran (auto) 0.01 Absolute Neuts (auto) 1.8 L Absolute Nucleated RBC 0.000 Nucleated RBC % (auto) 0.0 Sodium 134 L Potassium 3.8 Chloride 103 Carbon Dioxide 25 Anion Gap 10 L BUN 19 H Creatinine 0.76 Estim Creat Clear Calc 50.0 Estimated GFR > 60 Fasting Glucose 99 Calcium 8.9 D Total Bilirubin 0.3 AST 42 H ALT 35 H Alkaline Phosphatase 67 Total Protein 6.4 L Albumin 3.2 L Random Vancomycin 13.0 L Preliminary micro results at discharge 06/25/23 01:07 Blood Culture - Preliminary Blood - Venous No growth after 48 hours. 06/25/23 01:14 Blood Culture - Preliminary Blood - Venous No growth after 48 hours. Imaging Chest x-ray: Radiologist's impression: ITS Impressions Chest X-Ray 06/24/23 23:55 IMPRESSION: 1. No acute abnormality of chest. 2. Large hiatal hernia. Chest CTA 06/25/23 02:15 IMPRESSION: 1. No evidence for pulmonary embolism. 2. Large hiatal hernia with bibasilar atelectatic change and/or scarring. 3. Old T8 compression fracture. T12 compression of uncertain acuity but appears chronic. VTE: negative. Venous Duplex 06/25/23 03:15 IMPRESSION: No DVT demonstrated in the left lower extremity. Multiple left groin lymph nodes. Discharge Plan Discharge Anticipated Discharge Date/Time: 06/27/23 12:23 Patient Disposition: Home, Self-Care Discharge Diagnosis: Acute hypoxemic respiratory failure (likely reccurent micro-aspiration pneumonitis due to hiatal hernia), left leg cellulitis Referrals: Po,Yuli Flowers MD [Primary Care Provider] - 1 Week Discharge Medications: New doxycycline monohydrate 100 mg Capsule 100 mg PO Q12H Qty: 14 0RF Continued multivitamin Tablet 1 tab PO DAILY 90 Days Qty: 90 3RF polyethylene glycol 3350 [Miralax] 17 gram powder in packet 17 g PO BEDTIME Qty: 100 1RF lisinopril 40 mg tablet 40 mg PO DAILY Qty: 90 2RF amlodipine 5 mg tablet 5 mg PO DAILY Qty: 90 2RF ezetimibe-simvastatin [Vytorin 10-10] 10-10 mg tablet 1 tab PO BEDTIME 90 Days Qty: 90 1RF quetiapine 100 mg tablet 50 mg PO BEDTIME 90 Days Qty: 45 2RF ursodiol 300 mg capsule 300 mg PO BID Qty: 180 2RF tramadol 50 mg tablet 50 mg PO TID PRN (Reason: pain) 7 Days Qty: 21 0RF lactulose 20 gram/30 mL solution 20 g PO BID PRN (Reason: Constipation) calcium carbonate [Oyster Shell Calcium] 500 mg calcium (1,250 mg) tablet 500 mg PO DAILY 90 Days Qty: 90 2RF Discharge Orders: Discharge Order (Routine); Ordered 06/27/23 Ordered By: Devorah ePralta Diet: Advance to usual diet Activity on Discharge: As tolerated Stand Alone Forms: Patient Portal Discharge page Print Language: Swazi Care Plan Goals: patient was admitted for Acute hypoxemic respiratory failure (likely reccurent micro-aspiration pneumonitis due to hiatal hernia): no leucocytosis ,ct chest negative for acute infiltrate . off oxygen ,no new symptoms ,seen by speech and swallow -recomended to continue regualr diet . Left lower extremity cellulitis-intially received vancomycin -seems improved significantly- Discharged on doxycycline p.o. 100 mg bid for 7 days .blood cultures negative @48hrs. Health Concerns: as above. Plan of Treatment: left lower extremity cellulitis-intially received vancomycin -seems improved significantly- Discharged on doxycycline p.o. 100 mg bid for 7 days .blood cultures negative @48hrs. Assessment: as above. Patient Instructions: Vancomycin (By injection), Cellulitis (GEN)
--- NOTE | 2023-06-27 12:50 | MHC.SL.SWA ---
Speech Pathologist Impression: WFL Dysphasia Diet Status: No changes Liquid Consistency and Strategies for Safe Swallow: Liquid Intake Recommendation: Thin Liquid Intake Strategies: Small Sips Solid Food Consistency: Dietary Recommendations: Regular Additional Modifications to Solid Foods: Patient seen for bedside dysphagia exam this morning. Patient denies having any trouble swallowing. Patient fed herself shonda crackers and water by cup. She was able to contain liquids well, demonstrated a timely swallow trigger, no overt s/s of aspiration on repeated trials. No cough and no subsequent change in voice. Mastication was timely and efficient, trace oral residue cleared with sips of liquid. Note incomplete laryngeal elevation. All other aspects of swallow WFL. ST discharged at this time as, per MD, there are no concerns in regards to patient's swallow ability. Please re-refer with any changes or if SMOCKER can be of further assistance. Oral Medication Intake: Whole with Liquid Please contact the pharmacy regarding appropriate crushable or liquid drug formulations that are available whenever modified delivery is recommended. Compensatory Strategies and Precautions to be Taken for Safe Swallow: Sitting Upright (90 deg) Small Bites and Sips Rate of Ingestion Change Supervision While Eating and Drinking for Safe Swallow: Intermittent Supervision Recommendation for Speech: NA:Typical Evaluation Bottomer Operator Clinican/Clinical Fellow: No Supervisory Statement: I have reviewed and agree with the student/clinical fellow's documentation: N/A Speech Language Pathologist: Zelda Levy M.A., CCC-SMOCKER
--- NOTE | 2023-06-27 13:38 | MHC.CM.PN ---
PT CLEARED TO DC HOME TODAY WITH NO SERVICES CM MET WITH PT TO DISCUSS DC PT AWARE THE SHUTTLE IS NOT RUNNING AT THIS TIME SHE SAYS SHE USUALLY GOES TO APPTS WITH HER BROTHER. SHE SAYS WHEN SHE HAS BEEN DISCHARGED IN THE PAST THOUGH, SHE USUALLY GETS LYFT HOME SHE SAYS SHE FEELS SHE CAN GET IN AN OUT OF THE CAR WITH THE WALKER. SHE HAS HER APARTMENT KEYS AND DENIES CONCERNS GETTING INTO THE HOME CM WILL REQUEST A LYFT ONCE PTS MEDS ARE BROUGHT FROM THE PHARMACY
[2023-06-27] MEDS: Doxycycline Monohydrate 100 MG CAPSULE PO (13:47)
== END 2023-06-27 14:20 | disposition home or self-care (01) | DRG 602 ==
LOC: HO.ED 06-25 01:50 → HO.EDOVER 06-25 05:53 → HO.S3 06-25 07:57
PROVIDERS: Hospitalist; Student in an Organized Health Care Education/Training Program; Admitting Provider Student in an Organized Health Care Education/Training Program; Emergency Provider Emergency Medicine; PCP Internal Medicine; Visit Provider Internal Medicine
DX: L03.116 Cellulitis of left lower limb (principal); J69.0 Pneumonitis due to inhalation of food and vomit; J96.01 Acute respiratory failure with hypoxia; I10 Essential (primary) hypertension; K44.9 Diaphragmatic hernia without obstruction or gangrene; E78.2 Mixed hyperlipidemia; F39 Unspecified mood [affective] disorder; I89.0 Lymphedema, not elsewhere classified; Z20.822 Contact with and (suspected) exposure to COVID-19; Z79.899 Other long term (current) drug therapy
CPT/HCPCS: 0241U; 36415; 71045; 71275; 80048; 80053; 80202; 83605; 83880; 85025; 85379; 87040; 92610; 93005; 93971; 97163; 99285; J1650; J2543; J3370; J3371; Q9967

== ENCOUNTER → 2023-06-24 22:58 | Outpatient (BNV) | payer MEDICARE, SELFPAY | PROVIDERS: Emergency Provider Emergency Medicine; PCP Internal Medicine; Visit Provider Student in an Organized Health Care Education/Training Program | DX: J96.01 Acute respiratory failure with hypoxia (principal) | CPT/HCPCS: 99223; 99233; 99239; 99499 ==

== ENCOUNTER → 2023-06-24 23:26 | Outpatient (BNV) | payer MEDICARE, SELFPAY | PROVIDERS: Admitting Provider Student in an Organized Health Care Education/Training Program; Emergency Provider Emergency Medicine; PCP Internal Medicine; Visit Provider Internal Medicine Cardiovascular Disease | DX: R06.02 Shortness of breath (principal) | CPT/HCPCS: 93010 ==

== ENCOUNTER → 2023-06-25 02:32 | Outpatient (BNV) | payer MEDICARE, SELFPAY | PROVIDERS: Admitting Provider Student in an Organized Health Care Education/Training Program; Emergency Provider Emergency Medicine; PCP Internal Medicine; Visit Provider Surgery | DX: K44.9 Diaphragmatic hernia without obstruction or gangrene (principal) | CPT/HCPCS: 99221 ==

== ENCOUNTER 2023-12-29 05:56 | Emergency (ER) | payer MEDICARE, SELFPAY ==
--- NOTE | ~2023-12-29 | CT_ITS ---
EXAM: Noncontrast CT scan of the head and cervical spine. INDICATION: Fall with head strike. COMPARISON: Head CT January 01, 2020 TECHNIQUE: Axial slices were obtained from skull base to vertex and displayed. This was followed by helical, multislice, multidetector axial images from the occiput to the upper thorax. Coronal and sagittal reformats of the cervical spine in addition to coronal reformats of the head were obtained at the technologist workstation. DLP: 733 mGy-cm FINDINGS: HEAD: There is no evidence of acute intracranial hemorrhage or territorial infarction. No abnormal mass effect or midline shift is appreciated. Waller-white differentiation is well preserved. No extra-axial fluid collections. The ventricular system and cortical sulci are prominent, consistent with volume loss. There are areas of low density in the periventricular and subcortical white matter, most consistent with sequelae of microvascular ischemic change. The osseous structures and soft tissues are normal. There are calcifications of the cavernous internal carotid arteries. The visualized paranasal sinuses and mastoid air cells are well aerated. SPINE: The cervical spine is visualized in its entirety. There is exaggerated kyphosis of the cervical spine. Alignment is otherwise unremarkable. Normal C1/2 articulation. Cervical vertebral body heights are maintained. There is moderate disc space narrowing throughout the entirety of the cervical spine. Small osteophytes are scattered throughout the cervical spine. There is no prevertebral soft tissue swelling. Visualized lung apices demonstrate minimal emphysematous changes. CT/CT head/brain wo IV con IMPRESSION: 1. No acute intracranial pathology. 2. No fractures or dislocations of the cervical spine. Electronically signed by: Nba Dawson MD 12/29/2023 09:23 AM EDT
--- NOTE | ~2023-12-29 | US_ITS ---
EXAMINATION: LEFT LOWER EXTREMITY DEEP VENOUS ULTRASOUND CLINICAL INFORMATION: Left lower extremity pain and edema. COMPARISON: Left lower extremity DVT study June 25, 2023 TECHNIQUE: Duplex Doppler imaging with compression maneuvers were performed of the left lower extremity deep venous system. FINDINGS: The visualized common femoral, femoral and popliteal veins demonstrate normal compressibility and color flow without evidence of venous thrombosis. Visualized portions of the calf veins demonstrate normal color fill-in suggesting patency. There is no evidence of a Sidhu's cyst. US/US venous duplex LE LT IMPRESSION: No evidence of deep venous thrombosis involving the left lower extremity. Electronically signed by: Nba Dawson MD 12/29/2023 11:36 AM EDT
--- NOTE | ~2023-12-29 | CT_ITS ---
EXAM: Noncontrast CT scan of the head and cervical spine. INDICATION: Fall with head strike. COMPARISON: Head CT January 01, 2020 TECHNIQUE: Axial slices were obtained from skull base to vertex and displayed. This was followed by helical, multislice, multidetector axial images from the occiput to the upper thorax. Coronal and sagittal reformats of the cervical spine in addition to coronal reformats of the head were obtained at the technologist workstation. DLP: 733 mGy-cm FINDINGS: HEAD: There is no evidence of acute intracranial hemorrhage or territorial infarction. No abnormal mass effect or midline shift is appreciated. Waller-white differentiation is well preserved. No extra-axial fluid collections. The ventricular system and cortical sulci are prominent, consistent with volume loss. There are areas of low density in the periventricular and subcortical white matter, most consistent with sequelae of microvascular ischemic change. The osseous structures and soft tissues are normal. There are calcifications of the cavernous internal carotid arteries. The visualized paranasal sinuses and mastoid air cells are well aerated. SPINE: The cervical spine is visualized in its entirety. There is exaggerated kyphosis of the cervical spine. Alignment is otherwise unremarkable. Normal C1/2 articulation. Cervical vertebral body heights are maintained. There is moderate disc space narrowing throughout the entirety of the cervical spine. Small osteophytes are scattered throughout the cervical spine. There is no prevertebral soft tissue swelling. Visualized lung apices demonstrate minimal emphysematous changes. CT/CT cervical spine wo IV con IMPRESSION: 1. No acute intracranial pathology. 2. No fractures or dislocations of the cervical spine. Electronically signed by: Nba Dawson MD 12/29/2023 09:23 AM EDT
[2023-12-29 05:57] VITALS: BP 140/82; BP 141/105; PULSE 112; PULSE 121; RESP 20; TEMP 36.8; O2SAT 90; O2SAT 94; BMI 28.3
[2023-12-29 06:07] VITALS: BP 141/105; PULSE 112; RESP 20; TEMP 36.8; O2SAT 90
--- NOTE | 2023-12-29 06:17 | ECG_ITS ---
Test Reason : FALL Blood Pressure : / mmHG Vent. Rate : 102 BPM Atrial Rate : 102 BPM P-R Int : 206 ms QRS Dur : 080 ms QT Int : 338 ms P-R-T Axes : 021 029 004 degrees QTc Int : 440 ms Sinus tachycardia Possible Left atrial enlargement Borderline ECG When compared with ECG of 24-JUN-2023 23:36, No significant change was found Referred By: Generic ED Physician Electronically Signed By:KEYON COLBERT
[2023-12-29 06:41] LABS: MANUAL DIFF FLAG NO
[2023-12-29 06:42] LABS: Basophils Percent Auto 0.8 % (0-2); Eosinophils Absolute Auto 0.1 X10*3/uL (0.0-0.4); Eosinophils Percent Auto 1.7 % (0-4); Hematocrit 39.2 % (37.0-47.0); Hemoglobin 13.2 g/dl (12.0-16.0); Imm Gran Abs Auto 0.01 X10*3/uL (0.00-0.03); Imm Gran Pct Auto 0.2 % (0.0-0.4); Lymphocytes Absolute Auto 1.6 X10*3/uL (1.2-4.9); Lymphocytes Percent Auto 31.5 % (20-40); Mean Corpuscular HGB Conc 33.7 g/dl (31.0-35.0); Mean Corpuscular Volume 89.1 fL (80.0-98.0); Mean Platelet Volume 10.6 fL (9.4-12.3); Monocytes Absolute Auto 0.6 X10*3/uL (0.1-1.2); Monocytes Percent Auto 11.9 % (2-11); Neutrophils Absolute Auto 2.8 x10*3/uL (2.0-8.3); Neutrophils Percent Auto 53.9 % (45-73); Platelet Count 175 X10*3/uL (160-400); Red Cell Distribution Width 13.7 % (11.0-16.0); White Blood Count 5.2 X10*3/uL (4.8-10.8)
[2023-12-29 06:43] LABS: Appearance Urine Clear; Color Urine Yellow; Glucose Urine UA Negative (Negative); Leukocyte Esterase Urine Trace (Negative); Nitrite Urine Negative (Negative); Specific Gravity - Urine <= 1.005 (1.005-1.025); UMIC TRIGGER UACC YES; Urine Blood Negative (Negative); Urine Ketones Negative (Negative); Urine Protein Negative (Neg-Trace)
--- NOTE | 2023-12-29 06:46 | ED_ITS ---
HPI - General Adult General Chief complaint: Fall Stated complaint: fall headstrike Time Seen by Provider: 12/29/23 06:39 Source: patient and EMS Mode of arrival: EMS Limitations: no limitations History of Present Illness ED Provider: Kelsey Parrish PA-C HPI narrative: Patient is an 83 year old assigned female at with a history of HTN, OCD, and anxiety presenting to the emergency department today after a fall. Patient states that she was getting up out of bed to walk to the bathroom when she tripped and fell, hitting her head. Patient states that she did not have any loss of consciousness. Patient states that her right shoulder is always sore and this is not new. Patient states that aside from the fall, she noticed her left lower leg is swollen and sometimes when that happens, she has an infection. Patient states that she also has a mole on her chest that she is wondering if she needs to get it checked. Patient denies any dizziness, lightheadedness, abdominal pain, nausea, vomiting, fever, chills, blurry vision, double vision, loss of vision, chest pain, difficulty breathing, shortness of breath, back pain, night sweats, pain with urination, increased urinary frequency, increased urinary urgency, blood in her urine or stool, syncope or a near syncopal episode, bowel incontinence, bladder incontinence, or any other complaints at this time. Relieving factors: none Exacerbating factors: none Associated symptoms: denies other symptoms Treatments prior to arrival: none Related Data Home Medications ?Medication ?Instructions ?Recorded ?Confirmed lactulose 20 gram/30 mL oral 20 g PO BID PRN Constipation 06/25/23 06/25/23 solution Previous Rx's ?Medication ?Instructions ?Recorded polyethylene glycol 3350 17 gram 17 g PO BEDTIME #100 ea 01/20/22 oral powder packet (Miralax) calcium carbonate (Oyster Shell 500 mg PO DAILY 90 days #90 tabs 05/05/22 Calcium) doxycycline monohydrate 100 mg 100 mg PO Q12H #14 caps 06/27/23 capsule amlodipine 5 mg tablet 5 mg PO DAILY #90 tabs 08/24/23 lisinopril 40 mg tablet 40 mg PO DAILY #90 tabs 08/24/23 ursodiol 300 mg capsule 300 mg PO BID #180 caps 08/24/23 ezetimibe 10 mg-simvastatin 10 mg 1 tab PO BEDTIME 90 days #90 tabs 08/30/23 tablet (Vytorin) multivitamin 1 tab PO DAILY 90 days #90 tabs 08/30/23 quetiapine 100 mg tablet 50 mg (1/2 x 100 mg) PO BEDTIME 90 09/26/23 days #45 tabs tramadol 50 mg tablet 50 mg PO TID PRN pain 7 days #21 12/20/23 tabs Allergies Allergy/AdvReac Type Severity Reaction Status Date / Time fentanyl [FENTANYL] Allergy Severe CARDIAC Verified 12/29/23 06:06 ARREST, heart stopped, anaphylaxis nickel Allergy Intermediate Rash Uncoded 12/29/23 06:06 paper tape Allergy Intermediate Rash Uncoded 12/29/23 06:06 Review of Systems 2 Constitutional: Constitutional: Reports no additional constitutional complaints, Denies chills, Denies fever(s) and Denies night sweats Eyes: Eyes: Reports no additional eye complaints, Denies blurry vision, Denies change in vision, Denies diplopia, Denies eye discharge, Denies loss of vision and Denies eye pain ENT: Denies dizziness Cardiovascular: Cardiovascular: Reports no additional cardiovascular complaints, Denies chest pain, Denies lightheadedness, Denies Loss of Consciousness and Denies dyspnea Respiratory: Respiratory: Reports no additional respiratory complaints and Denies dyspnea Gastrointestinal: Gastrointestinal: Reports no additional gastrointestinal complaints, Denies abdominal pain, Denies melena, Denies hematochezia, Denies change in bowel habits and Denies change in stool character Genitourinary: Genitourinary: Denies hematuria, Denies urinary frequency, Denies dysuria, Denies urinary incontinence, Denies urinary hesitancy and Denies urinary urgency Musculoskeletal: Musculoskeletal: Reports no additional musculoskeletal complaints, Denies numbness and Denies tingling Comments: right shoulder pain - chronic left lower leg swelling Integumentary/Breasts: Comments: mole on chest Neurologic: Denies dizziness, Denies loss of vision, Denies numbness and Denies tingling Psychiatric: Psychiatric: Reports no additional psychiatric complaints Endocrine: Endocrine: Reports no additional endocrine complaints Hematologic/Lymphatic: Hematologic/Lymphatic: Reports no additional hematologic/lymphatic complaints Allergic/Immunologic: Allergic/Immunologic: Reports no additional allergic/immunologic complaints PMFSH Past Medical History Attestation statement: The following information was validated with the patient. Source: old records reviewed and nursing notes reviewed Medical History Cellulitis Other specified disorders of bone density and structure, right upper arm Proximal humerus fracture Hip fracture, right Retinal artery branch occlusion, left eye Anxiety Osteoporosis Psoriasis Pulmonary nodule Compression fracture of L2 lumbar vertebra Pulmonary embolism Cellulitis Malignant tumor body uterus HTN (hypertension) High cholesterol Lymphedema Surgical History History of esophagogastroduodenoscopy (EGD) Hx of colonoscopy History of surgery History of tonsillectomy and adenoidectomy History of solitary pulmonary nodule History of removal of cyst History of open reduction and internal fixation (ORIF) procedure History of tubal ligation History of hip replacement Family History Family History Father Stroke Hypertension Mother Hypertension CVD (cardiovascular disease) Myocardial infarction Brother Hypertension Sister Hypercholesteremia Hypertension Sister Hypertension Hypercholesteremia Social History Social History Household Members: None Housing: Apartment Do you presently have visiting nurse or other home services: Yes Alcohol intake: never Comment: SLEEPING Patient Tobacco Use Status: Former Tobacco user Tobacco use type: Cigarette Smoked in Last 30 Days: No e-Cigarette/Vaping Use: Never Used Second Hand Smoke Exposure: No Use of substances other than those prescribed or required for medical reasons: No Advance Directives: Yes Advance Directives on File: Yes Advance Directives Date on File: 01/16/20 Do you have a plan to hurt others: No Plan service: No Current occupational status: retired Current occupational exposures/hazards: No Cognitive needs: Yes Hearing needs: No Vision needs: Yes (Pt has glasees for reading) Physical Exam ED Vital Signs: Vital Signs - 24 hr 12/29/23 05:57 12/29/23 06:07 12/29/23 06:07 Temperature 98.2 F 98.2 F 98.2 F Pulse Rate 112 H 112 H 112 H Respiratory Rate 20 20 20 Blood Pressure 141/105 H 141/105 H 141/105 H Pulse Oximetry 90 L 90 L 90 L Oxygen Delivery Method Room Air Room Air 12/29/23 09:18 Temperature 97.9 F Pulse Rate 107 H Respiratory Rate 18 Blood Pressure 157/96 H Pulse Oximetry 94 Oxygen Delivery Method Room Air BMI result Body Mass Index 28.3 Const General: cooperative, no acute distress, alert and awake Nutritional Appearance: well nourished Orientation/consciousness: patient oriented x3 Limitations: no limitations HENMT Head: Yes normal to inspection and Yes atraumatic Ears: hearing grossly normal bilaterally and external ears normal General nose exam: Normal external nose present, no nasal discharge noted and no epistaxis Face and sinus: Yes normal facial exam, No abrasion and No laceration Mouth: Normal oral and palatal mucosa present, no drooling and no muffled voice Eyes General: appearance normal, both eyes and all related structures Periorbital: periorbital findings normal Eyelids: Yes eyelids normal Conjunctivae: conjunctivae normal Pupils: Equal, round and reactive pupils present EOM: EOMs intact bilaterally Neck Neck: Yes normal visual inspection, Yes full ROM and Yes no lymphadenopathy Chest Chest/axillae images: 2 1. small, dark, raised mole with irregular boarders Resp Effort & Inspection: normal respiratory effort and able to speak in complete sentences GI Inspection: Yes normal to inspection Neuro General: patient oriented x3 and moves all extremities Cranial nerves: Yes Equal, round and reactive pupils present Cognition (Neuro): normal cognition Extrem Other: bilateral lower leg venous stasis dermatitis left lower leg swelling General: Yes full ROM and Yes capillary refill normal Psych Appearance: grossly normal Mental Status: mental status grossly normal Affect: normal affect Attitude: cooperative Thought process: Normal thought process present Thought content: Normal thought content present Insight: Good insight present (Psych) Medical Decision Making Medical Decision Making MDM Narrative: Patient is an 83 year old assigned female at with a history of HTN, OCD, and anxiety presenting to the emergency department today after a fall. Patient's physical exam was as noted in the physical exam portion of this note. No evidence of cellulitis to the left lower extremity. Patient's mole is abnormal and should be examined further by a PCP. Patient's blood work was unremarkable. Patient's urine showed no acute process. Patient's EKG was unremarkable. Patient's head and c-spine CTs showed no acute process. Patient's left lower extremity US showed no acute process. I explained my physical exam findings as well as all test results to the patient. I answered all questions asked by the patient. I stressed the importance of the patient taking her medication as directed (either prescribed or as the over the counter packaging recommends). I stressed the importance of the patient following up with her primary care provider. I stressed the importance of the patient returning to the emergency department immediately if her symptoms were to worsen or if she were to develop any dizziness, shortness of breath, difficulty breathing, chest pain, blurry vision, loss of vision, nausea, vomiting, abdominal pain, fever, chills, back pain, or any other complaints. Patient verbalized agreement and understanding with this treatment plan and discharge. Differential Diagnosis Differential Diagnoses: The differential diagnosis associated with the presentation includes Fall Left lower leg pain Left lower leg swelling DVT Head injury Atypical mole Admission/Observation Consideration of admission/observation: Escalation of care including admission/observation considered Patient would have been admitted to the hospital had his work up had any findings where hospital admission was appropriate and his clinical presentation warranted hospital admission. Lab Data [facility] Lab Attestation statement: I reviewed the patient's lab results. My interpretation of these results are in the [facility] Rationale portion of this note. 12/29/23 06:32 12/29/23 06:32 Labs: Lab Results 12/29/23 12/29/23 Range/Units 06:32 06:33 WBC 5.2 (4.8-10.8) X10*3/uL RBC 4.40 (4.20-5.50) X10*6/uL Hgb 13.2 (12.0-16.0) g/dl Hct 39.2 (37.0-47.0) % MCV 89.1 (80.0-98.0) fL MCH 30.0 (27.0-33.0) pg MCHC 33.7 (31.0-35.0) g/dl RDW 13.7 (11.0-16.0) % Plt Count 175 (160-400) X10*3/uL MPV 10.6 (9.4-12.3) fL Immature Gran % (Auto) 0.2 (0.0-0.4) % Neut % (Auto) 53.9 (45-73) % Lymph % (Auto) 31.5 (20-40) % [place] % (Auto) 11.9 H (2-11) % Eos % (Auto) 1.7 (0-4) % Baso % (Auto) 0.8 (0-2) % Lymph # (Auto) 1.6 (1.2-4.9) X10*3/uL [place] # (Auto) 0.6 (0.1-1.2) X10*3/uL Eos # (Auto) 0.1 (0.0-0.4) X10*3/uL Baso # (Auto) 0.0 (0.0-0.2) X10*3/uL Abs Immat Gran (auto) 0.01 (0.00-0.03) X10*3/uL Absolute Neuts (auto) 2.8 (2.0-8.3) x10*3/uL Absolute Nucleated RBC 0.000 (0.0-0.012) X10*3/uL Nucleated RBC % (auto) 0.0 (0.0-0.2) /100WBC Sodium 137 (135-145) mmol/L Potassium 4.6 D (3.3-5.1) mmol/L Chloride 103 (96-108) mmol/L Carbon Dioxide 26 (22-29) mmol/L Anion Gap 13 (12-20) BUN 28 H (9-16) mg/dL Creatinine 0.85 (0.5-1.4) mg/dL Estim Creat Clear Calc 46.8 Estimated GFR > 60 Random Glucose 111 (60-115) mg/dL Calcium 10.1 D (8.4-10.2) mg/dL Total Bilirubin 0.3 (0.0-1.0) mg/dL AST 36 H (5-31) U/L ALT 32 H (0-31) U/L Alkaline Phosphatase 93 (39-117) U/L Total Protein 7.8 (6.5-8.0) g/dL Albumin 4.1 (3.5-5.0) g/dL Urine Color Yellow Urine Appearance Clear Urine pH 6.0 (5.0-9.0) Ur Specific [place] <= 1.005 (1.005-1.025) Urine Protein Negative (Neg-Trace) mg/dL Urine Glucose (UA) Negative (Negative) mg/dL Urine Ketones Negative (Negative) mg/dL Urine Blood Negative (Negative) Urine Nitrite Negative (Negative) Ur Leukocyte Esterase Trace H (Negative) Urine RBC 0-2 (0-2) /HPF Urine WBC 0-5 (0-5) /HPF Ur Squamous Epith Cells 0-2 (0-2) /HPF Urine Bacteria None Seen (None Seen) Hyaline Casts 0-2 (0-2) /LPF Independent Interpretation I performed an independent interpretation of an: EKG, Ultrasound and CT Scan Interpretation: My interpretation is in agreement with the radiologist's impression of these imaging studies. L EXAM: Noncontrast CT scan of the head and cervical spine. INDICATION: Fall with head strike. COMPARISON: Head CT January 01, 2020 TECHNIQUE: Axial slices were obtained from skull base to vertex and displayed. This was followed by helical, multislice, multidetector axial images from the occiput to the upper thorax. Coronal and sagittal reformats of the cervical spine in addition to coronal reformats of the head were obtained at the technologist workstation. DLP: 733 mGy-cm FINDINGS: HEAD: There is no evidence of acute intracranial hemorrhage or territorial infarction. No abnormal mass effect or midline shift is appreciated. Waller-white differentiation is well preserved. No extra-axial fluid collections. The ventricular system and cortical sulci are prominent, consistent with volume loss. There are areas of low density in the periventricular and subcortical white matter, most consistent with sequelae of microvascular ischemic change. The osseous structures and soft tissues are normal. There are calcifications of the cavernous internal carotid arteries. The visualized paranasal sinuses and mastoid air cells are well aerated. SPINE: The cervical spine is visualized in its entirety. There is exaggerated kyphosis of the cervical spine. Alignment is otherwise unremarkable. Normal C1/2 articulation. Cervical vertebral body heights are maintained. There is moderate disc space narrowing throughout the entirety of the cervical spine. Small osteophytes are scattered throughout the cervical spine. There is no prevertebral soft tissue swelling. Visualized lung apices demonstrate minimal emphysematous changes. CT/CT head/brain wo IV con IMPRESSION: 1. No acute intracranial pathology. 2. No fractures or dislocations of the cervical spine. Electronically signed by: Nba Dawson MD 12/29/2023 09:23 AM EDT Dictated By: Nba Dawson MD Signed By: Electronically signed by Nba Dawson MD 12/29/23 0923 EXAMINATION: LEFT LOWER EXTREMITY DEEP VENOUS ULTRASOUND CLINICAL INFORMATION: Left lower extremity pain and edema. COMPARISON: Left lower extremity DVT study June 25, 2023 TECHNIQUE: Duplex Doppler imaging with compression maneuvers were performed of the left lower extremity deep venous system. FINDINGS: The visualized common femoral, femoral and popliteal veins demonstrate normal compressibility and color flow without evidence of venous thrombosis. Visualized portions of the calf veins demonstrate normal color fill-in suggesting patency. There is no evidence of a Sidhu's cyst. US/US venous duplex LE LT IMPRESSION: No evidence of deep venous thrombosis involving the left lower extremity. Electronically signed by: Nba Dawson MD 12/29/2023 11:36 AM EDT RP Dictated By: Nba Dawson MD Signed By: Electronically signed by Nba Dawson MD 12/29/23 1136 Radiology Impression Discussion of test interpretation with radiology: I have reviewed the radiologist's reading. Independent Historian Clinical information obtained from an independent historian. History obtained from or confirmed by: EMS (EMS provided additional history and confirmed the history provided by the patient.) Discharge Plan Discharge Clinical Impression: Fall, Limb swelling, Atypical mole Patient Disposition: Home, Self-Care Instructions: Fall Prevention for Older Adults (ED) Additional Instructions: Your work up today showed no emergent findings. The mole on your chest is atypical and should be examined further by your primary care provider. Follow up with your primary care provider. Return to the emergency department immediately if your symptoms worsen or if you develop any dizziness, shortness of breath, difficulty breathing, chest pain, blurry vision, loss of vision, nausea, vomiting, abdominal pain, fever, chills, back pain, or any other complaints. Prescriptions: No Action polyethylene glycol 3350 [Miralax] 17 gram powder in packet 17 g PO BEDTIME Qty: 100 1RF amlodipine 5 mg tablet 5 mg PO DAILY Qty: 90 2RF lisinopril 40 mg tablet 40 mg PO DAILY Qty: 90 2RF ursodiol 300 mg capsule 300 mg PO BID Qty: 180 2RF ezetimibe-simvastatin [Vytorin 10-10] 10-10 mg tablet 1 tab PO BEDTIME 90 Days Qty: 90 1RF multivitamin Tablet 1 tab PO DAILY 90 Days Qty: 90 3RF quetiapine 100 mg tablet 50 mg PO BEDTIME 90 Days Qty: 45 2RF tramadol 50 mg tablet 50 mg PO TID PRN (Reason: pain) 7 Days Qty: 21 0RF lactulose 20 gram/30 mL solution 20 g PO BID PRN (Reason: Constipation) doxycycline monohydrate 100 mg Capsule 100 mg PO Q12H Qty: 14 0RF calcium carbonate [Oyster Shell Calcium] 500 mg calcium (1,250 mg) tablet 500 mg PO DAILY 90 Days Qty: 90 2RF Referrals: [facility] Family Medicine [Provider Group] (Call to establish and follow up with a primary care provider. If you already have a primary care provider, please follow up with them.) [facility] Primary Care, Janette [Provider Group] (Call to establish and follow up with a primary care provider. If you already have a primary care provider, please follow up with them.) [facility] Primary Care,Richard [Provider Group] (Call to establish and follow up with a primary care provider. If you already have a primary care provider, please follow up with them.) Print Language: Ukrainian
[2023-12-29 06:48] LABS: Bacteria Urine None Seen (None Seen); Hyaline Casts Urine 0-2 /LPF (0-2); RBC Urine 0-2 /HPF (0-2); Squamous Epithelial Cell Urine 0-2 /HPF (0-2); WBC Urine 0-5 /HPF (0-5)
[2023-12-29 07:08] LABS: Alanine Aminotransferase 32 U/L (0-31); Albumin Level 4.1 g/dL (3.5-5.0); Alkaline Phosphatase 93 U/L (39-117); Anion Gap 13 (12-20); Aspartate Amino Transferase 36 U/L (5-31); Bilirubin Total 0.3 mg/dL (0.0-1.0); Blood Urea Nitrogen 28 mg/dL (9-16); Calcium 10.1 mg/dL (8.4-10.2); Carbon Dioxide 26 mmol/L (22-29); Chloride 103 mmol/L (96-108); Creatinine Clr Calc Pharmacy 46.8; Estimated Glomerular Filt Rate > 60; Glucose Random 111 mg/dL (60-115); Potassium 4.6 mmol/L (3.3-5.1); Sodium 137 mmol/L (135-145); Total Protein 7.8 g/dL (6.5-8.0)
--- NOTE | 2023-12-29 07:39 | PC.NURSE ---
report received from previous RN, patient resting comfortably on stretcher at this time, requesting food, educated patient that she is unable to eat until all results are back. patient states to this RN i was just here a month or so ago, i had a bunch of tests done, id rather not have more if i dont need them educated patient that because she fell we need to make sure she does not have any new injuries. patient states that she did fall pretty hard but it was because she did not have her light on and she couldnt see. told patient we still need to scan her to make sure she does not have any injuries. patient agreeable to plan at this time. awaiting results.
[2023-12-29 09:18] VITALS: BP 157/96; PULSE 107; RESP 18; TEMP 36.6; O2SAT 94
--- NOTE | 2023-12-29 13:37 | PC.NURSE ---
ambulance booked for patient back home
--- NOTE | 2023-12-29 14:36 | PC.NURSE ---
patient repositioned on recliner for comfort
== END 2023-12-29 15:07 | disposition home or self-care (01) ==
PROVIDERS: Emergency Provider Emergency Medicine
DX: S09.90XA Unspecified injury of head, initial encounter (principal); S19.9XXA Unspecified injury of neck, initial encounter; R00.0 Tachycardia, unspecified; R60.0 Localized edema; R51.9 Headache, unspecified; D22.9 Melanocytic nevi, unspecified; F41.9 Anxiety disorder, unspecified; M54.2 Cervicalgia; Y93.01 Activity, walking, marching and hiking; W01.10XA Fall on same level from slipping, tripping and stumbling with subsequent striking against unspecified object, initial encounter; Y92.092 Bedroom in other non-institutional residence as the place of occurrence of the external cause; Y99.8 Other external cause status; Z79.899 Other long term (current) drug therapy; Z87.891 Personal history of nicotine dependence
CPT/HCPCS: 36415; 70450; 72125; 80053; 81001; 85025; 93005; 93971; 99284; 99285

== ENCOUNTER → 2023-12-29 06:17 | Outpatient (BNV) | payer MEDICARE, SELFPAY | PROVIDERS: Emergency Provider Emergency Medicine; Visit Provider Internal Medicine | DX: R00.0 Tachycardia, unspecified (principal) | CPT/HCPCS: 93010 ==

== ENCOUNTER 2024-01-06 16:17 | Outpatient (AMB) | payer MEDICARE, SELFPAY ==
[2024-01-06 16:34] VITALS: BP 102/54; PULSE 82; O2SAT 92; BMI 24.3
--- NOTE | 2024-01-06 16:34 | MHC.PC.OV ---
Vital Signs 01/06/24 16:34 Height 5 ft 2 in Weight 133 lb BMI 24.3 BP 102/54 L Blood Pressure Location Lt brachial Position Sitting Pulse 82 Pulse Source Pulse Oximeter Pulse Oximetry (%) 92 Oxygen Delivery Method Room Air 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: pain med f/u Case Picker Required: No Accompanied by: Self / Same As Patient Allergies fentanyl [FENTANYL] Allergy (Severe, Verified 01/06/24 16:38) CARDIAC ARREST, heart stopped, anaphylaxis nickel Allergy (Intermediate, Uncoded 01/06/24 16:38) Rash paper tape Allergy (Intermediate, Uncoded 01/06/24 16:38) Rash Medication List - Last Reconciled 01/06/24 by Yuli Chamberlain MD amlodipine 5 mg PO DAILY calcium carbonate (Oyster Shell Calcium) 500 mg PO DAILY 90 days ezetimibe-simvastatin 10-10 mg (Vytorin) 1 tab PO BEDTIME 90 days lactulose 20 grams PO BID PRN lisinopril 40 mg PO DAILY multivitamin 1 tab PO DAILY 90 days polyethylene glycol 3350 (Miralax) 17 grams PO BEDTIME quetiapine 50 mg (1/2 x 100 mg) PO BEDTIME 90 days tramadol 50 mg PO TID PRN 7 days ursodiol 300 mg PO BID Tobacco use date assessed: 05/12/23 Fall risk assessment: 2 + Falls in past year Last assessed Fall Risk: 01/06/24 Dental Screening Dental Screen Date: 01/06/24 Did you have a dental visit in the last 12 months?: No Did you have a dental problem in the last 6 months where you did not have access to dental care?: No Was dental information given to patient?: Patient has dentist HPI pain med f/u HPI Details 83-year-old female with hypertension, obsessive-compulsive disorder/generalized anxiety disorder lumbar compression fraction hypercholesterolemia, history of closed fracture of the right proximal humerus osteoporosis coming in for follow-up. Patient has not been seen in the office for multiple years. Did have a Telehealth in 05/03/2023. Review of the notes was in the emergency room in December 28 due to fall tripped hitting her head. Deny any loss of consciousness noted left lower leg swelling. Patient had a CT scan of the head no intracranial pathology and no fractures on the cervical spine patient had ultrasound done no evidence of DVT. June hospitalization left lower extremity swelling noted to have hypoxemia diagnosis acute hypoxemic respiratory failure started with vancomycin sent home on doxycycline. Left leg [facility] Medical History Cellulitis Other specified disorders of bone density and structure, right upper arm Proximal humerus fracture Hip fracture, right Retinal artery branch occlusion, left eye Anxiety Osteoporosis Psoriasis Pulmonary nodule Compression fracture of L2 lumbar vertebra Pulmonary embolism Cellulitis Malignant tumor body uterus HTN (hypertension) High cholesterol Lymphedema Surgical History History of esophagogastroduodenoscopy (EGD) Hx of colonoscopy History of surgery History of tonsillectomy and adenoidectomy History of solitary pulmonary nodule History of removal of cyst History of open reduction and internal fixation (ORIF) procedure History of tubal ligation History of hip replacement Family History Father Stroke Hypertension Mother Hypertension CVD (cardiovascular disease) Myocardial infarction Brother Hypertension Sister Hypercholesteremia Hypertension Sister Hypertension Hypercholesteremia Social History Household Members: None Housing: Apartment Do you presently have visiting nurse or other home services: Yes Alcohol intake: never Comment: SLEEPING Patient Tobacco Use Status: Former Tobacco user Tobacco use type: Cigarette e-Cigarette/Vaping Use: Never Used Second Hand Smoke Exposure: No Advance Directives Date on File: 01/16/20 service: No Current occupational status: retired Current occupational exposures/hazards: No Cognitive needs: Yes Hearing needs: No Vision needs: Yes (Pt has glasees for reading) Questionnaire PHQ-9 Over the last 2 weeks, how often have you been bothered by any of the following problems? 1. Little interest or pleasure in doing things: not at all 2. Feeling down, depressed, or hopeless: not at all 3. Trouble falling or staying asleep, or sleeping too much: not at all 4. Feeling tired or having little energy: not at all 5. Poor appetite or overeating: not at all 6. Feeling bad about yourself - or that you are a failure or have let yourself or your family down: not at all 7. Trouble concentrating on things, such as reading the newspaper or watching television: not at all 8. Moving or speaking so slowly that other people could have noticed. Or the opposite - being so fidgety or restless that you have been moving around a lot more than usual: not at all 9. Thoughts that you would be better off or of hurting yourself in some way: not at all Total score: 0 Depression Screening Interpretation: Negative Depression Screening Done: Yes 51288 - PHQ-9 Billing: Yes Source: Developed by Drs. Mukund Magallon, Gaurav Sheets and colleagues, with an educational paul from [employer]. Thrive Questionnaire Date Thrive assessed: 06/26/23 AUDIT C Alcohol Use Questionnaire (AUDIT-C) 1. How often do you have a drink containing alcohol?: Never 3. How often do you have six or more drinks on one occasion?: Never Total Score: 0 Score Reviewed/Action Taken: No JOSE-7 AMB Questionnaire JOSE-7 Date JOSE - 7 assessed: 01/06/24 Feeling nervous, anxious, or on edge: 3 = Nearly every day Not being able to stop or control worryin = Not at all Worrying too much about different things: 0 = Not at all Trouble relaxin = Several days Being so restless that it is hard to sit still: 0 = Not at all Becoming easily annoyed or irritable: 2 = More than half the days Feeling afraid as if something awful might happen: 0 = Not at all Total JOSE-7 score (0-4 normal; 5-9 mild; 10-14 moderate; 15-21 severe): 6 Source: Developed by Drs. Mukund Magallon, Daksha Curry, Gaurav Garduno and colleagues, with an educational paul from [employer]. JOSE-7 Assessment Billing JOSE-7 Assessment Tool: JOSE-7 Assessment 39820 Physical exam (Primary Care) Vital Signs: Last Vital Signs Pulse 82 01/06/24 16:34 BP 102/54 L 01/06/24 16:34 Pulse Ox 92 01/06/24 16:34 Oxygen Delivery Method Room Air 01/06/24 16:34 BMI result Body Mass Index 24.3 Tobacco/Smoking Status: Tobacco use Status Tobacco use date assessed 05/12/23 01/06/24 16:34 Patient Tobacco Use Status Former Tobacco user 01/06/24 16:34 Tobacco use type Cigarette 01/06/24 16:34 e-Cigarette/Vaping Use Never Used 01/06/24 16:34 PHQ-9: PHQ-9 Score PHQ-9: Total score 0 01/06/24 16:44 Depression Screening Interpretation: Negative Thrive Assessment: Date of Thrive Assessment Date Thrive assessed 06/26/23 01/06/24 16:34 Const General: alert; No acute distress Eyes Conjunctivae: conjunctivae normal Resp Auscultation: clear to auscultation bilaterally Cardio Rate: regular rate Rhythm: regular rhythm GI Inspection: Yes normal to inspection Coding Level of Care Code Est Pt Level 4 (84133) Diagnoses HTN (hypertension) I10 Hypertension type: essential hypertension Primary biliary cirrhosis K74.3 Compression fracture of L2 vertebra, sequela S32.020S Encounter type: sequela High cholesterol E78.00 Generalized anxiety disorder F41.1 Age-related osteoporosis with current pathological fracture with routine healing, subsequent encounter M80.00XD Osteoporosis type: age-related Presence of current pathological fracture: with current pathological fracture Encounter type: subsequent encounter Fracture healing: with routine healing Venous stasis dermatitis I87.2 Additional Codes JOSE-7 Assessment Billing - JOSE-7 Assessment Tool: JOSE-7 Assessment 15502 ([id number]) Assessment & Plan Assessment & Plan (1) HTN (hypertension): Code(s): I10 - Essential (primary) hypertension Category: Medical Qualifiers: Hypertension type: essential hypertension Qualified Code(s): I10 - Essential (primary) hypertension Plan: Continue with blood pressure medication. Decrease salt intake and exercise patient on lisinopril 40 mg once a day amlodipine 5 mg once a day (2) Primary biliary cirrhosis: Code(s): K74.3 - Primary biliary cirrhosis Category: Medical Plan: Continue with ursodiol (3) Compression fracture of L2 lumbar vertebra: Comment: July 2019 Code(s): S32.020A - Wedge compression fracture of second lumbar vertebra, initial encounter for closed fracture Category: Medical Qualifiers: Encounter type: sequela Qualified Code(s): S32.020S - Wedge compression fracture of second lumbar vertebra, sequela Plan: Narcotic pain meds: Is being prescribed with the understanding that these medications are potentially addictive and should be used only when absolutely necessary and must always be secured. Any remaining pills should be safely disposed off appropriately. Patient is advised that narcotics can impaired judgment and one should not drive or operate heavy machinery while taking these medications. Never share these medications with anybody and do not leave them unattended. They will not be replaced under any circumstances. decline bone density (4) High cholesterol: Code(s): E78.00 - Pure hypercholesterolemia, unspecified Category: Medical Plan: Patient is taking Zetia and simvastatin/Vytorin once a day 12/21 Avoid fried foods, chicken skin, eggs, butter margarine, pastries and meat. Be it pork or beef they have a lot of cholesterol (5) Generalized anxiety disorder: Code(s): F41.1 - Generalized anxiety disorder Category: Medical Plan: Continue with medication (6) Osteoporosis: Code(s): M81.0 - Age-related osteoporosis without current pathological fracture Category: Medical Qualifiers: Osteoporosis type: age-related Presence of current pathological fracture: with current pathological fracture Encounter type: subsequent encounter Fracture healing: with routine healing Qualified Code(s): M80.00XD - Age-related osteoporosis with current pathological fracture, unspecified site, subsequent encounter for fracture with routine healing Plan: Discussed about repeating bone density. (7) Venous stasis dermatitis: Code(s): I87.2 - Venous insufficiency (chronic) (peripheral) Category: Medical Plan: When sitting down elevate the legs, exercise, and support stockings Orders: Orders Comprehensive Met. Panel 3 Months E78.00 - Pure hypercholesterolemia, unspecified Complete Blood Count Auto Diff 3 Months E78.00 - Pure hypercholesterolemia, unspecified Thyroid Stimulating Hormone 3 Months E78.00 - Pure hypercholesterolemia, unspecified Free T4 (Free Thyroxine) 3 Months E78.00 - Pure hypercholesterolemia, unspecified UA CC w/rflx Micro + Cult 3 Months E78.00 - Pure hypercholesterolemia, unspecified, R30.0 - Dysuria Vitamin B12 and Folate 3 Months E78.00 - Pure hypercholesterolemia, unspecified Vitamin D 25-OH Total 3 Months E78.00 - Pure hypercholesterolemia, unspecified Lipid Panel 3 Months E78.00 - Pure hypercholesterolemia, unspecified Medications: Changed From tramadol 50 mg PO TID 7 days PRN 21 tabs 0RF pain E78.00 - Pure hypercholesterolemia, unspecified To tramadol 50 mg PO BID 30 days PRN 60 tabs 0RF pain E78.00 - Pure hypercholesterolemia, unspecified
== END 2024-01-06 17:10 | disposition home or self-care (01) ==
PROVIDERS: PCP Internal Medicine; Visit Provider Internal Medicine
DX: I10 Essential (primary) hypertension (principal); K74.3 Primary biliary cirrhosis; S32.020S Wedge compression fracture of second lumbar vertebra, sequela; E78.00 Pure hypercholesterolemia, unspecified; F41.1 Generalized anxiety disorder; M80.00XD Age-related osteoporosis with current pathological fracture, unspecified site, subsequent encounter for fracture with routine healing; I87.2 Venous insufficiency (chronic) (peripheral)

== ENCOUNTER → 2024-01-06 16:17 | Outpatient (BNVA) | payer MEDICARE, SELFPAY | PROVIDERS: PCP Internal Medicine; Visit Provider Internal Medicine | DX: I10 Essential (primary) hypertension (principal); K74.3 Primary biliary cirrhosis; S32.020S Wedge compression fracture of second lumbar vertebra, sequela; E78.00 Pure hypercholesterolemia, unspecified; F41.1 Generalized anxiety disorder | CPT/HCPCS: 96127; 99212 ==

== ENCOUNTER 2024-04-09 17:05 | Outpatient (AMB) | payer MEDICARE, SELFPAY ==
[2024-04-09 17:10] VITALS: BP 100/66; PULSE 118; O2SAT 94; BMI 24.3
--- NOTE | 2024-04-09 17:10 | A.OFFPC_ITS ---
Vital Signs 04/09/24 17:10 Height 5 ft 2 in Weight 133 lb BMI 24.3 BP 100/66 Blood Pressure Location Lt brachial Position Sitting Pulse 118 H Pulse Source Pulse Oximeter Pulse Oximetry (%) 94 Oxygen Delivery Method Room Air 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: PVD, cholesterol Account Associate Required: No Accompanied by: Self / Same As Patient Allergies fentanyl [FENTANYL] Allergy (Severe, Verified 04/09/24 17:18) CARDIAC ARREST, heart stopped, anaphylaxis nickel Allergy (Intermediate, Uncoded 04/09/24 17:18) Rash paper tape Allergy (Intermediate, Uncoded 04/09/24 17:18) Rash Tobacco use date assessed: 04/09/24 Fall risk assessment: 1 Fall in past year Last assessed Fall Risk: 04/09/24 Dental Screening Dental Screen Date: 04/09/24 Did you have a dental visit in the last 12 months?: Yes Did you have a dental problem in the last 6 months where you did not have access to dental care?: No Was dental information given to patient?: Patient has dentist HPI PVD, cholesterol HPI Details The patient is an 83-year-old female presenting with medication management concerns, a history of osteoporosis, hypertension, and recent issues with blood pressure control. The patient's blood pressure has been recorded as low (100/66 mmHg), inconsistent with her usual readings during office visits. There is a concern that the current antihypertensive regimen, which includes lisinopril and amlodipine, may need adjustment. She expresses difficulty in obtaining her cholesterol tests due to mobility issues but states good compliance with medications. She reports taking Seroquel for anxiety and mentions a preference not to receive the influenza vaccination. The patient has a history of pneumococcal vaccination in 2018 and is advised to consider a follow-up dose. Chronic pain management is addressed with tramadol, necessitati ng regular follow-up visits. She inquired about bone density due to her acknowledged osteoporosis but is unsure of current management efficacy, indicating a need to reassess calcium and vitamin D supplementation. The patient mentions difficulty with mobility affecting her ability to seek routine medical care. Additionally, there is an increased emphasis on preventing infections, particularly COVID-19, RSV, and influenza, due to her age and vaccination status. [facility] Medical History Cellulitis Other specified disorders of bone density and structure, right upper arm Proximal humerus fracture Hip fracture, right Retinal artery branch occlusion, left eye Anxiety Osteoporosis Psoriasis Pulmonary nodule Compression fracture of L2 lumbar vertebra Pulmonary embolism Cellulitis Malignant tumor body uterus HTN (hypertension) High cholesterol Lymphedema Surgical History History of esophagogastroduodenoscopy (EGD) Hx of colonoscopy History of surgery History of tonsillectomy and adenoidectomy History of solitary pulmonary nodule History of removal of cyst History of open reduction and internal fixation (ORIF) procedure History of tubal ligation History of hip replacement Family History Father Stroke Hypertension Mother Hypertension CVD (cardiovascular disease) Myocardial infarction Brother Hypertension Sister Hypercholesteremia Hypertension Sister Hypertension Hypercholesteremia Social History Household Members: None Housing: Apartment Do you presently have visiting nurse or other home services: Yes Alcohol intake: never Comment: SLEEPING Patient Tobacco Use Status: Former Tobacco user Tobacco use type: Cigarette e-Cigarette/Vaping Use: Never Used Second Hand Smoke Exposure: No Advance Directives Date on File: 01/16/20 service: No Current occupational status: retired Current occupational exposures/hazards: No Cognitive needs: Yes Hearing needs: No Vision needs: Yes (Pt has glasees for reading) Questionnaire PHQ-9 Over the last 2 weeks, how often have you been bothered by any of the following problems? 1. Little interest or pleasure in doing things: not at all 2. Feeling down, depressed, or hopeless: not at all 3. Trouble falling or staying asleep, or sleeping too much: not at all 4. Feeling tired or having little energy: not at all 5. Poor appetite or overeating: not at all 6. Feeling bad about yourself - or that you are a failure or have let yourself or your family down: not at all 7. Trouble concentrating on things, such as reading the newspaper or watching television: not at all 8. Moving or speaking so slowly that other people could have noticed. Or the opposite - being so fidgety or restless that you have been moving around a lot more than usual: not at all 9. Thoughts that you would be better off or of hurting yourself in some way: not at all Total score: 0 Depression Screening Interpretation: Negative Depression Screening Done: Yes 39907 - PHQ-9 Billing: Yes Source: Developed by Drs. Mukund Magallon, Daksha Curry, Gaurav Garduno and colleagues, with an educational paul from [employer] Thrive Questionnaire Date Thrive assessed: 04/09/24 I am a: Patient What is your living situation today?: I have a steady place to live Within the past 12 months, did the food you bought not last and you didn't have the money to get more?: Never true Within the past 12 months, did you worry whether your food would run out before you got money to buy more?: Never true Do you have trouble paying for medicines?: No Do you have trouble getting transportation to medical appointments?: No Do you have trouble paying your heating and electricity bill?: No Do you have trouble taking care of your child, family member or friend?: No Do you have trouble with day-to-day activities such as bathing, preparing meals, shopping, managing finances, etc.?: No Are you currently unemployed and looking for a job?: No Are you interested in more education?: No Please select the resources that you would like help with: None Currently or been in a relationship where the following occur: No concerns reported THRIVE Score: 0 AUDIT C Alcohol Use Questionnaire (AUDIT-C) 1. How often do you have a drink containing alcohol?: Never 3. How often do you have six or more drinks on one occasion?: Never Total Score: 0 Score Reviewed/Action Taken: No JOSE-7 AMB Questionnaire JOSE-7 Date JOSE - 7 assessed: 04/09/24 Feeling nervous, anxious, or on edge: 0 = Not at all Not being able to stop or control worryin = Not at all Worrying too much about different things: 0 = Not at all Trouble relaxin = Not at all Being so restless that it is hard to sit still: 0 = Not at all Becoming easily annoyed or irritable: 0 = Not at all Feeling afraid as if something awful might happen: 0 = Not at all Total JOSE-7 score (0-4 normal; 5-9 mild; 10-14 moderate; 15-21 severe): 0 Source: Developed by Drs. Mukund Magallon, Daksha Curry, Gaurav Garduno and colleagues, with an educational paul from [employer]. JOSE-7 Assessment Billing JOSE-7 Assessment Tool: JOSE-7 Assessment 56423 Physical exam (Primary Care) Vital Signs: Last Vital Signs Pulse 118 H 04/09/24 17:10 BP 100/66 04/09/24 17:10 Pulse Ox 94 04/09/24 17:10 Oxygen Delivery Method Room Air 04/09/24 17:10 BMI result Body Mass Index 24.3 Tobacco/Smoking Status: Tobacco use Status Tobacco use date assessed 04/09/24 04/09/24 17:18 Patient Tobacco Use Status Former Tobacco user 04/09/24 17:11 Tobacco use type Cigarette 04/09/24 17:11 e-Cigarette/Vaping Use Never Used 04/09/24 17:11 PHQ-9: PHQ-9 Score PHQ-9: Total score 0 04/09/24 17:39 Depression Screening Interpretation: Negative Thrive Assessment: Date of Thrive Assessment Date Thrive assessed 04/09/24 04/09/24 17:17 Currently or been in a relationship where the following occur: No concerns reported Const General: alert; No acute distress Eyes Conjunctivae: conjunctivae normal Resp Auscultation: clear to auscultation bilaterally Cardio Rate: regular rate Rhythm: regular rhythm GI Inspection: Yes normal to inspection Extrem General: Yes normal to inspection and No edema Office Procedures Flu Questionnaire Does the patient have a severe egg allergy?: No Immunizations Fluarix Triv [id number] (PF) 45 mcg (15 mcg x 3)/0.5 mL IM syringe Performing Provider: Yuli Chamberlain MD [facility] Documented (not given) by: LYLA Mckeon on 04/09/24 17:17 Reason Not Given: Patient Refused pneumoc 20-caprice conj-dip cr(PF) 0.5 mL IM syringe Performing Provider: Yuli Chamberlain MD [place] [facility] [place] [facility] Administered by: JOAO Caraballo on 04/09/24 17:57 Dose Route Admin Location Dispensed Lot Number Expiration Date [facility] [employer]er 0.5 mL IM Left Deltoid 0.5 mL [id number] 06/12/25 8387-3725-83 WYETH/PFIZER VIS Given Date VIS Provided VIS Publication Date 04/09/24 Single Vaccine 21 Eligibility Eligibility Date Funding Source Not [facility] Eligible 04/09/24 Private Coding Level of Care Code Est Pt Level 4 (28430) Diagnoses High cholesterol E78.00 Compression fracture of L2 vertebra, sequela S32.020S Encounter type: sequela Primary biliary cirrhosis K74.3 HTN (hypertension) I10 Hypertension type: essential hypertension Additional Codes JOSE-7 Assessment Billing - JOSE-7 Assessment Tool: JOSE-7 Assessment 39707 ([id number]) PHQ-9 - 34452 - PHQ-9 Billing: Yes ([id number]) Assessment & Plan Assessment & Plan (1) High cholesterol: Code(s): E78.00 - Pure hypercholesterolemia, unspecified Category: Medical (2) Compression fracture of L2 lumbar vertebra: Comment: July 2019 Code(s): S32.020A - Wedge compression fracture of second lumbar vertebra, initial encounter for closed fracture Category: Medical Qualifiers: Encounter type: sequela Qualified Code(s): S32.020S - Wedge compression fracture of second lumbar vertebra, sequela (3) Primary biliary cirrhosis: Code(s): K74.3 - Primary biliary cirrhosis Category: Medical (4) HTN (hypertension): Code(s): I10 - Essential (primary) hypertension Category: Medical Qualifiers: Hypertension type: essential hypertension Qualified Code(s): I10 - Essential (primary) hypertension Plan 1. - Defer influenza vaccination at patient's preference but reiterate the importance of infection prevention: - Prescribe calcium and vitamin D supplements to manage osteoporosis, with prescriptions sent to the patient's preferred pharmacy for mail delivery. - Facilitate in-home blood work collection for hyperlipidemia monitoring if i nsurance permits. - Maintain tramadol for chronic pain management but discuss potential cessation or alternative therapies to reduce visit frequency, pending patient's preference. - Encourage routine home blood pressure monitoring to ensure medication efficacy and adjustment. - Reinforce COVID-19 precautions due to high susceptibility and recent rise in infections, including continued use of face masks and limiting contact with outsiders. - Schedule follow-up in three months or adjust based on patient's management of tramadol usage and blood pressure readings. Orders: Orders Influenza [id number] Immunization Today Z23 - Encounter for immunization Pneumococcal 20 Immunization Today Z23 - Encounter for immunization Medications: New cholecalciferol (vitamin D3) 50 mcg PO DAILY 90 days 90 caps 3RF E55.9 - Vitamin D deficiency, unspecified Refilled calcium carbonate (Oyster Shell Calcium) 500 mg PO DAILY 90 days 90 tabs 2RF M81.0 - Age-related osteoporosis without current pathological fracture
--- OUTSIDE RECORDS SUMMARY | 2024-04-09 20:07 | XMS_ITS | Data Portability ---
Author Organization [place] - [facility] Address [address] [place] [address] Care Team Providers Care Locker Room Clerk Name Role Phone PAULINAKENY Primary Care Provider Assessment Encounter Date Assessment Date Assessment LastModified by Organization Details LastModified Time 04/30/2020 04/30/2020 Overview/History :Anselmo cuellar is a 79-year-old female that is new to [facility]. Her visiting nurse contacted [facility] to evaluate her for bilateral lower extremity redness and swelling. The patient tells me that she has had recurrent cellulitis in the past. She is a poor historian in terms of her time lines. She believes her legs have been red for a couple of days. I was able to get in touch with her visiting nurse who indicated that she has been being treated for leg issues for the past 2 months with her current [employer] company. Her visiting nurse reports she has been trying to get the patient to see her PCP for some time but she has been resistant to leave her house due to COVID. Exam: On exam patient is awake and alert, she has a low grade fever that is hemodynamically stable. She is noted to have erythema to bilateral lower extremities, these areas are warm to touch. Very dry with flaking skin. Left lower extremity is more swollen than right. Patient is able to ambulate okay. DDx considered, but not limited to:Patient's clinical presentation is most consistent with bilateral lower extremity cellulitis. Contact dermatitis considered but that would not account for her legs being so hot to touch. DVT is also considered as left lower extremity is larger than right and she does have a history of blood clots in the past. Work up/Results:Left lower extremity ultrasound is pending to evaluate for DVT. Plan/Discussion: I discussed with the patient that I be started her on a course of antibiotics to treat a presumed cellulitis I am also arranging for an ultrasound to rule out a blood clot. I have asked her to moisturize her legs with a cream such as CeraVe. The patient indicated to me that she does not drive but she thinks she will be able to contact a [facility] to obtain her prescription. I did tell her that if symptoms were not improving to contact her PCP. I also contacted the visiting nurse that requested [facility] evaluation today. I reviewed the plan with her as well so that she can ensure the patient is able to get access to the antibiotics I have prescribed today. I also instructed the EMILIE that if wounds were to get worse that attempt should be made to get in touch with the patient's PCP as it sounds like she has had a history of multiple skin issues and I am unable to view those records. She verbalized understanding of discharge instructions. In order to obtain further information and compare any laboratory results/values, I have accessed old patient records. This information was pertinent in my medical decision making today. Time On Scene with Patient: 01:43:54 [email or web address] Not available 04/30/2020 18:13:36 Plan of Treatment Reminders Order Date Submit Date Provider Last Modified By Organization Details Last Modified Time Details Appointments None recorded. Lab None recorded. Referral None recorded. Procedures None recorded. Surgeries None recorded. Imaging US, duplex, venous, lower extremity 2020 021 [facility]18 [facility]ly [facility] ([facility]), [address] [place] [address], [place], [address], 09:31:44 Medication Orders cephalexin 500 mg capsule 2020 021 [email or web address] Not available 11:21:42 Patient TargetsNo targets recorded. Patient Instructions Encounter Date Encounter Id Patient Instructions Last Modified By Organization Details Last Modified Time 04/30/2020 [id number] WE CAME TO SEE Y GEENA TODAY FOR CONCERNS OF Thank you for your visit with [facility] today. You may have had laboratory tests or cultures performed today. At this time, we do not feel that you have an infection that requires hospitalization. However, infections can get worse, even with antibiotics. If you have worsening redness, pain or fever, go immediately to the Emergency Department. Please follow up with your primary care provider or with the specialist referral you were given, within 12-24 hours to be re-examined. If you develop any new or worsening symptoms and need after hours care, please go to nearest ER and/or call 911. If you have additional concerns or develop a change in your condition between 8am-10pm, please call [email or web address] at [phone] to help navigate your care. Thank you for your visit with [facility] today. We cannot always find the exact cause of your symptoms during your initial visit. Please follow up with your primary care provider or specialist to be rechecked or seek medical attention if your symptoms do not go away or get worse. If you develop any new or worsening symptoms and need after hours care, please go to nearest ER and/or call 911. If you have additional concerns or develop a change in your condition between 8am-10pm, please call [email or web address] at [phone] to help navigate your care. [email or web address] Not available 04/30/2020 16:31:47 Reason for Referral None Reported. Results Created Date Observation Date Name Description Value Unit Range Abnormal Flag Note LastModifiedBy Organization Detail LastModifiedTime 05/01/19 21 05/01/2020 venou s doppl er extre m/bender VENOUS DOPPLE R EXTREM /BENDER, LEFT FINDIN GS: Duplex imagin g of the left lower extrem ity venous circul ation was perfor med. There is normal flow and compre ssibil ity obtain ed from the left common femora l vein, left profun da femora l vein, left femora l vein, left poplit eal vein throug h left poplit eal vein trifur cation in the calf. No thromb us is identi fied within the lumen of the vessel s. CONCLU NAYLA: No eviden ce of deep venous thromb osis in the left lower extrem ity. ELECTR ONICAL LY SIGNED BY LEANNA BROWN M.D. 021 6:33:5 9 PM EST. VENOUS DOPPLE R EXTREM /BENDER, LEFT Result s: Duplex imagin g of the left lower extrem ity venous circul ation was perfor med. There is normal flow and compre ssibil ity obtain ed from the left common femora l vein, left profun da femora l vein, left femora l vein, left poplit eal vein throug h left poplit eal vein trifur cation in the calf. No thromb us is identi fied within the lumen of the vessel s. Conclu nayla: No eviden ce of deep venous thromb osis in the left lower extrem ity. Electr onical ly signed by LEANNA BROWN M.D. 021 6:33:5 9 PM EST. [facility] ([facility]) [address] [place], [address], 05/02/2020 17:15:39 Result Notes None recorded. Procedures Surgical History None recorded. Imaging Results Imaging Date Name Status LastModified by Manuel cameron Details LastModified Time 05/01/2020 venous doppler extrem/bender completed [facility] ([facility]) [address] [place], [address], 05/02/2020 17:15:39 Procedure Notes None recorded. Medical Equipment None Reported. Allergies Allergen ID Allergen Name Allergen Category Reaction Reaction Severity Criticality Documentation Date Start Date Code Code System Note Provider Name and Address Organization Details Recorded Time 471962 fentanyl medicatio n Not available Not available Not available 04/30/2020 4337 RxNorm YAN EVANGELISTA NP [address] [place], [address], [place] [facility] 16:15:54 Medications Name Sig Start Date Stop Date Status Note LastModified by Organization Details LastModified Time doxycycline hyclate 100 mg capsule TAKE 1 CAPSULE BY MOUTH TWICE A DAY 04/30 completed Not Available Not Available Not Available tizanidine 4 mg tablet TAKE 1 TABLET BY MOUTH EVERY DAY AT BEDTIME NEEDED 04/30 completed Not Available Not Available Not Available amlodipine 5 mg tablet active Not Available Not Available No t Available tramadol 50 mg tablet TAKE 1 TABLET BY MOUTH THREE TIMES A DAY NEEDED FOR PAIN active Not Available Not Available No t Available quetiapine 100 mg tablet active Not Available Not Available Not Available triamcinolon e acetonide 0.1 % topical cream APPLY TWICE DAILY FOR ITCH ON LEGS UP TO 2 WEEKS NEEDED WITH A 1 WEEK BREAK IN BETWEEN. active Not Available Not Available No t Available cephalexin 500 mg capsule Take 1 capsule every 6 hours by oral route for 7 days. 2020 active Not Available Not Available Not Avai lable ursodiol 300 mg capsule TAKE 1 CAPSULE TWICE A DAY active Not Available Not Available No t Available lisinopril 40 mg tablet active Not Available Not Available Not Available amoxicillin 875 mg-potassium clavulanate 125 mg tablet TAKE 1 TABLET BY MOUTH TWICE A DAY 04/30 completed Not Available Not Available Not Available oxycodone 5 mg tablet TAKE 1 TABLET BY MOUTH EVERY DAY NEEDED 04/30 completed Not Available Not Available Not Available quetiapine 50 mg tablet active Not Available Not Available Not Available Vytorin active Not Available Not Avail able Not Available Vitals Date Recorded Body temperature Heart rate Respiratory rate Oxygen saturation Oxygen saturation in Arterial blood by Pulse oximetry Systolic blood pressure Diastolic blood pressure Provider Name and Address Organization Details Last Updated DateTime 100.7 [degF] 98 /min 20 /min 98 % 98 % 140 mm[Hg] 70 mm[Hg] Not Available [facility] 16:19:45 Social History Question Answer Notes LastModified by Organizat ion Details LastModified Time Tobacco Smoking Status Never Smoker YAN EVANGELISTA NP [address], [place], [address], [place] [facility] 04/30/2020 16:17:48 What Is Your Code Status? Full Code [email or web address] Information not available 04/30/2020 Within The Past 12 Months, Has It Happened That The Food You Bought Just Didn't Last And You Didn't Have Money To Get More. No [email or web address] Information not available 04/30/2020 Within The Past 12 Months, Have You Worried That Your Food Would Run Out Before You Got Money To Buy More. No [email or web address] Information not available 04/30/2020 Fall Risk: Do You Feel Unsteady When Standing Or Walking? Yes [email or web address] Information not available 04/30/2020 We Know That How And When People Interact With Friends And Family Can Be Very Different From Person To Person. How Often Do You Have The Opportunity To See Or Talk To People That You Care About And Feel Close To? (Ex: Talking To Friends On The Phone Or Visiting Friends Or Family Or Going To [employer] Or Club Meetings) 3 Or 4 Times Per Week [email or web address] Information not available 04/30/2020 We Know From Many Of Our Patients That Covering All Of Their Costs Can Be Difficult At Times. This Can Cause Stress And Impact Health. In The Past Year, Have You Been Unable To Get Any Of The Following When It Was Really Needed? No [email or web address] Information not available 04/30/2020 What Is Your Housing Situation Today? I Have Housing [email or web address] Information not available 04/30/2020 Would You Like Help Connecting To Resources? None [email or web address] Information not available 04/30/2020 Sex: Unknown Functional Status None recorded. Mental Status None recorded. Family History Nothing Reported Notes:pt is unsure Medical History Condition Response Diabetes N Coronary Artery Disease N Cancer N Depression N COPD N Asthma N High Cholesterol Y Pulmonary Embolism Y Hypertension Y Kidney Disease N Gynecological HistoryNo gynecological history recorded. Obstetrics History GPAL:G 0 P 0 0 0 0 Past Encounters Encounter ID Performer Location Encounter Start Date Encounter Closed Date Diagnosis/Indication Diagnosis SNOMED-CT Code Diagnosis ICD10 Code Diagnosis Note [id number] YAN EVANGELISTA NP [facility] [address] [place] [address] 04/30/2020 15:55:49 05/01/2020 10:42:03 Cellulitis 045223481 L03.90 Swelling of lower leg 44 9792550 R22.40 Health Concerns Section Related Observation LastModified by Organization Detai ls LastModified Time None Recorded Concern Status LastModified by Organization Details LastModified Time None Recorded Advance Directives Directive None Recorded Payers Encounter Date Sequence Insurance Name Policy Number Policy Mead Covered Member ID Mead Member ID Guarantor Name 04/30/2020 1 [place] [employer] [employer] Ann Salguero [id number] Ann Salguero 04/30/2020 2 [place] [id number] Ann Salguero [id number] Ann Salguero Notes Date Note Type Note Provider Name and Address Organization Details Recorded Time 04/30/2020 text/html This is a 79-yea r-old female that as a new patient [facility]. 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 She also tells me that she had multiple orthopedic surgeries. She has a bit of a poor historian and is very nonspecific on her timeline. Her visiting nurse had contacted [facility] for concerns of leg swelling and redness bilaterally. The patient tells me she has a history of cellulitis and has been on multiple antibiotics. She tells me that she was hospitalized sometime in 2019. She is not really clear about how many hospitalizations or what really occurred during them. She tells me she just noticed her legs being red and having peeling skin in the past day or so. She has not been applying any creams due to discomfort. She denies any fevers or chills. She tells me that she has been on doxycycline, Keflex and amoxicillin in the past for skin infections. She tells me she has not seen her PCP in quite some time. She actually tells me she has not seen him in person ever but does indicate that she has had some phone visits with him. She tells me she does not leave her home for medical care. YAN EVANGELISTA NP [address], [place], [address], [place] [facility] 04/30/2020 18:15:05 OBGyn Episode No OBEpisode recorded.
== END 2024-04-09 18:02 | disposition home or self-care (01) ==
PROVIDERS: PCP Internal Medicine; Visit Provider Internal Medicine
DX: E78.00 Pure hypercholesterolemia, unspecified (principal); S32.020S Wedge compression fracture of second lumbar vertebra, sequela; K74.3 Primary biliary cirrhosis; I10 Essential (primary) hypertension; Z23 Encounter for immunization

== ENCOUNTER → 2024-04-09 17:05 | Outpatient (BNVA) | payer MEDICARE, SELFPAY | PROVIDERS: PCP Internal Medicine; Visit Provider Internal Medicine | DX: E78.00 Pure hypercholesterolemia, unspecified (principal); S32.020S Wedge compression fracture of second lumbar vertebra, sequela; K74.3 Primary biliary cirrhosis; I10 Essential (primary) hypertension | CPT/HCPCS: 90471; 90677; 96127; 99212 ==

== ENCOUNTER 2024-10-12 15:45 | Outpatient (AMB) | payer MEDICARE, SELFPAY ==
--- OUTSIDE RECORDS SUMMARY | 2024-10-12 15:48 | XMS_ITS | Patient Health Record ---
[facility] Address [address] [place] [address] Care Team Providers Care Engineering Leader Name Role Phone Yuli Chamberlain Primary Care Provider Philip Randhawa Unavailable [phone] Allergies Allergen (clinical drug ingredient) Drug/Non Drug Allergy documented on EMR Reaction Allergy Type Onset Date Status fentanyl Fentanyl Unknown Drug Allergy Active acetaminophen Tylenol Unknown Drug Allergy Act bety adhesive tape rash Drug Allergy Act ebty Reason For Referral No Information Medications Medication SIG (Take, Route, Frequency, Duration) Notes Start Date End Date Status amLODIPine Besylate 5 MG 1 tablet Orally Once a day Active Vytorin Active Lisinopril 40 MG 1 tablet Orally Once a day Active LORazepam 1 MG Orally Activ e CeleXA 20 MG 1 tablet Orally Once a day Not-Taking Ativan Active Aspir-81 Active Fish Oil Active Calcium Active Social History Tobacco Use: Social History Observation Description Date Details (start date - stop date) Never Smoker NA - NA Tobacco Use/Smoking Question Answer Notes Are you a: nonsmoker Additional Findings: Tobacco Non-User Current no n-smoker Alcohol Screen Question Answer Notes Did you have a drink containing alcohol in the p ast year? Yes Points 0 Interpretation Negative Tobacco use other than smoking: Question Answer Notes Are you an other tobacco user? No Problems Problem Type SNOMED Code ICD Code Onset Dates Problem Status W/U Status Risk Notes Problem Acquired hammer toe of right foot (5547493356215 105) Other hammer toe(s) (acquired), right foot (M20.41) Active confirmed Problem Other hammer toe(s) (acquired), left foot (M20.42) Active confirmed Plan Of Treatment Pending Test Test Name Order Date [id number]-WEBKAUF NAIL, 1-5 09/27/2016 30764-Grvglqud Plate 12/21/2017 Insurance Providers Payer Name Payer Address Payer Phone Subscriber Number Group Number Insured Name Patient Relationship to Insured Coverage Start Date Coverage End Date Medicare National Govt Svcs Inc [address] [place] [address] [id number] Jose M Ann Self - patient is the insured [employer] Blue [employer] [address] [place] [address] [id number] Waylonkendrick Ann Self - patient is the insured Medical (General) History Medical History History ICD Code Broken bones CAD (Cholesterol) Cataracts Diverticulosis High blood pressure Psoriasis Osteoporosis Measles Chicken pox Bone implants/screws Transfusions Hyponatremia Arthritis Surgical History Surgery Date(Month/Year) hip replacement 11/07/2015 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
--- OUTSIDE RECORDS SUMMARY | 2024-10-12 15:48 | XMS_ITS ---
Author Organization [facility] Care Team Providers Care Pbx Installer Name Role Phone Joseph Stapleton Unavailable Unavailable Care Team Name Role Address Phone Organization Dates Joseph Stapleton PCP [address], [address], [place], [address], [place] (Office): : [facility] 04/22/2015 - 05/15/2015 Mental Status Section Date Assessment Total Score Description 05/15/2015 BIMS 15 cognitively int act 05/09/2015 BIMS 15 cognitively int act PHQ-9 06 mild depression Problems Problem # Description Date of onset Resolved Date Code CodeSystem Concern Status 1 AGE-RELATED OSTEOPOROSIS WITHOUT CURRENT PATHOLOGICAL FRACTURE 04/24/[address] active 2 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 04/24/[address] active 3 ESSENTIAL (PRIMARY) HYPERTENSION 04/24/[address] active 4 HYPERLIPIDEMIA, UNSPECIFIED 04/24/[address] active 5 ANXIETY DISORDER DUE TO KNOWN PHYSIOLOGICAL CONDITION 04/22/[address] active 6 IDIOPATHIC ASEPTIC NECROSIS OF LEFT FEMUR 04/22/[address] active 7 MUSCLE WEAKNESS (GENERALIZED) 04/22/[address] active 8 OTHER ASCITES 04/22/[address] act bety 9 OTHER LACK OF COORDINATION 04/22/[address] active 10 OTHER PULMONARY EMBOLISM WITHOUT ACUTE COR PULMONALE 04/22/[address] active 11 OTHER SECONDARY OSTEONECROSIS, LEFT FEMUR 04/22/[address] active 12 SYNDROME OF INAPPROPRIATE SECRETION OF ANTIDIURETIC HORMONE 04/22/[address] active Reason for Referral No Reasons for Referral Entered Social History Social History Observation Description Start Date End Date Code Code System Current Smoking Status Tobacco smoking consumption unknown 354291724 SNOMED CT Sex Assigned At Female 1940 48934-2 [facility] Gender Identity Vital Signs Code Code System Vitals Name Values and Units Timing Information 9279-1 [facility] Respiratory Rate Value=16.0 Units=/m in 05/14/2015 8867-4 [facility] Heart rate Value=82.0 Units=/min 04/2015 26983-1 [facility] O2 % BldC Oximetry Value=98.0 Units= % 05/14/2015 13423-7 [facility] Pain Level Value=7.0 05/14/2015 8462-4 [facility] Blood Pressure-Diastolic Value=86 Un its=mmHg 05/09/2015 8480-6 [facility] Blood Pressure-Systolic Adzrc=126 Un its=mmHg 05/09/2015 8310-5 [facility] Body Temperature Value=98.3 Units= F 05/09/2015 66173-7 [facility] Weight Humjy=733.0 Units=Lbs 12/2015 8302-2 [facility] Height Value=66.0 Units=Inches 04/23/2015
--- OUTSIDE RECORDS SUMMARY | 2024-10-12 15:48 | XMS_ITS | Patient Health Record ---
Author Organization [facility] Address [address] [place] [address] Care Team Providers Care Brokerage Clerk Name Role Phone Po Yuli WHALEY Primary Care Provider Mukund Avelar [phone] Allergies Allergen (clinical drug ingredient) Drug/Non Drug Allergy documented on EMR Reaction Allergy Type Onset Date Status nickel chata (uncoded) Unknown Allergy Act bety Reason For Referral No Information Medications Medication SIG (Take, Route, Frequency, Duration) Notes Start Date End Date Status Probiotic Orally Active Multi Vitamin/Minerals Orally Active Vytorin 10-10 MG 1 tablet Orally Once a day Active Aspir-81 81 MG 1 tablet Orally Once a day Active Lorazepam 1 tab Oral Active Calcium 1 tab Oral Active Fish Oil Active Lisinopril 40 MG 1 tablet Orally Once a day Active Colyte with Flavor Packs 227.1 GM As directed Orally As directed for 1 day(s) 06/28/2013 Active Problems Problem Type SNOMED Code ICD Code Onset Dates Problem Status W/U Status Risk Notes Problem Already on aspirin (127314698) Long-term (current) use of aspirin (V58.66) Active confirmed Problem Screening for colon cancer (V76.51) Active confirmed Plan Of Treatment Future Test Test Name Order Date COLONOSCOPY 06/28/2013 Insurance Providers Payer Name Payer Address Payer Phone Subscriber Number Group Number Insured Name Patient Relationship to Insured Coverage Start Date Coverage End Date MEDICARE OF [place] [address] [place] [address] [phone] [id number] TRACIEZACH MARGARITA Self - patient is the insured [employer] ATT[employer] CLAIMS [address] [place] [address] [phone] [id number] HUA Self - patient is the insured Medical (General) History Medical History History ICD Code hypertension Denies IA,DM,CVA,Lung disease,renal dise ase Takes Lorazepam for sleep Negative screening colonoscopy in 05/[address] Siu Negative EGD in 05/2003 excep t for a small HH with Dr. Siu--gastric biopsies were negative for H. 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
[2024-10-12 15:53] VITALS: BP 122/80; PULSE 88; O2SAT 93; BMI 24.2
--- NOTE | 2024-10-12 15:53 | A.OFFPC_ITS ---
Vital Signs 10/12/24 15:53 Height 5 ft 2 in Weight 132 lb 4.438 oz BMI 24.2 BP 122/80 Blood Pressure Location Lt brachial Position Sitting Pulse 88 Pulse Source Pulse Oximeter Pulse Oximetry (%) 93 Oxygen Delivery Method Room Air 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: HTN, cholesterol Carboy Filler Required: No Accompanied by: Self / Same As Patient Allergies fentanyl (FENTANYL) Allergy (Severe, Verified 10/12/24 15:54) CARDIAC ARREST, heart stopped, anaphylaxis nickel Allergy (Intermediate, Uncoded 10/12/24 15:54) Rash paper tape Allergy (Intermediate, Uncoded 10/12/24 15:54) Rash Medication List - Last Reconciled 10/12/24 by Yuli Chamberlain MD amlodipine 5 mg PO DAILY calcium carbonate (Oyster Shell Calcium) 500 mg PO DAILY 90 days cholecalciferol (vitamin D3) 50 mcg PO DAILY 90 days ezetimibe (Zetia) 10 mg PO DAILY lactulose 20 grams PO BID PRN lisinopril 40 mg PO DAILY multivitamin 1 tab PO DAILY 90 days polyethylene glycol 3350 (Miralax) 17 grams PO BEDTIME quetiapine 50 mg (1/2 x 100 mg) PO BEDTIME 90 days simvastatin 10 mg PO BEDTIME tramadol 50 mg PO BID PRN 30 days ursodiol 300 mg PO BID Tobacco use date assessed: 10/12/24 Fall risk assessment: 1 Fall in past year Last assessed Fall Risk: 10/12/24 Dental Screening Dental Screen Date: 10/12/24 Did you have a dental visit in the last 12 months?: No Did you have a dental problem in the last 6 months where you did not have access to dental care?: No Was dental information given to patient?: No [facility] Medical History Cellulitis Other specified disorders of bone density and structure, right upper arm Proximal humerus fracture Hip fracture, right Retinal artery branch occlusion, left eye Anxiety Osteoporosis Psoriasis Pulmonary nodule Compression fracture of L2 lumbar vertebra Pulmonary embolism Cellulitis Malignant tumor body uterus HTN (hypertension) High cholesterol Lymphedema Surgical History History of esophagogastroduodenoscopy (EGD) Hx of colonoscopy History of surgery History of tonsillectomy and adenoidectomy History of solitary pulmonary nodule History of removal of cyst History of open reduction and internal fixation (ORIF) procedure History of tubal ligation History of hip replacement Family History Father Stroke Hypertension Mother Hypertension CVD (cardiovascular disease) Myocardial infarction Brother Hypertension Sister Hypercholesteremia Hypertension Sister Hypertension Hypercholesteremia Social History Household Members: None Housing: Apartment Do you presently have visiting nurse or other home services: Yes Alcohol intake: never Comment: SLEEPING Patient Tobacco Use Status: Former Tobacco user Tobacco use type: Cigarette e-Cigarette/Vaping Use: Never Used Second Hand Smoke Exposure: No Advance Directives Date on File: 01/16/20 service: No Current occupational status: retired Current occupational exposures/hazards: No Cognitive needs: Yes Hearing needs: No Vision needs: Yes (Pt has glasees for reading) Questionnaire PHQ-9 Over the last 2 weeks, how often have you been bothered by any of the following problems? 1. Little interest or pleasure in doing things: not at all 2. Feeling down, depressed, or hopeless: not at all 3. Trouble falling or staying asleep, or sleeping too much: not at all 4. Feeling tired or having little energy: not at all 5. Poor appetite or overeating: not at all 6. Feeling bad about yourself - or that you are a failure or have let yourself or your family down: not at all 7. Trouble concentrating on things, such as reading the newspaper or watching television: not at all 8. Moving or speaking so slowly that other people could have noticed. Or the opposite - being so fidgety or restless that you have been moving around a lot more than usual: not at all 9. Thoughts that you would be better off or of hurting yourself in some way: not at all Total score: 0 Depression Screening Interpretation: Negative Depression Screening Done: Yes 47671 - PHQ-9 Billing: Yes Source: Developed by Drs. Mukund Magallon, Daksha Curry, Gaurav Garduno and colleagues, with an educational paul from [employer]. Thrive Questionnaire Date Thrive assessed: 10/12/24 I am a: Patient What is your living situation today?: I have a steady place to live Within the past 12 months, did the food you bought not last and you didn't have the money to get more?: Never true Within the past 12 months, did you worry whether your food would run out before you got money to buy more?: Never true Do you have trouble paying for medicines?: No Do you have trouble getting transportation to medical appointments?: No Do you have trouble paying your heating and electricity bill?: No Do you have trouble taking care of your child, family member or friend?: No Do you have trouble with day-to-day activities such as bathing, preparing meals, shopping, managing finances, etc.?: No Are you currently unemployed and looking for a job?: No Are you interested in more education?: No Please select the resources that you would like help with: None Currently or been in a relationship where the following occur: No concerns reported THRIVE Score: 0 AUDIT C Alcohol Use Questionnaire (AUDIT-C) 1. How often do you have a drink containing alcohol?: Never 3. How often do you have six or more drinks on one occasion?: Never Total Score: 0 Score Reviewed/Action Taken: No JOSE-7 AMB Questionnaire JOSE-7 Date JOSE - 7 assessed: 10/12/24 Feeling nervous, anxious, or on edge: 0 = Not at all Not being able to stop or control worryin = Not at all Worrying too much about different things: 0 = Not at all Trouble relaxin = Not at all Being so restless that it is hard to sit still: 0 = Not at all Becoming easily annoyed or irritable: 0 = Not at all Feeling afraid as if something awful might happen: 0 = Not at all Total JOSE-7 score (0-4 normal; 5-9 mild; 10-14 moderate; 15-21 severe): 0 Source: Developed by Drs. Mukund Magallon, Daksha Curry, Gaurav Garduno and colleagues, with an educational paul from [employer]. JOSE-7 Assessment Billing JOSE-7 Assessment Tool: JOSE-7 Assessment 17922 Physical exam (Primary Care) Vital Signs: Last Vital Signs Pulse 88 10/12/24 15:53 BP 122/80 10/12/24 15:53 Pulse Ox 93 10/12/24 15:53 Oxygen Delivery Method Room Air 10/12/24 15:53 BMI result Body Mass Index 24.2 Tobacco/Smoking Status: Tobacco use Status Tobacco use date assessed 10/12/24 10/12/24 16:03 Patient Tobacco Use Status Former Tobacco user 10/12/24 16:03 Tobacco use type Cigarette 10/12/24 16:03 e-Cigarette/Vaping Use Never Used 10/12/24 16:03 PHQ-9: PHQ-9 Score PHQ-9: Total score 0 10/12/24 16:29 Depression Screening Interpretation: Negative Thrive Assessment: Date of Thrive Assessment Date Thrive assessed 10/12/24 10/12/24 16:03 Currently or been in a relationship where the following occur: No concerns reported Const General: alert; No acute distress Eyes Conjunctivae: conjunctivae normal Resp Auscultation: clear to auscultation bilaterally Cardio Rate: regular rate Rhythm: regular rhythm GI Inspection: Yes normal to inspection Extrem General: Yes normal to inspection and No edema Coding Level of Care Code Est Pt Level 4 (55103) Complex EM visit Add On G2211 Diagnoses High cholesterol E78.00 HTN (hypertension) I10 Hypertension type: essential hypertension Generalized anxiety disorder F41.1 Additional Codes JOSE-7 Assessment Billing - JOSE-7 Assessment Tool: JOSE-7 Assessment 41079 ([id number]) PHQ-9 - 59151 - PHQ-9 Billing: Yes ([id number]) Assessment & Plan Assessment & Plan (1) High cholesterol: Code(s): E78.00 - Pure hypercholesterolemia, unspecified Category: Medical Plan: Avoid fried foods, chicken skin, eggs, butter margarine, pastries and meat. Be it pork or beef they have a lot of cholesterol explained to the patient that insurances is the 1 driving medication doses as well as prices (2) HTN (hypertension): Code(s): I10 - Essential (primary) hypertension Category: Medical Qualifiers: Hypertension type: essential hypertension Qualified Code(s): I10 - Essential (primary) hypertension Plan: Continue with blood pressure medication. Decrease salt intake and exercise (3) Generalized anxiety disorder: Code(s): F41.1 - Generalized anxiety disorder Category: Medical Plan: Continue with present medication Plan History of Present Illness The patient is an 83-year-old female presenting with a follow-up visit. She has a history of hypertension, which has been managed with medication. Her blood pressure management plan includes continuing with the current medication regimen. The patient also has a history of fatty liver and cirrhosis, which have been monitored over time. She experienced a lumbar compression fracture in the past, contributing to her osteoporosis diagnosis. Her osteoporosis was last evaluated with a bone density test in August 2021. Hypercholesterolemia is another condition she manages, with discussions around medication adjustments due to insurance coverage issues. The patient was previously on Vytorin, but due to insurance denial, she is now prescribed simvastatin and ezetimibe separately. Preventative care measures include a colonoscopy last performed in October 2021. Health Maintenance - Bone density screening last done in August 2021 - Colonoscopy last done in October 2021 - Blood work last done in December 2023, with a request for updated tests Social History - Reports drinking soda water and trying to eat healthy - Engages in physical activity despite age-related challenges Review of Systems Physical Exam Results Plan The patient's hypertension will continue to be managed with her current medication regimen, as it has been effective in controlling her blood pressure. For hypercholesterolemia, the patient will switch from Vytorin to separate prescriptions of simvastatin and ezetimibe due to insurance coverage issues. This change is expected to maintain cholesterol control while being more cost- effective. The patient is advised to continue with her current lifestyle habits, including maintaining a healthy diet and engaging in physical activity. She is also enco uraged to take vitamin D supplements due to limited sun exposure and to consider calcium-rich foods or supplements for bone health. A request for updated blood work has been made to monitor her overall health and medication effects, with a recommendation to complete this when convenient. Patient was informed and verbally consented to the use of an ambient scribe for clinic note documentation during this visit. Discussion Notes I discussed with the patient the management of her hypercholesterolemia, explaining that her insurance prefers separate prescriptions of simvastatin and ezetimibe over Vytorin due to cost considerations. We also talked about the importance of maintaining her current lifestyle habits and the need for regular blood work to monitor her health. Patient Instructions - Continue taking current blood pressure medication. - Take simvastatin and ezetimibe as prescribed. - Maintain a healthy diet and engage in regular physical activity. - Take vitamin D supplements and consider calcium-rich foods or supplements. - Complete blood work as requested when convenient. Medications: New simvastatin 10 mg PO BEDTIME 90 tabs 2RF E78.00 - Pure hypercholesterolemia, unspecified ezetimibe (Zetia) 10 mg PO DAILY 90 tabs 2RF E78.00 - Pure hypercholesterolemia, unspecified Changed From tramadol 50 mg PO BID 30 days PRN 60 tabs 0RF pain E78.00 - Pure hypercholesterolemia, unspecified To tramadol 50 mg PO TID PRN 225 tabs 0RF pain 90 days E78.00 - Pure hypercholesterolemia, unspecified Refilled cholecalciferol (vitamin D3) 50 mcg PO DAILY 90 caps 3RF 90 days E55.9 - Vitamin D deficiency, unspecified calcium carbonate (Oyster Shell Calcium) 500 mg PO DAILY 90 tabs 2RF 90 days M81.0 - Age-related osteoporosis without current pathological fracture
== END 2024-10-12 16:44 | disposition home or self-care (01) ==
PROVIDERS: PCP Internal Medicine; Visit Provider Internal Medicine
DX: E78.00 Pure hypercholesterolemia, unspecified (principal); I10 Essential (primary) hypertension; F41.1 Generalized anxiety disorder

== ENCOUNTER → 2024-10-12 15:45 | Outpatient (BNVA) | payer MEDICARE, SELFPAY | PROVIDERS: PCP Internal Medicine; Visit Provider Internal Medicine | DX: I10 Essential (primary) hypertension (principal); E78.00 Pure hypercholesterolemia, unspecified; F41.1 Generalized anxiety disorder | CPT/HCPCS: 96127; 99212 ==